=== PATIENT | female | born 1965 | race Two or more races ===

== ENCOUNTER 2020-03-18 08:32 | Outpatient (REF) | payer OTHER, SELFPAY ==
[2020-03-18 09:26] LABS: MANUAL DIFF FLAG NO
[2020-03-18 09:33] LABS: Basophils Percent Auto 0.4 % (0-2); Eosinophils Absolute Auto 0.1 X10*3/uL (0.0-0.4); Eosinophils Percent Auto 1.4 % (0-4); Hematocrit 41.4 % (37-47); Hemoglobin 13.5 g/dl (12.0-16.0); Imm Gran Abs Auto 0.01 X10*3/uL (0.00-0.03); Imm Gran Pct Auto 0.2 % (0.0-0.4); Lymphocytes Absolute Auto 2.7 X10*3/uL (1.2-4.9); Lymphocytes Percent Auto 47.9 % (20-40); Mean Corpuscular HGB Conc 32.6 g/dl (31.0-35.0); Mean Platelet Volume 9.5 fL (9.4-12.3); Monocytes Absolute Auto 0.3 X10*3/uL (0.1-1.2); Monocytes Percent Auto 5.8 % (2-11); Neutrophils Absolute Auto 2.5 X10*3/uL (2.0-8.3); Neutrophils Percent Auto 44.3 % (45-73); Platelet Count 255 X10*3/uL (160-400); Red Blood Count 4.65 X10*6/uL (4.20-5.50); Red Cell Distribution Width 12.3 % (11.0-16.0); White Blood Count 5.7 X10*3/uL (4.8-10.8)
[2020-03-18 10:02] LABS: Alanine Aminotransferase 91 U/L (0-31); Albumin Level 4.5 g/dL (3.5-5.0); Alkaline Phosphatase 115 U/L (39-117); Anion Gap 15 (12-20); Aspartate Amino Transferase 52 U/L (5-31); Bilirubin Total 0.6 mg/dL (0.0-1.0); Blood Urea Nitrogen 16 mg/dL (9-16); Calcium 9.9 mg/dL (8.4-10.2); Carbon Dioxide 25 mmol/L (22-29); Chloride 106 mmol/L (96-108); Cholesterol 280 mg/dL; Estimated Glomerular Filt Rate > 60; Glucose Fasting 96 mg/dL (60-99); HDL Cholesterol 44 mg/dL; LDL Cholesterol Calculated 197 mg/dl; Potassium 4.9 mmol/l (3.3-5.1); Sodium 141 mmol/L (135-145); Total Protein 7.4 g/dL (6.5-8.0); Triglycerides 195 mg/dL
[2020-03-18 10:22] LABS: TSH reflex Free T4 0.66 mIU/mL (0.32-4.0)
== END 2020-03-18 08:33 | disposition home or self-care (01) ==
LOC: HO.LAB 08:32
PROVIDERS: PCP Internal Medicine; Visit Provider Internal Medicine
DX: E78.00 Pure hypercholesterolemia, unspecified (principal); E66.3 Overweight
CPT/HCPCS: 36415; 80053; 80061; 84443; 85025

== ENCOUNTER → 2020-05-08 09:00 | Outpatient (BNVA) | payer OTHER, SELFPAY | PROVIDERS: PCP Internal Medicine; Visit Provider Physician Assistant ==

== ENCOUNTER 2020-05-30 08:25 | Outpatient (REF) | payer OTHER, SELFPAY ==
--- NOTE | ~2020-05-30 | US_ITS ---
EXAMINATION: US COMPLETE ABDOMEN WITH LIVER ELASTOGRAPHY CLINICAL INFORMATION: Elevated transaminase COMPARISON: None. TECHNIQUE: Real-time imaging of the abdominal viscera. Noninvasive ultrasound liver fibrosis assessment is performed using Cruz ElastPQ point quantification shear wave elastography (pSWE) with a C5-2 MHz transducer. Multiple elastography samples are obtained. FINDINGS: PANCREAS: Normal. The visualized pancreatic head and body are normal in appearance. The remainder of the pancreas is obscured from visualization by the overlying bowel gas. ABDOMINAL AORTA: The proximal aorta is obscured by overlying bowel gas. The middle and distal segments appear unremarkable. INFERIOR VENA CAVA: Obscured by overlying bowel gas. LIVER: There is diffusely increased echogenicity consistent with fatty infiltration. No focal mass or intrapelvic bile duct dilatation is appreciated. The right lobe measures 19.7 cm in length. The left lobe measures 14.3 cm in length. Portal flow is hepatopedal Shear wave liver elastography median stiffness is 1.47 m/s (reference: normal median stiffness is 1.3 m/s or less). IQR/median stiffness to assess sampling precision is 0.12 (reference: good quality data set is IQR/median stiffness of 0.15 or less). GALLBLADDER: Normal. The gallbladder is physiologically distended without evidence of stones, sludge, polyps, wall thickening or pericholecystic fluid. COMMON BILE DUCT: Normal in caliber measuring 0.7 cm in diameter. RIGHT KIDNEY: Normal. No hydronephrosis. No renal calculi or focal parenchymal lesions. The kidney measures 12.2 cm in maximum dimension. LEFT KIDNEY: Normal. No hydronephrosis. No renal calculi or focal parenchymal lesions. The kidney measures 11.8 cm in maximum dimension. SPLEEN: Enlarged. The spleen measures 13.9 cm in maximum dimension. FREE FLUID: None. US/US abdomen comp w elastography IMPRESSION: 1. Increased echogenicity of the liver consistent with fatty infiltration. 2. Liver elastography: In the absence of other known clinical signs, measurements rule out compensated advanced chronic liver disease. If there are known clinical signs, further testing may be needed for confirmation. REFERENCE: Society of Radiologists in Ultrasound Liver Stiffness Thresholds (2020): LIVER STIFFNESS THRESHOLDS: *Liver Stiffness equal or less than 1.3 m/s: High probability of being normal. *Liver Stiffness less than 1.7 m/s: In the absence of other known clinical signs, rules out compensated advanced chronic liver disease. *Liver Stiffness 1.7-2.1 m/s: Suggestive of compensated advanced chronic liver disease but need further test for confirmation. *Liver Stiffness over 2.1 m/s: Rules in compensated advanced chronic liver disease. *Liver Stiffness over 2.4 m/s: Suggestive of clinically significant portal hypertension. QUALITY OF DATA SET: *IQR/Median value equal or less than 0.15 implies a quality data set. *IQR/Median value over 0.15 implies a poor quality data set. SIGNIFICANT CHANGE FROM PRIOR EXAM: Significant change if liver stiffness measurement is 10% or greater from prior exam. OTHER CONSIDERATIONS: The stage of liver fibrosis may be overestimated in the setting of acute hepatitis, liver inflammation, elevated liver function tests, hepatic vascular congestion, obstructive cholestasis, non-fasting state, and infiltrative diseases such as amyloidosis and lymphoma. In some patients with NAFLD, the liver stiffness thresholds for compensated advanced chronic liver disease may be lower. In causes other than viral hepatitis and NAFLD, liver stiffness thresholds are not well established.
== END 2020-05-30 08:26 | disposition home or self-care (01) ==
LOC: HO.US 08:25
PROVIDERS: PCP Internal Medicine; Visit Provider Physician Assistant
DX: R74.01 Elevation of levels of liver transaminase levels (principal)
CPT/HCPCS: 76705; 76981

== ENCOUNTER 2020-05-30 09:16 | Outpatient (REF) | payer OTHER, SELFPAY ==
[2020-05-30 10:27] LABS: Alanine Aminotransferase 81 U/L (0-31); Albumin Level 4.5 g/dL (3.5-5.0); Alkaline Phosphatase 147 U/L (39-117); Anion Gap 14 (12-20); Aspartate Amino Transferase 43 U/L (5-31); Bilirubin Total 0.9 mg/dL (0.0-1.0); Blood Urea Nitrogen 16 mg/dL (9-16); Calcium 9.8 mg/dL (8.4-10.2); Carbon Dioxide 27 mmol/L (22-29); Chloride 105 mmol/L (96-108); Cholesterol 284 mg/dL; Estimated Glomerular Filt Rate > 60; Glucose Random 97 mg/dL (60-115); HDL Cholesterol 44 mg/dL; LDL Cholesterol Calculated 189 mg/dl; Potassium 4.5 mmol/L (3.3-5.1); Sodium 141 mmol/L (135-145); Total Protein 7.3 g/dL (6.5-8.0); Triglycerides 256 mg/dL
[2020-05-31 08:40] LABS: HBc Num1 0.06 S/CO (0.00-0.79); Hepatitis B Core Antibody Nonreactive (Nonreactive); ~HepC Num1 0.06 S/CO (0.00-0.79); ~Hepatitis A Antibody IgM Nonreactive (Nonreactive); ~Hepatitis B Surface Antibody NONREACTIVE (Nonreactive); ~Hepatitis C Antibody Nonreactive (Nonreactive)
[2020-05-31 09:50] LABS: HBsAGNum1 0.17 S/CO (0.00-0.99); Hepatitis B Surface Antigen Negative (Negative)
[2020-05-31 12:46] LABS: Mitochondrial Antibodies NEGATIVE (NEGATIVE)
[2020-05-31 13:11] LABS: Anti Nuclear Antibody Screen NEGATIVE (NEGATIVE)
[2020-06-02 10:12] LABS: Smooth Muscle Antibody <20 U (<20)
== END 2020-05-30 09:17 | disposition home or self-care (01) ==
LOC: HO.LAB 09:16
PROVIDERS: Absent Provider Nurse Practitioner Family; PCP Internal Medicine; Visit Provider Physician Assistant
DX: R74.01 Elevation of levels of liver transaminase levels (principal); R10.11 Right upper quadrant pain; R79.89 Other specified abnormal findings of blood chemistry; K76.0 Fatty (change of) liver, not elsewhere classified; R74.8 Abnormal levels of other serum enzymes
CPT/HCPCS: 36415; 80053; 80061; 86038; 86039; 86255; 86256; 86704; 86706; 86709; 86803; 87340

== ENCOUNTER 2020-08-01 08:03 | Outpatient (REF) | payer OTHER, SELFPAY ==
--- NOTE | ~2020-08-01 | MM_ITS ---
EXAMINATION: MM SCREENING DIGITAL BREAST TOMOSYNTHESIS, BILATERAL CLINICAL INFORMATION: Screening. Asymptomatic. The lifetime risk of breast cancer based on the Tyrer-Cuzick Model is 9%. COMPARISON: Mammography: 06/05/2018, 11/14/2016, 05/27/2016; ultrasound left breast 06/05/2018. TECHNIQUE: Digital breast tomosynthesis is performed in both the craniocaudal and mediolateral oblique views along with computer-aided detection (CAD). Synthesized 2D images are generated from the tomosynthesis. FINDINGS: There are scattered areas of fibroglandular density (ACR BI-RADS breast composition Category b). There are no significant masses, abnormal calcifications, or other abnormalities. Parenchymal pattern is similar to prior exams. There is a circumscribed cyst posterior 3:00 left breast better appreciated on MLO view, similar to prior exams. Skin contours are smooth. There are no significant changes. MM/MM tomosynthesis screening BI IMPRESSION: No significant changes from prior exams. ASSESSMENT: BI-RADS 2: Benign RECOMMENDATION: Routine annual mammography screening. This patient's information was entered into a reminder system with a target due date for their next mammogram.
== END 2020-08-01 08:04 | disposition home or self-care (01) ==
LOC: HO.MAMMO 08:03
PROVIDERS: PCP Internal Medicine; Visit Provider Internal Medicine
DX: Z12.31 Encounter for screening mammogram for malignant neoplasm of breast (principal)
CPT/HCPCS: 77063; 77067

== ENCOUNTER → 2020-08-07 09:55 | Outpatient (BNVA) | payer OTHER, SELFPAY | PROVIDERS: Visit Provider Physician Assistant ==

== ENCOUNTER 2021-03-21 09:37 | Outpatient (REF) | payer OTHER, SELFPAY ==
--- NOTE | ~2021-03-21 | XR_ITS ---
EXAMINATION: CHEST AND LEFT RIB X-RAYS CLINICAL INFORMATION: Chest pain COMPARISON: None TECHNIQUE: 2 views of the chest. 3 views of the left ribs. FINDINGS: Chest: The cardiac and mediastinal contours are normal. The lungs are clear. There is no pleural effusion or pneumothorax. There is mild curvature of the thoracic spine to the right and degenerative changes. Left RIBS: No fracture or bone lesion is seen. XR/XR ribs LT 2V IMPRESSION: No evidence for acute disease in the chest. Normal left ribs. Mild degenerative changes and curvature of the thoracic spine.
--- NOTE | ~2021-03-21 | XR_ITS ---
EXAMINATION: CHEST AND LEFT RIB X-RAYS CLINICAL INFORMATION: Chest pain COMPARISON: None TECHNIQUE: 2 views of the chest. 3 views of the left ribs. FINDINGS: Chest: The cardiac and mediastinal contours are normal. The lungs are clear. There is no pleural effusion or pneumothorax. There is mild curvature of the thoracic spine to the right and degenerative changes. Left RIBS: No fracture or bone lesion is seen. XR/XR chest 2V IMPRESSION: No evidence for acute disease in the chest. Normal left ribs. Mild degenerative changes and curvature of the thoracic spine.
== END 2021-03-21 09:38 | disposition home or self-care (01) ==
LOC: HO.XRAY 09:37
PROVIDERS: PCP Internal Medicine; Visit Provider Internal Medicine
DX: R07.89 Other chest pain (principal)
CPT/HCPCS: 71046; 71100

== ENCOUNTER 2021-05-08 09:55 | Outpatient (REF) | payer OTHER, SELFPAY ==
--- NOTE | ~2021-05-08 | US_ITS ---
EXAMINATION: US ABDOMEN COMPLETE CLINICAL INFORMATION: Microscopic hematuria. COMPARISON: Ultrasound abdomen 05/30/2020. TECHNIQUE: Real-time imaging of the abdominal viscera. FINDINGS: PANCREAS: The pancreas is obscured by overlying gas. ABDOMINAL AORTA: The proximal, mid, and distal segments are normal in caliber. INFERIOR VENA CAVA: Visualized portions are normal. LIVER: The liver is diffusely echogenic and enlarged. The liver contour is normal. No focal hepatic lesion. There is no intrahepatic biliary duct dilatation seen. The right hepatic lobe measures 17.2 cm in length and the left hepatic lobe measures 13.0 cm in length. GALLBLADDER: The gallbladder wall thickness is 0.2 cm. The gallbladder is physiologically distended without evidence of stones, sludge, polyps, wall thickening or pericholecystic fluid. COMMON BILE DUCT: Normal in caliber measuring 0.4 cm in diameter. RIGHT KIDNEY: Normal. No hydronephrosis. No renal calculi or focal parenchymal lesions. The kidney measures 12.2 cm in maximum dimension. LEFT KIDNEY: Normal. No hydronephrosis. No renal calculi or focal parenchymal lesions. The kidney measures 11.8 cm in maximum dimension. SPLEEN: The spleen is enlarged. The spleen measures 13.4 cm in maximum dimension. FREE FLUID: None. US/US abdomen complete IMPRESSION: Hepatomegaly with hepatic steatosis. No focal lesion seen. Mild splenomegaly. No major change from previous exam 05/30/2020. The rest of the abdominal ultrasound is unremarkable.
== END 2021-05-08 09:56 | disposition home or self-care (01) ==
LOC: HO.US 09:55
PROVIDERS: PCP Internal Medicine; Visit Provider Internal Medicine
DX: R79.89 Other specified abnormal findings of blood chemistry (principal)
CPT/HCPCS: 76700

== ENCOUNTER 2021-05-23 13:35 | Outpatient (REF) | payer OTHER, SELFPAY ==
[2021-05-23 14:29] LABS: Prothrombin Time 11.2 SEC (9.9-13.0)
[2021-05-23 15:12] LABS: Alanine Aminotransferase 61 U/L (0-31); Albumin Level 4.6 g/dL (3.5-5.0); Alkaline Phosphatase 172 U/L (39-117); Aspartate Amino Transferase 36 U/L (5-31); Bilirubin Direct 0.2 mg/dL (0.0-0.5); Bilirubin Total 0.6 mg/dL (0.0-1.0); Iron 87 mcg/dL (30-160); Percent Iron Saturation 18 % (15-50); Total Iron Binding Capacity 475 mcg/dL (228-428); Total Protein 7.7 g/dL (6.5-8.0); Unsaturated Iron Binding 388 ug/dL
[2021-05-23 17:06] LABS: Ferritin 71 ng/mL (10-250)
[2021-05-25 18:56] LABS: Alpha 1 Anti-trypsin 154 mg/dL (83-199)
== END 2021-05-23 13:36 | disposition home or self-care (01) ==
LOC: HO.LAB 13:35
PROVIDERS: PCP Internal Medicine; Visit Provider Internal Medicine
DX: K76.0 Fatty (change of) liver, not elsewhere classified (principal); R79.89 Other specified abnormal findings of blood chemistry
CPT/HCPCS: 36415; 80076; 82103; 82728; 83540; 85610

== ENCOUNTER 2022-10-03 15:18 | Outpatient (REF) | payer OTHER, SELFPAY ==
--- NOTE | ~2022-10-03 | XR_ITS ---
EXAMINATION: XR FOOT, LEFT CLINICAL INFORMATION: Pain in back of foot for about one year COMPARISON: None available. TECHNIQUE: AP, lateral, and oblique views of the left foot. FINDINGS: Mild degenerative changes with hypertrophic change first metatarsophalangeal joint. Mild hypertrophic change along the plantar region of the calcaneus. No displaced fracture. XR/XR foot LT min 3V IMPRESSION: 1. Mild hypertrophic change along the plantar region of the calcaneus. 2. Mild degenerative changes first metatarsophalangeal joint. 3. No displaced fracture. Recommend follow-up imaging in 10-14 days if fracture is suspected.
== END 2022-10-03 15:19 | disposition home or self-care (01) ==
LOC: HO.HHCX 15:18
PROVIDERS: Visit Provider Internal Medicine
DX: M79.672 Pain in left foot (principal)
CPT/HCPCS: 73630

== ENCOUNTER 2022-11-01 08:43 | Outpatient (REF) | payer OTHER, SELFPAY ==
[2022-11-01 12:05] LABS: Appearance Urine Turbid; Color Urine Yellow; Glucose Urine UA Negative (Negative); Leukocyte Esterase Urine Negative (Negative); Nitrite Urine Negative (Negative); Specific Gravity - Urine 1.025 (1.005-1.025); UMIC TRIGGER UA YES; Urine Blood Moderate (2+) (Negative); Urine Ketones Negative (Negative); Urine Protein Negative (Neg-Trace)
[2022-11-01 13:55] LABS: MANUAL DIFF FLAG NO
[2022-11-01 14:08] LABS: Basophils Percent Auto 0.3 % (0-2); Eosinophils Absolute Auto 0.1 X10*3/uL (0.0-0.4); Hematocrit 41.6 % (37.0-47.0); Hemoglobin 13.1 g/dl (12.0-16.0); Imm Gran Abs Auto 0.02 X10*3/uL (0.00-0.03); Imm Gran Pct Auto 0.3 % (0.0-0.4); Lymphocytes Absolute Auto 2.8 X10*3/uL (1.2-4.9); Lymphocytes Percent Auto 47.6 % (20-40); Mean Corpuscular HGB Conc 31.5 g/dl (31.0-35.0); Mean Corpuscular Hemoglobin 27.5 pg (27.0-33.0); Mean Corpuscular Volume 87.2 fL (80.0-98.0); Mean Platelet Volume 9.5 fL (9.4-12.3); Monocytes Absolute Auto 0.4 X10*3/uL (0.1-1.2); Neutrophils Absolute Auto 2.6 x10*3/uL (2.0-8.3); Neutrophils Percent Auto 44.8 % (45-73); Platelet Count 294 X10*3/uL (160-400); Red Blood Count 4.77 X10*6/uL (4.20-5.50); Red Cell Distribution Width 14.7 % (11.0-16.0); White Blood Count 5.9 X10*3/uL (4.8-10.8)
[2022-11-01 14:10] LABS: Bacteria Urine None Seen (None Seen); Hyaline Casts Urine 0-2 /LPF (0-2); Squamous Epithelial Cell Urine 0-2 /HPF (0-2); WBC Urine 0-5 /HPF (0-5)
[2022-11-01 14:18] LABS: Alanine Aminotransferase 16 U/L (0-31); Albumin Level 4.4 g/dL (3.5-5.0); Alkaline Phosphatase 141 U/L (39-117); Anion Gap 12 (12-20); Aspartate Amino Transferase 18 U/L (5-31); Bilirubin Direct 0.3 mg/dL (0.0-0.5); Bilirubin Total 0.9 mg/dL (0.0-1.0); Blood Urea Nitrogen 19 mg/dL (9-16); Carbon Dioxide 26 mmol/L (22-29); Chloride 106 mmol/L (96-108); Estimated Glomerular Filt Rate > 60; Glucose Random 80 mg/dL (60-115); Potassium 4.2 mmol/L (3.3-5.1); Sodium 140 mmol/L (135-145); Total Protein 7.4 g/dL (6.5-8.0)
[2022-11-01 14:30] LABS: Cholesterol 214 mg/dL; HDL Cholesterol 51 mg/dL; LDL Cholesterol Calculated 138 mg/dl; Triglycerides 125 mg/dL
[2022-11-01 15:10] LABS: Reflex LDLD? No
== END 2022-11-01 08:44 | disposition home or self-care (01) ==
LOC: HO.HHCL 08:43
PROVIDERS: Visit Provider Internal Medicine
DX: I10 Essential (primary) hypertension (principal); E78.2 Mixed hyperlipidemia
CPT/HCPCS: 36415; 80048; 80061; 80076; 81001; 85025

== ENCOUNTER 2022-12-03 12:02 | Outpatient (REF) | payer OTHER, SELFPAY ==
--- NOTE | ~2022-12-03 | XR_ITS ---
EXAMINATION: XR FOOT, LEFT CLINICAL INFORMATION: Pain for 3 years posteriorly inside the inner heel COMPARISON: 10/03/2022 TECHNIQUE: AP, lateral, and oblique views of the left foot. FINDINGS: Mild degenerative changes with hypertrophic change in the first metatarsophalangeal joint. Mild hypertrophic change along the plantar region of the calcaneus. No displaced fracture. XR/XR foot LT min 3V IMPRESSION: 1. Mild hypertrophic change along the plantar region of the calcaneus. 2. Mild degenerative changes first metatarsophalangeal joint. 3. No displaced fracture. Additional imaging with CT scan or MRI should be considered for better visualization as these modalities are much more sensitive for detection of fracture or other underlying pathology.
== END 2022-12-03 12:03 | disposition home or self-care (01) ==
LOC: HO.HHCX 12:02
PROVIDERS: Visit Provider Internal Medicine
DX: M79.672 Pain in left foot (principal)
CPT/HCPCS: 73630

== ENCOUNTER 2022-12-12 09:54 | Outpatient (REF) | payer OTHER, SELFPAY | END 2022-12-12 09:55 | disposition home or self-care (01) | LOC: HO.MAMMO 09:54 | PROVIDERS: PCP Internal Medicine; Visit Provider Internal Medicine | DX: Z12.31 Encounter for screening mammogram for malignant neoplasm of breast (principal) | CPT/HCPCS: 77063; 77067 ==

== ENCOUNTER → 2022-12-12 10:00 | Outpatient (BNV) | payer OTHER, SELFPAY | PROVIDERS: PCP Internal Medicine; Visit Provider Radiology Diagnostic Radiology | DX: Z12.31 Encounter for screening mammogram for malignant neoplasm of breast (principal) | CPT/HCPCS: 77063; 77067 ==

== ENCOUNTER 2022-12-24 09:56 | Outpatient (REF) | payer OTHER, SELFPAY ==
[2022-12-24 16:28] LABS: Urine Cytology See Pathology rpt
== END 2022-12-24 09:57 | disposition home or self-care (01) ==
LOC: HO.LNP 09:56
PROVIDERS: PCP Internal Medicine; Visit Provider Nurse Practitioner Family
DX: N39.3 Stress incontinence (female) (male) (principal); R31.29 Other microscopic hematuria; R39.15 Urgency of urination
CPT/HCPCS: 81003; 87086; 87147; 88112

== ENCOUNTER → 2022-12-24 09:56 | Outpatient (AMB) | payer OTHER, SELFPAY ==
--- NOTE | 2022-12-24 10:02 | MHC.OFFVIS ---
Intake Intake Visit Reasons: Micro hematuria Intake Note: New Patient presents for initial visit Micro Hematuria Urology Medications: none Blood Thinner: Aspirin Smoker- Never Bank Accountant Required: Yes Bank Accountant Name: Raimundo Accompanied by: Self / Same As Patient Allergies No Known Allergies [No Known Allergies*] Allergy (Verified 12/24/22 23:25) Medication List - Last Reconciled 12/24/22 by AMANDA Melgar-JOE aspirin (Adult Aspirin Regimen) 81 mg PO DAILY lisinopril-hydrochlorothiazide 10-12.5 mg 1 tab PO DAILY 90 days pravastatin 10 mg PO BEDTIME 90 days rosuvastatin 5 mg PO DAILY 90 days HPI HPI Comments History of Present Illness Details Mary is a very pleasant 57-year-old Bermudian-speaking female patient of Dr. Rock. She has a past medical history of hypertension, nonalcoholic fatty liver disease, hypercholesteremia, hypertension, and transaminitis. She presents to the office today as a new patient for microscopic hematuria. In discussion with the patient today she reports to be doing and feeling well. She reports having a longstanding history of microscopic hematuria and having a microscopic hematuria workup with in office cystoscopy over 6 years ago at a previous urology office. In office urinalysis results reviewed with the patient today. Again microscopic hematuria noted. Discussed at length potential causes for microscopic hematuria. Discussed further microscopic hematuria workup with imaging, cytology, and in office cystoscopy for further assessment evaluation. When asked patient does report noting new onset urinary stress incontinence over the last 3-6 months. She reports having had two previous vaginal deliveries. She reports babies to be average size and labors to have been somewhat fast. When asked she denies any previous smoking history or any known chemical exposure. She reports noting urinary urgency with small amounts of voids. She otherwise denies nocturia, hematuria, dysuria, foul smelling urine, changes to urinary stream, flank pain, fever, and or chills. 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 Review of Systems Const Reports as per HPI Eyes Reports no additional complaints ENT Reports no additional complaints Card Reports as per HPI Resp Reports no additional complaints GI Reports as per HPI Reports as per HPI Musc Reports no additional complaints Neuro Reports no additional complaints Psych Reports no additional complaints Endo Reports no additional complaints Physical Exam Const General: cooperative, healthy appearing, comfortable, no acute distress, well developed, alert and awake Orientation/consciousness: patient oriented x3 Limitations: no limitations HEENT Head: Yes normal to inspection, Yes normocephalic and Yes atraumatic Ears: hearing grossly normal bilaterally Eyes General: appearance normal, both eyes and all related structures Neck Neck: Yes normal visual inspection and Yes trachea midline Chest Chest palpation & inspection: normal inspection of the chest Resp Effort & Inspection: normal respiratory effort and able to speak in complete sentences Cardio Rate: regular rate GI Inspection: Yes normal to inspection General: Yes no CVA tenderness Back/Spine/Pelvis Back: no CVA tenderness Skin General skin exam: no rashes or lesions noted Neuro General: patient oriented x3 Extrem General: Yes normal to inspection Psych Appearance: grossly normal and well kempt Mental Status: mental status grossly normal Speech and movement: Normal speech and movement present and Clear speech present Affect: normal affect Attitude: cooperative Thought process: Normal thought process present Thought content: Normal thought content present Insight: Good insight present (Psych) Judgement: Good judgement present (Psych) Results AMB Urinalysis, Automated UA Leukoctes 70 Akil/uL Last Edit by Lisa Ladd on 12/24/22 10:24 UA Nitrite Last Edit by Lisa Ladd on 12/24/22 10:24 UA Urobilinogen 0.2 mg/dL Last Edit by Lisa Ladd on 12/24/22 10:24 UA Protein 0 mg/dL Last Edit by Lisa Ladd on 12/24/22 10:24 UA pH 6.0 Last Edit by Lisa Ladd on 12/24/22 10:24 UA Blood 80 Juan A/uL Last Edit by Lisa Ladd on 12/24/22 10:24 UA Specific [place] 1.020 Last Edit by Lisa Ladd on 12/24/22 10:24 UA Ketone Negative Last Edit by Lisa Ladd on 12/24/22 10:24 UA Bilirubin 0 mg/dL Last Edit by Lisa Ladd on 12/24/22 10:24 UA Glucose 0 mg/dL Last Edit by Lisa Niñohyun on 12/24/22 10:24 Results Reviewed Results Reviewed: Laboratory Last Values Urine pH (Auto) 6.0 12/24/22 10:07 Specific [place] (Auto) 1.020 12/24/22 10:07 Urine Protein (Auto) 0 mg/dL 12/24/22 10:07 Glucose (UA)(Auto) 0 mg/dL 12/24/22 10:07 Urine Ketones (Auto) Negative 12/24/22 10:07 Urine Blood (Auto) 80 Juan A/uL 12/24/22 10:07 Urine Bilirubin (Auto) 0 mg/dL 12/24/22 10:07 Urine Urobilinogen (Auto) 0.2 mg/dL 12/24/22 10:07 Leukocyte Esterase (Auto) 70 Akil/uL 12/24/22 10:07 Assessment & Plan Assessment & Plan (1) Stress incontinence: Code(s): N39.3 - Stress incontinence (female) (male) (2) Microscopic hematuria: Code(s): R31.29 - Other microscopic hematuria (3) Urinary urgency: Code(s): R39.15 - Urgency of urination Plan In office urinalysis results reviewed with the patient today; will send for urine cytology and urine culture. Patient with previous microscopic hematuria workup over 6-7 years ago and reports no abnormalities noted. Discussed at length potential causes for microscopic hematuria. Discussed further microscopic hematuria workup versus continuation of surveillance monitoring. Discussed risks and benefits of surveillance monitoring verses further microscopic hematuria workup. Will obtain retroperitoneal ultrasound for further assessment evaluation. Discussed bladder triggers/irritants. Pelvic floor therapy information provided; patient will attempt to perform pelvic floor exercises at home with information provided. Discussed treatment options for urinary incontinence Discussed near future in office cystoscopy if symptoms persist and/or worsen. Discussed, educated, encouraged on the importance of drinking plenty of water daily. Follow-up in 3 months with imaging to be completed prior; or sooner with any issues, concerns, and or questions. Orders: Orders US retroperitoneal comp 12/24/22 N39.3 - Stress incontinence (female) (male), R31.29 - Other microscopic hematuria AMB Urinalysis Automated 12/24/22 Z13.9 - Encounter for screening, unspecified Urine Cytology 12/24/22 Z13.9 - Encounter for screening, unspecified Urine Culture 12/24/22 R31.29 - Other microscopic hematuria Patient Instructions: The patient had an opportunity to ask questions regarding the treatment plan. All questions were answered. Physical exam, labs, and imaging were discussed and reviewed in detail. As well as risks, benefits, and discussion of treatment choices. No major barriers to understanding were identified. The patient expressed understanding and agreement with the above treatment plan. The patient was made aware they should contact our office by phone for worsening of their current condition, the appearance of new symptoms, or with any questions or concerns. Compliance is encouraged with any medications and follow up testing that is ordered. It is a privilege to be allowed the opportunity to participate in? your urological care.? Again, if you have any questions or concerns If you have any questions or concerns please do not hesitate to contact me. The office is [phone]. This note is constructed using voice recognition software. While every effort has been made to ensure accuracy temporary administrative assistant errors may have been included. Yours sincerely, SHASHANK Melgar Coding Level of Care Code New Pt Level 3 (20073) Diagnoses Stress incontinence N39.3 Microscopic hematuria R31.29 Urinary urgency R39.15
== END ==
PROVIDERS: PCP Internal Medicine; Visit Provider Nurse Practitioner Family
DX: N39.3 Stress incontinence (female) (male) (principal); R31.29 Other microscopic hematuria; R39.15 Urgency of urination
CPT/HCPCS: 99203

== ENCOUNTER 2023-01-30 07:54 | Outpatient (AMB) | payer OTHER, SELFPAY ==
--- NOTE | 2023-01-30 07:58 | MHC.OFFVIS ---
Intake Vital Signs 01/30/23 08:02 Height 5 ft 4 in Weight 163 lb BMI 28.0 BP 122/82 Intake Visit Reasons: Colpo Consult/PCP Ref Casting Associate Required: Yes Casting Associate Language: Education Officer Name: Jordyn FLORIAN Information Interpreted: non-clinical & clinical Senior Advisor: Senior Advisor Present (Jordyn FLORIAN) Accompanied by: Self / Same As Patient Allergies No Known Allergies [No Known Allergies*] Allergy (Verified 01/30/23 08:03) Post menopausal: Yes HPI HPI Comments History of Present Illness Details Presenting referred from [facility] regarding a Pap smear was negative with HPV E6/E7 positive with negative HPV 16 and negative HPV 18 and 45. History of ascus/HPV negative in 2014 followed by negative co testing in 2019. The patient gives a history of left vulvar lesion that has been growing in size causing irritation to the patient [facility] Medical History (Updated 01/30/23 @ 08:27 by Michael Wilkins MD) ASCUS of cervix with negative high risk HPV NAFLD (nonalcoholic fatty liver disease) Screening for breast cancer Abnormal mammogram COVID-19 Pure hypercholesterolemia Transaminitis Hypertension Surgical History History of carpal tunnel release History of tubal ligation Family History Father History of open heart surgery Hypertension CVD (cardiovascular disease) Mother Lung cancer Hypertension Maternal Grandmother Stomach cancer Sister Diabetes Social History Household Members: Spouse and Children Housing: House Alcohol intake: never Patient Tobacco Use Status: Never used Tobacco Current occupational status: employed 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 Sexual orientation: Straight/Heterosexual Gender identity: Female Review of Systems Const All systems reviewed & are unremarkable except as noted in HPI and below Physical Exam Vital Signs: Last Vital Signs BP 122/82 01/30/23 08:02 BMI result Body Mass Index 28.0 General: Yes no CVA tenderness External Female Exam: normal external appearance, normal appearance of the urethra and other (Left pedunculated 2 cm labia majora lesion growing) Speculum Exam - Vagina: normal appearance of the vagina, normal palpation, no lesions and no masses Speculum Exam - Cervix: normal appearance of the cervix, normal palpation, no lesions, no masses and nontender Bimanual exam- vagina & uterus: normal bimanual exam, normal palpation, uterine size normal, normal palpation, uterine shape normal, No Cervical tenderness present and non-tender Bimanual Exam- Adnexa, other: normal adnexae Back/Spine/Pelvis Back: no CVA tenderness Office Procedures Colposcopy Before the procedure was started discussed with the patient the procedure, alternatives & all the risks associated with the procedure (bleeding, infection, injury to vagina, bladder, vessels, possible need for transfusion with all its risks) then patient signed the consent UPT done in the office & negative Pap smear = negative/HPV E6/E7 positive, HPV 16/18/45 negative Speculum inserted, acetic acid used Colposcopy done Transformation zone seen, acetowhite lesions identified at 5+6+7+9+11+12+1+3 o?clock, cervical biopsies taken from 5+6+7+9+11+12+1+3 o?clock, ECC done afterwards. Vaginoscopy of the upper vagina showed no evidence of any aceto-white lesions Monsel solution used for hemostasis. The patient tolerated well . At the end the patient was instructed to call if temp>100.4, abdominal pain, n/v, bleeding; The patient was given the following instructions: nothing per vagina, no intercourse or bath tub use. All questions answered the patient verbalized understanding. Instructed the patient to make an appointment in 2 weeks for follow-up This note was generated with a voice recognition program. Some errors may have been overlooked during the review of this note. Sometimes these errors may affect the content or meaning of a given sentence. 18559-Emdcoocut of cervix including upper vagina with biopsy and ECC Procedure code (CPT) selection complete Assessment & Plan Assessment & Plan (1) HPV (human papilloma virus) infection: Comment: HPV E6/E7 positive, HPV 16 neg, HPV 18/45 neg Code(s): B97.7 - Papillomavirus as the cause of diseases classified elsewhere Plan: Discussed with the patient the results of her Pap smear negative with HPV E6/E7 positive, HPV 16 neg, HPV 18/45 neg, history of ascus/HPV negative in 2013 and negative co testing 2018 discussed with the patient options of management including repeat co testing an ear versus colposcopy biopsy given her history of ascus/HPV negative in 2013. All pros and cons, risks and benefits of each approach were discussed with the patient, the patient decided to proceed with colposcopy. Colposcopy/biopsy/ECC done, see procedure note. (2) Vulvar lesion: Comment: Growing in size Code(s): N90.89 - Other specified noninflammatory disorders of vulva and perineum Plan: Discussed with the patient the finding on pelvic exam showing a left labia majora pedunculated a lesion. The patient gives history of recent growth inside and irritation, recommended excision. Instructions given to patient to schedule a an appointment for left vulvar lesion excision. All questions answered, the patient verbalized understand Orders: Orders AMB Colposcopy Today B97.7 - Papillomavirus as the cause of diseases classified elsewhere Coding Level of Care Code New Pt Level 3 (96165) Procedure Only Diagnoses HPV (human papilloma virus) infection B97.7 Vulvar lesion N90.89 CPT Codes Colposcopy - CPT: 94923-Mgtvxvlus of cervix including upper vagina with biopsy and ECC ([id number])
[2023-01-30 08:02] VITALS: BP 122/82; BMI 28.0
== END 2023-01-30 09:17 | disposition home or self-care (01) ==
PROVIDERS: PCP Internal Medicine; Visit Provider Obstetrics & Gynecology
DX: N90.89 Other specified noninflammatory disorders of vulva and perineum (principal); R87.810 Cervical high risk human papillomavirus (HPV) DNA test positive
CPT/HCPCS: 57454; 99203

== ENCOUNTER 2023-01-30 07:54 | Outpatient (REF) | payer OTHER, SELFPAY | END 2023-01-30 07:55 | disposition home or self-care (01) | LOC: HO.LNP 07:54 | PROVIDERS: PCP Internal Medicine; Visit Provider Obstetrics & Gynecology | DX: N90.89 Other specified noninflammatory disorders of vulva and perineum (principal); B97.7 Papillomavirus as the cause of diseases classified elsewhere | CPT/HCPCS: 57454; 88305; 88342; 88360 ==

== ENCOUNTER 2023-03-17 10:01 | Outpatient (REF) | payer OTHER, SELFPAY ==
--- NOTE | ~2023-03-17 | US_ITS ---
EXAMINATION: US RETROPERITONEAL COMPLETE (RENAL) CLINICAL INFORMATION: Other microscopic hematuria. COMPARISON: Ultrasound abdomen complete 05/08/2021. Ultrasound abdomen complete with liver elastography 05/30/2020. TECHNIQUE: Real-time imaging of the kidneys and bladder. FINDINGS: RIGHT KIDNEY: 11.4 x 4.0 x 4.9 cm (SAG x AP x TRV). The kidney is normal in size, contour, and echogenicity. Renal cortical thickness is normal. No renal calculi or hydronephrosis. At the lower pole laterally, a 5 mm benign, simple cyst is seen, which requires no imaging follow-up. LEFT KIDNEY: 11.5 x 5.2 x 4.4 cm (SAG x AP x TRV). The kidney is normal in size, contour, and echogenicity. Renal cortical thickness is normal. No calculi or focal parenchymal lesions. No hydronephrosis. BLADDER: Well distended and normal. Bilateral ureteral jets are demonstrated. Prevoid bladder volume is 159 mL. There is no postvoid residual. US/US retroperitoneal comp IMPRESSION: Unremarkable examination.
== END 2023-03-17 10:02 | disposition home or self-care (01) ==
LOC: HO.US 10:01
PROVIDERS: PCP Internal Medicine; Visit Provider Nurse Practitioner Family
DX: R31.29 Other microscopic hematuria (principal); N39.3 Stress incontinence (female) (male)
CPT/HCPCS: 76770

== ENCOUNTER 2023-03-19 10:20 | Outpatient (AMB) | payer OTHER, SELFPAY ==
--- NOTE | 2023-03-19 10:23 | A.OFFVIS_ITS ---
Intake Vital Signs 03/19/23 10:31 Height 5 ft 4 in Weight 160 lb 14.999 oz BMI 27.6 BP 120/70 Intake Visit Reasons: colpo results and vulva BX Primary Mill Roller Required: Yes Primary Mill Roller Language: Green Chain Marker Name: Jordyn FLORIAN Information Interpreted: non-clinical & clinical Supplier Quality Specialist: Supplier Quality Specialist Present (Jordyn FLORIAN) Accompanied by: Self / Same As Patient Allergies No Known Allergies [No Known Allergies*] Allergy (Verified 03/19/23 10:32) Post menopausal: Yes HPI HPI Comments History of Present Illness Details Presenting post colpo for follow-up and for excision of vulvar lesion. The patient is doing well with no complaints. The pathology showed the following: A. Endocervix, curettage: Mucoinflammatory material only; no viable epithelium identified. B. Cervix, 1 o'clock, biopsy: Low-grade squamous intraepithelial lesion (JOSSE 1); background squamous atrophy; no endocervical epithelium identified. C. Cervix, 3 o'clock, biopsy: Rare small strip of endocervical epithelium within normal limits; mucoid material; no squamous epithelium identified. D. Cervix, 5 o'clock, biopsy: Low-grade squamous intraepithelial lesion (JOSSE 1); no endocervical epithelium identified. E. Cervix, 6 o'clock, biopsy: Low-grade squamous intraepithelial lesion (JOSSE 1); background squamous atrophy; no endocervical epithelium identified. F. Cervix, 7 o'clock, biopsy: Low-grade squamous intraepithelial lesion (JOSSE 1); background squamous atrophy; no endocervical epithelium identified. G. Cervix, 9 o'clock, biopsy: Low-grade squamous intraepithelial lesion (JOSSE 1); background squamous atrophy; no endocervical epithelium identified. H. Cervix, 11 o'clock, biopsy: Low-grade squamous intraepithelial lesion (JOSSE 1); no endocervical epithelium identified. I. Cervix, 12 o'clock, biopsy: Low-grade squamous intraepithelial lesion (JOSSE 1); background squamous atrophy; no endocervical epithelium identified [facility] Medical History (Updated 03/19/23 @ 10:30 by Michael Wilkins MD) ASCUS of cervix with negative high risk HPV NAFLD (nonalcoholic fatty liver disease) Screening for breast cancer Abnormal mammogram COVID-19 Pure hypercholesterolemia Transaminitis Hypertension Surgical History History of carpal tunnel release History of tubal ligation Family History Father History of open heart surgery Hypertension CVD (cardiovascular disease) Mother Lung cancer Hypertension Maternal Grandmother Stomach cancer Sister Diabetes Social History Household Members: Spouse and Children Housing: House Alcohol intake: never Patient Tobacco Use Status: Never used Tobacco Current occupational status: employed Current occupation: [employer] Sexual orientation: Straight/Heterosexual Gender identity: Female Review of Systems Const All systems reviewed & are unremarkable except as noted in HPI and below Reports as per HPI and Reports no additional complaints GI Reports no additional complaints Reports no additional complaints Office Procedures MARKETING OPERATIONS MANAGER Biopsy Before the procedure was started d/w patient the procedure, alternatives ( do nothing, medical rx), & all the risks associated with the procedure ( bleeding , infection, vulvar scarring, painful intercourse, injury to vessels, possible need for transfusion with all its risks) then patient signed the consent. Preop dx: Left vulvar lesion Op: Left vulvar lesion excision Post op: Same Anesthesia: Lidocaine 1% 3cc used Procedure: Using betadine the area was scrubbed and draped in the usual manner. 3 cc of lidocaine was used for anesthesia at the left vulvar lesion area ; using scissors and pickup the left vulvar lesion was excised, 4.0 Vicryl was used to approximate the edges. Pressure was used for hemostasis. The patient tolerated the procedure well. Discharge Instructions: The patient was instructed to schedule an appointment in 2 weeks for follow-up and to call if temp>100.4, area of the biopsy redness or pain, nausea/vomiting. This note was generated with a voice recognition program. Some errors may have been overlooked during the review of this note. Sometimes these errors may affect the content or meaning of a given sentence. 98814-Ooevxc of Vulva/Perineum Procedure code (CPT) selection complete Assessment & Plan Assessment & Plan (1) Vulvar lesion: Comment: Growing in size Code(s): N90.89 - Other specified noninflammatory disorders of vulva and perineum Plan: Vulvar excision done, see procedure note (2) Dysplasia of cervix, low grade (JOSSE 1): Code(s): N87.0 - Mild cervical dysplasia Plan: Discussed with the patient the pathology results of the colposcopy biopsies & endocervical curettage ( mild dysplasia-JOSSE 1). Discussed with the patient the sensitivity specificity, positive and negative predictive value in detecting cervical cancer in addition discussed the regression, persistence and progression rates. Recommended co-testing in 12 months, if cytology and or HPV are abnormal will proceed was colposcopy biopsy and endocervical curettage. Instructions given to the patient to schedule a co test appointment in 1 year. All questions answered the patient verbalized understanding. Orders: Orders AMB MARKETING OPERATIONS MANAGER Biopsy Today N90.89 - Other specified noninflammatory disorders of vulva and perineum Coding Level of Care Code Procedure Only Diagnoses Vulvar lesion N90.89 Dysplasia of cervix, low grade (JOSSE 1) N87.0 CPT Codes MARKETING OPERATIONS MANAGER Biopsy - CPT: 08219-Lqjutm of Vulva/Perineum ([id number])
[2023-03-19 10:31] VITALS: BP 120/70; BMI 27.6
== END 2023-03-19 11:11 | disposition home or self-care (01) ==
LOC: HO.HWS 10:20
PROVIDERS: PCP Internal Medicine; Visit Provider Obstetrics & Gynecology
DX: N90.89 Other specified noninflammatory disorders of vulva and perineum (principal); N87.0 Mild cervical dysplasia
CPT/HCPCS: 56605

== ENCOUNTER 2023-03-19 10:20 | Outpatient (REF) | payer OTHER, SELFPAY | END 2023-03-19 10:21 | disposition home or self-care (01) | LOC: HO.LNP 10:20 | PROVIDERS: PCP Internal Medicine; Visit Provider Obstetrics & Gynecology | DX: N87.0 Mild cervical dysplasia (principal); N90.89 Other specified noninflammatory disorders of vulva and perineum | CPT/HCPCS: 56605; 88305; 88312 ==

== ENCOUNTER 2023-03-25 09:47 | Outpatient (REF) | payer OTHER, SELFPAY ==
[2023-03-25 17:07] LABS: Urine Cytology See Pathology rpt
== END 2023-03-25 09:48 | disposition home or self-care (01) ==
LOC: HO.LNP 09:47
PROVIDERS: PCP Internal Medicine; Visit Provider Nurse Practitioner Family
DX: R31.29 Other microscopic hematuria (principal); N39.3 Stress incontinence (female) (male); R39.15 Urgency of urination
CPT/HCPCS: 51798; 81003; 88112

== ENCOUNTER 2023-03-25 09:47 | Outpatient (AMB) | payer OTHER, SELFPAY ==
--- NOTE | 2023-03-25 09:57 | A.OFFVIS_ITS ---
Intake Intake Visit Reasons: 3m/US(set) Intake Note: Patient presents for follow up visit Micro Hematuria/stress incontinence Urology Medications: none Blood Thinner: Aspirin Smoker: Never PVR: 89ml's Heel Slugger Required: Yes Heel Slugger Name: AYAH GHOTRAWiliMINNIE Accompanied by: Self / Same As Patient Allergies No Known Allergies [No Known Allergies*] Allergy (Verified 03/25/23 10:19) Medication List - Last Reconciled 03/25/23 by AMANDA Melgar- aspirin (Adult Aspirin Regimen) 81 mg PO DAILY atorvastatin 20 mg PO DAILY calcium carbonate-vitamin D3 500 mg-10 mcg (400 unit) (Calcium 500 With D) 1 tab PO QAM lisinopril-hydrochlorothiazide 10-12.5 mg 1 tab PO DAILY 90 days meloxicam 15 mg PO QAM HPI HPI Comments History of Present Illness Details Mary is a very pleasant 57-year-old Ukrainian-speaking female patient of Dr. Rock. She has a past medical history of hypertension, nonalcoholic fatty liver disease, hypercholesteremia, hypertension, and transaminitis. She presents to the office today as a new patient for microscopic hematuria. In discussion with the patient today she reports to be doing and feeling well. She reports having a longstanding history of microscopic hematuria and having had multiple microscopic hematuria workups with in office cystoscopy over 6 years ago at a previous urology office and being told everything was normal. Recent retroperitoneal ultrasound results reviewed with the patient today. Right kidney with no calculi or hydronephrosis. At the lower pole laterally a 5 mm benign simple cyst is seen which requires no imaging follow-up per radiology report. Left kidney with no calculi, lesions, and or hy dronephrosis. The bladder is well distended and normal. Bilateral ureteral jets are demonstrated. Pre void bladder volume is approximately 160 mL. Postvoid bladder volume is 0. Cytology results reviewed with the patient today. 01/04--Negative for high-grade urothelial carcinoma. She denies smoking history and or any known chemical exposures. When asked she does report stress incontinence. She reports urinary leakage with coughing, sneezing, and or exercising. Discussed at length pelvic floor therapy. Discussed further treatment options however patient does not find this bothersome for her at this time. She otherwise denies nocturia, dysuria, foul smelling urine, changes to urinary stream, flank pain, fever, and or chills. In office urinalysis results reviewed with the patient today 3+ microscopic hematuria 2+ leukocytes. Patient denies any UTI like symptoms. Discussed at length potential causes of microscopic hematuria. She otherwise offers no other issues or concerns at this time. PVR 89ml's. [facility] Medical History ASCUS of cervix with negative high risk HPV NAFLD (nonalcoholic fatty liver disease) Screening for breast cancer Abnormal mammogram COVID-19 Pure hypercholesterolemia Transaminitis Hypertension Surgical History History of carpal tunnel release History of tubal ligation Family History Father History of open heart surgery Hypertension CVD (cardiovascular disease) Mother Lung cancer Hypertension Maternal Grandmother Stomach cancer Sister Diabetes Social History Household Members: Spouse and Children Housing: House Alcohol intake: never Patient Tobacco Use Status: Never used Tobacco Current occupational status: employed 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 Sexual orientation: Straight/Heterosexual Gender identity: Female Review of Systems Const Reports as per HPI Eyes Reports no additional complaints ENT Reports no additional complaints Card Reports as per HPI Resp Reports no additional complaints GI Reports as per HPI Reports as per HPI Musc Reports no additional complaints Neuro Reports no additional complaints Psych Reports no additional complaints Endo Reports no additional complaints Physical Exam Const General: cooperative, healthy appearing, comfortable, no acute distress, well developed, alert and awake Orientation/consciousness: patient oriented x3 Limitations: no limitations HEENT Head: Yes normal to inspection, Yes normocephalic and Yes atraumatic Ears: hearing grossly normal bilaterally Eyes General: appearance normal, both eyes and all related structures Neck Neck: Yes normal visual inspection and Yes trachea midline Chest Chest palpation & inspection: normal inspection of the chest Resp Effort & Inspection: normal respiratory effort and able to speak in complete sentences Cardio Rate: regular rate GI Inspection: Yes normal to inspection General: Yes no CVA tenderness Back/Spine/Pelvis Back: no CVA tenderness Skin General skin exam: no rashes or lesions noted Neuro General: patient oriented x3 Extrem General: Yes normal to inspection Psych Appearance: grossly normal and well kempt Mental Status: mental status grossly normal Speech and movement: Normal speech and movement present and Clear speech present Affect: normal affect Attitude: cooperative Thought process: Normal thought process present Thought content: Normal thought content present Insight: Good insight present (Psych) Judgement: Good judgement present (Psych) Office Procedures Post Void Residual Post Residual Void Post Void Residual (PVR): 89 [id number] Void Residual by ultrasound Results AMB Urinalysis, Automated 2 UA Leukoctes 125 Akil/uL Last Edit by [employer] on 03/25/23 10:06 UA Nitrite Negative Last Edit by [employer] on 03/25/23 10:06 UA Urobilinogen 0.2 mg/dL Last Edit by [employer] on 03/25/23 10:06 UA Protein 15 mg/dL Last Edit by [employer] on 03/25/23 10:06 UA pH 6.5 Last Edit by [employer] on 03/25/23 10:06 UA Blood 200 Juan A/uL Last Edit by [employer] on 03/25/23 10:06 UA Specific [place] 1.015 Last Edit by [employer] on 03/25/23 10:06 UA Ketone Negative Last Edit by [employer] on 03/25/23 10:06 UA Bilirubin 0 mg/dL Last Edit by [employer] on 03/25/23 10:06 UA Glucose 0 mg/dL Last Edit by [employer] on 03/25/23 10:06 Results Reviewed Results Reviewed: Laboratory Last Values Urine pH (Auto) 6.5 03/25/23 09:59 Specific [place] (Auto) 1.015 03/25/23 09:59 Urine Protein (Auto) 15 mg/dL 03/25/23 09:59 Glucose (UA)(Auto) 0 mg/dL 03/25/23 09:59 Urine Ketones (Auto) Negative 03/25/23 09:59 Urine Blood (Auto) 200 Juan A/uL 03/25/23 09:59 Urine Nitrite (Auto) Negative 03/25/23 09:59 Urine Bilirubin (Auto) 0 mg/dL 03/25/23 09:59 Urine Urobilinogen (Auto) 0.2 mg/dL 03/25/23 09:59 Leukocyte Esterase (Auto) 125 Akil/uL 03/25/23 09:59 Date of Service: 03/17/23 EXAMINATION: US RETROPERITONEAL COMPLETE (RENAL) FINDINGS: RIGHT KIDNEY: 11.4 x 4.0 x 4.9 cm (SAG x AP x TRV). The kidney is normal in size, contour, and echogenicity. Renal cortical thickness is normal. No renal calculi or hydronephrosis. At the lower pole laterally, a 5 mm benign, simple cyst is seen, which requires no imaging follow-up. LEFT KIDNEY: 11.5 x 5.2 x 4.4 cm (SAG x AP x TRV). The kidney is normal in size, contour, and echogenicity. Renal cortical thickness is normal. No calculi or focal parenchymal lesions. No hydronephrosis. BLADDER: Well distended and normal. Bilateral ureteral jets are demonstrated. Prevoid bladder volume is 159 mL. There is no postvoid residual. IMPRESSION: Unremarkable examination. Assessment & Plan Assessment & Plan (1) Microscopic hematuria: Code(s): R31.29 - Other microscopic hematuria (2) Stress incontinence: Code(s): N39.3 - Stress incontinence (female) (male) (3) Urinary urgency: Code(s): R39.15 - Urgency of urination Plan In office urinalysis results reviewed with the patient today; as noted above; will send for urine cytology. Patient with longstanding history of microscopic hematuria for over 30+ years has had previous microscopic hematuria workup in the past which was negative does not wish to continue undergoing further workup at this time. Discussed pelvic floor therapy for stress incontinence; this was discussed at length Patient otherwise denies any bothersome urinary issues or concerns at this time. Discussed at length potential causes of microscopic hematuria Will continue with surveillance monitoring Discussed, educated, encouraged on the importance of drinking plenty of water daily. Retroperitoneal ultrasound in 1 year Follow-up in 1 year with imaging to be completed prior; or sooner with any issues, concerns, and or questions. Orders: Orders US retroperitoneal comp 364 Days N39.3 - Stress incontinence (female) (male), R31.29 - Other microscopic hematuria, R39.15 - Urgency of urination Urine Cytology Today R31.29 - Other microscopic hematuria AMB Urinalysis Automated Today Z13.9 - Encounter for screening, unspecified AMB Post Void Residual by ultrasound Today N39.3 - Stress incontinence (female) (male) Patient Instructions: The patient had an opportunity to ask questions regarding the treatment plan. All questions were answered. Physical exam, labs, and imaging were discussed and reviewed in detail. As well as risks, benefits, and discussion of treatment choices. No major barriers to understanding were identified. The patient expressed understanding and agreement with the above treatment plan. The patient was made aware they should contact our office by phone for worsening of their current condition, the appearance of new symptoms, or with any questions or concerns. Compliance is encouraged with any medications and follow up testing that is ordered. It is a privilege to be allowed the opportunity to participate in? your urological care.? Again, if you have any questions or concerns If you have any questions or concerns please do not hesitate to contact me. The office is [phone]. This note is constructed using voice recognition software. While every effort has been made to ensure accuracy rigger chief errors may have been included. Yours sincerely, SHASHANK Melgar Coding Level of Care Code Est Pt Level 3 (83041) Diagnoses Microscopic hematuria R31.29 Stress incontinence N39.3 Urinary urgency R39.15 CPT Codes Post Residual Void - PVR CPT Code: 34875-Vqud Void Residual by ultrasound ([id number])
== END 2023-03-25 10:18 | disposition home or self-care (01) ==
PROVIDERS: PCP Internal Medicine; Visit Provider Nurse Practitioner Family
DX: R31.29 Other microscopic hematuria (principal); N39.3 Stress incontinence (female) (male); R39.15 Urgency of urination; Z13.9 Encounter for screening, unspecified
CPT/HCPCS: 99213

== ENCOUNTER 2023-05-05 14:13 | Outpatient (AMB) | payer BC, SELFPAY ==
--- NOTE | 2023-05-05 14:32 | A.OFFVIS_ITS ---
Intake Vital Signs 05/05/23 14:34 Height 5 ft 4 in Weight 160 lb 14.999 oz BMI 27.6 BP 110/70 Intake Visit Reasons: EMB Results Quality Control Tech Required: Yes Quality Control Tech Language: [employer]ment [employer] Officer Name: Jordyn FLORIAN Information Interpreted: non-clinical & clinical Accompanied by: Self / Same As Patient Allergies No Known Allergies [No Known Allergies*] Allergy (Verified 05/05/23 14:35) Post menopausal: Yes HPI HPI Comments History of Present Illness Details Presenting for follow-up post left vulvar lesion excision. Doing well with no complaints. The pathology showed the following: Vulva, left lesion, excision: Fibroepithelial polyp; no atypia or fungi salbador ntified [facility] Medical History ASCUS of cervix with negative high risk HPV NAFLD (nonalcoholic fatty liver disease) Screening for breast cancer Abnormal mammogram COVID-19 Pure hypercholesterolemia Transaminitis Hypertension Surgical History History of carpal tunnel release History of tubal ligation Family History Father History of open heart surgery Hypertension CVD (cardiovascular disease) Mother Lung cancer Hypertension Maternal Grandmother Stomach cancer Sister Diabetes Social History Household Members: Spouse and Children Housing: House Alcohol intake: never Patient Tobacco Use Status: Never used Tobacco Current occupational status: employed 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 Sexual orientation: Straight/Heterosexual Gender identity: Female Review of Systems Const All systems reviewed & are unremarkable except as noted in HPI and below Reports as per HPI and Reports no additional complaints GI Reports no additional complaints Reports no additional complaints Physical Exam Vital Signs: Last Vital Signs BP 110/70 05/05/23 14:34 BMI result Body Mass Index 27.6 Assessment & Plan Assessment & Plan (1) Vulvar lesion: Code(s): N90.89 - Other specified noninflammatory disorders of vulva and perineum Plan: Discussed with the patient the results the pathology, the patient was reassured. All questions answered, the patient verbalized understanding. Coding Level of Care Code Est Pt Level 3 (97261) Diagnoses Vulvar lesion N90.89
[2023-05-05 14:34] VITALS: BP 110/70; BMI 27.6
== END 2023-05-05 14:53 | disposition home or self-care (01) ==
LOC: HO.HWS 14:13
PROVIDERS: PCP Internal Medicine; Visit Provider Obstetrics & Gynecology
DX: N90.89 Other specified noninflammatory disorders of vulva and perineum (principal)
CPT/HCPCS: 99213

== ENCOUNTER → 2023-05-05 14:13 | Outpatient (BNVA) | payer BC, SELFPAY | PROVIDERS: PCP Internal Medicine; Visit Provider Obstetrics & Gynecology ==

== ENCOUNTER 2023-08-08 10:24 | Outpatient (REF) | payer BC, SELFPAY ==
[2023-08-08 12:11] LABS: Alanine Aminotransferase 29 U/L (0-31); Albumin Level 4.4 g/dL (3.5-5.0); Alkaline Phosphatase 132 U/L (39-117); Anion Gap 13 (12-20); Aspartate Amino Transferase 22 U/L (5-31); Bilirubin Total 0.9 mg/dL (0.0-1.0); Blood Urea Nitrogen 16 mg/dL (9-16); Calcium 9.6 mg/dL (8.4-10.2); Carbon Dioxide 27 mmol/L (22-29); Chloride 108 mmol/L (96-108); Cholesterol 177 mg/dL (<200); Estimated Glomerular Filt Rate > 60; Glucose Random 86 mg/dL (60-115); HDL Cholesterol 43 mg/dL (>40); LDL Cholesterol Calculated 110 mg/dL (<100); Sodium 144 mmol/L (135-145); Total Protein 7.4 g/dL (6.5-8.0); Triglycerides 120 mg/dL (<150)
== END 2023-08-08 10:25 | disposition home or self-care (01) ==
LOC: HO.HHCL 10:24
PROVIDERS: Visit Provider Internal Medicine
DX: E78.2 Mixed hyperlipidemia (principal)
CPT/HCPCS: 36415; 80053; 80061

== ENCOUNTER 2023-11-03 11:55 | Emergency (ER) | payer BC, SELFPAY ==
--- NOTE | ~2023-11-03 | US_ITS ---
EXAMINATION: US PELVIS CLINICAL INFORMATION: Abnormal uterine bleeding COMPARISON: None available. TECHNIQUE: Ultrasound of the pelvis is performed using both transabdominal and transvaginal transducers along with Doppler. Transvaginal imaging is performed due to inadequate visualization transabdominally. FINDINGS: Uterus: The uterus is anteverted is enlarged and measures 11.6 x 5.6 x 6.8 CM for a volume of 219 mL. At least 3 uterine fibroids are seen near the fundus measuring 1.9 x 2.1 x 1.9 cm, 3.1 x 3.7 x 3.5 cm and 1.4 x 1.4 x 1.9 cm. The double wall endometrial thickness is 19 mm. Complex fluid is seen in the endometrium consistent with blood products. The endometrium is heterogeneous with cystic areas and vascular components.. Adnexa: Both ovaries are visualized. There is normal color flow to the adnexa. There is no ovarian torsion. There is no pelvic ascites or fluid collection. Right ovary measures 2.0 x 2.3 x 1.9 cm. Left ovary measures 2.5 x 1.8 x 2.4 cm. US/US pelvic and transvaginal IMPRESSION: 1. Enlarged fibroid uterus. 2. Thickened heterogeneous endometrium with cystic areas and vascular components. Further evaluation with endometrial biopsy should be considered.
[2023-11-03 12:17] VITALS: BP 136/75; PULSE 68; RESP 18; TEMP 36.4; O2SAT 95; BMI 30.3
--- NOTE | 2023-11-03 12:24 | ED_ITS ---
HPI - General Adult General Chief complaint: Urogenital-Female Stated complaint: menopause Time Seen by Provider: 11/03/23 14:19 Source: patient Mode of arrival: ambulatory Limitations: no limitations History of Present Illness ED Provider: Dr. Sarah Busby HPI narrative: Patient comes to the emergency room complaining of heavy vaginal bleeding for 2 days. Patient states that she had her last menstrual period 7 months ago. Today, patient came in because of the large amount of vaginal bleeding. Patient denies any abdominal pain or cramping. Denies dizziness or shortness of breath. Patient states that the only thing that is new, 2 weeks ago she started taking supplements of black cohosh and magnesium. Patient states that she is bleeding heavily, now wearing depends to prevent blood leakage is. Patient states that prior to using depends, she was soaking a pad of blood per hour. Related Data Home Medications ?Medication ?Instructions ?Recorded ?Confirmed aspirin 81 mg tablet,delayed 81 mg PO DAILY 08/07/20 08/09/20 release (Adult Aspirin Regimen) calcium carbonate 500 mg-vitamin 1 tab PO QAM 01/30/23 D3 10 mcg (400 unit) tablet (Calcium 500 With D) meloxicam 15 mg tablet 15 mg PO QAM 01/30/23 atorvastatin 20 mg tablet 20 mg PO DAILY 03/25/23 Previous Rx's ?Medication ?Instructions ?Recorded lisinopril 10 1 tab PO DAILY 90 days #90 tabs 05/12/21 mg-hydrochlorothiazide 12.5 mg tablet Allergies Allergy/AdvReac Type Severity Reaction Status Date / Time No Known Allergies Allergy Verified 11/03/23 12:28 [No Known Allergies*] Review of Systems 2 Review of Systems: Constitutional : No Weight loss, No Fever, No Chills, No Night Sweats, No Fatigue, No Malaise ENT/Mouth : No Hearing loss, No Ear Pain, No Nasal Congestion, No Sinus Pain, No Hoarseness, No sore throat, No Rhinorrhea, No Swallowing Difficulty Eyes: No Eye Pain, No Swelling, No Redness, No Foreign Body, No Discharge, No Vision Changes Cardiovascular : No Chest Pain, No SOB, No Dyspnea on Exertion, No Orthopnea, No Edema, No Palpitations Respiratory : No Cough, No Sputum, No Wheezing, No Smoke Exposure, No Dyspnea Gastrointestinal : No Nausea, No Vomiting, No Diarrhea, No Constipation, No abdominal Pain, No Hematochezia, No Melena Genitourinary : Complaining of heavy irregular bleeding, No Dysuria, No Urinary Frequency, No Hematuria, No Urinary Incontinence, No Urgency, No Flank Pain, No Urinary Flow Changes, No Hesitancy Musculoskeletal : No joint pain, No Myalgias, No Joint Swelling Skin : No Skin Lesions, No rash Neuro : No Weakness, No Numbness, No Paresthesias, No Loss of Consciousness, No Dizziness, No Headache Psych : No Anxiety/Panic, No Depression, No SI/HI/AH/VH, No Social Issues, Heme/Lymph: No Bruising, No Bleeding,No Lymphadenopathy Endocrine : No Polyuria, No Polydipsia, No Temperature Intolerance [facility] Past Medical History Medical History ASCUS of cervix with negative high risk HPV NAFLD (nonalcoholic fatty liver disease) Screening for breast cancer Abnormal mammogram COVID-19 Pure hypercholesterolemia Transaminitis Hypertension Surgical History History of carpal tunnel release History of tubal ligation Family History Family History Father History of open heart surgery Hypertension CVD (cardiovascular disease) Mother Lung cancer Hypertension Maternal Grandmother Stomach cancer Sister Diabetes Social History Social History Household Members: Spouse and Children Housing: House Alcohol intake: never Patient Tobacco Use Status: Never used Tobacco Advance Directives: No Advance Directives Information Provided: Yes Do you have a plan to hurt others: No Plan Current occupational status: employed 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 Oriented X3. No acute distress. Eyes: Pupils equal, round and reactive to light. ENT: Pharynx normal. Neck: Normal inspection. Neck supple. No lymph nodes noted. No crepitus CVS: Normal heart rate and rhythm. Pulses normal. Normal S1 and S2 Respiratory: No respiratory distress. Breath sounds normal. No Wheezing. No rales Abdomen: Soft and nontender. No rigidity. No distention. : Mild to moderate vaginal bleeding, questionable lesion in the cervix, not bleeding Skin: Skin warm and dry. Normal skin color. Normal skin turgor. Extremities: No lower extremity edema. No Lacerations. No Rash Neuro: Oriented X 3. No motor deficit. No sensory deficit. Moving all extremities. No slurred speech. CN 2 through 12 grossly intact Psych: calm, cooperative, normal affect Course Course Course Narrative: This is an RME: Additional HPI, ROS, PE not included below will be deferred to primary provider. RME assessment and note performed by: Jennifer Sheridan PA-C This is a [id number]-female, with a hx of HTN, NAFLD, hypercholesteremia, HTN, mild dysplasia JOSSE 1 (vulvar excision performed by Dr. Wilkins) , who presents to the ER with complaints of vaginal bleeding x 2 days. Reporting that she has been changing pampers once an hour. Reporting 2 weeks ago she had nipple pain which lasted for 2 weeks. She states that she completed her menses in year 2017. Plan: Labs, EKG, ultrasound, UA Medical Decision Making Medical Decision Making MDM Narrative: -my interpretation of labs: Normal hematology, normal chemistry -vitals are stable -ultrasound shows 3 fibroids and 19 mm endometrial wall thickening -I discussed the patient with Dr. Wilkins, no need for acute treatment at this time, patient will need an endometrial biopsy as soon as possible. Discussed with the patient that if she develops again heavy vaginal bleeding, she is to return to the emergency room. Patient agrees with plan Differential Diagnosis Differential Diagnoses: The differential diagnosis associated with the presentation includes (Menorrhagia, endometrial wall thickening, fibroids) Consult Healthcare Provider Management of the patient was discussed with: Client Service Executive Lab Data [facility] Lab Attestation statement: I reviewed the patient's lab results. 11/03/23 14:14 11/03/23 14:14 Labs: Lab Results 11/03/23 Range/Units 14:14 WBC 8.3 (4.8-10.8) X10*3/uL RBC 4.65 (4.20-5.50) X10*6/uL Hgb 13.6 (12.0-16.0) g/dl Hct 41.4 (37.0-47.0) % MCV 89.0 (80.0-98.0) fL MCH 29.2 (27.0-33.0) pg MCHC 32.9 (31.0-35.0) g/dl RDW 14.1 (11.0-16.0) % Plt Count 284 (160-400) X10*3/uL MPV 9.0 L (9.4-12.3) fL Immature Gran % (Auto) 0.4 (0.0-0.4) % Neut % (Auto) 50.4 (45-73) % Lymph % (Auto) 39.8 (20-40) % [place] % (Auto) 7.4 (2-11) % Eos % (Auto) 1.5 (0-4) % Baso % (Auto) 0.5 (0-2) % Lymph # (Auto) 3.3 (1.2-4.9) X10*3/uL [place] # (Auto) 0.6 (0.1-1.2) X10*3/uL Eos # (Auto) 0.1 (0.0-0.4) X10*3/uL Baso # (Auto) 0.0 (0.0-0.2) X10*3/uL Abs Immat Gran (auto) 0.03 (0.00-0.03) X10*3/uL Absolute Neuts (auto) 4.2 (2.0-8.3) x10*3/uL Absolute Nucleated RBC 0.000 (0.0-0.012) X10*3/uL Nucleated RBC % (auto) 0.0 (0.0-0.2) /100WBC PT 10.4 L (11.1-13.3) SEC INR 0.9 (0.9-1.1) APTT 32.2 (26.0-36.8) SEC Sodium 141 (135-145) mmol/L Potassium 3.7 (3.3-5.1) mmol/L Chloride 106 (96-108) mmol/L Carbon Dioxide 27 (22-29) mmol/L Anion Gap 12 (12-20) BUN 16 (9-16) mg/dL Creatinine 0.62 (0.5-1.4) mg/dL Estim Creat Clear Calc 101.3 Estimated GFR > 60 Random Glucose 85 (60-115) mg/dL Calcium 10.0 (8.4-10.2) mg/dL Total Bilirubin 0.8 (0.0-1.0) mg/dL Direct Bilirubin 0.2 (0.0-0.5) mg/dL AST 27 (5-31) U/L ALT 35 H (0-31) U/L Alkaline Phosphatase 137 H (39-117) U/L Troponin I High Sens < 2.7 (<3.5-17.0) ng/L Total Protein 7.3 (6.5-8.0) g/dL Albumin 4.5 (3.5-5.0) g/dL Beta HCG, Quant < 2 mIU/mL Independent Interpretation I performed an independent interpretation of an: CT Scan Radiology Impression Discussion of test interpretation with radiology: I have reviewed the radiologist's reading. Radiologist Impression: FINDINGS: Uterus: The uterus is anteverted is enlarged and measures 11.6 x 5.6 x 6.8 CM for a volume of 219 mL. At least 3 uterine fibroids are seen near the fundus measuring 1.9 x 2.1 x 1.9 cm, 3.1 x 3.7 x 3.5 cm and 1.4 x 1.4 x 1.9 cm. The double wall endometrial thickness is 19 mm. Complex fluid is seen in the endometrium consistent with blood products. The endometrium is heterogeneous with cystic areas and vascular components.. Adnexa: Both ovaries are visualized. There is normal color flow to the adnexa. There is no ovarian torsion. There is no pelvic ascites or fluid collection. Right ovary measures 2.0 x 2.3 x 1.9 cm. Left ovary measures 2.5 x 1.8 x 2.4 cm. US/US pelvic and transvaginal IMPRESSION: 1. Enlarged fibroid uterus. 2. Thickened heterogeneous endometrium with cystic areas and vascular components. Further evaluation with endometrial biopsy should be considered. Discharge Plan Discharge Clinical Impression: Menorrhagia Patient Disposition: Home, Self-Care Instructions: Menorrhagia (ED) Additional Instructions: Please follow-up with your primary care physician tomorrow. If you have any worsening or new symptoms, please return to the emergency room or call 911 Prescriptions: No Action lisinopril-hydrochlorothiazide 10-12.5 mg tablet 1 tab PO DAILY 90 Days Qty: 90 3RF aspirin [Adult Aspirin Regimen] 81 mg tablet,delayed release (DR/EC) 81 mg PO DAILY calcium carbonate-vitamin D3 [Calcium 500 With D] 500 mg-10 mcg (400 unit) tablet 1 tab PO QAM meloxicam 15 mg tablet 15 mg PO QAM atorvastatin 20 mg tablet 20 mg PO DAILY Referrals: Michael Wilkins MD [Physician] - 11/04/23 Print Language: French
[2023-11-03 14:33] LABS: MANUAL DIFF FLAG NO
[2023-11-03 14:36] LABS: Basophils Percent Auto 0.5 % (0-2); Eosinophils Absolute Auto 0.1 X10*3/uL (0.0-0.4); Eosinophils Percent Auto 1.5 % (0-4); Hematocrit 41.4 % (37.0-47.0); Hemoglobin 13.6 g/dl (12.0-16.0); Imm Gran Abs Auto 0.03 X10*3/uL (0.00-0.03); Imm Gran Pct Auto 0.4 % (0.0-0.4); Lymphocytes Absolute Auto 3.3 X10*3/uL (1.2-4.9); Lymphocytes Percent Auto 39.8 % (20-40); Mean Corpuscular HGB Conc 32.9 g/dl (31.0-35.0); Mean Corpuscular Hemoglobin 29.2 pg (27.0-33.0); Monocytes Absolute Auto 0.6 X10*3/uL (0.1-1.2); Monocytes Percent Auto 7.4 % (2-11); Neutrophils Absolute Auto 4.2 x10*3/uL (2.0-8.3); Neutrophils Percent Auto 50.4 % (45-73); Platelet Count 284 X10*3/uL (160-400); Red Blood Count 4.65 X10*6/uL (4.20-5.50); Red Cell Distribution Width 14.1 % (11.0-16.0); White Blood Count 8.3 X10*3/uL (4.8-10.8)
[2023-11-03 14:46] LABS: INTERNATIONAL NORM RATIO 0.9 (0.9-1.1); Prothrombin Time 10.4 SEC (11.1-13.3)
[2023-11-03 14:48] LABS: Partial Thromboplastin Time 32.2 SEC (26.0-36.8)
[2023-11-03 14:56] LABS: Alanine Aminotransferase 35 U/L (0-31); Albumin Level 4.5 g/dL (3.5-5.0); Alkaline Phosphatase 137 U/L (39-117); Anion Gap 12 (12-20); Aspartate Amino Transferase 27 U/L (5-31); Bilirubin Direct 0.2 mg/dL (0.0-0.5); Bilirubin Total 0.8 mg/dL (0.0-1.0); Blood Urea Nitrogen 16 mg/dL (9-16); Carbon Dioxide 27 mmol/L (22-29); Chloride 106 mmol/L (96-108); Creatinine Clr Calc Pharmacy 101.3; Estimated Glomerular Filt Rate > 60; Glucose Random 85 mg/dL (60-115); Potassium 3.7 mmol/L (3.3-5.1); Sodium 141 mmol/L (135-145); Total Protein 7.3 g/dL (6.5-8.0)
[2023-11-03 14:57] LABS: HCG Quantitative < 2 mIU/mL; Troponin-I High Sensitivity < 2.7 ng/L (<3.5-17.0)
--- NOTE | 2023-11-03 16:41 | P.CONOB_ITS ---
[employer] - CN: HPI Data of Consult Consult date: 11/03/23 Primary Care Provider: Duane Rock MD Consult Narrative Narrative: I was consulted on Mary Mijares who is a 58 year old female Patient presented to the emergency room complaining of heavy vaginal bleeding for 2 days. The patient has been menopause since 2017. Had an episode of vaginal bleeding 7 months ago. No associated abdominal pain or cramping, no dizziness or shortness of breath. Patient states that the only thing that is new, 2 weeks ago she started taking supplements of black cohosh and magnesium. 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 cc:: CC: OB PMF Past Medical History Medical History ASCUS of cervix with negative high risk HPV NAFLD (nonalcoholic fatty liver disease) Screening for breast cancer Abnormal mammogram COVID-19 Pure hypercholesterolemia Transaminitis Hypertension Family History Family History Father History of open heart surgery Hypertension CVD (cardiovascular disease) Mother Lung cancer Hypertension Maternal Grandmother Stomach cancer Sister Diabetes Surgical History Surgical History History of carpal tunnel release History of tubal ligation Social History Social History Household Members: Spouse and Children Housing: House Alcohol intake: never Patient Tobacco Use Status: Never used Tobacco Advance Directives: No Advance Directives Information Provided: Yes Do you have a plan to hurt others: No Plan Current occupational status: employed 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 Sexual orientation: Straight/Heterosexual Gender identity: Female Meds Allergies Allergy/AdvReac Type Severity Reaction Status Date / Time No Known Allergies Allergy Verified 11/03/23 12:28 [No Known Allergies*] Home Medications ?Medication ?Instructions ?Recorded ?Confirmed ?Last Taken ?Type aspirin 81 mg tablet,delayed 81 mg PO DAILY 08/07/20 08/09/20 Unknown History release (Adult Aspirin Regimen) calcium carbonate 500 mg-vitamin 1 tab PO QAM 01/30/23 Unknown History D3 10 mcg (400 unit) tablet (Calcium 500 With D) meloxicam 15 mg tablet 15 mg PO QAM 01/30/23 Unknown History atorvastatin 20 mg tablet 20 mg PO DAILY 03/25/23 Unknown History [employer] Physical Exam Vitals Vital signs: Temp Pulse Resp BP Pulse Ox O2 Del Method 97.6 F 68 18 136/75 95 Room Air 11/03/23 12:17 11/03/23 12:17 11/03/23 12:17 11/03/23 12:17 11/03/23 12:17 11/03/23 12:17 BMI result Body Mass Index 30.3 Additional Comments: Exam reported by Dr. Busby as the following: Small amount of blood in the vagina, no evidence of active bleeding [employer] - Results Labs 11/03/23 14:14 11/03/23 14:14 Labs: Short CBC 11/03/23 Range/Units 14:14 WBC 8.3 (4.8-10.8) X10*3/uL Hgb 13.6 (12.0-16.0) g/dl Hct 41.4 (37.0-47.0) % Plt Count 284 (160-400) X10*3/uL BMP 11/03/23 14:14 Sodium 141 Potassium 3.7 Chloride 106 Carbon Dioxide 27 BUN 16 Creatinine 0.62 Calcium 10.0 Liver Function 11/03/23 Range/Units 14:14 Total Bilirubin 0.8 (0.0-1.0) mg/dL Direct Bilirubin 0.2 (0.0-0.5) mg/dL AST 27 (5-31) U/L ALT 35 H (0-31) U/L Alkaline Phosphatase 137 H (39-117) U/L Albumin 4.5 (3.5-5.0) g/dL Imaging US - abdomen: Radiologist's impression: ITS Impressions Pelvic/Transvag US 11/03/23 13:49 IMPRESSION: 1. Enlarged fibroid uterus. 2. Thickened heterogeneous endometrium with cystic areas and vascular components. Further evaluation with endometrial biopsy should be considered. Assessment and Plan (1) Postmenopausal bleeding: Status: Acute Recommended the following to Dr. Busby: -With history of JOSSE 1 , the patient needs co testing, -3 uterine myomas: Needs outpatient follow-up and counseling regarding options of treatment -Postmenopausal bleeding with abnormal endometrium by ultrasound, endometrial sampling is recommended to rule out endometrial pathology including malignancy and/or hyperplasia or polyp Recommend Close follow-up in the office for an evaluation, instructions to be given to the patient to come back to emergency room in case of persistent or heavy vaginal bleeding. I spent a total of 20 minutes reviewing the chart, discussing the case with the ER provider and documenting in the medical record
[2023-11-03 16:47] VITALS: BP 136/75; PULSE 68; RESP 18; TEMP 36.4; O2SAT 95
== END 2023-11-03 16:48 | disposition home or self-care (01) ==
PROVIDERS: Physician Assistant Medical; Emergency Provider Emergency Medicine; PCP Internal Medicine
DX: N92.0 Excessive and frequent menstruation with regular cycle (principal); N95.1 Menopausal and female climacteric states; R10.2 Pelvic and perineal pain; Z79.899 Other long term (current) drug therapy
CPT/HCPCS: 36415; 76830; 76856; 80048; 80076; 84484; 84702; 85025; 85610; 85730; 99282; 99284

== ENCOUNTER → 2023-11-03 14:11 | Outpatient (BNV) | payer BC, SELFPAY | PROVIDERS: Emergency Provider Emergency Medicine; PCP Internal Medicine; Visit Provider Obstetrics & Gynecology | DX: N95.0 Postmenopausal bleeding (principal) | CPT/HCPCS: 99283 ==

== ENCOUNTER 2023-11-05 08:21 | Outpatient (REF) | payer BC, SELFPAY ==
[2023-11-11 06:58] LABS: HPV 16 RNA NOT DETECTED (NOT DETECTED); HPV mRNA E6/E7 Detected (Not Detected)
== END 2023-11-05 08:22 | disposition home or self-care (01) ==
LOC: HO.LNP 08:21
PROVIDERS: PCP Internal Medicine; Visit Provider Obstetrics & Gynecology
DX: Z12.4 Encounter for screening for malignant neoplasm of cervix (principal); Z11.51 Encounter for screening for human papillomavirus (HPV); N95.0 Postmenopausal bleeding; N87.0 Mild cervical dysplasia
CPT/HCPCS: 87624; 87625; 88175

== ENCOUNTER 2023-11-05 08:21 | Outpatient (AMB) | payer BC, SELFPAY ==
[2023-11-05 08:35] VITALS: BP 120/72; BMI 30.3
--- NOTE | 2023-11-05 08:35 | MHC.OFFVIS ---
Vital Signs 11/05/23 08:35 Height 5 ft 4 in Weight 176 lb 5.917 oz BMI 30.3 BP 120/72 Intake Visit Reasons: EMB/ER follow up Paster Supervisor Required: Yes Paster Supervisor Language: Weatherization Administrator Services: Paster Supervisor Present (in person) Paster Supervisor Name: Jordyn FLORIAN Information Interpreted: non-clinical & clinical Cda Teacher: Cda Teacher Present Accompanied by: Self / Same As Patient Allergies No Known Allergies [No Known Allergies*] Allergy (Verified 11/05/23 08:40) Is last menstrual period known: Yes Last menstrual period: 02/10/20 Post menopausal: Yes Patient : No Do you need a note to return to daycare/school/sports/work: Yes (for surgery on friday) HPI Comments Details: Presenting for follow-up after emergency room visit few days ago for heavy vaginal bleeding associated with passage of blood clots. The patient has started taking black cohosh 2 weeks ago for hot flashes. Menopause since 2016, had an episode of vaginal bleeding few months ago for 1 day. Last co testing was in 08/04, this was followed by colpo/biopsy/ECC which showed JOSSE 1. Last mammogram was in 12/04 was BI-RADS 1. Pelvic ultrasound done emergency room showed the following: Uterus: The uterus is anteverted is enlarged and measures 11.6 x 5.6 x 6.8 CM for a volume of 219 mL. At least 3 uterine fibroids are seen near the fundus measuring 1.9 x 2.1 x 1.9 cm, 3.1 x 3.7 x 3.5 cm and 1.4 x 1.4 x 1.9 cm. The double wall endometrial thickness is 19 mm. Complex fluid is seen in the endometrium consistent with blood products. The endometrium is heterogeneous with cystic areas and vascular components.. Adnexa: Both ovaries are visualized. There is normal color flow to the adnexa. There is no ovarian torsion. There is no pelvic ascites or fluid collection. Right ovary measures 2.0 x 2.3 x 1.9 cm. Left ovary measures 2.5 x 1.8 x 2.4 cm. [facility] Medical History ASCUS of cervix with negative high risk HPV NAFLD (nonalcoholic fatty liver disease) Screening for breast cancer Abnormal mammogram COVID-19 Pure hypercholesterolemia Transaminitis Hypertension Surgical History History of carpal tunnel release History of tubal ligation Family History Father History of open heart surgery Hypertension CVD (cardiovascular disease) Mother Lung cancer Hypertension Maternal Grandmother Stomach cancer Sister Diabetes Social History Household Members: Spouse and Children Housing: House Alcohol intake: never Patient Tobacco Use Status: Never used Tobacco Current occupational status: employed Current occupation: [employer] Sexual orientation: Straight/Heterosexual Gender identity: Female Female Reproductive History Menstrual Date of last menstrual period: 02/10/20 Total pregnancies: 2 Full term: 2 Review of Systems Const All systems reviewed & are unremarkable except as noted in HPI and below Card Reports as per HPI and Reports no additional complaints Resp Reports as per HPI and Reports no additional complaints GI Reports as per HPI and Reports no additional complaints Reports as per HPI Physical Exam Vital Signs: Last Vital Signs BP 120/72 11/05/23 08:35 BMI result Body Mass Index 30.3 Const General: cooperative, healthy appearing and comfortable Resp Effort & Inspection: normal respiratory effort Auscultation: clear to auscultation bilaterally Percussion: percussion normal Cardio Palpation: normal PMI Rate: regular rate Rhythm: regular rhythm Heart sounds: no murmurs and no rubs Peripheral pulses: Peripheral pulses 2+ throughout GI Inspection: Yes normal to inspection Palpation (GI): Soft to palpation, nontender, no guarding, not rigid and No hepatosplenomegaly present Percussion: Yes normal to percussion Auscultation: normal bowel sounds Rectal Exam - Female: deferred General: Yes no CVA tenderness External Female Exam: normal external appearance and normal appearance of the urethra Speculum Exam - Vagina: normal appearance of the vagina, normal palpation, no lesions and no masses Speculum Exam - Cervix: normal appearance of the cervix, normal palpation, no lesions, no masses and nontender Bimanual exam- vagina & uterus: normal bimanual exam, normal palpation, uterine size normal, normal palpation, uterine shape normal, No Cervical tenderness present and non-tender Bimanual Exam- Adnexa, other: normal adnexae Back/Spine/Pelvis Back: no CVA tenderness Assessment & Plan Assessment & Plan (1) Postmenopausal bleeding: Comment: Abnormal endometrium by ultrasound Code(s): N95.0 - Postmenopausal bleeding Category: Medical Plan: Discussed with the patient the pelvic ultrasound findings, the endometrial stripe thickenss measured by ultrasound was more than 4mm and abnormal cystic stat heterogenous looking . The negative predictive value, positive predictive value, Sensitivity, specificity of using ultrasound measurement of endometrial stripe to detecting endometrial pathology including hyperplasia , polyp or cancer were discussed with the patient. Recommended to the patient that the next step is an endometrial sampling via hysteroscopy D&C possible polypectomy versus endometrial biopsy to r/o endometrial pathology including hyperplasia or cancer. All the pros and cons risks and benefits of each approach were discussed with the patient, endometrial biopsy being less invasive, office procedure with less sensitivity and inability diagnose a polyp and removal versus hysteroscopy done under anesthesia more invasive more sensitive to endometrial cancer and possibility of diagnosing and endometrial polyp with the possibility of polypectomy. All questions were answered pt verbalized understanding and decided to proceed with hysteroscopy D&C possible polypectomy/myomectomy. Discussed with the patient the procedure , all benefits and risks including but not limited to inability to complete the procedure , insufficient endometrial tissue for a complete evaluation of the endometrial cavity , bleeding, infection, possible need for blood transfusion with all its risk ( HIV,syphilis, Hepatitis, anaphylaxis shock, others..), injury to bladder, rectum, possible need for laparoscopy/laparotomy or hysterectomy. The patient verbalized understanding and signed the consent. Instructions given the patient to stay NPO after midnight the day prior to the procedure and to take only the specific medication (s) discussed the morning of the surgical procedure and to schedule a 2 week postoperative appointment (2) Uterine myoma: Code(s): D25.9 - Leiomyoma of uterus, unspecified Category: Medical Plan: Discussed with the patient the results of the ultrasound and the size of the myomas. Discussed with the patient risk of myosarcoma and symptoms that are caused by myomas including but not limited to pelvic pain, pressure symptoms, abnormal uterine bleeding. In addition discussed with the patient options of treatment for myomas including: Serial ultrasounds periodically to follow-up on the size of the myoma versus surgical treatment including hysterectomy. All pros and cons, risks and benefits of all options were discussed with the patient. The patient understands that delay in surgical treatment in case of myosarcoma can affect her prognosis, after further discussion, the patient decided to think about it and get back to us next visit (3) Dysplasia of cervix, low grade (JOSSE 1): Code(s): N87.0 - Mild cervical dysplasia Category: Medical Plan: Co testing done. Coding Level of Care Code Est Pt Level 3 (16535) Diagnoses Postmenopausal bleeding N95.0 Uterine myoma D25.9 Dysplasia of cervix, low grade (JOSSE 1) N87.0
== END 2023-11-05 09:31 | disposition home or self-care (01) ==
PROVIDERS: PCP Internal Medicine; Visit Provider Obstetrics & Gynecology
DX: N95.0 Postmenopausal bleeding (principal); D25.9 Leiomyoma of uterus, unspecified; N87.0 Mild cervical dysplasia
CPT/HCPCS: 99213

== ENCOUNTER 2023-11-12 14:43 | Outpatient (AMB) | payer BC, SELFPAY ==
[2023-11-12 15:14] VITALS: BMI 30.3
--- NOTE | 2023-11-12 15:14 | A.OFFVIS_ITS ---
Vital Signs 11/12/23 15:14 Height 5 ft 4 in Weight 176 lb 5.917 oz BMI 30.3 Intake Visit Reasons: Colposcopy Wad Impregnator Required: Yes Wad Impregnator Language: Leisure Travel Agent Services: Wad Impregnator Present (in person) Wad Impregnator Name: Jordyn FLORIAN Information Interpreted: non-clinical & clinical Weatherseal Technician: Weatherseal Technician Present (Jordyn FLORIAN) Accompanied by: Self / Same As Patient Allergies No Known Allergies [No Known Allergies*] Allergy (Verified 11/12/23 15:15) Post menopausal: Yes HPI Comments Details: Presenting for colposcopy for negative Pap HPV E6/E7 positive, HPV 16/18/45 negative PFSH Medical History ASCUS of cervix with negative high risk HPV NAFLD (nonalcoholic fatty liver disease) Screening for breast cancer Abnormal mammogram COVID-19 Pure hypercholesterolemia Transaminitis Hypertension Surgical History History of carpal tunnel release History of tubal ligation Family History Father History of open heart surgery Hypertension CVD (cardiovascular disease) Mother Lung cancer Hypertension Maternal Grandmother Stomach cancer Sister Diabetes Social History Household Members: Spouse and Children Housing: House Alcohol intake: never Patient Tobacco Use Status: Never used Tobacco Current occupational status: employed 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 We thoroughly discussed the procedure itself, including its details, al ternatives, and all associated risks. This included but not limited to the following complications such as bleeding, infection, and injury to the vagina, bladder, and vessels, as well as the potential need for transfusion with all its associated risks. Subsequently, the patient sign the consent. Pap smear result: Negative Pap/HPV E6/E7 positive, HPV 16/18/45 negative Procedure: During the procedure, the following steps were performed: A speculum was inserted, and acetic acid was applied. Colposcopy was conducted, allowing visualization of the transformation zone. Acetowhite lesions were identified at the 6+7+12 o'clock position. Cervical biopsies were obtained from the 6+7 +12 o'clock position, followed by an endocervical curettage (ECC). Vaginoscopy of the upper vagina revealed no evidence of aceto-white lesions. Hemostasis was achieved using Monsel solution, and the patient tolerated the procedure well. Post-Procedure Instructions: The patient was advised to promptly contact the office or the after hours answering service or go to the emergency room if experiencing a temperature exceeding 100.4?F, abdominal pain, nausea/vomiting, or bleeding. Additionally, the patient was instructed to abstain from vaginal intercourse and bathtub use. The patient confirmed understanding of these instructions. Discharge Instructions: The patient was instructed to schedule a follow-up appointment in 2 weeks for further evaluation and management. Please note that this note was generated using a voice recognition program, and errors may have occurred during finishing powder press operator. [id number] of cervix including upper vagina with biopsy and ECC Procedure code (CPT) selection complete Assessment & Plan Assessment & Plan (1) HPV (human papilloma virus) infection: Comment: HPV E6/E7 positive, HPV 16 neg, HPV 18/45 neg Code(s): B97.7 - Papillomavirus as the cause of diseases classified elsewhere Category: Medical Plan: Colposcopy done, see procedure Orders: Orders AMB Colposcopy Today B97.7 - Papillomavirus as the cause of diseases classified elsewhere Coding Level of Care Code Procedure Only Diagnoses HPV (human papilloma virus) infection B97.7 CPT Codes Colposcopy - CPT: 78721-[id number] of cervix including upper vagina with biopsy and ECC ([id number])
== END 2023-11-12 15:47 | disposition home or self-care (01) ==
LOC: HO.HWS 14:43
PROVIDERS: PCP Internal Medicine; Visit Provider Obstetrics & Gynecology
DX: R87.810 Cervical high risk human papillomavirus (HPV) DNA test positive (principal)
CPT/HCPCS: 57454

== ENCOUNTER 2023-11-12 14:43 | Outpatient (REF) | payer BC, SELFPAY | END 2023-11-12 14:44 | disposition home or self-care (01) | LOC: HO.LNP 14:43 | PROVIDERS: PCP Internal Medicine; Visit Provider Obstetrics & Gynecology | DX: N87.0 Mild cervical dysplasia (principal); B37.7 Candidal sepsis | CPT/HCPCS: 57454; 88305 ==

== ENCOUNTER 2023-11-20 09:52 | Outpatient (AMB) | payer BC, SELFPAY ==
--- NOTE | 2023-11-20 10:05 | MHC.OFFVIS ---
Vital Signs 11/20/23 10:12 Height 5 ft 4 in Weight 176 lb 5.917 oz BMI 30.3 Intake Visit Reasons: colpo results Allergies No Known Allergies [No Known Allergies*] Allergy (Verified 11/12/23 15:15) HPI Comments Details: Presenting post colpo for follow-up. The patient is doing well with no complaints. After think about options of treatment regarding uterine myoma, the patient decided to proceed with expectant management The pathology showed the following: A. Endocervix, curettage: Cervical transformation zone mucosa with reactive changes; detached endocervical epithelium within normal limits. B. Cervix, 6 o'clock, biopsy: - Low-grade squamous intraepithelial lesion (JOSSE 1). - Scant strips of endocervical epithelium within normal limits. C. Cervix, 7 o'clock, biopsy: Inflamed cervical transformation zone mucosa with reactive changes. D. Cervix, 12 o'clock, biopsy: - Low-grade squamous intraepithelial lesion (JOSSE 1). - Background inflamed cervical transformation zone mucosa [facility] Medical History (Updated 11/20/23 @ 10:16 by Michael Wilkins MD) ASCUS of cervix with negative high risk HPV NAFLD (nonalcoholic fatty liver disease) Screening for breast cancer Abnormal mammogram COVID-19 Pure hypercholesterolemia Transaminitis Hypertension Surgical History History of carpal tunnel release History of tubal ligation Family History Father History of open heart surgery Hypertension CVD (cardiovascular disease) Mother Lung cancer Hypertension Maternal Grandmother Stomach cancer Sister Diabetes Social History Household Members: Spouse and Children Housing: House Alcohol intake: never Patient Tobacco Use Status: Never used Tobacco Current occupational status: employed 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 Discussed with the patient the sensitivity specificity, positive and negative predictive value in detecting cervical cancer in addition discussed the regression, persistence and progression rates. Recommended co-testing in 12 months, if cytology and or HPV are abnormal will proceed was colposcopy biopsy and endocervical curettage, if lesions gets worse or stays persistent for 2 years will proceed with loop electric excision procedure. Instructions given to the patient to schedule a co test appointment in 1 year. All questions answered the patient verbalized understanding. (2) Uterine myoma: Code(s): D25.9 - Leiomyoma of uterus, unspecified Category: Medical Plan: Discussed with the patient the findings on pelvic ultrasound & the risk of myosarcoma; discussed with the patient the options of treatment including expectant management versus hysterectomy; the pros and cons, risks benefits of each approach were discussed with the patient including the fact that in cases of myosarcoma, surgical treatment can lead to early diagnosis and positively affects the prognosis; after further discussion, the patient decided to proceed with expectant management. Will repeat pelvic ultrasound periodically. Instructions given to patient to call in case any of the following occurs: pressure symptoms, abnormal uterine bleeding, pelvic pain; and to schedule a six-months pelvic ultrasound and a follow-up appointment . All questions answered, the patient verbalized understanding and agreed with the plan . Orders: Orders US pelvic and transvaginal 6 Months D25.9 - Leiomyoma of uterus, unspecified Coding Level of Care Code Est Pt Level 3 (48357) Diagnoses Dysplasia of cervix, low grade (JOSSE 1) N87.0 Uterine myoma D25.9
[2023-11-20 10:12] VITALS: BMI 30.3
== END 2023-11-20 10:29 | disposition home or self-care (01) ==
PROVIDERS: PCP Internal Medicine; Visit Provider Obstetrics & Gynecology
DX: N87.0 Mild cervical dysplasia (principal); D25.9 Leiomyoma of uterus, unspecified
CPT/HCPCS: 99213

== ENCOUNTER → 2023-11-20 09:52 | Outpatient (BNVA) | payer BC, SELFPAY | PROVIDERS: PCP Internal Medicine; Visit Provider Obstetrics & Gynecology ==

== ENCOUNTER 2023-11-25 12:14 | Day surgery (SDC) | payer BC, SELFPAY ==
--- NOTE | 2023-11-10 14:18 | P.CONAN_ITS ---
Documented by User: Antonia Sanchez NP 11/10/23 14:18 HPI - Anesthesia Eval Consult details Narrative: 58yo F for D&C Hysteroscopy,possible myomectomy,possible polypectomy PMFSH Active Problems Active Problems: All Active Problems Uterine myoma (Acute) Postmenopausal bleeding (Acute) Dysplasia of cervix, low grade (JOSSE 1) (Acute) Vulvar lesion (Acute) HPV (human papilloma virus) infection (Acute) Urinary urgency (Acute) Stress incontinence (Acute) Microscopic hematuria (Acute) NAFLD (nonalcoholic fatty liver disease) (Acute) Screening for breast cancer (Acute) Abnormal mammogram (Acute) COVID-19 (Acute) Pure hypercholesterolemia (Acute) Transaminitis (Acute) Hypertension (Acute) Past Medical History Medical History ASCUS of cervix with negative high risk HPV NAFLD (nonalcoholic fatty liver disease) Screening for breast cancer Abnormal mammogram COVID-19 Pure hypercholesterolemia Transaminitis Hypertension Family History Family History Father History of open heart surgery Hypertension CVD (cardiovascular disease) Mother Lung cancer Hypertension Maternal Grandmother Stomach cancer Sister Diabetes Surgical History Surgical History Hx of vaginal surgery H/O colonoscopy History of carpal tunnel release History of tubal ligation Social History Social History Household Members: Spouse and Children Housing: House Alcohol intake: never Patient Tobacco Use Status: Never used Tobacco Are you DNR?: No Advance Directives: No Advance Directives Information Provided: Yes Nutrition Risks: No Nutritional Risk Current occupational status: employed 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 Sexual orientation: Straight/Heterosexual Gender identity: Female Meds Allergies Allergy/AdvReac Type Severity Reaction Status Date / Time No Known Allergies Allergy Verified 11/25/23 12:57 [No Known Allergies*] Home Medications ?Medication ?Instructions ?Recorded ?Confirmed ?Last Taken ?Type aspirin 81 mg tablet,delayed 81 mg PO DAILY 08/07/20 11/25/23 11/24/23 History release (Adult Aspirin Regimen) calcium carbonate 500 mg-vitamin 1 tab PO QAM 01/30/23 11/20/23 Unknown History D3 10 mcg (400 unit) tablet (Calcium 500 With D) meloxicam 15 mg tablet 15 mg PO QAM 01/30/23 11/20/23 Unknown History atorvastatin 20 mg tablet 20 mg PO DAILY 03/25/23 11/20/23 Unknown History Exam Pertinent Lab Results Pertinent Lab Results: Laboratory Tests 11/03/23 14:14 WBC 8.3 Hgb 13.6 Hct 41.4 Plt Count 284 Sodium 141 Potassium 3.7 Chloride 106 Carbon Dioxide 27 BUN 16 Creatinine 0.62 Assessment and Plan Assessment Anesthesia Assessment: Chart Reviewed Documented by User: Marixa Seth MD 11/25/23 13:33 PMFSH Past Medical History Medical History ASCUS of cervix with negative high risk HPV NAFLD (nonalcoholic fatty liver disease) Screening for breast cancer Abnormal mammogram COVID-19 Pure hypercholesterolemia Transaminitis Hypertension Family History Family History Father History of open heart surgery Hypertension CVD (cardiovascular disease) Mother Lung cancer Hypertension Maternal Grandmother Stomach cancer Sister Diabetes Family history of problems with anesthesia: No Surgical History Surgical History Hx of vaginal surgery H/O colonoscopy History of carpal tunnel release History of tubal ligation History of Problems with Anesthesia: No Social History Social History Household Members: Spouse and Children Housing: House Alcohol intake: never Patient Tobacco Use Status: Never used Tobacco Are you DNR?: No Advance Directives: No Advance Directives Information Provided: Yes Nutrition Risks: No Nutritional Risk Current occupational status: employed 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 Sexual orientation: Straight/Heterosexual Gender identity: Female Meds Allergies Allergy/AdvReac Type Severity Reaction Status Date / Time No Known Allergies Allergy Verified 11/25/23 12:57 [No Known Allergies*] Home Medications ?Medication ?Instructions ?Recorded ?Confirmed ?Last Taken ?Type aspirin 81 mg tablet,delayed 81 mg PO DAILY 08/07/20 11/25/23 11/24/23 History release (Adult Aspirin Regimen) calcium carbonate 500 mg-vitamin 1 tab PO QAM 01/30/23 11/20/23 Unknown History D3 10 mcg (400 unit) tablet (Calcium 500 With D) meloxicam 15 mg tablet 15 mg PO QAM 01/30/23 11/20/23 Unknown History atorvastatin 20 mg tablet 20 mg PO DAILY 03/25/23 11/20/23 Unknown History Exam Airway Mallampati Class: II TM Dist: >3cm Neck ROM: Full Heart: rrrcta Assessment and Plan Assessment Anesthesia Assessment: Anesthesia Plan Discussed Final Anesthetic Review Family History of Problems with Anesthesia: No History of Problems with Anesthesia: No NPO: Yes ASA Class: II Final Preanesthetic Review: No Changes in Pt Med Stat, Meds/Allgs Chart Reviewed, Consent Obtained/Reviewed and Anes Risks/Benef Reviewed Patient Risk: Intermediate Procedure Risk: Low Anesthetic Plan Anesthetic Plan: GA Disposition: Standard PACU
[2023-11-20 14:51] VITALS: BMI 30.2
[2023-11-25] VITALS (7 sets, daily range): BP systolic 106–134; BP diastolic 53–69; PULSE 57–73; RESP 12–18; TEMP 36.1–36.8; O2SAT 94–97; BMI 29.5
--- OUTSIDE RECORDS SUMMARY | 2023-11-25 12:16 | XMS_ITS | Patient Health Record ---
Author Organization [facility] Address [address] [place] [address] Care Team Providers Care Custom Bow Maker Name Role Phone Stu Estrella MD, [place] Primary Care Provide r Unavailable Aurelio Marie Unavailable [phone] ALLERGIES No Known Allergies REASON FOR REFERRAL No Information MEDICATIONS Medication SIG (Take, Route, Frequency, Duration) Notes Start Date End Date Status Pravastatin Sodium 10 MG TAKE 1 TABLET B Y MOUTH EVERYDAY AT BEDTIME Oral for 90 Active Lisinopril-hydroCHLOROthiaz salbador 10-12.5 MG TAKE 1 TABLET BY MOUTH DAILY Oral for 90 Active IMMUNIZATIONS Vaccine Route Administration Date Status Comme nts Influenza Unknown 05/23/2021 Refused SOCIAL HISTORY Tobacco Use: Social History Observation Description Date Details (start date - stop date) Never Smoker NA - NA Sex Assigned At : Social History Observation Description Sex Assigned At Unknown Tobacco Use/Smoking Question Answer Notes Patient is a nonsmoker Alcohol Screen Question Answer Notes Did you have a drink containing alcohol in the p ast year? No Points 0 Interpretation Negative PROBLEMS Problem Type ICD Code Onset Dates Problem Status W/U Status Risk SNOMED Code Notes Problem Iron deficiency anemia due to chronic blood loss (D50.0) Active confirmed 42841400 Problem Encounter for screening for malignant neoplasm of colon (Z12.11) Active confirmed 433768698 Problem Fatty liver (K76.0) Active confirmed 704180491 Problem Elevated liver function tests (R79.89) Active confirmed [id number] PLAN OF TREATMENT Pending Test Test Name Order Date LIVER PROFILE 05/23/2021 IRON + IBC (FE) 05/23/2021 FERRITIN 05/23/2021 PROTHROMBIN TIME (PT, INR) 05/23/2021 [id number] (A1A) 05/23/2021 Liver Panel 05/23/2021 Future Test Test Name Order Date COLONOSCOPY 08/15/2016 Insurance Providers Payer Name Payer Address Payer Phone Subscriber Number Group Number Insured Name Patient Relationship to Insured Coverage Start Date Coverage End Date [facility] [address] [facility] [phone] [id number] [place] Self - patient is the insured MEDICAL (GENERAL) HISTORY Medical History History ICD Code Denies MS,DM,CVA,Lung disease,renal dise ase Iron deficiency anemia that has been attributed to her menses-neg. celiac labs Colonoscopy in 11/2016 was negative Fatty liver with elevated LF T's-negative w/u with viral serologies and autoimmune labs HTN Surgical History Surgery Date(Month/Year) Bilateral carpal tunnel release
[2023-11-25] MEDS: Lactated Ringers 1,000 ML 100 ML IVCONT (12:53)
--- NOTE | 2023-11-25 13:26 | MHC.SHP ---
Pre-Procedural Eval Section A - 24 Hr Update-Section A only Date of Service: 11/25/23 The patient is an INPATIENT: No Changes since office visit: No Cold of Flu in the past 2 weeks, No New Medical Problems, No Changes in Medication and No Patient answered all questions The patient has been examined within 24 hours of the surgical procedure. The History & Physical has been completed within 30 days and I have reviewed it.: Yes Section B - Complete if H&P > 30 days Chief Complaint: Mild cervical dysplasia Allergies: Allergies Allergy/AdvReac Type Severity Reaction Status Date / Time No Known Allergies Allergy Verified 11/25/23 12:57 [No Known Allergies*] Plan Diagnosis/Plan: Unchanged I have reviewed the history and physical and performed a pertinent physical examination on my patient. No changes have occurred unless specified. Time Spent With Patient Time: Total time managing care of this patient today ____ minutes.
--- NOTE | 2023-11-25 14:13 | P.BOP_ITS ---
Brief Operative Note Date of Service: 11/25/23 Pre-op diagnosis: Postmenopausal bleeding with abnormal endometrium by ultrasound Post-op diagnosis: same (Endometrial polyp) Procedure: Hysteroscopy D&C, Polypectomy Surgeon: Michael Wilkins MD Anesthesia: GLMA Was an Transportation Job Titles used for this Procedure?: No Estimated blood loss (mL): 0 Pathology: other (Endometrial Scrapping. Polyp) Condition: stable Disposition: PACU
--- NOTE | 2023-11-25 14:13 | W.PM.OPN ---
Operative Note Operative Note Date of Service: 11/25/23 Narrative: Preop Diagnosis: Postmenopausal bleeding with abnormal endometrium by US Operation: Diagnostic Hysteroscopy, Dilataion & Curettage and polypectomy Post Op Diagnosis: Endometrial Polyp filling up the whole endometrial cavity QBL: Minimal Anesthesia: GLMA Surgeon: Michael Wilkins MD Pedigree Researcher: None Complication: None Pathology: Endometrial Scrapings, Endometrial polyp Procedure: The patient was put in the dorsal lithotomy position, scrubbed, and draped in the usual manner. A sterile speculum was inserted in the patient's vagina. The anterior lip of the cervix was grasped with a single tooth tenaculum. The cervix was dilated up to 5 mm, then the scope was inserted in the patient's uterus. Inspection revealed endometrial polyp filling up the whole endometrial cavity. The Myosure Reach device was used; it was introduced through the operative channel and polypectomy done with no complications. The scope was then taken out from the uterine cavity, sharp curettings was carried on with minimal to moderate amount of tissues retrieved. At the end of the procedure, all instruments were taken out of the patient uterine and vaginal cavity. The single tooth tenaculum was removed and homeostasis was assured using pressure,. The patient tolerated the procedure well and was transferred to the PACU in a stable condition.
== END 2023-11-25 15:27 | disposition home or self-care (01) ==
PROVIDERS: PCP Internal Medicine; Visit Provider Obstetrics & Gynecology
PROC: 0UDB8ZZ Extraction of Endometrium, Via Natural or Artificial Opening Endoscopic (ICD-10-PCS; CPT 58558; principal; 2023-11-25 14:00)
DX: N95.0 Postmenopausal bleeding (principal); N84.0 Polyp of corpus uteri; N87.0 Mild cervical dysplasia; D25.9 Leiomyoma of uterus, unspecified; I10 Essential (primary) hypertension; E78.00 Pure hypercholesterolemia, unspecified; K76.0 Fatty (change of) liver, not elsewhere classified; R74.01 Elevation of levels of liver transaminase levels; Z98.51 Tubal ligation status
CPT/HCPCS: 58558; 88305; J1100; J1885; J2250; J2405; J2704; J3010

== ENCOUNTER → 2023-11-25 12:14 | Outpatient (BNV) | payer BC, SELFPAY | PROVIDERS: PCP Internal Medicine; Visit Provider Obstetrics & Gynecology | DX: N95.0 Postmenopausal bleeding (principal); N84.0 Polyp of corpus uteri | CPT/HCPCS: 58558 ==

== ENCOUNTER 2023-12-16 11:46 | Outpatient (AMB) | payer BC, SELFPAY ==
--- OUTSIDE RECORDS SUMMARY | 2023-12-16 11:48 | XMS_ITS | Patient Health Record ---
Author Organization [facility] Address [address] [place] [address] Care Team Providers Care Vp Platforms Name Role Phone Stu Estrella MD, Duane Primary Care Provide r Unavailable Aurelio Marie Unavailable [phone] ALLERGIES No Known Allergies REASON FOR REFERRAL [...] to chronic blood loss (D50.0) Active confirmed 15426147 Problem Encounter for screening for malignant neoplasm of colon (Z12.11) Active confirmed 579348545 Problem Fatty liver (K76.0) Active confirmed 118394150 Problem Elevated liver function tests (R79.89) Active confirmed [id number] PLAN OF TREATMENT Pending Test Test Name Order Date LIVER PROFILE 05/23/2021 IRON + IBC (FE) 05/23/2021 FERRITIN 05/23/2021 PROTHROMBIN TIME (PT, INR) 05/23/2021 [id number] (A1A) 05/23/2021 Liver Panel 05/23/2021 Future Test Test Name Order Date COLONOSCOPY 08/15/2016 Insurance Providers Payer Name Payer Address Payer Phone Subscriber Number Group Number Insured Name Patient Relationship to Insured Coverage Start Date Coverage End Date [facility] [address] [facility] [place] [id number] [id number] COLON[place]ALIE Self - patient is the insured MEDICAL (GENERAL) HISTORY Medical History History ICD Code Denies [place],DM,CVA,Lung disease,renal dise ase Iron deficiency anemia that has been attributed to her menses-neg. celiac labs Colonoscopy in 11/2016 was negative Fatty liver with elevated LF T's-negative w/u with viral serologies and autoimmune labs HTN Surgical History Surgery Date(Month/Year) Bilateral carpal tunnel release
--- NOTE | 2023-12-16 12:24 | A.OFFVIS_ITS ---
Vital Signs 12/16/23 12:25 Height 5 ft 4 in Weight 176 lb BMI 30.2 Intake Visit Reasons: post op Mold Presser Required: Yes Mold Presser Language: Payroll And Benefits Assistant Services: Mold Presser Present (in person) Mold Presser Name: Jordyn FLORIAN Information Interpreted: non-clinical & clinical Accompanied by: Self / Same As Patient Allergies No Known Allergies [No Known Allergies*] Allergy (Verified 11/25/23 12:57) HPI Comments Details: The patient is presenting post hysteroscopy D&C no complaints minimal vaginal bleeding no feverishness chills or abdominal pain. The pathology showed the fo llowing: A. Endometrial polyp, resection: Fragments of benign endometrial and mixed endometrial/endocervical polyps, and fragments of benign inactive endometrium; no atypia or carcinoma. B. Endometrium, curettage: Benign inactive endometrium with stromal collapse; no atypia or carcinoma Follow-up appointment for pelvic Ultrasound for myomas is scheduled in 06/08 Co testing is scheduled in 06/08 [facility] Medical History ASCUS of cervix with negative high risk HPV NAFLD (nonalcoholic fatty liver disease) Screening for breast cancer Abnormal mammogram COVID-19 Pure hypercholesterolemia Transaminitis Hypertension Surgical History Hx of vaginal surgery H/O colonoscopy History of carpal tunnel release History of tubal ligation Family History Father History of open heart surgery Hypertension CVD (cardiovascular disease) Mother Lung cancer Hypertension Maternal Grandmother Stomach cancer Sister Diabetes Social History Household Members: Spouse and Children Housing: House Alcohol intake: never Patient Tobacco Use Status: Never used Tobacco Current occupational status: employed 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 Sexual orientation: Straight/Heterosexual Gender identity: Female Review of Systems Const All systems reviewed & are unremarkable except as noted in HPI and below Reports as per HPI and Reports no additional complaints GI Reports no additional complaints Reports no additional complaints Physical Exam Vital Signs: BMI result Body Mass Index 30.2 Assessment & Plan Assessment & Plan (1) Postmenopausal bleeding: Code(s): N95.0 - Postmenopausal bleeding Category: Medical Plan: Discussed with the patient the intraoperative findings showing endometrial polyp and the results of the D&C/polypectomy pathology showing inactive endometrium with benign polyp. Discussed with the patient the sensitivity, specificity, positive and negative predictive value, of endometrial biopsy in detecting endometrial pathology including but not limited to endometrial hyperplasia, cancer and other pathology; instructed the patient to call in case vaginal bleeding bleeding recurs, the next step will be to proceed with further endometrial sampling evaluation to rule out endometrial pathology. All questions answered and the patient verbalized understanding and agreed with the plan. (2) Uterine myoma: Code(s): D25.9 - Leiomyoma of uterus, unspecified Category: Medical Plan: The patient is aware of her ultrasound follow-up appointment in 06/08, instructions given the patient to call in case of pelvic pressure or pain or vaginal bleeding prior to next schedule appointment (3) Dysplasia of cervix, low grade (JOSSE 1): Comment: Since 2022 Code(s): N87.0 - Mild cervical dysplasia Category: Medical Plan: The patient is aware of her co testing appointment in 06/08. Coding Level of Care Code Est Pt Level 3 (09712) Diagnoses Postmenopausal bleeding N95.0 Uterine myoma D25.9 Dysplasia of cervix, low grade (JOSSE 1) N87.0
[2023-12-16 12:25] VITALS: BMI 30.2
== END 2023-12-16 13:31 | disposition home or self-care (01) ==
LOC: HO.HWS 11:46
PROVIDERS: PCP Internal Medicine; Visit Provider Obstetrics & Gynecology
DX: N95.0 Postmenopausal bleeding (principal); D25.9 Leiomyoma of uterus, unspecified; N87.0 Mild cervical dysplasia
CPT/HCPCS: 99213

== ENCOUNTER → 2023-12-16 11:46 | Outpatient (BNVA) | payer BC, SELFPAY | PROVIDERS: PCP Internal Medicine; Visit Provider Obstetrics & Gynecology ==

== ENCOUNTER 2023-12-18 09:51 | Outpatient (REF) | payer BC, SELFPAY ==
--- NOTE | ~2023-12-18 | MM_ITS ---
EXAMINATION: MM SCREENING DIGITAL BREAST TOMOSYNTHESIS, BILATERAL CLINICAL INFORMATION: Screening. Asymptomatic. COMPARISON: Mammography: Comparison is made with available priors TECHNIQUE: Digital breast mammography with tomosynthesis is performed in both the craniocaudal and mediolateral oblique views along with computer-aided detection (CAD). FINDINGS: There are scattered areas of fibroglandular density (ACR BI-RADS breast composition Category b). There are no significant masses, abnormal calcifications, or other abnormalities. MM/MM tomosynthesis screening BI IMPRESSION: No mammographic evidence of malignancy. ASSESSMENT: BI-RADS BI-RADS 1 - Negative RECOMMENDATION: Routine annual mammography screening. 1 year F/U This examination should not preclude the clinical evaluation of a suspicious palpable abnormality. This patient's information was entered into a reminder system with a target due date for their next mammogram. Electronically signed by: Yulissa Thornton DO 01/04/2024 02:16 PM EDT
== END 2023-12-18 09:52 | disposition home or self-care (01) ==
LOC: HO.MAMMO 09:51
PROVIDERS: PCP Internal Medicine; Visit Provider Internal Medicine
DX: Z12.31 Encounter for screening mammogram for malignant neoplasm of breast (principal)
CPT/HCPCS: 77063; 77067

== ENCOUNTER → 2023-12-18 10:15 | Outpatient (BNV) | payer BC, SELFPAY | PROVIDERS: PCP Internal Medicine; Visit Provider Internal Medicine | DX: Z12.31 Encounter for screening mammogram for malignant neoplasm of breast (principal) | CPT/HCPCS: 77063; 77067 ==

== ENCOUNTER 2024-03-25 13:49 | Outpatient (AMB) | payer BC, SELFPAY ==
--- OUTSIDE RECORDS SUMMARY | 2024-03-25 13:51 | XMS_ITS | Patient Health Record ---
Author Organization [facility] Address [address] [place] [address] Care Team Providers Care Stock Puller Name Role Phone Stu Estrella MD, Duane Primary Care Provide r Unavailable Aurelio Marie Unavailable [phone] ALLERGIES No Known Allergies REASON FOR REFERRAL [...] to chronic blood loss (D50.0) Active confirmed 48311238 Problem Encounter for screening for malignant neoplasm of colon (Z12.11) Active confirmed 527276744 Problem Fatty liver (K76.0) Active confirmed 358902802 Problem Elevated liver function tests (R79.89) Active confirmed 115830707 PLAN OF TREATMENT Pending Test Test Name Order Date LIVER PROFILE 05/23/2021 IRON + IBC (FE) 05/23/2021 FERRITIN 05/23/2021 PROTHROMBIN TIME (PT, INR) 05/23/2021 [id number] (A1A) 05/23/2021 Liver Panel 05/23/2021 Future Test Test Name Order Date COLONOSCOPY 08/15/2016 Insurance Providers Payer Name Payer Address Payer Phone Subscriber Number Group Number Insured Name Patient Relationship to Insured Coverage Start Date Coverage End Date [facility] [address] [facility] [phone] [id number] COLONNATALIE Self - patient is the insured MEDICAL (GENERAL) HISTORY Medical History History ICD Code Denies [place],DM,CVA,Lung disease,renal dise ase Iron deficiency anemia that has been attributed to her menses-neg. celiac labs Colonoscopy in 11/2016 was negative Fatty liver with elevated LF T's-negative w/u with viral serologies and autoimmune labs HTN Surgical History Surgery Date(Month/Year) Bilateral carpal tunnel release
--- NOTE | 2024-03-25 14:02 | MHC.OFFVIS ---
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 Last co testing was negative HPV positive in 11/04, colpo biopsy ECC was JOSSE 1 Last mammogram was in 01/05 BI-RADS 1 Last colonoscopy was in 11/28, the recommendation was to repeat in 10 years Last pelvic ultrasound in 11/04 showed 3 myomas PFSH Medical History ASCUS of cervix with negative high risk HPV NAFLD (nonalcoholic fatty liver disease) Screening for breast cancer Abnormal mammogram COVID-19 Pure hypercholesterolemia Transaminitis Hypertension Surgical History Hx of vaginal surgery H/O colonoscopy History of carpal tunnel release History of tubal ligation Family History Father History of open heart surgery Hypertension CVD (cardiovascular disease) Mother Lung cancer Hypertension Maternal Grandmother Stomach cancer Sister Diabetes Social History Household Members: Spouse and Children Housing: House Alcohol intake: never Patient Tobacco Use Status: Never used Tobacco Current occupational status: employed 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 Sexual orientation: Straight/Heterosexual Gender identity: Female Female Reproductive History Menstrual control method: permanent sterilization Menopause type: natural Date of Mammogram: 12/18/23 Review of Systems Const All systems reviewed & are unremarkable except as noted in HPI and below Card Reports as per HPI Resp Reports as per HPI GI Reports as per HPI and Reports no additional complaints Reports as per HPI Physical Exam Vital Signs: Last Vital Signs BP 114/68 03/25/24 14:03 BMI result Body Mass Index 28.8 Const General: cooperative, healthy appearing and comfortable Chest Chest palpation & inspection: normal inspection of the chest and normal palpation of entire chest wall Breast/axilla inspection: normal inspection of the breasts and normal inspection of the axillae Breast/axilla palpation: normal palpation of the breasts, normal palpation of the axillae and no axillary lymphadenopathy Resp Effort & Inspection: normal respiratory effort Auscultation: clear to auscultation bilaterally Percussion: percussion normal Cardio Palpation: normal PMI Rate: regular rate Rhythm: regular rhythm Heart sounds: no murmurs and no rubs Peripheral pulses: Peripheral pulses 2+ throughout GI Inspection: Yes normal to inspection Palpation (GI): Soft to palpation, nontender, no guarding, not rigid and No hepatosplenomegaly present Percussion: Yes normal to percussion Auscultation: normal bowel sounds Rectal Exam - Female: deferred General: Yes bladder normal to palpation External Female Exam: No lesion Speculum Exam - Vagina: normal appearance of the vagina, normal palpation, normal vaginal discharge and not erythematous Speculum Exam - Cervix: normal appearance of the cervix and normal palpation Bimanual exam- vagina & uterus: normal bimanual exam, normal palpation, uterine size normal, bladder normal to palpation, consistency normal and normal palpation Bimanual Exam- Adnexa, other: normal adnexae, no masses and no tenderness Assessment & Plan Assessment & Plan (1) Well woman exam: Code(s): Z01.419 - Encounter for gynecological examination (general) (routine) without abnormal findings Category: Medical Plan: Co testing not indicated today. Counseled the patient about the recommended dietary allowance of 1200 mg of Calcium & 600 IU of vitamin D. Instructions given the patient to schedule next screening Mammogram in 01/06. The patient was instructed to perform monthly self-breast exams and schedule annual exam in a year. All questions answered and the patient verbalized understanding. (2) Uterine myoma: Code(s): D25.9 - Leiomyoma of uterus, unspecified Category: Medical Plan: Will order pelvic ultrasound, instructions given to patient to schedule pelvic ultrasound and follow-up in 2 weeks. All questions answered, the patient verbalized understanding Orders: Orders US pelvic and transvaginal Today D25.9 - Leiomyoma of uterus, unspecified Coding Level of Care Code Est Pt Prev Care 40-64y(23282) Diagnoses Well woman exam Z01.419 Uterine myoma D25.9
[2024-03-25 14:03] VITALS: BP 114/68; BMI 28.8
== END 2024-03-25 14:32 | disposition home or self-care (01) ==
PROVIDERS: PCP Internal Medicine; Visit Provider Obstetrics & Gynecology
DX: Z01.419 Encounter for gynecological examination (general) (routine) without abnormal findings (principal); D25.9 Leiomyoma of uterus, unspecified
CPT/HCPCS: 99396

== ENCOUNTER → 2024-03-25 13:49 | Outpatient (BNVA) | payer BC, SELFPAY | PROVIDERS: PCP Internal Medicine; Visit Provider Obstetrics & Gynecology ==

== ENCOUNTER 2024-10-26 13:58 | Outpatient (REF) | payer OTHER, SELFPAY ==
--- NOTE | ~2024-10-26 | US_ITS ---
EXAMINATION: US PELVIS CLINICAL INFORMATION: Uterine fibroids. COMPARISON: November 03, 2023. TECHNIQUE: Ultrasound of the pelvis is performed using both transabdominal and transvaginal transducers along with Doppler. Transvaginal imaging is performed due to inadequate visualization transabdominally. FINDINGS: Uterus: The uterus is anteverted and measures 8 x 6 x 7 cm. Volume: 172 cc. The double wall endometrial thickness is 7 mm. This is limited due to the presence of multiple intramural fibroid. Heterogeneous nodular morphology pattern. Heterogeneous intramural nodular lesions with the probable focal calcifications. There is a 3.5 cm partially calcified intramural uterine fibroid on the right upper body region. There is a 2.0 cm intramural heterogeneous uterine fibroid in the posterior upper body. There is a 1.4 cm intramural fibroid in the right mid body.. Adnexa: The ovaries are not fully depicted in the examination.. No gross ascites. No gross fluid collections in the cul-de-sac. US/US pelvic and transvaginal IMPRESSION: Leiomyomata uteri, largest measures 3.5 cm. Poor evaluation of the endometrial stripe with the questionable centimeters thickness which is abnormal for postmenopausal woman. The ovaries are not identified. Electronically signed by: Jaime Blair MD 10/26/2024 03:18 PM EDT
--- OUTSIDE RECORDS SUMMARY | 2024-10-26 10:30 | XMS_ITS | Encounter Summary ---
Author Organization [employer] Address [address] [facility] [address] [place] [address] Care Team Providers Care Consulting Sales Executive Name Role Phone Duane Power MD Primary Care Provide r Reason for Referral * Consultation (Routine) - Pending Review Specialty Diagnoses / Procedures Referred By Azucena reddy Referred To Contact Neurology Diagnoses TIA (transient ischemic attack) Duane Power MD [address] [place] [address] Phone: tel: fax: Referral ID Status Reason Start Date Expiration Date Visits Requested Visits Authorized [id number] Pending Review Specialty Services Required 10/26/2024 10/26/2025 1 1 * Imaging (Routine) - Authorized Specialty Diagnoses / Procedures Referred By Azucena reddy Referred To Contact Cardiology Diagnoses TIA (transient ischemic attack) Procedures Transthoracic Echo (TTE) Complete Duane Power MD [address] [place] [address] Phone: tel: fax: [facility] [address] [place] [address] Phone: tel: fax: Referral ID Status Reason Start Date Expiration Date Visits Requested Visits Authorized [id number] Authorized Perform Procedure 10/26/2024 10/26/2025 1 1 * Imaging (Routine) - Pending Review Specialty Diagnoses / Procedures Referred By Contac t Referred To Contact Radiology Diagnoses TIA (transient ischemic attack) Procedures MR Brain w/o Contrast Duane Power MD [address] [place] [address] Phone: tel: fax: Referral ID Status Reason Start Date Expiration Date V isits Requested Visits Authorized [id number] Pending Review 10/26/2024 10/26/2025 1 1 * Imaging (Routine) - Authorized Specialty Diagnoses / Procedures Referred By Contac t Referred To Contact Cardiology Diagnoses TIA (transient ischemic attack) Procedures Vascular US carotid artery duplex bilateral Duane Power MD [address] [place] [address] Phone: tel: fax: [address] Phone: tel: fax: Referral ID Status Reason Start Date Expiration Date Visits Requested Visits Authorized [id number] Authorized Perform Procedure 10/26/2024 10/26/2025 1 1 Reason for Visit * Reason Comments Annual Exam Encounter Details Date Type Department Care Team (Late st Contact Info) Description 10/26/2024 10:30 AM EDT Office Visit [facility] [address] [place] [id number] Duane Power MD [address] [place] [address] Essential hypertension (Primary Dx); Postmenopausal bleeding; Left foot pain; Mixed hyperlipidemia; TIA (transient ischemic attack); Preventative health care; Class 1 obesity due to excess calories with serious comorbidity and body mass index (BMI) of 31.0 to 31.9 in adult; Dietary counseling; Exercise counseling Social History Tobacco Use Types Packs/Day Years Used Date Smoking Tobacco: Never Passive Smoke Exposure: Never Smokeless Tobacco: Never Alcohol Use Standard Drinks/Week Comments Never 0 (1 standard drink = 0.6 oz pur e alcohol) Depression Answer Date Recorded Patient Health Questionnaire-9 Score 0 11/18/2023 Patient Health Questionnaire-9 Score 0 11/18/2023 Last PHQ-9: Questionnaire Data Not on file 0 11/18/2023 Housing Stability Answer Date Recorded What is your housing situation today? I have tip ruiz 11/18/[address] you li ve. Do you have problems with any of the following? None of the above 11/18/2023 Food Insecurity Answer Date Recorded Within the past 12 months, y ou worried that your food would run out before you got money to buy more: Never True 11/18/2023 Within the past 12 months,th e food you bought just didn't last and you didn't have enough money to get more: Never True 09/2023 Transportation Answer Date Recorded In the past 12 months, has l ack of transportation kept you from medical appts, meetings, work or from getting things needed for daily living? No 11/18/2023 Utilities Answer Date Recorded In the past 12 months, has t he electric, gas, oil or water company threatened to shut off services in your home? No 11/18/2023 Depression Answer Date Recorded Patient Health Questionnaire-2 Score 0 11/18/2023 Internet Access Answer Date Recorded Internet Access Q1 Yes 12/15/2023 Internet Access Q2 Not on file 12/15/2023 Comments Unknown Sex and Gender Information Value Date Recorded Sex Assigned at Female 02/11/2022 10:37 AM EDT Legal Sex Female 10:37 AM EDT Gender Identity Female 02/11/2022 10:37 AM EDT Sexual Orientation Straight 02/11/2022 10 :37 AM EDT documented as of this encounter Last Filed Vital Signs Vital Sign Reading Time Taken Comments Blood Pressure 124/80 10/26/2024 10:27 AM EDT Pulse 69 10/26/2024 10:27 AM EDT Temperature 36.2 C (97.2 F) 10/26/2024 10:27 AM EDT Respiratory Rate 14 10/26/2024 10:27 AM EDT Oxygen Saturation 99% 10/26/2024 10:27 AM EDT Inhaled Oxygen Concentration - - Weight 82.4 kg (181 lb 9.6 oz) 10/26/2024 10:27 AM EDT Height - - Body Mass Index 31.17 11/18/2023 10:04 AM EDT documented in this encounter Progress Notes * Duane Estrella MD - 10/26/2024 10:30 AM EDT LORAINE Mijares is a 59 y.o. female who presents for Annual Exam. Patient here for a routine physical exam Review of Systems Constitutional: Negative for appetite change, fatigue and fever. HENT: Negative for ear pain, hearing loss and sore throat. Eyes: Negative for pain and visual disturbance. Respiratory: Negative for cough and shortness of breath. Cardiovascular: Negative for chest pain and palpitations. Gastrointestinal: Negative for abdominal pain, nausea and vomiting. Genitourinary: Negative for dysuria. Skin: Negative for rash. Neurological: Negative for dizziness and headaches. Psychiatric/Behavioral: Negative for sleep disturbance. Allergies[1] OBJECTIVE Vitals: 10/26/24 1027 BP: 124/80 BP Location: Left arm Patient Position: Sitting BP Cuff Size: Adult Pulse: 69 Resp: 14 Temp: 97.2 ??F (36.2 ??C) TempSrc: Oral SpO2: 99% Weight: 181 lb 9.6 oz (82.4 kg) Physical Exam Vitals reviewed. Constitutional: General: She is awake. Appearance: Normal appearance. She is well-developed. HENT: Head: Normocephalic and atraumatic. Right Ear: Tympanic membrane, ear canal and external ear normal. Left Ear: Tympanic membrane, ear canal and external ear normal. Nose: Nose normal. Mouth/Throat: Mouth: Mucous membranes are moist. Pharynx: Oropharynx is clear. Eyes: Extraocular Movements: Extraocular movements intact. Conjunctiva/sclera: Conjunctivae normal. Pupils: Pupils are equal, round, and reactive to light. Cardiovascular: Rate and Rhythm: Normal rate and regular rhythm. Pulses: Normal pulses. Heart sounds: Normal heart sounds. Pulmonary: Effort: Pulmonary effort is normal. Breath sounds: Normal breath sounds. Chest: Breasts: Right: Normal. No swelling, bleeding, inverted nipple, mass or nipple discharge. Left: Normal. No swelling, bleeding, inverted nipple, mass or nipple discharge. Abdominal: General: Bowel sounds are normal. Palpations: Abdomen is soft. Musculoskeletal: General: Normal range of motion. Cervical back: Normal range of motion and neck supple. Lymphadenopathy: Upper Body: Right upper body: No supraclavicular or axillary adenopathy. Left upper body: No supraclavicular or axillary adenopathy. Skin: General: Skin is warm. Capillary Refill: Capillary refill takes less than 2 seconds. Neurological: General: No focal deficit present. Mental Status: She is alert and oriented to person, place, and time. Cranial Nerves: Cranial nerves 2-12 are intact. Sensory: Sensation is intact. Motor: Motor function is intact. Coordination: Coordination is intact. Gait: Gait is intact. Deep Tendon Reflexes: Reflexes are normal and symmetric. Psychiatric: Mood and Affect: Mood normal. Assessment/Plan Problem List Items Addressed This Visit Essential hypertension - Primary Patient here for a f/u BP controlled on a regimen of: Lisinopril/Hctz 01/23.5 1 tab po daily Most recent BMP 11/03/2023 wnl Lab Results Component Value Date NA 141 11/03/2023 NA 144 08/08/2023 K 3.7 11/03/2023 K 4.0 08/08/2023 CL 106 11/03/2023 CL 108 08/08/2023 BUN 16 11/03/2023 BUN 16 08/08/2023 CREATININE 0.62 11/03/2023 CREATININE 0.68 08/08/2023 Plan: Continue with current regimen, Repeat BMP patient advised to adhere to a low sodium diet, encouraged about medication compliance, counseled about weight loss. PREVIOUSLY ADDRESSED : THE INFORMATION BELOW HAS BEEN COPIED, PASTED AND UPDATED FROM PREVIOUS NOTES. Left-sided chest wall pain (R07.89). Pt reports chronic left sided chest discomfort described as intensity 2/10 associated with movement and when she sleeps on her left side, no associated symptoms, and reproducible to touch, back in 2014 had a Stress test ( under medical correspondence Dr Avery ) that was read as normal EKG previous visit normal, Pt tender to palpation over her left anterior rib cage, left breast no palpable mass, no redness, no swelling Mammogram 07/2020 Normal Plain films of her rib cage negative bone scan order , yet to be done Relevant Orders Comprehensive Metabolic Panel Postmenopausal bleeding Under the care of Dr. Wilkins last seen 03/25/2024. Reccommended to have a pelvis US S/p Diagnostic Hysteroscopy, Dilataion Curettage and polypectomy Post Op Diagnosis: Endometrial Polyp filling up the whole endometrial cavity Pathology: showed the following: A. Endometrial polyp, resection: Fragments of benign endometrial and mixed endometrial/endocervical polyps, and fragments of benign inactive endometrium; no atypia or carcinoma. B. Endometrium, curettage: Benign inactive endometrium with stromal collapse; no atypia or carcinoma Left foot pain Pt with previous c/o acute on chronic left foot pain Exam suggestive of plantar fasciitis Plain films left foot showed: 1. Mild hypertrophic change along the plantar region of the calcaneus. 2. Mild degenerative changes first metatarsophalangeal joint. 3. No displaced fracture. Recommend follow-up imaging in 10-14 days if fracture is suspected. Has been using meloxicam Pt was seen by Pod[facility] in the past. Pt reports mild improvement with Meloxicam CT lft ankle showed: chronic sprain Seen by Ortho referral for a second opinion as requested by patient, recommended conservative treatment, last seen 02/2023 received a steroid injection Relevant Medications aspirin 81 MG EC tablet Mixed hyperlipidemia Patient here for a f/u She has elevated iipids Most recent fasting Lipid profile showed: Lab Results Component Value Date TRIG 120 08/08/2023 TRIG 125 11/01/2022 CHOL 177 08/08/2023 CHOL 214 11/01/2022 LDLCHOLCAL 110 (H) 08/08/2023 LDLCHOLCAL 138 11/01/2022 HDL 43 08/08/2023 HDL 51 11/01/2022 Currently on a regimen of: atorvastatin 20 mg po qhs, She actually underwent a gastric ballon procedure in her [place] advised to try to adhere to a low cholesterol diet, counseled and educated about diet and exercise,Patient encouraged to come up with a personal goal for weight loss. Plan: Continue Atorvastatin f/u 3 months, repeat Lipid profile Relevant Medications aspirin 81 MG EC tablet Other Relevant Orders Lipid Panel, Standard TIA (transient ischemic attack) Patient reports a couple of episodes back in August where she became confused, unable to enter information on her Ipad which she usually does without a problem, a second episode she reports difficulty finding words and slow speaking She states she was seen at [facility] and work up was unrevealing. Requested records from [facility] 10/07/2024 but the reports only paz phillips that pt was seen for concerns of bleeding from her ear they mention her work up included EKG and chest x-ray that were normal Neuro exam today Normal Etiology ? TIA VS panic attack Plan: carotid US/ ECHO, MRI Brain, Neuro consult for EEG, TSH, CMP, B12, Folate and RPR Start Aspirin 81 mg po daily while work up completed F/u after work up completed Relevant Medications aspirin 81 MG EC tablet Other Relevant Orders Vitamin B12/Folate, Serum Panel RPR (Monitor) with Reflex to Titer Vascular US carotid artery duplex bilateral CBC auto differential MR Brain w/o Contrast Transthoracic Echo (TTE) Complete Referral to Neurology TSH with Reflex to Free T4 Preventative health care Patient here for a routine physical exam Mammogram: 12/18/2023 Normal. Pap Smear: previously brought the report of a pap smear she had in [facility] in 07/26/2022. The report showed LGSIL, there is NO HPV testing Last Pap by Dr Wilkins 11/05/2023 Under the care of RN OT[facility] for evaluation, last seen by Dr Wilkins 03/2024 Colonoscopy: Dr Marie 2017 internal hemmorrhoids and small polyp requested pathology report Vaccines: records requested Dexa scan:. Not age appropriate yet Class 1 obesity due to excess calories with body mass index (BMI) of 31.0 to 31.9 in adult Patient has been counseled and educated about diet and exercise. Personal goal of weight loss discussedPatient has comorbidity of: HTN Dietary Recommendations: Fruits, vegetables, whole grains, protein foods, and fat-free or low-fat dairy products are healthychoices. Eat different types of protein foods in your diet. This can include seafood, lean meats, poultry, beans, peas, lentils, nuts, seeds, soy products, and eggs. Limit foods and beverages higher in added sugars, saturated fat, and sodium. Exercise Recommendations: At least 150 minutes of moderate-intensity physical activity per week, or an equivalent combinationof moderate- and vigorous-intensity activity Other Visit Diagnoses Dietary counseling Exercise counseling No future appointments. [1] No Known Allergies documented in this encounter Miscellaneous Notes * Assessment & Plan Note - Duane Estrella MD - 10/26/2024 11:00 AM EDT Associated Problem(s): TIA (transient ischemic attack) Patient reports a couple of episodes back in August where she became confused, unable to enter information on her Ipad which she usually does without a problem, a second episode she reports difficulty finding words and slow speaking She states she was seen at [facility] and work up was unrevealing. Requested records from [facility] 10/07/2024 but the reports only jacki phillipslita that pt was seen for concerns of bleeding from her ear they mention her work up included EKG and chest x-ray that were normal Neuro exam today Normal Etiology ? TIA VS panic attack Plan: carotid US/ ECHO, MRI Brain, Neuro consult for EEG, TSH, CMP, B12, Folate and RPR Start Aspirin 81 mg po daily while work up completed F/u after work up completed * Assessment & Plan Note - Duane Estrella MD - 10/26/2024 10:36 AM EDT Associated Problem(s): Class 1 obesity due to excess calories with body mass index (BMI) of 31.0 to31.9 in adult Patient has been counseled and educated about diet and exercise. Personal goal of weight loss discussedPatient has comorbidity of: HTN Dietary Recommendations: Fruits, vegetables, whole grains, protein foods, and fat-free or low-fat dairy products are healthychoices. Eat different types of protein foods in your diet. This can include seafood, lean meats, poultry, beans, peas, lentils, nuts, seeds, soy products, and eggs. Limit foods and beverages higher in added sugars, saturated fat, and sodium. Exercise Recommendations: At least 150 minutes of moderate-intensity physical activity per week, or an equivalent combinationof moderate- and vigorous-intensity activity * Assessment & Plan Note - uDane Estrella MD - 10/26/2024 10:34 AM EDT Associated Problem(s): Preventative health care Patient here for a routine physical exam Mammogram: 12/18/2023 Normal. Pap Smear: previously brought the report of a pap smear she had in [facility] in 07/26/2022. The report showed LGSIL, there is NO HPV testing Last Pap by Dr Wilkins 11/05/2023 Under the care of RN OTOL[facility]NGOLOG[facility] for evaluation, last seen by Dr Wilkins 03/2024 Colonoscopy: Dr Marie 2017 internal hemmorrhoids and small polyp requested pathology report Vaccines: records requested Dexa scan:. Not age appropriate yet * Assessment & Plan Note - Duane Estrella MD - 10/26/2024 10:32 AM EDT Associated Problem(s): Mixed hyperlipidemia Patient here for a f/u She has elevated iipids Most recent fasting Lipid profile showed: Lab Results Component Value Date TRIG 120 08/08/2023 TRIG 125 11/01/2022 CHOL 177 08/08/2023 CHOL 214 11/01/2022 LDLCHOLCAL 110 (H) 08/08/2023 LDLCHOLCAL 138 11/01/2022 HDL 43 08/08/2023 HDL 51 11/01/2022 Currently on a regimen of: atorvastatin 20 mg po qhs, She actually underwent a gastric ballon procedure in her [place] advised to try to adhere to a low cholesterol diet, counseled and educated about diet and exercise,Patient encouraged to come up with a personal goal for weight loss. Plan: Continue Atorvastatin f/u 3 months, repeat Lipid profile * Assessment & Plan Note - Duane Estrella MD - 10/26/2024 10:31 AM EDT Associated Problem(s): Essential hypertension Patient here for a f/u BP controlled on a regimen of: Lisinopril/Hctz 01/23.5 1 tab po daily Most recent BMP 11/03/2023 wnl Lab Results Component Value Date NA 141 11/03/2023 NA 144 08/08/2023 K 3.7 11/03/2023 K 4.0 08/08/2023 CL 106 11/03/2023 CL 108 08/08/2023 BUN 16 11/03/2023 BUN 16 08/08/2023 CREATININE 0.62 11/03/2023 CREATININE 0.68 08/08/2023 Plan: Continue with current regimen, Repeat BMP patient advised to adhere to a low sodium diet, encouraged about medication compliance, counseled about weight loss. PREVIOUSLY ADDRESSED : THE INFORMATION BELOW HAS BEEN COPIED, PASTED AND UPDATED FROM PREVIOUS NOTES. Left-sided chest wall pain (R07.89). Pt reports chronic left sided chest discomfort described as intensity 2/10 associated with movement and when she sleeps on her left side, no associated symptoms, and reproducible to touch, back in 2014 had a Stress test ( under medical correspondence Dr Avery ) that was read as normal EKG previous visit normal, Pt tender to palpation over her left anterior rib cage, left breast no palpable mass, no redness, no swelling Mammogram 07/2020 Normal Plain films of her rib cage negative bone scan order , yet to be done * Assessment & Plan Note - Duane Estrella MD - 10/26/2024 10:29 AM EDT Associated Problem(s): Left foot pain Pt with previous c/o acute on chronic left foot pain Exam suggestive of plantar fasciitis Plain films left foot showed: 1. Mild hypertrophic change along the plantar region of the calcaneus. 2. Mild degenerative changes first metatarsophalangeal joint. 3. No displaced fracture. Recommend follow-up imaging in 10-14 days if fracture is suspected. Has been using meloxicam Pt was seen by Pod[facility] in the past. Pt reports mild improvement with Meloxicam CT lft ankle showed: chronic sprain Seen by Ortho referral for a second opinion as requested by patient, recommended conservative treatment, last seen 02/2023 received a steroid injection * Assessment & Plan Note - Duane Estrella MD - 10/26/2024 10:27 AM EDT Associated Problem(s): Postmenopausal bleeding Under the care of Dr. Wilkins last seen 03/25/2024. Reccommended to have a pelvis US S/p Diagnostic Hysteroscopy, Dilataion Curettage and polypectomy Post Op Diagnosis: Endometrial Polyp filling up the whole endometrial cavity Pathology: showed the following: A. Endometrial polyp, resection: Fragments of benign endometrial and mixed endometrial/endocervical polyps, and fragments of benign inactive endometrium; no atypia or carcinoma. B. Endometrium, curettage: Benign inactive endometrium with stromal collapse; no atypia or carcinoma documented in this encounter Plan of Treatment Scheduled Orders Name Type Priority Associated Diagnoses Orde r Schedule Comprehensive Metabolic Panel Lab Routine Essential hypertension Ordered: 10/26/2024 Lipid Panel, Standard Lab Routine Mixed hyperlipidemia Ordered: 10/26/2024 Vitamin B12/Folate, Serum Panel Lab Routine TIA (transient ischemic attack) Expected: 10/26/2024, Expires: 10/26/2025 RPR (Monitor) with Reflex to Titer Lab Routine TIA (transient ischemic attack) Expected: 10/26/2024, Expires: 10/26/2025 CBC auto differential Lab Routine TIA (transient ischemic attack) Expected: 10/26/2024 (Approximate), Expires: 10/26/2025 MR Brain w/o Contrast Imaging Routine TIA (transient ischemic attack) Expected: 10/26/2024, Expires: 10/26/2025 Transthoracic Echo (TTE) Complete Echocardiography Routine TIA (transient ischemic attack) Ordered: 10/26/2024 TSH with Reflex to Free T4 Lab Routine TIA (transient ischemic attack) Ordered: 10/26/2024 Scheduled Referrals Name Type Priority Associated Diagnoses Orde r Schedule Referral to Neurology Outpatient Referral Routine TIA (transient ischemic attack) Expected: 10/26/2024 (Approximate), Expires: 10/26/2025 documented as of this encounter Visit Diagnoses Diagnosis Essential hypertension- Primary Unspecified essential hypertension Postmenopausal bleeding Left foot pain Pain in soft tissues of limb Mixed hyperlipidemia TIA (transient ischemic attack) Unspecified transient cerebral ischemia Preventative health care Routine general medical examination at a [facility] care facility Class 1 obesity due to excess calories with serious comorbidity and body mass index (BMI) of 31.0 to 31.9 in adult Dietary counseling Dietary surveillance and counseling Exercise counseling documented in this encounter Additional Health Concerns Assessment Noted Time PHQ-9 Depression Total Score: 0 11/18/19 24 10:05 AM EDT documented as of this encounter Care Teams Consulting Sales Executive Relationship Specialty Start Date End Date Duane Power MD [address] [place] [id number] PCP - General Internal Medicine 12/22/20 documented as of this encounter
--- OUTSIDE RECORDS SUMMARY | 2024-10-26 15:16 | XMS_ITS | Patient Health Record ---
Author Organization [facility] Address [address] [place] [address] Care Team Providers Care Site Administrator Name Role Phone Stu Estrella MD, Duane Primary Care Provide r Unavailable Aurelio Marie Unavailable [phone] Allergies No Known Allergies Reason For Referral No Information Medications Medication SIG (Take, Route, Frequency, Duration) Notes Start Date End Date Status Pravastatin Sodium 10 MG TAKE 1 TABLET B Y MOUTH EVERYDAY AT BEDTIME Oral for 90 Active Lisinopril-hydroCHLOROthiaz salbador 10-12.5 MG TAKE 1 TABLET BY MOUTH DAILY Oral for 90 Active Immunizations Vaccine Route Administration Date Status Comme nts Influenza Unknown 05/23/2021 Refused Social History Tobacco Use: Social History Observation Description Date Details (start date - stop date) Never Smoker NA - NA Tobacco Use/Smoking Question Answer Notes Patient is a nonsmoker Alcohol Screen Question Answer Notes Did you have a drink containing alcohol in the p ast year? No Points 0 Interpretation Negative Section Notes: Nonsmoker; no alcohol Nonsmoker; no alcohol Problems Problem Type SNOMED Code ICD Code Onset Dates Problem Status W/U Status Risk Notes Problem [id number] Encounter for screening for malignant neoplasm of colon (Z12.11) Active confirmed Problem 949644334 Elevated liver function tests (R79.89) Active confirmed Problem 093464109 Fatty liver (K76.0) Active confirmed Problem 69741976 Iron deficiency anemia due to chronic blood loss (D50.0) Active confirmed Plan Of Treatment Pending Test Test Name Order Date LIVER PROFILE 05/23/2021 IRON + IBC (FE) 05/23/2021 FERRITIN 05/23/2021 PROTHROMBIN TIME (PT, INR) 05/23/2021 [id number] (A1A) 05/23/2021 Liver Panel 05/23/2021 Future Test Test Name Order Date COLONOSCOPY 08/15/2016 Insurance Providers Payer Name Payer Address Payer Phone Subscriber Number Group Number Insured Name Patient Relationship to Insured Coverage Start Date Coverage End Date [facility] [address] [facility] [place] [phone] [id number] NATALIE LYLE Self - patient is the insured Medical (General) History Medical History History ICD Code Denies LA,DM,CVA,Lung disease,renal dise ase Iron deficiency anemia that has been attributed to her menses-neg. celiac labs Colonoscopy in 11/2016 was negative Fatty liver with elevated LF T's-negative w/u with viral serologies and autoimmune labs HTN Surgical History Surgery Date(Month/Year) Bilateral carpal tunnel release
== END 2024-10-26 13:59 | disposition home or self-care (01) ==
LOC: HO.US 13:58
PROVIDERS: PCP Internal Medicine; Visit Provider Obstetrics & Gynecology
DX: D25.9 Leiomyoma of uterus, unspecified (principal)
CPT/HCPCS: 76830; 76856

== ENCOUNTER → 2024-10-26 14:00 | Outpatient (BNV) | payer OTHER, SELFPAY | PROVIDERS: PCP Internal Medicine; Visit Provider Radiology Diagnostic Radiology | DX: D25.9 Leiomyoma of uterus, unspecified (principal) | CPT/HCPCS: 76830; 76856 ==

== ENCOUNTER 2024-11-09 18:26 | Outpatient (REF) | payer OTHER, SELFPAY ==
--- NOTE | ~2024-11-09 | MR_ITS ---
EXAMINATION: MR BRAIN WITHOUT CONTRAST CLINICAL INFORMATION: TIA. COMPARISON: None available. TECHNIQUE: MRI of the brain was obtained using routine sequences without contrast. FINDINGS: No restricted diffusion. No acute intracranial hemorrhage, mass effect, midline shift, hydrocephalus or herniation. Slight disproportionate prominent lateral ventricles with respect to the extra-axial CSF spaces and cerebral sulci prominence. Posterior cranial fossa contents demonstrated no signal abnormality or mass effect. Flow-void signal within the main cerebral vessels is normal. Sellar/suprasellar region demonstrated no signal abnormality or masses. Craniocervical junction demonstrates normal position of the cerebellar tonsils. MR/MR head/brain wo con IMPRESSION: No acute stroke/ischemia. No acute intracranial hemorrhage. Slightly disproportionate with lateral ventricles. Normal pressure hydrocephalus cannot be entirely excluded. Electronically signed by: Jaime Blair MD 11/10/2024 07:48 AM EDT
--- OUTSIDE RECORDS SUMMARY | 2024-11-09 18:36 | XMS_ITS | Encounter Summary ---
Author Organization [facility] Address [address] [place] [address] Phone Care Team Providers Care Wwe Wrestler Name Role Phone Pcp, Unknown Primary Care Provider Unavailabl e Encounter Details Date Type Department Care Team (Late st Contact Info) Description 05/29/2020 Ancillary Orders [facility],Outside Imaging [address], [place] [id number] System, Provider Not In, [facility] [address] [address] Social History Tobacco Use Types Packs/Day Years Used Date Smoking Tobacco: Never Assessed Comments Unknown Sex and Gender Information Value Date Recorded Sex Assigned at Not on file Legal Sex Female 10:35 AM EST Gender Identity Not on file Sexual Orientation Not on file documented as of this encounter Plan of Treatment Not on file documented as of this encounter Results * Mammogram Outside (No Interpretation) (04/19/2015 12:00 AM EST) Narrative SYSTEMGENERATED, DOCUMENTATION - 05/29/2020 10:21 AM EST This study is for PACS storage only and not for interpretation. us Provider Not In System [facility] OUTSIDE IMAGING W /OUT INTERPRETATION Final Result documented in this encounter Visit Diagnoses Not on filedocumented in this encounter Care Teams Wwe Wrestler Relationship Specialty Start Date End Date Pcp, Unknown PCP - General 05/26/20 documented as of this encounter Additional Source Comments The information contained in this document represents components of the legal health record. It is not the complete legal health record.[facility]
--- OUTSIDE RECORDS SUMMARY | 2024-11-09 18:36 | XMS_ITS | Encounter Summary ---
Author Organization [employer] Address [address] [facility] 7[address] [place] [address] Care Team Providers Care Voice Instructor Name Role Phone Duane Power MD Primary Care Provide r Encounter Details Date Type Department Care Team (Late st Contact Info) Description 10/21/2022 Orders Only [facility] PEDS [address] [place] [address] Malou Santos LPN Social History Tobacco Use Types Packs/Day Years Used Date Smoking Tobacco: Never Passive Smoke Exposure: Never Smokeless Tobacco: Never Depression Answer Date Recorded Patient Health Questionnaire-9 Score 0 10/03/2022 Depression Answer Date Recorded Patient Health Questionnaire-2 Score 0 10/03/2022 Comments Unknown Sex and Gender Information Value Date Recorded Sex Assigned at Female 02/11/2022 10:37 AM EDT Legal Sex Female 10:37 AM EDT Gender Identity Female 02/11/2022 10:37 AM EDT Sexual Orientation Straight 02/11/2022 10 :37 AM EDT COVID-19 Exposure Response Date Recorded In the last 10 days, have yo u been in contact with someone who was confirmed or suspected to have Coronavirus/COVID-19? No / Unsure 10/03/2022 2:29 PM EDT documented as of this encounter Plan of Treatment Not on file documented as of this encounter Visit Diagnoses Not on filedocumented in this encounter Additional Health Concerns Assessment Noted Time PHQ-9 Depression Total Score: 0 10/04/19 2:42 PM EDT documented as of this encounter Care Teams Voice Instructor Relationship Specialty Start Date End Date Duane Power MD [address] [place] [address] PCP - General Internal Medicine 12/22/20 documented as of this encounter
--- OUTSIDE RECORDS SUMMARY | 2024-11-09 18:36 | XMS_ITS | Patient Health Record ---
Author Organization [facility] Address [address] [place] [address] Care Team Providers Care Correspondence Transcriber Name Role Phone Stu Estrella MD, Duane Primary Care Provide r Unavailable Aurelio Marie Unavailable [phone] Allergies No Known Allergies Reason For Referral [...] Problem Status W/U Status Risk Notes Problem [id number] Encounter for screening for malignant neoplasm of colon (Z12.11) Active confirmed Problem 577809694 Elevated liver function tests (R79.89) Active confirmed Problem 210778091 Fatty liver (K76.0) Active confirmed Problem 94900785 Iron deficiency anemia due to chronic blood loss (D50.0) Active confirmed Plan Of Treatment Pending Test Test Name Order Date LIVER PROFILE 05/23/2021 IRON + IBC (FE) 05/23/2021 FERRITIN 05/23/2021 PROTHROMBIN TIME (PT, INR) 05/23/2021 [id number] (A1A) 05/23/2021 Liver Panel 05/23/2021 Future Test Test Name Order Date COLONOSCOPY 08/15/2016 Insurance Providers Payer Name Payer Address Payer Phone Subscriber Number Group Number Insured Name Patient Relationship to Insured Coverage Start Date Coverage End Date [facility] [address] [facility] [place] [phone] [id number] NATALIE LYLE Self - patient is the insured Medical (General) History Medical History History ICD Code Denies DE,DM,CVA,Lung disease,renal dise ase Iron deficiency anemia that has been attributed to her menses-neg. celiac labs Colonoscopy in 11/2016 was negative Fatty liver with elevated LF T's-negative w/u with viral serologies and autoimmune labs HTN Surgical History Surgery Date(Month/Year) Bilateral carpal tunnel release
== END 2024-11-09 18:27 | disposition home or self-care (01) ==
LOC: HO.MRI 18:26
PROVIDERS: PCP Internal Medicine; Visit Provider Internal Medicine
DX: G45.9 Transient cerebral ischemic attack, unspecified (principal)
CPT/HCPCS: 70551

== ENCOUNTER → 2024-11-09 18:27 | Outpatient (BNV) | payer OTHER, SELFPAY | PROVIDERS: PCP Internal Medicine; Visit Provider Radiology Diagnostic Radiology | DX: G45.9 Transient cerebral ischemic attack, unspecified (principal) | CPT/HCPCS: 70551 ==

== ENCOUNTER 2024-11-16 15:12 | Outpatient (AMB) | payer OTHER, SELFPAY ==
--- NOTE | 2024-11-16 15:13 | A.OFFVIS_ITS ---
Intake Visit Reasons: TV Ultrasound results Parking Supervisor Required: Yes Parking Supervisor Language: E M Assembler Services: Parking Supervisor Present (in person) Parking Supervisor Name: Jordyn FLORIAN Information Interpreted: non-clinical & clinical Accompanied by: Self / Same As Patient Allergies No Known Allergies (No Known Allergies*) Allergy (Verified 11/16/24 15:14) HPI Comments Details: The patient is schedule telehealth visit for ultrasound follow-up. Doing well with no complaints no vaginal bleeding or pelvic pressure or any other concerns. Pelvic ultrasound showed the following: Uterus: The uterus is anteverted and measures 8 x 6 x 7 cm. Volume: 172 cc. The double wall endometrial thickness is 7 mm. This is limited due to the presence of multiple intramural fibroid. Heterogeneous nodular morphology pattern. Heterogeneous intramural nodular lesions with the probable focal calcifications. There is a 3.5 cm partially calcified intramural uterine fibroid on the right upper body region. There is a 2.0 cm intramural heterogeneous uterine fibroid in the posterior upper body. There is a 1.4 cm intramural fibroid in the right mid body. PFSH Medical History ASCUS of cervix with negative high risk HPV NAFLD (nonalcoholic fatty liver disease) Screening for breast cancer Abnormal mammogram COVID-19 Pure hypercholesterolemia Transaminitis Hypertension Surgical History Hx of vaginal surgery H/O colonoscopy History of carpal tunnel release History of tubal ligation Family History Father History of open heart surgery Hypertension CVD (cardiovascular disease) Mother Lung cancer Hypertension Maternal Grandmother Stomach cancer Sister Diabetes Social History Household Members: Spouse and Children Housing: House Alcohol intake: never Patient Tobacco Use Status: Never used Tobacco Current occupational status: employed 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 Sexual orientation: Straight/Heterosexual Gender identity: Female Review of Systems Const All systems reviewed & are unremarkable except as noted in HPI and below Reports as per HPI and Reports no additional complaints GI Reports no additional complaints Reports no additional complaints Telehealth Telehealth Telehealth Platform: Telephone Location of provider rendering services: practice address Location of patient: address on file Patient Identification confirmed using: Name, : Yes Telehealth method: video Patient verbally consented to treatment: Yes Patient verbally consented to billing insurance company: Yes Patient informed of any privacy concerns related to visit: Yes Minutes spent on Phone/Video with Pt.: 6 Assessment & Plan Assessment & Plan (1) Uterine myoma: Code(s): D25.9 - Leiomyoma of uterus, unspecified Category: Medical Plan: Discussed with the patient the findings on pelvic ultrasound & the risk of myosarcoma; in addition reviewed with the patient that malignancy and pre malignancy cannot be ruled out without hysterectomy for pathological evaluation ; furthermore, explained to the patient the limitation of pelvic ultrasound and endometrial biopsy in the setting. Discussed with the patient the options of treatment including expectant management versus hysterectomy; the pros and cons, risks benefits of each approach were discussed with the patient including the fact that in cases of myosarcoma, surgical treatment can lead to early diagnosis and positively affects the prognosis; after further discussion, the patient decided to proceed with expectant management. Will repeat pelvic ultrasound periodically. Instructions given to patient to call in case any of the following occurs: pressure symptoms, abnormal uterine bleeding, pelvic pain; and to schedule a 12 months pelvic ultrasound (order placed) and a follow-up appointment . All questions answered, the patient verbalized understanding and agreed with the plan . (2) Thickened endometrium: Code(s): R93.89 - Abnormal findings on diagnostic imaging of other specified body structures Category: Medical Plan: Discussed with the patient endometrial thickness above 4 mm in menopause , the differential diagnosis of a thickened endometrium includes but not limited to endometrial polyp, hyperplasia or carcinoma. Explained to the patient that endometrial each thickness is less predictive of endometrial neoplasia in asymptomatic patients, i.e. those without postmenopausal uterine bleeding. The sensitivity and specificity for detecting endometrial carcinoma at an endometrial thickness of >= 5mm was 83 and 72 percent, respectively; this is lower than in patients with bleeding. Studies have shown that postmenopausal patients without uterine bleeding who had an endometrial thickness >11 mm had an endometrial carcinoma risk of 6.7 percent; this risk is similar to postmenopausal patients with bleeding and an endometrial thickness >5 mm. Recommended endometrial sampling to rule endometrial pathology via either office endometrial biopsy or diagnostic hysteroscopy/D&C with possible polypectomy/myomectomy. All pros and cons, risks and benefits of each approach were discussed with the patient, the patient decided to proceed with endometrial biopsy. Instructions given the patient to schedule an EMB appointment within 2 weeks. All questions answered, the patient verbalized I spent a total of 20 minutes reviewing the chart, talking to the patient via video and documenting in the medical record. Orders: Orders US pelvic and transvaginal 12 Months D25.9 - Leiomyoma of uterus, unspecified Coding Level of Care Code Tele Est Pt Level 3 (35350) Diagnoses Uterine myoma D25.9 Thickened endometrium R93.89
--- OUTSIDE RECORDS SUMMARY | 2024-11-16 15:43 | XMS_ITS | Encounter Summary ---
Author Organization [facility] Address [address] [place] [address] Phone Care Team Providers Care Materials Engineering Technician Name Role Phone Pcp, Unknown Primary Care Provider Unavailabl e Encounter Details Date Type Department Care Team (Late st Contact Info) Description 05/29/2020 Ancillary Orders [facility],Outside Imaging [address] [place], [place] [id number] System, Provider Not In, [facility] [address] [address] Social History Tobacco Use Types Packs/Day Years [...] on filedocumented in this encounter Care Teams Materials Engineering Technician Relationship Specialty Start Date End Date Pcp, Unknown PCP - General 05/26/20 documented as of this encounter Additional Source Comments The information contained in this document represents components of the legal health record. It is not the complete legal health record.[facility]
--- OUTSIDE RECORDS SUMMARY | 2024-11-16 15:43 | XMS_ITS | Encounter Summary ---
Author Organization [employer] Address [address] [facility] 7t [place] [address] Care Team Providers Care Rotating Field Assembler Name Role Phone Duane Power MD Primary Care Provide r Encounter Details Date Type Department Care Team (Late st Contact Info) Description 10/21/2022 Orders Only [facility] MED & PEDS [address] [place] [address] Malou Santos LPN Social History Tobacco Use [...] documented as of this encounter Care Teams Rotating Field Assembler Relationship Specialty Start Date End Date Duane Power MD [address] [place] [id number] PCP - General Internal Medicine 12/22/20 documented as of this encounter
--- OUTSIDE RECORDS SUMMARY | 2024-11-16 15:43 | XMS_ITS | Patient Health Record ---
Author Organization [facility] Address [address] [place] [address] Care Team Providers Care Dealer Sales Rep Name Role Phone Stu Estrella MD, Duane Primary Care Provide r Unavailable Aurelio Marie Unavailable [phone] Allergies No Known Allergies Reason For Referral [...] Problem Status W/U Status Risk Notes Problem 412291297 Encounter for screening for malignant neoplasm of colon (Z12.11) Active confirmed Problem 664198537 Elevated liver function tests (R79.89) Active confirmed Problem 858505696 Fatty liver (K76.0) Active confirmed Problem 72068899 Iron deficiency anemia due to chronic blood loss (D50.0) Active confirmed Plan Of Treatment Pending Test Test Name Order Date LIVER PROFILE 05/23/2021 IRON + IBC (FE) 05/23/2021 FERRITIN 05/23/2021 PROTHROMBIN TIME (PT, INR) 05/23/2021 [id number] (A1A) 05/23/2021 Liver Panel 05/23/2021 Future Test Test Name Order Date COLONOSCOPY 08/15/2016 Insurance Providers Payer Name Payer Address Payer Phone Subscriber Number Group Number Insured Name Patient Relationship to Insured Coverage Start Date Coverage End Date [facility] [address] [facility] [place] [phone] [id number] NATALIE LYLE Self - patient is the insured Medical (General) History Medical History History ICD Code Denies HI,DM,CVA,Lung disease,renal dise ase Iron deficiency anemia that has been attributed to her menses-neg. celiac labs Colonoscopy in 11/2016 was negative Fatty liver with elevated LF T's-negative w/u with viral serologies and autoimmune labs HTN Surgical History Surgery Date(Month/Year) Bilateral carpal tunnel release
== END 2024-11-16 15:16 | disposition home or self-care (01) ==
LOC: HO.HWS 15:12
PROVIDERS: PCP Internal Medicine; Visit Provider Obstetrics & Gynecology
DX: D25.9 Leiomyoma of uterus, unspecified (principal); R93.89 Abnormal findings on diagnostic imaging of other specified body structures
CPT/HCPCS: 98005

== ENCOUNTER 2024-11-20 07:08 | Outpatient (REF) | payer OTHER, SELFPAY ==
--- OUTSIDE RECORDS SUMMARY | 2024-11-20 07:10 | XMS_ITS | Patient Health Record ---
Author Organization [facility] Address [address] [place] [address] Care Team Providers Care Newspaper Editor Managing Name Role Phone Stu Estrella MD, Duane Primary Care Provide r Unavailable Aurelio Marie Unavailable [phone] Allergies No Known Allergies Reason For Referral [...] Problem Status W/U Status Risk Notes Problem 715058539 Encounter for screening for malignant neoplasm of colon (Z12.11) Active confirmed Problem 853933873 Elevated liver function tests (R79.89) Active confirmed Problem 789969967 Fatty liver (K76.0) Active confirmed Problem 02203477 Iron deficiency anemia due to chronic blood loss (D50.0) Active confirmed Plan Of Treatment Pending Test Test Name Order Date LIVER PROFILE 05/23/2021 IRON + IBC (FE) 05/23/2021 FERRITIN 05/23/2021 PROTHROMBIN TIME (PT, INR) 05/23/2021 [id number] (A1A) 05/23/2021 Liver Panel 05/23/2021 Future Test Test Name Order Date COLONOSCOPY 08/15/2016 Insurance Providers Payer Name Payer Address Payer Phone Subscriber Number Group Number Insured Name Patient Relationship to Insured Coverage Start Date Coverage End Date [facility] [address] [facility] [place] [phone] [id number] NATALIE LYLE Self - patient is the insured Medical (General) History Medical History History ICD Code Denies DC,DM,CVA,Lung disease,renal dise ase Iron deficiency anemia that has been attributed to her menses-neg. celiac labs Colonoscopy in 11/2016 was negative Fatty liver with elevated LF T's-negative w/u with viral serologies and autoimmune labs HTN Surgical History Surgery Date(Month/Year) Bilateral carpal tunnel release
--- OUTSIDE RECORDS SUMMARY | 2024-11-20 07:10 | XMS_ITS | Encounter Summary ---
Author Organization [facility] Address [address] [place] [address] Phone Care Team Providers Care Joiners Supervisor Name Role Phone Pcp, Unknown Primary Care Provider Unavailabl e Encounter Details Date Type Department Care Team (Late st Contact Info) Description 05/29/2020 Ancillary Orders [facility],Outside Imaging [address] [place], [place] [phone] System, Provider Not In, [facility] [address] [address] Social History Tobacco Use Types Packs/Day Years [...] on filedocumented in this encounter Care Teams Joiners Supervisor Relationship Specialty Start Date End Date Pcp, Unknown PCP - General 05/26/20 documented as of this encounter Additional Source Comments The information contained in this document represents components of the legal health record. It is not the complete legal health record.[facility]
[2024-11-20 07:28] LABS: MANUAL DIFF FLAG NO
[2024-11-20 07:43] LABS: Hematocrit 41.5 % (37.0-47.0); Hemoglobin 13.7 g/dl (12.0-16.0); Imm Gran Abs Auto 0.01 X10*3/uL (0.00-0.03); Imm Gran Pct Auto 0.2 % (0.0-0.4); Lymphocytes Absolute Auto 3.2 X10*3/uL (1.2-4.9); Mean Corpuscular HGB Conc 33.0 g/dl (31.0-35.0); Mean Corpuscular Hemoglobin 29.0 pg (27.0-33.0); Mean Corpuscular Volume 87.7 fL (80.0-98.0); NRBC Abs Auto 0.000 X10*3/uL (0.0-0.012); NRBC Pct Auto 0.0 /100WBC (0.0-0.2); Platelet Count 252 X10*3/uL (160-400); Red Blood Count 4.73 X10*6/uL (4.20-5.50); White Blood Count 6.6 X10*3/uL (4.8-10.8)
[2024-11-20 08:31] LABS: Alanine Aminotransferase 46 U/L (0-31); Albumin Level 4.6 g/dL (3.5-5.0); Alkaline Phosphatase 152 U/L (39-117); Anion Gap 12 (12-20); Aspartate Amino Transferase 35 U/L (5-31); Blood Urea Nitrogen 17 mg/dL (9-16); Calcium 9.5 mg/dL (8.4-10.2); Carbon Dioxide 27 mmol/L (22-29); Chloride 107 mmol/L (96-108); Cholesterol 181 mg/dL (<200); Estimated Glomerular Filt Rate > 60; HDL Cholesterol 41 mg/dL (>40); Potassium 4.4 mmol/L (3.3-5.1); Sodium 142 mmol/L (135-145); Total Protein 7.1 g/dL (6.5-8.0); Triglycerides 144 mg/dL (<150)
[2024-11-20 08:51] LABS: Folate 10.0 ng/mL (> or = 4.0); Vitamin B12 399 pg/mL (200-900)
== END 2024-11-20 07:09 | disposition home or self-care (01) ==
LOC: HO.LAB 07:08
PROVIDERS: PCP Internal Medicine; Visit Provider Internal Medicine
DX: I10 Essential (primary) hypertension (principal); E78.2 Mixed hyperlipidemia; G45.9 Transient cerebral ischemic attack, unspecified
CPT/HCPCS: 36415; 80053; 80061; 82607; 82746; 84443; 85025; 86592

== ENCOUNTER 2024-12-22 07:13 | Outpatient (REF) | payer OTHER, SELFPAY | END 2024-12-22 07:14 | disposition home or self-care (01) | LOC: HO.LNP 07:13 | PROVIDERS: PCP Internal Medicine; Visit Provider Obstetrics & Gynecology | DX: R31.29 Other microscopic hematuria (principal); R93.89 Abnormal findings on diagnostic imaging of other specified body structures; N95.0 Postmenopausal bleeding | CPT/HCPCS: 58100; 81002; 87086; 88305; 99212 ==

== ENCOUNTER 2024-12-22 07:13 | Outpatient (AMB) | payer OTHER, SELFPAY ==
--- OUTSIDE RECORDS SUMMARY | 2009-08-10 | XMS_ITS | Encounter Summary ---
Author Organization [facility] Address [address] [place] [address] Phone Care Team Providers Care Rubber Washer Name Role Phone Unavailable Primary Care Provider Unavailabl e Encounter Details Date Type Department Care Team (Late st Contact Info) Description 08/10/2009 Hospital Encounter [facility],Outside Imaging [address] [place] [address] System, Provider Not In, PhD [address] [address] Social History Tobacco Use Types Packs/Day Years [...] It is not the complete legal health record.[facility]
--- OUTSIDE RECORDS SUMMARY | 2009-08-21 | XMS_ITS | Encounter Summary ---
Author Organization [facility] Address [address] [place] [address] Phone Care Team Providers Care Sign Maker Name Role Phone Unavailable Primary Care Provider Unavailabl e Encounter Details Date Type Department Care Team (Late st Contact Info) Description 08/21/2009 Hospital Encounter [facility],Outside Imaging 30 [place] [address] System, Provider Not In, PhD [address] [address] Social History Tobacco Use Types Packs/Day Years [...] is not the complete legal health record.[facility]
--- OUTSIDE RECORDS SUMMARY | 2009-08-21 00:05 | XMS_ITS | Encounter Summary ---
Author Organization [facility] Address [address] [address] Phone Care Team Providers Care Machine Shop Helper Name Role Phone Unavailable Primary Care Provider Unavailabl e Encounter Details Date Type Department Care Team (Late st Contact Info) Description 08/21/2009 12:05 AM EDT Hospital Encounter [facility],Outside Imaging 30 [place] [address] System, Provider Not In, PhD Partners [address] [address] Social History Tobacco Use Types Packs/Day Years [...] It is not the complete legal health record.[facility]
--- OUTSIDE RECORDS SUMMARY | 2010-02-27 01:00 | XMS_ITS | Encounter Summary ---
Author Organization [facility] Address [address] [place] [address] Phone Care Team Providers Care Asphalt Plant Laborer Name Role Phone Unavailable Primary Care Provider Unavailabl e Encounter Details Date Type Department Care Team (Late st Contact Info) Description 02/27/2010 Hospital Encounter [facility],Outside Imaging 30 [place] [address] System, Provider Not In, PhD [address] [address] Social History Tobacco Use Types Packs/Day Years [...] It is not the complete legal health record.[facility]
--- OUTSIDE RECORDS SUMMARY | 2010-09-26 | XMS_ITS | Encounter Summary ---
Author Organization [facility] Address [address] [place] [address] Phone Care Team Providers Care Senior Speech Pathologist Name Role Phone Unavailable Primary Care Provider Unavailabl e Encounter Details Date Type Department Care Team (Late st Contact Info) Description 09/26/2010 Hospital Encounter [facility],Outside Imaging 30 [place] [address] System, Provider Not In, PhD [address] [address] Social History Tobacco Use Types Packs/Day Years [...] It is not the complete legal health record.[facility]
--- OUTSIDE RECORDS SUMMARY | 2011-09-27 | XMS_ITS | Encounter Summary ---
Author Organization [facility] Address [address] [place] [address] Phone Care Team Providers Care Clinical Nurse Reviewer Name Role Phone Unavailable Primary Care Provider Unavailabl e Encounter Details Date Type Department Care Team (Late st Contact Info) Description 09/27/2011 Hospital Encounter [facility],Outside Imaging 30 [place] [address] System, Provider Not In, PhD [address] [address] Social History Tobacco Use Types Packs/Day Years [...]
--- OUTSIDE RECORDS SUMMARY | 2012-09-28 | XMS_ITS | Encounter Summary ---
Author Organization [facility] Address [address] [place] [address] Phone Care Team Providers Care Encyclopedia Research Worker Name Role Phone Unavailable Primary Care Provider Unavailabl e Encounter Details Date Type Department Care Team (Late st Contact Info) Description 09/28/2012 Hospital Encounter [facility],Outside Imaging [address] [place] [address] System, Provider Not In, PhD [address] [address] Social History Tobacco Use Types Packs/Day Years [...] It is not the complete legal health record.[facility]
--- OUTSIDE RECORDS SUMMARY | 2012-10-02 | XMS_ITS | Encounter Summary ---
Author Organization [facility] Address [address] [place] [address] Phone Care Team Providers Care Split Leather Mosser Name Role Phone Unavailable Primary Care Provider Unavailabl e Encounter Details Date Type Department Care Team (Late st Contact Info) Description 10/02/2012 Hospital Encounter [facility],Outside Imaging [address] [place] [address] System, Provider Not In, PhD [address] [address] Social History Tobacco Use Types Packs/Day Years [...] It is not the complete legal health record.[facility]
--- OUTSIDE RECORDS SUMMARY | 2012-10-02 00:05 | XMS_ITS | Encounter Summary ---
Author Organization [facility] Address [address] [address] Phone Care Team Providers Care Cook Helper Meat Name Role Phone Unavailable Primary Care Provider Unavailabl e Encounter Details Date Type Department Care Team (Late st Contact Info) Description 10/02/2012 12:05 AM EDT Hospital Encounter [facility],Outside Imaging [address] [place] [address] System, Provider Not In, PhD Partners [address] [address] Social History Tobacco Use Types Packs/Day Years [...] It is not the complete legal health record.[facility]
--- OUTSIDE RECORDS SUMMARY | 2024-12-22 07:16 | XMS_ITS | Encounter Summary ---
Author Organization [facility] Address [address] [place] [address] Phone Care Team Providers Care Lens Grinder Apprentice Name Role Phone Pcp, Unknown Primary Care Provider Unavailabl e Encounter Details Date Type Department Care Team (Late st Contact Info) Description 05/23/2020 Ancillary Orders [facility],Outside Imaging [address] [place], [place] [id number] System, Provider Not In, PhD [address] [address] Social History Tobacco Use Types Packs/Day Years [...] encounter Results * Mammogram Outside (No Interpretation) (10/06/2013 12:00 AM EDT) Narrative SYSTEMGENERATED, DOCUMENTATION - 05/23/2020 10:45 AM EST This study is for PACS storage only and not for interpretation. us Provider Not In System PhD IMG OUTSIDE IMAGING W /OUT INTERPRETATION Final Result * US Breast Outside (No Interpretation) (10/02/2012 12:05 AM EDT) Narrative SYSTEMGENERATED, DOCUMENTATION - 05/23/2020 10:46 AM EST This study is for PACS storage only and not for interpretation. us Provider Not In System PhD IMG OUTSIDE IMAGING W /OUT INTERPRETATION Final Result * Mammogram Outside (No Interpretation) (10/02/2012 12:00 AM EDT) Narrative SYSTEMGENERATED, DOCUMENTATION - 05/23/2020 10:45 AM EST This study is for PACS storage only and not for interpretation. us Provider Not In System PhD IMG OUTSIDE IMAGING W /OUT INTERPRETATION Final Result * Mammogram Outside (No Interpretation) (09/28/2012 12:00 AM EDT) Narrative SYSTEMGENERATED, DOCUMENTATION - 05/23/2020 10:47 AM EST This study is for PACS storage only and not for interpretation. us Provider Not In System PhD IMG OUTSIDE IMAGING W /OUT INTERPRETATION Final Result * Mammogram Outside (No Interpretation) (09/27/2011 12:00 AM EDT) Narrative SYSTEMGENERATED, DOCUMENTATION - 05/23/2020 10:50 AM EST This study is for PACS storage only and not for interpretation. us Provider Not In System PhD IMG OUTSIDE IMAGING W /OUT INTERPRETATION Final Result * Mammogram Outside (No Interpretation) (09/26/2010 12:00 AM EDT) Narrative SYSTEMGENERATED, DOCUMENTATION - 05/23/2020 10:51 AM EST This study is for PACS storage only and not for interpretation. us Provider Not In System PhD IMG OUTSIDE IMAGING W /OUT INTERPRETATION Final Result * Mammogram Outside (No Interpretation) (02/27/2010 12:00 AM EST) Narrative SYSTEMGENERATED, DOCUMENTATION - 05/23/2020 10:52 AM EST This study is for PACS storage only and not for interpretation. us Provider Not In System PhD IMG OUTSIDE IMAGING W /OUT INTERPRETATION Final Result * US Breast Outside (No Interpretation) (08/21/2009 12:05 AM EDT) Narrative SYSTEMGENERATED, DOCUMENTATION - 05/23/2020 10:56 AM EST This study is for PACS storage only and not for interpretation. us Provider Not In System PhD IMG OUTSIDE IMAGING W /OUT INTERPRETATION Final Result * Mammogram Outside (No Interpretation) (08/21/2009 12:00 AM EDT) Narrative SYSTEMGENERATED, DOCUMENTATION - 05/23/2020 10:53 AM EST This study is for PACS storage only and not for interpretation. us Provider Not In System PhD IMG OUTSIDE IMAGING W /OUT INTERPRETATION Final Result * Mammogram Outside (No Interpretation) (08/10/2009 12:00 AM EDT) Narrative SYSTEMGENERATED, DOCUMENTATION - 05/23/2020 10:59 AM EST This study is for PACS storage only and not for interpretation. us Provider Not In System PhD IMG OUTSIDE IMAGING W /OUT INTERPRETATION Final Result documented in this encounter Visit Diagnoses Not on filedocumented in this encounter Care Teams Lens Grinder Apprentice Relationship Specialty Start Date End Date Pcp, Unknown PCP - General 05/26/20 documented as of this encounter Additional Source Comments The information contained in this document represents components of the legal health record. It is not the complete legal health record.[facility]
--- OUTSIDE RECORDS SUMMARY | 2024-12-22 07:16 | XMS_ITS | Patient Health Record ---
Author Organization [facility] Address [address] [place] [address] Care Team Providers Care Film Maker Name Role Phone Stu Estrella MD, Duane Primary Care Provide r Unavailable Aurelio Marie Unavailable [phone] Allergies No Known Allergies Reason For Referral [...] Problem Status W/U Status Risk Notes Problem 704066088 Encounter for screening for malignant neoplasm of colon (Z12.11) Active confirmed Problem 354741222 Elevated liver function tests (R79.89) Active confirmed Problem 694374591 Fatty liver (K76.0) Active confirmed Problem 44723345 Iron deficiency anemia due to chronic blood loss (D50.0) Active confirmed Plan Of Treatment Pending Test Test Name Order Date LIVER PROFILE 05/23/2021 IRON + IBC (FE) 05/23/2021 FERRITIN 05/23/2021 PROTHROMBIN TIME (PT, INR) 05/23/2021 [id number] (A1A) 05/23/2021 Liver Panel 05/23/2021 Future Test Test Name Order Date COLONOSCOPY 08/15/2016 Insurance Providers Payer Name Payer Address Payer Phone Subscriber Number Group Number Insured Name Patient Relationship to Insured Coverage Start Date Coverage End Date [facility] [address] [facility] [place] [phone] [id number] NATALIE LYLE Self - patient is the insured Medical (General) History Medical History History ICD Code Denies [place],DM,CVA,Lung disease,renal dise ase Iron deficiency anemia that has been attributed to her menses-neg. celiac labs Colonoscopy in 11/2016 was negative Fatty liver with elevated LF T's-negative w/u with viral serologies and autoimmune labs HTN Surgical History Surgery Date(Month/Year) Bilateral carpal tunnel release
--- OUTSIDE RECORDS SUMMARY | 2024-12-22 07:16 | XMS_ITS | Encounter Summary ---
Author Organization [facility] Address [address] [place] [phone] Phone Care Team Providers Care Plate Maker Name Role Phone Pcp, Unknown Primary Care Provider Unavailabl e Encounter Details Date Type Department Care Team (Late st Contact Info) Description 05/29/2020 Ancillary Orders [facility],Outside Imaging [address] [place], [place] [phone] System, Provider Not In, PhD Partners [address] [address] Social History Tobacco Use Types Packs/Day Years [...] on filedocumented in this encounter Care Teams Plate Maker Relationship Specialty Start Date End Date Pcp, Unknown PCP - General 05/26/20 documented as of this encounter Additional Source Comments The information contained in this document represents components of the legal health record. It is not the complete legal health record.[facility]
--- OUTSIDE RECORDS SUMMARY | 2024-12-22 07:16 | XMS_ITS | Clinical Summary ---
Author Organization [facility] Address [address] [place] [address] Phone Care Team Providers Care Classifying Machine Operator Name Role Phone Pcp, Unknown Primary Care Provider Unavailabl e Social History Tobacco Use Types Packs/Day Years [...] on file Sexual Orientation Not on file Plan of Treatment Not on file Medical Devices Not on file Insurance [facility] HMO O O O HMO O HMO O HMO Member Subscriber Plan / Payer (Ef fective 2020-Present) Name:Mary Mijares Relation to Subscriber:Spouse Name:LOVELY MIJARES Date of :1900 (Home) Address: [address] [place] [address] Payer ID:Not on file Type:O Address: [place] [id number] Care Teams Classifying Machine Operator Relationship Specialty Start Date End Date Pcp, Unknown PCP - General 05/26/20 Additional Source Comments The information contained in this document represents components of the legal health record. It is not the complete legal health record.[facility]
--- OUTSIDE RECORDS SUMMARY | 2024-12-22 07:16 | XMS_ITS | Encounter Summary ---
Author Organization [employer] Address [address] [place] [address] Care Team Providers Care Health Physicist Name Role Phone Duane Power MD Primary Care Provide r Encounter Details Date Type Department Care Team (Late st Contact Info) Description 08/16/2022 Abstract [facility] MEDICINE [address] [place] [address] Duane Power MD [address] [place], [place] [phone] Social History Tobacco Use Types Packs/Day Years Used Date Smoking Tobacco: Never Assessed Comments Unknown Sex and Gender Information Value Date Recorded Sex Assigned at Female 02/11/2022 10:37 AM EDT Legal Sex Female 10:37 AM EDT Gender Identity Female 02/11/2022 10:37 AM EDT Sexual Orientation Straight 02/11/2022 10 :37 AM EDT documented as of this encounter Plan of Treatment Not on file documented as of this encounter Procedures Procedure Name Priority Date/Time Associated Diagnosis Comments COLONOSCOPY Routine 11/12/2016 documented in this encounter Results * Colonoscopy (11/12/2016) Colonoscopy Normal Normal 11/12/2016 Narrative Madiha Jennings - 11/12/2016 12:28 PM EDT Recommended 10 year follow up us Historical Provider HEALTH MAINTENANCE Edited Result - Final documented in this encounter Visit Diagnoses Not on filedocumented in this encounter Care Teams Health Physicist Relationship Specialty Start Date End Date Duane Power MD [address] [place] [address] PCP - General Internal Medicine 12/22/20 documented as of this encounter
--- OUTSIDE RECORDS SUMMARY | 2024-12-22 07:16 | XMS_ITS | Encounter Summary ---
Author Organization [employer] Address [address] [facility] [address] [place] [address] Care Team Providers Care Trains Dispatcher Supervisor Name Role Phone Duane Power MD Primary Care Provide r Encounter Details Date Type Department Care Team (Late st Contact Info) Description 10/21/2022 Orders Only [facility] [address] [place] [address] Malou Santos LPN Social History Tobacco Use [...] documented as of this encounter Care Teams Trains Dispatcher Supervisor Relationship Specialty Start Date End Date Duane Power MD [address] [place] [phone] PCP - General Internal Medicine 12/22/20 documented as of this encounter
--- OUTSIDE RECORDS SUMMARY | 2024-12-22 07:16 | XMS_ITS | Encounter Summary ---
Author Organization [facility] Address [address] [place] [address] Phone Care Team Providers Care Hot Saw Operator Name Role Phone Pcp, Unknown Primary Care Provider Unavailabl e Encounter Details Date Type Department Care Team (Late st Contact Info) Description 05/29/2020 Ancillary Orders [facility],Outside Imaging [address] [place], [place] [phone] System, Provider Not In, PhD Partners [address] [address] Social History Tobacco Use Types Packs/Day Years Used Date Smoking Tobacco: Never Assessed Comments Unknown Sex and Gender Information Value Date Recorded Sex Assigned at Not on file Legal Sex Female 10:35 AM EST Gender Identity Not on file Sexual Orientation Not on file documented as of this encounter Plan of Treatment Not on file documented as of this encounter Results * US Breast Outside (No Interpretation) (06/05/2018 12:00 AM EST) Narrative SYSTEMGENERATED, DOCUMENTATION - 05/29/2020 10:14 AM EST This study is for PACS storage only and not for interpretation. us Provider Not In System PhD IMG OUTSIDE IMAGING W /OUT INTERPRETATION Final Result documented in this encounter Visit Diagnoses Not on filedocumented in this encounter Care Teams Hot Saw Operator Relationship Specialty Start Date End Date Pcp, Unknown PCP - General 05/26/20 documented as of this encounter Additional Source Comments The information contained in this document represents components of the legal health record. It is not the complete legal health record.[facility]
--- OUTSIDE RECORDS SUMMARY | 2024-12-22 07:16 | XMS_ITS | Encounter Summary ---
Author Organization [facility] Address [address] [place] [address] Phone Care Team Providers Care Crossing Gateman Name Role Phone Pcp, Unknown Primary Care Provider Unavailabl e Encounter Details Date Type Department Care Team (Late st Contact Info) Description 05/23/2020 Ancillary Orders ,Outside Imaging [address] [place], [place] [phone] System, Provider [place] In, [place] [address] Social History Tobacco Use Types Packs/Day Years [...] on filedocumented in this encounter Care Teams Crossing Gateman Relationship Specialty Start Date End Date Pcp, Unknown PCP - General 05/26/20 documented as of this encounter Additional Source Comments The information contained in this document represents components of the legal health record. It is not the complete legal health record.[facility]
--- OUTSIDE RECORDS SUMMARY | 2024-12-22 07:16 | XMS_ITS | Encounter Summary ---
Author Organization [facility] Address [address] [place] [address] Phone Care Team Providers Care Assistant Professor Of Marine Biology Name Role Phone Pcp, Unknown Primary Care Provider Unavailabl e Encounter Details Date Type Department Care Team (Late st Contact Info) Description 05/29/2020 Ancillary Orders [facility],Outside Imaging [address] [place], [place] [phone] System, Provider Not In, PhD [facility] [address] [address] Social History Tobacco Use Types Packs/Day Years [...] Results * US Breast Outside (No Interpretation) (11/14/2016 12:00 AM EDT) Narrative SYSTEMGENERATED, DOCUMENTATION - 05/29/2020 10:17 AM EST This study is for PACS storage only and not for interpretation. us Provider Not In System PhD IMG OUTSIDE IMAGING W /OUT INTERPRETATION Final Result documented in this encounter Visit Diagnoses Not on filedocumented in this encounter Care Teams Assistant Professor Of Marine Biology Relationship Specialty Start Date End Date Pcp, Unknown PCP - General 05/26/20 documented as of this encounter Additional Source Comments The information contained in this document represents components of the legal health record. It is not the complete legal health record.[facility]
--- OUTSIDE RECORDS SUMMARY | 2024-12-22 07:16 | XMS_ITS | Clinical Summary ---
Author Organization [employer] Address [address] [facility] [address] [address] [place] [address] Care Team Providers Care Management Aide Name Role Phone Duane Power MD Primary Care Provide r Allergies No known active allergies Medications * This document contains information received from the source organization and may not represent a complete record from that organization. meloxicam (Mobic) 15 MG tabletIndication s:Left foot pain Take 1 tablet (15 mg) by mouth Once per day. 30 tablet 3 4 Active fluticasone (Flonase Allergy Relief) 50 MCG/ACT nasal spray Administer 1 spray into each nostril 2 times daily. Shake gently. Before first use, prime pump. After use, clean tip and replace cap. 16 g 12 4 Active Additional Information Patient not taking.Reported on 11/18/2023 LORazepam (Ativan) 0.5 MG tabletIndication s:Fear of flying Take 1 tablet 30 minutes prior to boarding the [place], may repeat x 1 if still anxious while on the plane 6 tablet 4 Active Calcium Carb-Cholecalcif amalia (Oyster Shell Calcium w/D) 500-5 MG-MCG tabletIndication s:Osteopenia of lumbar spine TAKE 1 TABLET BY MOUTH EVERY DAY 30 tablet 6 4 Active atorvastatin (Lipitor) 20 MG tabletIndication s:Essential hypertension TAKE 1 TABLET BY MOUTH EVERY DAY 90 tablet 1 5 Active lisinopril-hydro CHLOROthiazide 10-12.5 MG tabletIndication s:Essential hypertension TAKE 1 TABLET BY MOUTH EVERY DAY 90 tablet 1 5 Active aspirin 81 MG EC tabletIndication s:TIA (transient ischemic attack) Take 1 tablet (81 mg) by mouth Once per day. 30 tablet 11 5 10/27/19 26 Active Active Problems Problem Noted Date Diagnosed Date Class 1 obesity due to exces s calories with body mass index (BMI) of 31.0 to 31.9 in adult 10/26/2024 Assessment & Plan (10/26/2024 10:36 AM EDT): Patient has been counseled and educated about diet and exercise. Personal goal of weight loss discussedPatient has comorbidity of: HTN Dietary Recommendations: Fruits, vegetables, whole grains, protein foods, and fat-free or low-fat dairy products are healthy choices. Eat different types of protein foods in your diet. This can include seafood, lean meats, poultry, beans, peas, lentils, nuts, seeds, soy products, and eggs. Limit foods and beverages higher in added sugars, saturated fat, and sodium. Exercise Recommendations: At least 150 minutes of moderate-intensity physical activity per week, or an equivalent combination of moderate- and vigorous-intensity activity TIA (transient ischemic attack) 10/26/2024 Assessment & Plan (10/26/2024 11:01 AM EDT): Patient reports a couple of episodes back in August where she became confused, unable to enter information on her Ipad which she usually does without a problem, a second episode she reports difficulty finding words and slow speaking She states she was seen at [facility] and work up was unrevealing. Requested records from [facility] 10/07/2024 but the reports only paz phillips [...] up completed F/u after work up completed Postmenopausal bleeding 11/18/2023 Assessment & Plan (10/26/2024 10:28 AM EDT): Under the care of Dr. Wilkins last [...] with stromal collapse; no atypia or carcinoma Assessment & Plan (11/18/2023 10:19 AM EDT): Under the care of Dr. Wilkins last seen 11/12/2023. He reviewed with her the finding of fibroids, patient is having a surgical procedure 11/25/2023 Obesity (BMI 30-39.9) 08/14/2023 Assessment & Plan (08/14/2023 10:15 AM EDT): Patient has been counseled and educated about diet and exercise. Personal goal of weight loss discussedPatient has comorbidity of: HTN Panic attack 08/13/2023 Assessment & Plan (08/19/2023 10:34 AM EDT): During IBH Consult Mary presenting with excessive worry/anxiety, difficulty controlling worry, restless/keyed up/On edge, easily fatigued, and difficulty concentrating/Mind going blank and palpitations, sweating, sensation of shortness of breath/smothering, feeling of choking, Chest pain/discomfort, nausea/abdominal distress, dizzy/unsteady/light-headed/faint, numbness/tingling; for a period of 18+ mo, for all symptoms in the context of legal issues. Mary reported improvement of sxs and being able to manage utilizing coping mechanisms discussed. Not currently on meds due to side effects (see PCP note). PLAN: (check all that apply) Continue with current services (defined as services in the past 12 months) . Skin lesion of face 06/19/2023 Assessment & Plan (06/19/2023 11:37 AM EST): Pt with small hyperpigmented lesion left anterior face Pt would like to see a mounter saxophones Will be referred to [facility] Anxiety 06/19/2023 Overview (06/19/2023): Pt with c/o feeling anxious at times, intermittent episodes of anxiety suggestive of panic attacks Assessment & Plan (08/19/2023 10:34 AM EDT): During IBH Consult Mary presenting with excessive worry/anxiety, difficulty controlling worry, restless/keyed up/On edge, easily fatigued, and difficulty concentrating/Mind going blank and palpitations, sweating, sensation of shortness of breath/smothering, feeling of choking, Chest pain/discomfort, nausea/abdominal distress, dizzy/unsteady/light-headed/faint, numbness/tingling; for a period of 18+ mo, for all symptoms in the context of legal issues. Mary reported improvement of sxs and being able to manage utilizing coping mechanisms discussed. Not currently on meds due to side effects (see PCP note). PLAN: (check all that apply) Continue with current services (defined as services in the past 12 months) . Assessment & Plan (08/14/2023 10:30 AM EDT): Previous visit started on Paroxetine 10 mg po daily, pt no longer taking it she feels good, no longer anxious Assessment & Plan (07/22/2023 9:23 AM EDT): During IBH Consult Mary presenting with excessive worry/anxiety, difficulty controlling worry, easily fatigued, difficulty concentrating/Mind going blank , irritability, and sleep disturbance difficulty falling asleep; for a period of 18+ mo, for all symptoms in the context of family issues. Mary showed improvement since last appointment. Able to manage symptoms and incorporate coping mechanisms in daily routine. Legal issues with tenant are resolved which leads to decrease of anxiety sxs. PLAN: (check all that apply) Continue with current services (defined as services in the past 12 months). Currently on wait list for OP services. clinician will continue to assist with short- term services. Next follow-up appt on 08/14/23. Assessment & Plan (06/23/2023 4:22 PM EDT): During IBH Consult Mary presenting with excessive worry/anxiety, difficulty controlling worry, easily fatigued, difficulty concentrating/Mind going blank , and irritability and palpitations, trembling/shaking, sensation of shortness of breath/smothering, feeling of choking, Chest pain/discomfort, fear of losing control, Persistent concern/worry of panic attacks or their consequences; for a period of 18+ mo, for all symptoms in the context of family issues and legal issues with tenant. Mary endorsed anxiety symptoms and reported fear of flying and doing long car rides. She's currently going through some life stressors/legal issues w tenant. Her sense of spirituality and worship is identified as main strength. PLAN: (check all that apply) New/Additional Services needed On-site non-integrated services Off-site services for Behavioral Health Integration Plan Internal Follow up with [facility] External OP therapy referral Patient Self Plan Patient to utilize skills provided in intervention , Patient to reach out to [facility] team as needed, Comply with medication , Patient to engage in OP therapy , and Patient to reach out to [facility] as needed. Referral will be placed for OP individual therapy. clinician will see patient during next medical appointment. Urge incontinence of urine 12/03/2022 Assessment & Plan (12/03/2022 12:51 PM EDT): Urge Will refer to Urology JOSSE I (cervical intraepithelial neoplasia I) Assessment & Plan (11/18/2023 10:09 AM EDT): Patient previously brought the report of a pap smear she had in [facility] in 07/26/2022. The report showed LGSIL, there is NO HPV testing Report states pt needs a Colposcopy and Biopsy. Underwent testing that showed JOSSE I Now Under the care of COMMUNICATIONS PROGRAMMER for evaluation, last seen by Dr Wilkins 11/12/2023 Underwent Colposcopy Assessment & Plan (06/19/2023 10:30 AM EST): Patient previously brought the report of a pap smear she had in [facility] in 07/26/2022. The report showed LGSIL, there is NO HPV testing Report states pt needs a Colposcopy and Biopsy. Underwent testing that showed JOSSE I Now Under the care of COMMUNICATIONS PROGRAMMER for evaluation, last seen by Dr Wilkins 03/2023 1 year follow up with co testing recommended Assessment & Plan (12/03/2022 12:53 PM EDT): Patient finally brought the report of a pap smear she had in [facility] in 07/26/2022. 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 Plan: referral to COMMUNICATIONS PROGRAMMER for evaluation. Osteopenia of lumbar spine 12/03/2022 Assessment & Plan (12/03/2022 12:56 PM EDT): Seen on Bone densitometry in [facility] in July Calcium plus vitamin D prescribed Mixed hyperlipidemia 10/03/2022 Assessment & Plan (10/26/2024 10:32 AM EDT): Patient here for a f/u She has [...] underwent a gastric ballon procedure in her [place] advised to try to adhere to a low cholesterol diet, counseled and educated about diet and exercise, Patient encouraged to come up with a personal goal for weight loss. Plan: Continue Atorvastatin f/u 3 months, repeat Lipid profile Assessment & Plan (11/18/2023 10:21 AM EDT): Patient here for a f/u She has [...] underwent a gastric ballon procedure in her [place] Pt with c/o bilateral shoulder pain She is currently on Atorvastatin 20 mg po qhs LFTS normal advised to try to adhere to a low cholesterol diet, counseled and educated about diet and exercise, Patient encouraged to come up with a personal goal for weight loss. Plan: Continue Atorvastatin f/u \3 month Assessment & Plan (08/14/2023 10:35 AM EDT): Patient here for a f/u She has elevated iipids Most recent fasting Lipid profile showed: Currently on a regimen of: atorvastatin 20 mg po qhs, She actually underwent a gastric ballon procedure in her [facility] Pt with c/o bilateral shoulder pain She is currently on Atorvastatin 20 mg po qhs LFTS normal advised to try to adhere to a low cholesterol diet, counseled and educated about diet and exercise, Patient encouraged to come up with a personal goal for weight loss. Plan: Hold Atorvastatin x 1 month, if pain goes away will switch to Crestor. f/u \3 months Lab Results Component Value Date TRIG 120 08/08/2023 TRIG 125 11/01/2022 CHOL 177 08/08/2023 CHOL 214 11/01/2022 LDLCHOLCAL 110 (H) 08/08/2023 LDLCHOLCAL 138 11/01/2022 HDL 43 08/08/2023 HDL 51 11/01/2022 Assessment & Plan (12/03/2022 11:12 AM EDT): Patient here for a f/u She has elevated iipids Most recent fasting Lipid profile 11/01/2022 showed: TC 214 trigs: 125 HDL: 51 LDL 138 Currently on a regimen of: atorvastatin 20 mg po qhs, Pt wanted to loose weight first. she actually underwent a gastric ballon procedure in her [place] Plan: continue Atorvastatin 20 mg po qhs LFTS normal advised to try to adhere to a low cholesterol diet, counseled and educated about diet and exercise, Patient encouraged to come up with a personal goal for weight loss. f/u 4 months Assessment & Plan (10/03/2022 2:47 PM EDT): Patient here for a f/u She has elevated iipids Most recent fasting Lipid profile 01/25/2022 showed: TC 268 trigs: 192 HDL: 55 LDL 178 Currently on a regimen of: Pravastatin 20 mg po qhs, Pt never took the Atorvastatin, she wanted to loose weight first. she actually underwent a gastric ballon procedure in her [place] and has lost > 15 lbs since Plan: DC Pravastatin, Start Atorvastatin 20 mg po qhs and Repeat Lipid profile in 4 months advised to try to adhere to a low cholesterol diet, counseled and educated about diet and exercise, Patient encouraged to come up with a personal goal for weight loss. f/u 4 months Fatty liver 10/03/2022 Assessment & Plan (10/03/2022 2:52 PM EDT): Pt with elevated LFTs, looking at her previous medical records this is not a new finding Likely YANG. Pt with elevated Cholesterol Hep C negative See by Dr. Marie Stucco Worker 05/2021 he recommended to continue Statin and weight loss and 1 year f/u with him Left foot pain 10/03/2022 Assessment & Plan (10/26/2024 10:29 AM EDT): Pt with previous c/o acute on chronic [...] last seen 02/2023 received a steroid injection Assessment & Plan (11/18/2023 10:25 AM EDT): Pt with previous c/o acute on chronic [...] past. Pt reports mild improvement with Meloxicam I had ordered CT to rule out occult fracture but this was not done, today I have ordered again. Seen by Ortho referral for a second opinion as requested by patient, recommended conservative treatment, last seen 02/2023 received a steroid injection Assessment & Plan (06/19/2023 10:24 AM EST): Pt with previous c/o acute on chronic [...] past. Pt reports mild improvement with Meloxicam I had ordered CT to rule out occult fracture but this was not done Seen by Ortho referral for a second opinion as requested by patient, recommended conservative treatment, last seen 02/2023 received a steroid injection Assessment & Plan (12/03/2022 12:51 PM EDT): Pt with previous c/o acute on chronic [...] past. Pt reports mild improvement with Meloxicam Plan: CT to rule out occult fracture Ortho referral for a second opinion Assessment & Plan (10/03/2022 3:03 PM EDT): Pt here with c/o acute on chronic left foot pain Exam suggestive of plantar fasciitis Plan: Plain films left foot meloxicam Pt was seen by Podiary in the past. Pt reports improvement with Meloxicam Fear of flying 10/03/2022 Assessment & Plan (06/23/2023 4:22 PM EDT): During IBH Consult Mary presenting with excessive worry/anxiety, difficulty controlling worry, easily fatigued, difficulty concentrating/Mind going blank , and irritability and palpitations, trembling/shaking, sensation of shortness of breath/smothering, feeling of choking, Chest pain/discomfort, fear of losing control, Persistent concern/worry of panic attacks or their consequences; for a period of 18+ mo, for all symptoms in the context of family issues and legal issues with tenant. Mary endorsed anxiety symptoms and reported fear of flying and doing long car rides. She's currently going through some life stressors/legal issues w tenant. Her sense of spirituality and worship is identified as main strength. PLAN: (check all that apply) New/Additional Services needed On-site non-integrated services Off-site services for Behavioral Health Integration Plan Internal Follow up with [facility] External OP therapy referral Patient Self Plan Patient to utilize skills provided in intervention , Patient to reach out to [facility] team as needed, Comply with medication , Patient to engage in OP therapy , and Patient to reach out to [facility] as needed. Referral will be placed for OP individual therapy. clinician will see patient during next medical appointment. Assessment & Plan (06/19/2023 11:39 AM EST): Uses Lorazepam PRN Hematuria, microscopic 10/03/2022 Assessment & Plan (06/19/2023 10:27 AM EST): Previous U/A showed microscopic hematuria Previous visit I recommended a urine cytology and Abdominal U/S 05/08/2021 Abd US showed: RIGHT KIDNEY: Normal. No hydronephrosis. No renal calculi or focal parenchymal lesions. The kidney measures 12.2 cm in maximum dimension. LEFT KIDNEY: Normal. No hydronephrosis. No renal calculi or focal parenchymal lesions. The kidney measures 11.8 cm in maximum dimension. Pt told me she was seen by a Urologist at [facility], no records were received Repeat UA shows persistent Hematuria. She now explains that she was seen by a Urologist many years ago and she thinks she had a cystoscopy but she is unable to tell me how long ago or who did it. Given the persistence of her microscopic hematuria I referred her back to Urology for a cystoscopy to complete her work up. She also c/o Urinary She was last seen 03/2023 had unremarkable work up and Urology recommended 1 year follow up Assessment & Plan (12/03/2022 12:50 PM EDT): Previous U/A showed microscopic hematuria Previous visit I recommended a urine cytology and Abdominal U/S 05/08/2021 Abd US showed: RIGHT KIDNEY: Normal. No hydronephrosis. No renal calculi or focal parenchymal lesions. The kidney measures 12.2 cm in maximum dimension. LEFT KIDNEY: Normal. No hydronephrosis. No renal calculi or focal parenchymal lesions. The kidney measures 11.8 cm in maximum dimension. Pt told me she was seen by a Urologist at [facility], no records were received Repeat UA shows persistent Hematuria. She now explains that she was seen by a Urologist many years ago and she thinks she had a cystoscopy but she is unable to tell me how long ago or who did it. Given the persistence of her microscopic hematuria I have referred her back to Urology for a cystoscopy to complete her work up. She also c/o Urinary incontinence Plan: Urology referral Assessment & Plan (10/03/2022 3:21 PM EDT): Previous U/A showed microscopic hematuria Previous visit I recommended a urine cytology and Abdominal U/S 05/08/2021 Abd US showed: RIGHT KIDNEY: Normal. No hydronephrosis. No renal calculi or focal parenchymal lesions. The kidney measures 12.2 cm in maximum dimension. LEFT KIDNEY: Normal. No hydronephrosis. No renal calculi or focal parenchymal lesions. The kidney measures 11.8 cm in maximum dimension. Pt told me she was seen by a Urologist at [facility], no records were received Will repeat UA [facility] health care 10/03/2022 Assessment & Plan (10/26/2024 11:02 AM EDT): Patient here for a routine physical exam Mammogram: 12/18/2023 Normal. Pap Smear: previously brought the report of a pap smear she had in [facility] in 07/26/2022. The report showed LGSIL, there is NO HPV testing Last Pap by Dr Wilkins 11/05/2023 Under the care of COMMUNICATIONS PROGRAMMER for evaluation, last seen by Dr Wilkins 03/2024 Colonoscopy: Dr Cynthia Hilario internal hemmorrhoids and small polyp requested pathology report Vaccines: records requested Dexa scan:. Not age appropriate yet Assessment & Plan (11/18/2023 10:12 AM EDT): Mammogram: 11/2022 Normal. Pap Smear: previously brought the report of a pap smear she had in [facility] in 07/26/2022. The report showed LGSIL, there is NO HPV testing Report states pt needs a Colposcopy and Biopsy. Underwent testing that showed JOSSE I Now Under the care of COMMUNICATIONS PROGRAMMER for evaluation, last seen by Dr Wilkins 11/12/2023 Colonoscopy: Dr Cynthia Hilario internal hemmorrhoids and small polyp requested pathology report Vaccines: records requested Dexa scan:. Not age appropriate yet Assessment & Plan (06/19/2023 10:32 AM EST): Mammogram: 11/2022 Normal. Pap Smear: previously brought the report of a pap smear she had in [facility] in 07/26/2022. The report showed LGSIL, there is NO HPV testing Report states pt needs a Colposcopy and Biopsy. Underwent testing that showed JOSSE I Now Under the care of COMMUNICATIONS PROGRAMMER for evaluation, last seen by Dr Wilkins 03/2023 1 year follow up with co testing recommended Colonoscopy: Dr Cynthia Hilario internal hemmorrhoids and small polyp requested pathology report Vaccines: records requested Dexa scan:. Not age appropriate yet Assessment & Plan (10/03/2022 3:24 PM EDT): Mammogram: 08/01/2020 Normal. Today she tells me she had a repeat Mammogram in [facility] this year and was told it was normal. I asked that she bring me a copy Pap Smear: Records requested to [facility], never received, she tells me that she had a repeat in [facility] as well this year and was told it was normal. I asked her for a copy of the results Colonoscopy: Dr Cynthia Hilario internal hemmorrhoids and small polyp requested pathology report Vaccines: records requested Dexa scan:. Not age appropriate yet Carpal tunnel syndrome 09/19/2022 Assessment & Plan (10/03/2022 2:50 PM EDT): Pt with Hx of bilateral CTS, diagnosed 10 years ago, s/p CT release one in [place] and another one in [place]. Records requested Essential hypertension 09/19/2022 Assessment & Plan (10/26/2024 10:31 AM EDT): Patient here for a f/u BP controlled [...] scan order , yet to be done Assessment & Plan (11/18/2023 10:09 AM EDT): Patient here for a f/u BP controlled on a regimen of: Lisinopril/Hctz 01/23.5 1 tab po daily Most recent BMP 11/03/2023 wnl Lab Results Component Value Date NA 141 11/03/2023 NA 144 08/08/2023 K 3.7 11/03/2023 K 4.0 08/08/2023 CL 106 11/03/2023 CL 108 08/08/2023 BUN 16 11/03/2023 BUN 16 08/08/2023 CREATININE 0.62 11/03/2023 CREATININE 0.68 08/08/2023 Plan: Continue with current regimen, patient advised to adhere to a low sodium diet, encouraged about medication compliance, counseled about weight loss. PREVIOUSLY ADDRESSED : THE INFORMATION BELOW HAS BEEN COPIED, PASTED AND UPDATED FROM PREVIOUS NOTES. Transverse melanonychia (L60.8). Referred to Dermatology appointment scheduled for 06/2021 Left-sided chest wall pain (R07.89). Pt reports [...] scan order , yet to be done Pain in right ankle and joints of right foot (M25.571). Pt with bilateral heel and ankle pain exam suggestive of plantar fasciitis pt already using heel pads extretching exercises discussed Podiatry eval Meloxicam po daily Assessment & Plan (08/14/2023 9:36 AM EDT): Patient here for a f/u BP controlled on a regimen of: Lisinopril/Hctz 01/23.5 1 tab po daily Most recent BMP 08/08/2023 wnl Lab Results Component Value Date NA 144 08/08/2023 NA 140 11/01/2022 K 4.0 08/08/2023 K 4.2 11/01/2022 CL 108 08/08/2023 CL 106 11/01/2022 BUN 16 08/08/2023 BUN 19 (H) 11/01/2022 CREATININE 0.68 08/08/2023 CREATININE 0.67 11/01/2022 Plan: Continue with current regimen, patient advised to adhere to a low sodium diet, encouraged about medication compliance, counseled about weight loss. PREVIOUSLY ADDRESSED : THE INFORMATION BELOW HAS BEEN COPIED, PASTED AND UPDATED FROM PREVIOUS NOTES. Transverse melanonychia (L60.8). Referred to Dermatology appointment scheduled for 06/2021 Left-sided chest wall pain (R07.89). Pt reports [...] scan order , yet to be done Pain in right ankle and joints of right foot (M25.571). Pt with bilateral heel and ankle pain exam suggestive of plantar fasciitis pt already using heel pads extretching exercises discussed Podiatry eval Meloxicam po daily Assessment & Plan (06/19/2023 10:30 AM EST): Patient here for a f/u BP controlled on a regimen of: Lisinopril/Hctz 01/23.5 1 tab po daily Most recent BMP 11/01/2022 wnl Plan: Continue with current regimen, patient advised to adhere to a low sodium diet, encouraged about medication compliance, counseled about weight loss. PREVIOUSLY ADDRESSED : THE INFORMATION BELOW HAS BEEN COPIED, PASTED AND UPDATED FROM PREVIOUS NOTES. Transverse melanonychia (L60.8). Referred to Dermatology appointment scheduled for 06/2021 Left-sided chest wall pain (R07.89). Pt reports [...] scan order , yet to be done Pain in right ankle and joints of right foot (M25.571). Pt with bilateral heel and ankle pain exam suggestive of plantar fasciitis pt already using heel pads extretching exercises discussed Podiatry eval Meloxicam po daily Assessment & Plan (10/03/2022 3:22 PM EDT): Patient here for a f/u BP controlled on a regimen of: Lisinopril/Hctz 01/23.5 1 tab po daily Most recent BMP 01/12/2021 was normal Will repeat BMP Plan: Continue with current regimen, patient advised to adhere to a low sodium diet, encouraged about medication compliance, counseled about weight loss. PREVIOUSLY ADDRESSED : THE INFORMATION BELOW HAS BEEN COPIED, PASTED AND UPDATED FROM PREVIOUS NOTES. Transverse melanonychia (L60.8). Referred to Dermatology appointment scheduled for 06/2021 Left-sided chest wall pain (R07.89). Pt reports [...] scan order , yet to be done Pain in right ankle and joints of right foot (M25.571). Pt with bilateral heel and ankle pain exam suggestive of plantar fasciitis pt already using heel pads extretching exercises discussed Podiatry eval Meloxicam po daily Encounters Date Type Department Care Team Description 12/14/2024 Telephone [facility] [place] [address] Duane Power MD Referral 12/10/2024 Telephone [facility] [address] [facility] [place] [address] Duane Power MD January Recall 11/11/2024 Results Follow-Up [facility] [place] [address] Duane Power MD MR Brain w/o Contrast 10/26/2024 10:30 AM EDT Office Visit [facility] [place] [address] Duane Power MD Essential hypertension (Primary Dx); Postmenopausal bleeding; Left foot pain; Mixed hyperlipidemia; TIA (transient ischemic attack); Preventative health care; Class 1 obesity due to excess calories with serious comorbidity and body mass index (BMI) of 31.0 to 31.9 in adult; Dietary counseling; Exercise counseling 10/26/2024 Orders Only [facility] External Provider, [facility] 10/26/2024 Travel 10/25/2024 Telephone [facility] [address] [place] [address] Duane Power MD chart prep 10/19/2024 Patient Outreach [facility] [address] [place] [address] Duane Power MD Pre-visit Planning (SDOH negative. Tobacco screening negative) from Last 3 Months Immunizations Immunization Administration Dates Next Due Tdap 12/06/2021 Social History Tobacco Use Types Packs/Day Years Used Date Smoking Tobacco: Never Passive Smoke Exposure: Never Smokeless Tobacco: Never Tobacco Cessation:Counseling Given: Not Answered Alcohol Use Standard Drinks/Week Comments Never 0 [...] Orientation Straight 02/11/2022 10 :37 AM EDT Last Filed Vital Signs Vital Sign Reading Time Taken Comments Blood Pressure 124/80 10/26/2024 10:27 AM EDT Pulse 69 10/26/2024 10:27 AM EDT Temperature 36.2 C (97.2 F) 10/26/2024 10:27 AM EDT Respiratory Rate 14 10/26/2024 10:27 AM EDT Oxygen Saturation 99% 10/26/2024 10:27 AM EDT Inhaled Oxygen Concentration - - Weight 82.4 kg (181 lb 9.6 oz) 10/26/2024 10:27 AM EDT Height 162.6 cm (5' 4 ) 11/18/2023 10:04 AM EDT Body Mass Index 31.17 11/18/2023 10:04 AM EDT Plan of Treatment Health Maintenance Due Date Last Done Comments CT Colonography 1965 FIT DNA/Cologuard 1965 FIT 1965 FOBT 1965 Sigmoidoscopy 1965 Disability Screening 1965 Alcohol/Substance Use Screening 1977 Hepatitis A Vaccines (1 of 2 - Risk 2-dose series) 1984 Hepatitis B Vaccines (1 of 3 - 19+ 3-dose series) 1984 Pneumococcal Vaccine: 50+ Years (1 of 1 - PCV) 2015 Zoster Vaccines (1 of 2) 2015 Depression Screening 11/17/2024 11/18/2023, 11/18/19 24 COVID-19 Vaccine ( season) 2024 06/11/2021, 07/31/2020, 07/10/2020 Influenza Vaccine (#1) 2024 Mammogram 12/17/2024 12/18/2023, 12/12/2022 SDOH Screening 10/19/2025 10/19/2024 Tobacco Screening 10/19/2025 10/19/2024 Pap Smear 11/04/2026 11/05/2023, 06/11/2021 Colonoscopy 11/12/2026 11/12/2016 Colorectal Cancer Screening 11/12/2026 Cervical Cancer Screening 11/04/2028 HPV/Cotest 11/04/2028 11/05/2023, 05/16, 06/11/2021 Lipid Panel 11/20/2029 11/20/2024, 07/14, 11/01/2022, Additional history exists DTaP/Tdap/Td Vaccines (2 - Td or Tdap) 12/07/2031 12/06/2021 RSV Patients and Patients Aged 60 years or older (1 - 1-dose 75+ series) 2040 HIV Screening Completed 01/12/2021 Hepatitis C Screening Completed 01/12/2021 HIB Vaccines Aged Out No longer eligi ble based on patient's age to complete this topic HPV Vaccines Aged Out No longer eligi ble based on patient's age to complete this topic IPV Vaccines Aged Out No longer eligi ble based on patient's age to complete this topic Meningococcal B Vaccine Aged Out No l onger eligible based on patient's age to complete this topic Meningococcal Vaccine Aged Out No suzanne maximo eligible based on patient's age to complete this topic RSV under 20 months Aged Out No longe r eligible based on patient's age to complete this topic Rotavirus Vaccines Aged Out No longer eligible based on patient's age to complete this topic Procedures Procedure Name Priority Date/Time Associated Diagnosis Comments CBC WITH AUTO DIFFERENTIAL Routine 11/20/2024 7:27 AM EDT TIA (transient ischemic attack) RPR (MONITOR) W/REFL TITER Routine 11/20/2024 7:27 AM EDT TIA (transient ischemic attack) VITAMIN B12/FOLATE, SERUM PANEL Routine 11/20/2024 7:27 AM EDT TIA (transient ischemic attack) TSH W/REFLEX TO FT4 Routine 11/20/2024 7 :27 AM EDT TIA (transient ischemic attack) LIPID PANEL, STANDARD Routine 11/20/2024 7:27 AM EDT Mixed hyperlipidemia COMPREHENSIVE METABOLIC PANEL Routine 11/20/2024 7:27 AM EDT Essential hypertension MR BRAIN WO CONTRAST Routine 11/09/2024 6:37 PM EDT TIA (transient ischemic attack) US PELVIS TRANSVAGINAL Routine 10/26/2024 2:25 PM EDT BI MAMMOGRAM SCREENING TOMOSYNTHESIS BILATERAL Routine 12/18/2023 10:15 AM EDT Breast cancer screening by mammogram THINPREP IMAGING PAP AND HPV MRNA E6/E7 WITH REFLEX TO HPV 16,18/45 Routine 11/05/2023 8:21 AM EDT ZZZ HISTORICAL HEPATITIS C AB W/REFL TO HCV RNA, QN, PCR Routine 01/12/2021 9:32 AM EDT HIV 1/2 ANTIGEN/ANTIBODY, FOURTH GENERATION W/RFL Routine 01/12/2021 9:32 AM EDT HM COLONOSCOPY Routine 11/12/2016 from Last 3 Months or Most Recently Relevant to Health Maintenance Results * Vitamin B12/Folate, Serum Panel (11/20/2024 7:27 AM EDT) Vitamin B12 399 200 - 900 pg/mL [facility] Comment:NORMAL 200-900 PG/ML INDETERMINATE 160-199 PG/ML DEFICIENT < 160 PG/ML Folate 10.0 > or = 4.0 ng/mL [facility] Comment:Reference Values:> o r = 4.0 ng/mL< 4.0 ng/mL suggests folate deficiency Methotrexate, aminopterin and folinic acid(leucovorin) are chemotherapeutic agents whose molecularstructures are similar to folate; therefore, the Architectfolate assay cannot be used for patients using these drugs. Blood Venous blood specimen / Unknown 11/20/2024 7:27 AM EDT 11/20/2024 7:27 AM EDT us Duane Estrella MD LAB BLOOD ORDERABLES Final Result Performing Organization Address [facility]/ZIP Co de Phone Number [facility] [address] [place] [phone] * TSH with Reflex to Free T4 (11/20/2024 7:27 AM EDT) Pathologist [facility] TSH reflex Free T4 1.40 0.32 - 4.0 uIU/mL [facility] Blood Venous blood specimen / Unknown 11/20/2024 7:27 AM EDT 11/20/2024 7:27 AM EDT Duane Estrella MD LAB BLOOD ORDERABLES Final Result Performing Organization Address [facility] Co de Phone Number [facility] [address] [place] [phone] * (ABNORMAL) CBC auto differential (11/20/2024 7:27 AM EDT) Pathologist [facility] White Blood Count 6.6 4.8 - 10.8 X10*3/uL [facility] Red Blood Count 4.73 4.20 - 5.50 X10*6/uL [facility] Hemoglobin 13.7 12.0 - 16.0 g/dl [facility] Hematocrit 41.5 37.0 - 47.0 % [facility] Mean Corpuscular Volume 87.7 80.0 - 98.0 fL [facility] Mean Corpuscular Hemoglobin 29.0 27.0 - 33.0 pg [facility] Mean Corpuscular HGB Conc 33.0 31.0 - 35.0 g/dl [facility] Red Cell Distribution Width 12.9 11.0 - 16.0 % [facility] Platelet Count 252 160 - 400 X10*3/uL [facility] Mean Platelet Volume 9.0(L) 9.4 - 12.3 fL [facility] Neutrophils Percent Auto 44.7(L) 45 - 73 % [facility] Imm Gran Pct Auto 0.2 0.0 - 0.4 % [facility] Lymphocytes Percent Auto 47.7(H) 20 - 40 % [facility] Monocytes Percent Auto 5.7 2 - 11 % [facility] Eosinophils Percent Auto 1.1 0 - 4 % [facility] Basophils Percent Auto 0.6 0 - 2 % [facility] NRBC Pct Auto 0.0 0.0 - 0.2 /100WBC [facility] Neutrophils Absolute Auto 3.0 2.0 - 8.3 x10*3/uL [facility] Imm Gran Abs Auto 0.01 0.00 - 0.03 X10*3/uL [facility] Lymphocytes Absolute Auto 3.2 1.2 - 4.9 X10*3/uL [facility] Monocytes Absolute Auto 0.4 0.1 - 1.2 X10*3/uL [facility] Eosinophils Absolute Auto 0.1 0.0 - 0.4 X10*3/uL [facility] Basophils Absolute Auto 0.0 0.0 - 0.2 X10*3/uL [facility] NRBC Abs Auto 0.000 0.0 - 0.012 X10*3/uL [facility] Blood Venous blood specimen / Unknown 11/20/2024 7:27 AM EDT 11/20/2024 7:27 AM EDT us Duane Estrella MD LAB BLOOD ORDERABLES Final Result [facility] [address] [place] [phone] * RPR (Monitor) with Reflex to??Titer (11/20/2024 7:27 AM EDT) RPR (Monitor) w/Refl Titer NON-REACTI VE NON-REACT BLOSSOM [facility] Comment:THIS TEST WAS PERFOR MED AT:[facility] [place] [phone] CASTILLO MD Rapid Plasma Reagin Ab Titer TNP [facility] Blood Venous blood specimen / Unknown 11/20/2024 7:27 AM EDT 11/20/2024 7:27 AM EDT Duane Estrella MD LAB BLOOD ORDERABLES Final Result [facility] [address] [place] [phone] * (ABNORMAL) Lipid Panel, Standard (11/20/2024 7:27 AM EDT) Triglycerides 144 <150 mg/dL [facility] Comment:Desirable Triglyceri de: less than 150 mg/dLBorderline High Triglyceride 150-199 mg/dLHigh Triglyceride: 200-499 mg/dLVery High Triglyceride: greater than or equal to 5OO mg/dL Cholesterol 181 <200 mg/dL [facility] Comment:Desirable Cholestero l: less than 200 mg/dLBorderline High Cholesterol: 200-239 mg/dLHigh Cholesterol: greater than 239 mg/dL LDL Cholesterol Calculated 112(H) <100 mg/dL [facility] Comment:Desirable LDL: less than 100 mg/dLNear Optimal/Above Optimal LDL: 110- 129 mg/dLBorderline High LDL: 130-159 mg/dLHigh LDL: 160-189 mg/dLVery High LDL: greater than or equal to 190 mg/dL HDL Cholesterol 41 >40 mg/dL [facility] Comment:Desirable HDL: great er than 40 mg/dL Note: This HDL assay may give artificially low results in patients with liver disease. Blood Venous blood specimen / Unknown 11/20/2024 7:27 AM EDT 11/20/2024 7:27 AM EDT Duane Estrella MD LAB BLOOD ORDERABLES Final Result [facility] [address] [place] [phone] * (ABNORMAL) Comprehensive Metabolic Panel (11/20/2024 7:27 AM EDT) Sodium 142 135 - 145 mmol/L [facility] Potassium 4.4 3.3 - 5.1 mmol/L [facility] Chloride 107 96 - 108 mmol/L [facility] Carbon Dioxide 27 22 - 29 mmol/L [facility] Anion Gap 12 12 - 20 [facility] Urea Nitrogen (BUN) 17(H) 9 - 16 mg/dL [facility] Creatinine, Serum 0.64 0.5 - 1.4 mg/dL [facility] Estimated Glomerular Filt Rate >60 [facility] Comment:Chronic Kidney Disea se: Estimated GFR < 60 mL/min/1.67x7Eexqkm Kidney Disease: Estimated GFR < 15 mL/min/1.73m2 Glucose 110 60 - 115 mg/dL [facility] Calcium 9.5 8.4 - 10.2 mg/dL [facility] Bilirubin, Total 0.5 0.0 - 1.0 mg/dL [facility] Aspartate Amino Transferase 35(H) 5 - 31 U/L [facility] Alanine Aminotransferase 46(H) 0 - 31 U/L [facility] Total Protein 7.1 6.5 - 8.0 g/dL [facility] Albumin Level 4.6 3.5 - 5.0 g/dL [facility] Alkaline Phosphatase 152(H) 39 - 117 U/L [facility] Blood Venous blood specimen / Unknown 11/20/2024 7:27 AM EDT 11/20/2024 7:27 AM EDT us Duane Estrella MD LAB BLOOD ORDERABLES Final Result Performing Organization Address City/[facility]/ZIP Co de Phone Number [facility] [address] [place] [phone] * MR Brain w/o Contrast (11/09/2024 6:37 PM EDT) Anatomical Region Laterality Modality Brain Magnetic Resonan ce 11/09/2024 6:37 PM EDT Narrative 11/10/2024 7:51 AM EDT [address] [address] Magnetic Resonance Report Signed Patient: Mary Mijares MR#: [id number] 8 : 1965 Acct:[id number] Age/Sex: 59 / F ADM Date: 11/09/24 Loc: HO.MRI Attending Dr: Duane Rock MD Ordering Physician: Duane Rock MD Date of Service: 11/09/24 Procedure(s): MR head/brain wo con Accession Number(s): [id number] cc: Duane Rock MD EXAMINATION: MR BRAIN WITHOUT CONTRAST CLINICAL INFORMATION: TIA. COMPARISON: None available. TECHNIQUE: MRI of the brain was obtained using routine sequences without contrast. FINDINGS: No restricted diffusion. No acute intracranial hemorrhage, mass effect, midline shift, hydrocephalus or herniation. Slight disproportionate prominent lateral ventricles with respect to the extra-axial CSF spaces and cerebral sulci prominence. Posterior cranial fossa contents demonstrated no signal abnormality or mass effect. Flow-void signal within the main cerebral vessels is normal. Sellar/suprasellar region demonstrated no signal abnormality or masses. Craniocervical junction demonstrates normal position of the cerebellar tonsils. MR/MR head/brain wo con IMPRESSION: No acute stroke/ischemia. No acute intracranial hemorrhage. Slightly disproportionate with lateral ventricles. Normal pressure hydrocephalus cannot be entirely excluded. Electronically signed by: Jaime Blair MD 11/10/2024 07:48 AM EDT Dictated By: Jaime Brown MD Signed By: <Electronically signed by Jaime ePrea MD in OV> 11/10/24 0748 DD/ 1837 TD/TT: 11/09/24 1855 Loss Prevention Auditor: Procedure Note Donotuseinterpreter, Image - 11/10/[address] [address] Magnetic Resonance Report Signed Patient: Shelia Mijares#: [id number] 8 : 1965Acct:[id number] Age/Sex: 59 / FADM Date: 11/09/24 Loc: HO.MRI Attending Dr: Duane Rock MD Ordering Physician: Duane Rock MD Date of Service: 11/09/24 Procedure(s): MR head/brain wo con Accession Number(s): [id number] cc: Duane Rock MD EXAMINATION: MR BRAIN WITHOUT CONTRAST CLINICAL INFORMATION: TIA. COMPARISON: None available. TECHNIQUE: MRI of the brain was obtained using routine sequences without contrast. FINDINGS: No restricted diffusion. No acute intracranial hemorrhage, mass effect, midline shift, hydrocephalus or herniation. Slight disproportionate prominent lateral ventricles with respect to the extra-axial CSF spaces and cerebral sulci prominence. Posterior cranial fossa contents demonstrated no signal abnormality or mass effect. Flow-void signal within the main cerebral vessels is normal. Sellar/suprasellar region demonstrated no signal abnormality or masses. Craniocervical junction demonstrates normal position of the cerebellar tonsils. MR/MR head/brain wo con IMPRESSION: No acute stroke/ischemia. No acute intracranial hemorrhage. Slightly disproportionate with lateral ventricles. Normal pressure hydrocephalus cannot be entirely excluded. Electronically signed by: Jaime Blair MD 11/10/2024 07:48 AM EDT Dictated By: Jaime Brown MD Signed By: <Electronically signed by Jaime Perea MDin OV> 11/10/24 0748 DD/ 1837 TD/TT: 11/09/24 1855 Loss Prevention Auditor: us Duane Estrella MD IMG MRI PROCEDURES Fi nal Result * US Pelvis Transvaginal (10/26/2024 2:25 PM EDT) Anatomical Region Laterality Modality Pelvis Ultrasound 10/26/2024 2:25 PM EDT Narrative 10/26/2024 3:21 PM EDT [place] [address] Ultrasound Report Signed Patient: Mary Mijares MR#: [id number] 8 : 1965 Acct:[id number] Age/Sex: 59 / F ADM Date: 10/26/24 Loc: HO.US Attending Dr: Michael Wilkins MD Ordering Physician: Michael Wilkins MD Date of Service: 10/26/24 Procedure(s): US pelvic and transvaginal Accession Number(s): [id number] cc: Duane Rock MD; Michael Wilkins MD EXAMINATION: US PELVIS CLINICAL INFORMATION: Uterine fibroids. COMPARISON: November 03, 2023. TECHNIQUE: Ultrasound of the pelvis is performed using both transabdominal and transvaginal transducers along with Doppler. Transvaginal imaging is performed due to inadequate visualization transabdominally. FINDINGS: Uterus: The uterus is anteverted and measures 8 x 6 x 7 cm. Volume: 172 cc. The double wall endometrial thickness is 7 mm. This is limited due to the presence of multiple intramural fibroid. Heterogeneous nodular morphology pattern. Heterogeneous intramural nodular lesions with the probable focal calcifications. There is a 3.5 cm partially calcified intramural uterine fibroid on the right upper body region. There is a 2.0 cm intramural heterogeneous uterine fibroid in the posterior upper body. There is a 1.4 cm intramural fibroid in the right mid body.. Adnexa: The ovaries are not fully depicted in the examination.. No gross ascites. No gross fluid collections in the cul-de-sac. US/US pelvic and transvaginal IMPRESSION: Leiomyomata uteri, largest measures 3.5 cm. Poor evaluation of the endometrial stripe with the questionable centimeters thickness which is abnormal for postmenopausal woman. The ovaries are not identified. Electronically signed by: Jaime Blair MD 10/26/2024 03:18 PM EDT Dictated By: Jaime Brown MD Signed By: <Electronically signed by Jaime Perea MD in OV> 10/26/24 1518 DD/ 1425 TD/TT: 10/26/24 1449 Loss Prevention Auditor: Procedure Note Donotuseinterpreter, Image - 10/26/[address] [address] Ultrasound Report Signed Patient: Shelia Mijares#: [id number] 8 : 1965Acct:[id number] Age/Sex: 59 / FADM Date: 10/26/24 Loc: HO.US Attending Dr: Michael Wilkins MD Ordering Physician: Michael Wilkins MD Date of Service: 10/26/24 Procedure(s): US pelvic and transvaginal Accession Number(s): [id number] cc: Duane Rock MD; Michael Wilkins MD EXAMINATION: US PELVIS CLINICAL INFORMATION: Uterine fibroids. COMPARISON: November 03, 2023. TECHNIQUE: Ultrasound of the pelvis is performed using both transabdominal and transvaginal transducers along with Doppler. Transvaginal imaging is performed due to inadequate visualization transabdominally. FINDINGS: Uterus: The uterus is anteverted and measures 8 x 6 x 7 cm. Volume: 172 cc. The double wall endometrial thickness is 7 mm. This is limited due to the presence of multiple intramural fibroid. Heterogeneous nodular morphology pattern. Heterogeneous intramural nodular lesions with the probable focal calcifications. There is a 3.5 cm partially calcified intramural uterine fibroid on the right upper body region. There is a 2.0 cm intramural heterogeneous uterine fibroid in the posterior upper body. There is a 1.4 cm intramural fibroid in the right mid body.. Adnexa: The ovaries are not fully depicted in the examination.. No gross ascites. No gross fluid collections in the cul-de-sac. US/US pelvic and transvaginal IMPRESSION: Leiomyomata uteri, largest measures 3.5 cm. Poor evaluation of the endometrial stripe with the questionable centimeters thickness which is abnormal for postmenopausal woman. The ovaries are not identified. Electronically signed by: Jaime Blair MD 10/26/2024 03:18 PM EDT Dictated By: Jaime Brown MD Signed By: <Electronically signed by Jaime Perea MDin OV> 10/26/24 1518 DD/ 1425 TD/TT: 10/26/24 1449 Loss Prevention Auditor: us [facility] External Provider IMG US PROCEDURES Final Result * BI Mammogram Screening Tomosynthesis Bilateral (12/18/2023 10:15 AM EDT) Anatomical Region Laterality Modality Breast Bilateral Mammography 12/18/2023 10:1 5 AM EDT Narrative 01/04/2024 2:20 PM EDT [address] [place] [address] Mammography Report Signed Patient: Mary Mijares MR#: [id number] 8 : 1965 Acct:[id number] Age/Sex: 58 / F ADM Date: 12/18/23 Loc: RODOLFO Attending Dr: Duane Rock MD Ordering Physician: Duane Rock MD Resu lts: 1Negative Date of Service: 12/18/23 Follow Up: 1 Year From Orig ina Mammogram Procedure(s): MM tomosynthesis screening BI Accession Number(s): [id number] cc: Duane Rock MD EXAMINATION: MM SCREENING DIGITAL BREAST TOMOSYNTHESIS, BILATERAL CLINICAL INFORMATION: Screening. Asymptomatic. COMPARISON: Mammography: Comparison is made with available priors TECHNIQUE: Digital breast mammography with tomosynthesis is performed in both the craniocaudal and mediolateral oblique views along with computer-aided detection (CAD). FINDINGS: There are scattered areas of fibroglandular density (ACR BI-RADS breast composition Category b). There are no significant masses, abnormal calcifications, or other abnormalities. MM/MM tomosynthesis screening BI IMPRESSION: No mammographic evidence of malignancy. ASSESSMENT: BI-RADS BI-RADS 1 - Negative RECOMMENDATION: Routine annual mammography screening. 1 year F/U This examination should not preclude the clinical evaluation of a suspicious palpable abnormality. This patient's information was entered into a reminder system with a target due date for their next mammogram. Electronically signed by: Yulissa Thornton DO 01/04/2024 02:16 PM EDT Dictated By: Yulissa Thornton DO Signed By: <Electronically signed by Yulissa Thornton DO in OV> 01/04/24 1416 DD/ 1015 TD/TT: 12/18/23 1029 Loss Prevention Auditor: Procedure Note Donotuseinterpreter, Image - 01/04/2024 [facility] [address] [place] [address] Mammography Report Signed Patient: Mary MijaresMR#: [id number] 8 : 1965Acct:[id number] Age/Sex: 58 / FADM Date: 12/18/23 Loc: GONSALOO Attending Dr: Duane Rock MD Ordering Physician: Duane Rock MDResu lts: 1Negative Date of Service: 12/18/23Follow Up: 1 Year From Orig inal Mammogram Procedure(s): MM tomosynthesis screening BI Accession Number(s): [id number] cc: Duane Rock MD EXAMINATION: MM SCREENING DIGITAL BREAST TOMOSYNTHESIS, BILATERAL CLINICAL INFORMATION: Screening. Asymptomatic. COMPARISON: Mammography: Comparison is made with available priors TECHNIQUE: Digital breast mammography with tomosynthesis is performed in both the craniocaudal and mediolateral oblique views along with computer-aided detection (CAD). FINDINGS: There are scattered areas of fibroglandular density (ACR BI-RADS breast composition Category b). There are no significant masses, abnormal calcifications, or other abnormalities. MM/MM tomosynthesis screening BI IMPRESSION: No mammographic evidence of malignancy. ASSESSMENT: BI-RADS BI-RADS 1 - Negative RECOMMENDATION: Routine annual mammography screening. 1 year F/U This examination should not preclude the clinical evaluation of a suspicious palpable abnormality. This patient's information was entered into a reminder system with a target due date for their next mammogram. Electronically signed by: Yulissa Thornton DO 01/04/2024 02:16 PM EDT Dictated By: Yulissa Thornton DO Signed By: <Electronically signed by Yulissa Thornton DO in OV> 01/04/24 1416 DD/ 1015 TD/TT: 12/18/23 1029 Loss Prevention Auditor: us Duane Estrella MD IMG BI PROCEDURES Fin al Result * (ABNORMAL) ThinPrep Imaging Pap and HPV mRNA E6/E7 with Reflex to HPV 16,18/45 (11/05/2023 8:21 AM EDT) HPV 16 RNA NOT DETECTED NOT DETECTED [facility] HPV 18/45 RNA NOT DETECTED NOT DETECTED [facility] Comment:Methodology: Transcr iption Mediated AmplificationCervical sources are required for HPV testing.If a vaginal source from a patient who has had atotal hysterectomy with removal of cervix wassubmitted, please contact the testing laboratoryfor alternative testing options.THIS TEST WAS PERFORMED AT:[facility] [place] [phone] CASTILLO MD HPV nRNA E6/E7 Detected(A ) Not Detected [facility] Comment:Methodology: Transcr iption-Mediated AmplificationThis assay detects E6/E7 viral messenger RNA (mRNA) from 14high-risk HPV types (16,18,31,33,35,39,45,51,52,56,58,59,66,68).Cervical sources are required for HPV testing.If a vaginal source from a patient who has had atotal hysterectomy with removal of cervix wassubmitted, please contact the testing laboratoryfor alternative testing options.For additional information, please refer tohttp://education.Redapt/faq/GSO821l2(This link if provided for information/educational purposes only.) SOURCE: SEE NOTE [facility] Comment:None given Report Status: TNP [facility] Clinical Information: SEE NOTE [facility] Comment:None given LMP: SEE NOTE [facility] Comment:NONE GIVEN Prev. PAP: SEE NOTE [facility] Comment:NONE GIVEN Prev. BX: SEE NOTE [facility] Comment:NONE GIVEN Statement Of Adequacy: SEE NOTE [facility] Comment:Satisfactory for yudith luation.Endocervical/transformation zone componentpresent. General Categorization: [facility] Interpretation/Result: SEE NOTE [facility] Comment:Cytology Results: Ne gative for intraepitheliallesion or malignancy. Cytology Comment SEE NOTE [facility] Comment:This Pap test has be en evaluated with computerassisted technology. Tmd Teacher: SEE NOTE [facility] Comment:CMG, CT(ASCP)CT scre ening location: [address] [address] Review Tmd Teacher: SEE NOTE [facility] Comment:WAC, CT(ASCP)CT scre ening location: [place] [address] Pathologist [facility] PAP Infection [facility] See Note SEE NOTE [facility] Comment:EXPLANATORY NOTE:The Pap is a screening test for cervical cancer. It isnot a diagnostic test and is subject to false negativeand false positive results. It is most reliable when asatisfactory sample, regularly obtained, is submittedwith relevant clinical findings and history, and whenthe Pap result is evaluated along with historic andcurrent clinical information. 11/05/2023 8:21 AM EDT 11/05/2023 5:41 PM EDT Narrative [facility] - 11/11/2023 2:55 PM EDT SEE SCANNED RESULTS IN EMR us Generic External Data Provider LAB PATHOLOGY ORD ERABLES Final Result [facility] [address] [place] [address] [phone] * HEPATITIS C AB W/REFL TO HCV RNA, QN, PCR (01/12/2021 9:32 AM EDT) HEPATITIS C ANTIBODY NON-REACT BLOSSOM NON-REACT BLOSSOM [facility] INDEX 0.01 <1.00 [facility] Comment: HCV antibody was non-reactive. There is no laboratory evidence of HCV infection. In most cases, no further action is required. However, if recent HCV exposure is suspected, a test for HCV RNA (test code 92918) is suggested. For additional information please refer to http://SIMI.Redapt/faq/QOV65z6 (This link is being provided for informational/ educational purposes only.) 01/12/2021 9:32 AM EDT Duane Estrella MD HISTORICAL/NON ORDERA BLE LABS Final Result Performing Organization Address [facility] Phone Number [facility] [address] [place] [address], * HIV 1/2 ANTIGEN/ANTIBODY,FOURTH GENERATION W/RFL (01/12/2021 9:32 AM EDT) Pathologist [facility] HIV-1/2 ANTIGEN AND ANTIBODIES, 4TH GENERATION W/ REFLEX NON-REACT BLOSSOM NON-REACT BLOSSOM [facility] Comment: HIV-1 antigen and HIV-1/HIV-2 antibodies were not detected. There is no laboratory evidence of HIV infection. PLEASE NOTE: This information has been disclosed to you from records whose confidentiality may be protected by state law. If your state requires such protection, then the state law prohibits you from making any further disclosure of the information without the specific written consent of the person to whom it pertains, or as otherwise permitted by law. A general authorization for the release of medical or other information is NOT sufficient for this purpose. For additional information please refer to http://SIMI.Redapt/faq/ENV790 (This link is being provided for informational/ educational purposes only.) The performance of this assay has not been clinically validated in patients less than 2 years old. 01/12/2021 9:32 AM EDT us Duane Estrella MD LAB BLOOD ORDERABLES Final Result Performing Organization Address [facility] [place] Phone Number [facility] [address] [place] [address], [place] * Hm Colonoscopy (11/12/2016) Colonoscopy Normal Normal 11/12/2016 Madiha Dean - 11/12/2016 12:28 PM EDT Recommended 10 year follow up us Historical Provider HEALTH MAINTENANCE Edited Result - Final from Last 3 Months or Most Recently Relevant to Health Maintenance Insurance [facility] Care Teams Management Aide Relationship Specialty Start Date End Date Duane Power MD [address] [place] [id number] PCP - General Internal Medicine 12/22/20
--- OUTSIDE RECORDS SUMMARY | 2024-12-22 07:16 | XMS_ITS | Encounter Summary ---
Author Organization [facility] Address [address] [facility] [address] [place] [address] Phone Care Team Providers Care Air Grinder Name Role Phone Pcp, Unknown Primary Care Provider Unavailabl e Encounter Details Date Type Department Care Team (Late st Contact Info) Description 05/26/2020 Ancillary Orders Virtual Department [address] [place] [address] Jess Summers MD [address] [place] [phone] Social History Tobacco Use Types Packs/Day Years [...] on filedocumented in this encounter Care Teams Air Grinder Relationship Specialty Start Date End Date Pcp, Unknown PCP - General 05/26/20 documented as of this encounter Additional Source Comments The information contained in this document represents components of the legal health record. It is not the complete legal health record.[facility]
--- OUTSIDE RECORDS SUMMARY | 2024-12-22 07:16 | XMS_ITS | Encounter Summary ---
Author Organization [facility] Address [address] [place] [address] Phone Care Team Providers Care Operating Room Scheduler Name Role Phone Pcp, Unknown Primary Care Provider Unavailabl e Encounter Details Date Type Department Care Team (Late st Contact Info) Description 05/29/2020 Ancillary Orders [facility],Outside Imaging [address] [place], [place] [phone] System, Provider Not In, [facility] [address] [address] Social History Tobacco Use Types Packs/Day Years [...] encounter Results * Mammogram Outside (No Interpretation) (05/01/2015 12:00 AM EST) Narrative SYSTEMGENERATED, DOCUMENTATION - 05/29/2020 10:20 AM EST This study is for PACS storage only and not for interpretation. us Provider Not In System PhD IMG OUTSIDE IMAGING W /OUT INTERPRETATION Final Result documented in this encounter Visit Diagnoses Not on filedocumented in this encounter Care Teams Operating Room Scheduler Relationship Specialty Start Date End Date Pcp, Unknown PCP - General 05/26/20 documented as of this encounter Additional Source Comments The information contained in this document represents components of the legal health record. It is not the complete legal health record.[facility]
--- OUTSIDE RECORDS SUMMARY | 2024-12-22 07:16 | XMS_ITS | Encounter Summary ---
Author Organization [facility] Address [address] [facility] 7t [place] [address] Care Team Providers Care Analytical Lab Analyst Name Role Phone Duane Power MD Primary Care Provide r Reason for Visit * Reason Onset Date Comments Appointment Request 08/06/2024 Encounter Details Date Type Department Care Team ([facility] st Contact Info) Description 08/06/2024 Telephone [facility] MEDICINE [address] [place], [place] [phone] Duane Power MD [address] [place], [place] [phone] Appointment Request Social History Tobacco Use Types Packs/Day Years [...] AM EDT documented as of this encounter Miscellaneous Notes * Telephone Encounter - Omari Boston - 08/06/2024 1:50 PM EDT Tc from pt requesting a Physical Appt with PCP. Contact pt at [phone] documented in this encounter Plan of Treatment Not on file documented as of this encounter Visit Diagnoses Not on filedocumented in this encounter Additional Health Concerns Assessment Noted Time PHQ-9 Depression Total Score: 0 11/18/19 24 10:05 AM EDT documented as of this encounter Care Teams Analytical Lab Analyst Relationship Specialty Start Date End Date Duane Power MD [address] [place] [id number] PCP - General Internal Medicine 12/22/20 documented as of this encounter
--- OUTSIDE RECORDS SUMMARY | 2024-12-22 07:16 | XMS_ITS | Encounter Summary ---
Author Organization [facility] Address [address] [place] [address] Phone Care Team Providers Care Comsec Manager Name Role Phone Pcp, Unknown Primary Care Provider Unavailabl e Encounter Details Date Type Department Care Team (Late st Contact Info) Description 05/29/2020 Ancillary Orders [facility],Outside Imaging [address] [place], [place] [phone] System, Provider Not In, [facility] [address] [address] Social History Tobacco Use Types Packs/Day Years [...] encounter Results * Mammogram Outside (No Interpretation) (05/27/2016 12:00 AM EST) Narrative SYSTEMGENERATED, DOCUMENTATION - 05/29/2020 10:19 AM EST This study is for PACS storage only and not for interpretation. us Provider Not In System PhD IMG OUTSIDE IMAGING W /OUT INTERPRETATION Final Result documented in this encounter Visit Diagnoses Not on filedocumented in this encounter Care Teams Comsec Manager Relationship Specialty Start Date End Date Pcp, Unknown PCP - General 05/26/20 documented as of this encounter Additional Source Comments The information contained in this document represents components of the legal health record. It is not the complete legal health record.[facility]
--- OUTSIDE RECORDS SUMMARY | 2024-12-22 07:16 | XMS_ITS | Encounter Summary ---
Author Organization [facility] Address [address] [place] [address] Phone Care Team Providers Care County Director Name Role Phone Pcp, Unknown Primary Care Provider Unavailabl e Encounter Details Date Type Department Care Team (Late st Contact Info) Description 05/29/2020 Ancillary Orders [facility],Outside Imaging [address] [place] [address] System, Provider Not In, [facility] [address] [address] Social History Tobacco Use Types Packs/Day Years Used Date Smoking Tobacco: Never Assessed Comments Unknown Sex and Gender Information Value Date Recorded Sex Assigned at Not on file Legal Sex Female 10:35 AM EST Gender Identity Not on file Sexual Orientation Not on file documented as of this encounter Plan of Treatment Not on file documented as of this encounter Results * MRI Breast Outside (No Interpretation) (05/14/2017 12:00 AM EST) Narrative SYSTEMGENERATED, DOCUMENTATION - 05/29/2020 10:16 AM EST This study is for PACS storage only and not for interpretation. us Provider Not In System PhD IMG OUTSIDE IMAGING W /OUT INTERPRETATION Final Result documented in this encounter Visit Diagnoses Not on filedocumented in this encounter Care Teams County Director Relationship Specialty Start Date End Date Pcp, Unknown PCP - General 05/26/20 documented as of this encounter Additional Source Comments The information contained in this document represents components of the legal health record. It is not the complete legal health record.[facility]
--- OUTSIDE RECORDS SUMMARY | 2024-12-22 07:16 | XMS_ITS | Encounter Summary ---
Author Organization [employer] [facility] Address [address] [facility] 7t [place] [address] Care Team Providers Care Crane Mechanic Name Role Phone Duane Power MD Primary Care Provide r Encounter Details Date Type Department Care Team ([facility] st Contact Info) Description 03/20/2023 Orders Only [facility]S [address] [place] [address] Malou Santos LPN Social History Tobacco Use Types Packs/Day Years Used Date Smoking Tobacco: Never Passive Smoke Exposure: Never Smokeless Tobacco: Never Depression Answer Date Recorded Patient Health Questionnaire-9 Score 0 10/03/2022 Housing Stability Answer Date Recorded What is your housing situation today? I have tip sing 01/28/[address] you li ve. Do you have problems with any of the following? None of the above 01/28/2023 Food Insecurity Answer Date Recorded Within the past 12 months, y ou worried that your food would run out before you got money to buy more: Never True 01/28/2023 Within the past 12 months,th e food you bought just didn't last and you didn't have enough money to get more: Never True Transportation Answer Date Recorded In the past 12 months, has l ack of transportation kept you from medical appts, meetings, work or from getting things needed for daily living? No 01/28/2023 Utilities Answer Date Recorded In the past 12 months, has t he electric, gas, oil or water company threatened to shut off services in your home? No 01/28/2023 Depression Answer Date Recorded Patient Health Questionnaire-2 [...] Time PHQ-9 Depression Total Score: 0 10/04/19 23 2:42 PM EDT documented as of this encounter Care Teams Crane Mechanic Relationship Specialty Start Date End Date Duane Power MD [address] [place] [address] PCP - General Internal Medicine 12/22/20 documented as of this encounter
--- OUTSIDE RECORDS SUMMARY | 2024-12-22 07:16 | XMS_ITS | Encounter Summary ---
Author Organization [facility] Address [address] [place] [address] Phone Care Team Providers Care Senior Storage Administrator Name Role Phone Pcp, Unknown Primary Care Provider Unavailabl e Encounter Details Date Type Department Care Team (Late st Contact Info) Description 05/29/2020 Ancillary Orders [facility],Outside Imaging [address] [place], [place] [phone] System, Provider Not In, [facility] [address] [address] Social History Tobacco Use Types Packs/Day Years [...] Results * US Breast Outside (No Interpretation) (05/01/2015 12:05 AM EST) Narrative SYSTEMGENERATED, DOCUMENTATION - 05/29/2020 10:22 AM EST This study is for PACS storage only and not for interpretation. us Provider Not In System PhD IMG OUTSIDE IMAGING W /OUT INTERPRETATION Final Result documented in this encounter Visit Diagnoses Not on filedocumented in this encounter Care Teams Senior Storage Administrator Relationship Specialty Start Date End Date Pcp, Unknown PCP - General 05/26/20 documented as of this encounter Additional Source Comments The information contained in this document represents components of the legal health record. It is not the complete legal health record.[facility]
--- OUTSIDE RECORDS SUMMARY | 2024-12-22 07:16 | XMS_ITS | Encounter Summary ---
Author Organization [facility] Address [address] [place] [address] Phone Care Team Providers Care Occupancy Specialist Name Role Phone Pcp, Unknown Primary Care Provider Unavailabl e Encounter Details Date Type Department Care Team (Late st Contact Info) Description 05/29/2020 Ancillary Orders [facility],Outside Imaging [address] [place], [place] [phone] System, Provider Not In, [facility] [address] [address] Social History Tobacco Use Types Packs/Day Years [...] encounter Results * Mammogram Outside (No Interpretation) (11/14/2016 12:05 AM EDT) Narrative SYSTEMGENERATED, DOCUMENTATION - 05/29/2020 10:18 AM EST This study is for PACS storage only and not for interpretation. us Provider Not In System PhD IMG OUTSIDE IMAGING W /OUT INTERPRETATION Final Result documented in this encounter Visit Diagnoses Not on filedocumented in this encounter Care Teams Occupancy Specialist Relationship Specialty Start Date End Date Pcp, Unknown PCP - General 05/26/20 documented as of this encounter Additional Source Comments The information contained in this document represents components of the legal health record. It is not the complete legal health record.[facility]
--- OUTSIDE RECORDS SUMMARY | 2024-12-22 07:17 | XMS_ITS | Encounter Summary ---
Author Organization [facility] Address [address] [facility] [address] [place] [address] Phone Care Team Providers Care Professor Of Exercise Science Name Role Phone Pcp, Unknown Primary Care Provider Unavailabl e Encounter Details Date Type Department Care Team (Late st Contact Info) Description 05/29/2020 Ancillary Orders Virtual Department [address] [place] [address] Jess Summers MD [address] [place] [phone] Breast screening Social History Tobacco Use Types Packs/Day Years Used Date Smoking Tobacco: Never Assessed Comments Unknown Sex and Gender Information Value Date Recorded Sex Assigned at Not on file Legal Sex Female 10:35 AM EST Gender Identity Not on file Sexual Orientation Not on file documented as of this encounter Plan of Treatment Not on file documented as of this encounter Visit Diagnoses Diagnosis Breast screening Breast screening, unspecified documented in this encounter Care Teams Professor Of Exercise Science Relationship Specialty Start Date End Date Pcp, Unknown PCP - General 05/26/20 documented as of this encounter Additional Source Comments The information contained in this document represents components of the legal health record. It is not the complete legal health record.[facility]
--- OUTSIDE RECORDS SUMMARY | 2024-12-22 07:17 | XMS_ITS | Encounter Summary ---
Author Organization [facility] Address [address] [place] [address] Phone Care Team Providers Care Marketing And Outreach Coordinator Name Role Phone Pcp, Unknown Primary Care Provider Unavailabl e Encounter Details Date Type Department Care Team (Late st Contact Info) Description 05/29/2020 Ancillary Orders [facility],Outside Imaging [address] [place], [place] [phone] System, Provider Not In, [facility] [address] [address] Social History Tobacco Use Types Packs/Day Years [...] encounter Results * Mammogram Outside (No Interpretation) (06/05/2018 12:05 AM EST) Narrative SYSTEMGENERATED, DOCUMENTATION - 05/29/2020 10:15 AM EST This study is for PACS storage only and not for interpretation. us Provider Not In System PhD IMG OUTSIDE IMAGING W /OUT INTERPRETATION Final Result documented in this encounter Visit Diagnoses Not on filedocumented in this encounter Care Teams Marketing And Outreach Coordinator Relationship Specialty Start Date End Date Pcp, Unknown PCP - General 05/26/20 documented as of this encounter Additional Source Comments The information contained in this document represents components of the legal health record. It is not the complete legal health record.[facility]
[2024-12-22 07:18] VITALS: BP 122/70; BMI 30.9
--- NOTE | 2024-12-22 07:18 | MHC.OFFVIS ---
Vital Signs 12/22/24 07:18 Height 5 ft 4 in Weight 180 lb BMI 30.9 BP 122/70 Intake Visit Reasons: EMB Interchange Agent Required: Yes Interchange Agent Language: Dental Surgeon Services: Interchange Agent Present (in person) Interchange Agent Name: Jordyn FLORIAN Information Interpreted: non-clinical & clinical Campus Recruiting Intern: Campus Recruiting Intern Present (Jordyn FLORIAN) Allergies No Known Allergies (No Known Allergies*) Allergy (Verified 12/22/24 07:32) Post menopausal: Yes HPI Comments Details: Presenting for EMB complaining of pink urine PFSH Medical History ASCUS of cervix with negative high risk HPV NAFLD (nonalcoholic fatty liver disease) Screening for breast cancer Abnormal mammogram COVID-19 Pure hypercholesterolemia Transaminitis Hypertension Surgical History Hx of vaginal surgery H/O colonoscopy History of carpal tunnel release History of tubal ligation Family History Father History of open heart surgery Hypertension CVD (cardiovascular disease) Mother Lung cancer Hypertension Maternal Grandmother Stomach cancer Sister Diabetes Social History Household Members: Spouse and Children Housing: House Alcohol intake: never Patient Tobacco Use Status: Never used Tobacco Current occupational status: employed 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 hysteroscopy D&C) & the risks were discussed with the patient including but not limited: pain, uterine perforation, bleeding, infection, possible injury to bladder, bowel, ureter, possible need for blood transfusion with all its possible risks. The patient verbalized understanding all questions answered and signed consent. The patient was placed into the dorsal lithotomy position; a speculum was inserted in the vagina. Using aseptic technique for the procedure, the cervix was cleansed with Betadine. The anterior lip of the cervix was grasped with a single tooth tenaculum. The uterus was sounded to 7 cm with a 4 mm Pipelle was used. Tissues samples were obtained and placed in formalin, in a patient labeled container and sent to the pathology department. At the end of the procedure, there was minimal bleeding noted The patient tolerated the procedure well and was discharged in good condition with the following instructions: Nothing in the vagina until the bleeding stops. No sex until the bleeding stops, to call if any of the following occurs: fever (>100.4), flu-like symptoms, abdominal pain, heavy bleeding, four smelling vaginal discharge. The patient was instructed to schedule a Follow up appointment in 2 weeks to discuss pathology results of the biopsy and treatment options. This note was generated with a voice recognition program. Some errors may have been overlooked during the review of this note. Sometimes these errors may affect the content or meaning of a given sentence. [id number] Biopsy Assessment & Plan Assessment & Plan (1) Thickened endometrium: Code(s): R93.89 - Abnormal findings on diagnostic imaging of other specified body structures Category: Medical Plan: EMB done, see procedure note (2) Microscopic hematuria: Code(s): R31.29 - Other microscopic hematuria Category: Medical Plan: Urine dip showed microscopic hematuria, urine culture sent. Will repeat urine dip in 2 weeks. Discussed with the patient the possible causes of microscopic hematuria including but not limited to: interstitial cystitis, polyps, stones, masses, urethral inflammatory processes and others. If Urine Culture is negative and repeat urine dip in 2 weeks shows persistent microscopic hematuria, will proceed with CT abdomen/pelvis and urology referral. Instructions given the patient to schedule a 2 week urine dip follow-up appointment. All questions answered and the patient verbalized understanding. Orders: Orders AMB Endometrial Biopsy Today R93.89 - Abnormal findings on diagnostic imaging of other specified body structures Coding Level of Care Code Est Pt Level 3 (81481) Procedure Only Diagnoses Thickened endometrium R93.89 Microscopic hematuria R31.29 CPT Codes Endometrial Biopsy - CPT: 47193-[id number] Biopsy ([id number])
== END 2024-12-22 08:02 | disposition home or self-care (01) ==
LOC: HO.HWS 07:13
PROVIDERS: PCP Internal Medicine; Visit Provider Obstetrics & Gynecology
DX: R31.29 Other microscopic hematuria (principal); R93.89 Abnormal findings on diagnostic imaging of other specified body structures
CPT/HCPCS: 58100; 99213

== ENCOUNTER 2025-01-12 11:52 | Outpatient (REF) | payer OTHER, SELFPAY ==
[2025-01-12 13:31] LABS: Blood Urea Nitrogen 16 mg/dL (9-16); Estimated Glomerular Filt Rate > 60
== END 2025-01-12 11:53 | disposition home or self-care (01) ==
LOC: HO.LAB 11:52
PROVIDERS: PCP Internal Medicine; Visit Provider Obstetrics & Gynecology
DX: R93.89 Abnormal findings on diagnostic imaging of other specified body structures (principal); R31.29 Other microscopic hematuria
CPT/HCPCS: 36415; 82565; 84520; 99212

== ENCOUNTER 2025-01-12 11:52 | Outpatient (AMB) | payer OTHER, SELFPAY ==
--- OUTSIDE RECORDS SUMMARY | 2009-08-10 | XMS_ITS | Encounter Summary ---
Author Organization [facility] Address [address] [place] [address] Phone Care Team Providers Care Hr Administrator Name Role Phone Unavailable Primary Care Provider Unavailabl e Encounter Details Date Type Department Care Team (Late st Contact Info) Description 08/10/2009 Hospital Encounter [facility],Outside Imaging [address] [place] [address] System, Provider Not In, PhD [address] [address] Social History Tobacco Use Types Packs/Day Years [...] It is not the complete legal health record.[facility]
--- OUTSIDE RECORDS SUMMARY | 2009-08-21 | XMS_ITS | Encounter Summary ---
Author Organization [facility] Address [address] [place] [address] Phone Care Team Providers Care Bufferer Name Role Phone Unavailable Primary Care Provider Unavailabl e Encounter Details Date Type Department Care Team (Late st Contact Info) Description 08/21/2009 Hospital Encounter [facility],Outside Imaging 30 [place] [address] System, Provider Not In, PhD [address] [address] Social History Tobacco Use Types Packs/Day Years [...] is not the complete legal health record.[facility]
--- OUTSIDE RECORDS SUMMARY | 2009-08-21 00:05 | XMS_ITS | Encounter Summary ---
Author Organization [facility] Address [address] [address] Phone Care Team Providers Care Resistor Winder Name Role Phone Unavailable Primary Care Provider Unavailabl e Encounter Details Date Type Department Care Team (Late st Contact Info) Description 08/21/2009 12:05 AM EDT Hospital Encounter [facility],Outside Imaging 30 [place] [address] System, Provider Not In, PhD Partners [address] [address] Social History Tobacco Use Types Packs/Day Years [...] It is not the complete legal health record.[facility]
--- OUTSIDE RECORDS SUMMARY | 2010-02-27 01:00 | XMS_ITS | Encounter Summary ---
Author Organization [facility] Address [address] [place] [address] Phone Care Team Providers Care Medical Director Name Role Phone Unavailable Primary Care Provider Unavailabl e Encounter Details Date Type Department Care Team (Late st Contact Info) Description 02/27/2010 Hospital Encounter [facility],Outside Imaging 30 [place] [address] System, Provider Not In, PhD [address] [address] Social History Tobacco Use Types Packs/Day Years [...] It is not the complete legal health record.[facility]
--- OUTSIDE RECORDS SUMMARY | 2010-09-26 | XMS_ITS | Encounter Summary ---
Author Organization [facility] Address [address] [place] [address] Phone Care Team Providers Care Cardroom Drawing Runner Name Role Phone Unavailable Primary Care Provider Unavailabl e Encounter Details Date Type Department Care Team (Late st Contact Info) Description 09/26/2010 Hospital Encounter [facility],Outside Imaging 30 [place] [address] System, Provider Not In, PhD [address] [address] Social History Tobacco Use Types Packs/Day Years [...] It is not the complete legal health record.[facility]
--- OUTSIDE RECORDS SUMMARY | 2011-09-27 | XMS_ITS | Encounter Summary ---
Author Organization [facility] Address [address] [place] [address] Phone Care Team Providers Care Tafe Registrar Name Role Phone Unavailable Primary Care Provider Unavailabl e Encounter Details Date Type Department Care Team (Late st Contact Info) Description 09/27/[address] [facility],Outside Imaging [address] [place] [address] System, Provider Not In, PhD [address] [address] Social History Tobacco Use Types Packs/Day Years [...] It is not the complete legal health record.[facility]
--- OUTSIDE RECORDS SUMMARY | 2012-09-28 | XMS_ITS | Encounter Summary ---
Author Organization [facility] Address [address] [place] [address] Phone Care Team Providers Care Director Of Early Childhood Education Name Role Phone Unavailable Primary Care Provider Unavailabl e Encounter Details Date Type Department Care Team (Late st Contact Info) Description 09/28/2012 Hospital Encounter [facility],Outside Imaging 30 [place] [address] System, Provider Not In, PhD [address] [address] Social History Tobacco Use Types Packs/Day Years [...]
--- OUTSIDE RECORDS SUMMARY | 2012-10-02 | XMS_ITS | Encounter Summary ---
Author Organization [facility] Address [address] [place] [address] Phone Care Team Providers Care Clarifying Plant Operator Name Role Phone Unavailable Primary Care Provider Unavailabl e Encounter Details Date Type Department Care Team (Late st Contact Info) Description 10/02/2012 Hospital Encounter [facility],Outside Imaging [address] [place] [address] System, Provider Not In, PhD [address] [address] Social History Tobacco Use Types Packs/Day Years [...] is not the complete legal health record.[facility]
--- OUTSIDE RECORDS SUMMARY | 2012-10-02 00:05 | XMS_ITS | Encounter Summary ---
Author Organization [facility] Address [address] [address] Phone Care Team Providers Care Motor And Generator Assembler Name Role Phone Unavailable Primary Care Provider Unavailabl e Encounter Details Date Type Department Care Team (Late st Contact Info) Description 10/02/2012 12:05 AM EDT Hospital Encounter [facility],Outside Imaging [address] [place] [address] System, Provider Not In, PhD Partners [address] [address] Social History Tobacco Use Types Packs/Day Years [...] not the complete legal health record.[facility]
[2025-01-12 11:53] VITALS: BP 118/60; BMI 30.9
--- NOTE | 2025-01-12 11:53 | MHC.OFFVIS ---
Vital Signs 01/12/25 11:53 Height 5 ft 4 in Weight 180 lb BMI 30.9 BP 118/60 Blood Pressure Location Lt brachial Position Sitting Intake Visit Reasons: EMB results/ urine dip Marine Diesel Mechanic Required: Yes Marine Diesel Mechanic Language: Business Analysis Analyst Services: Marine Diesel Mechanic Present (in person) Marine Diesel Mechanic Name: Jordyn FLORIAN Information Interpreted: non-clinical & clinical Accompanied by: Self / Same As Patient Allergies No Known Allergies (No Known Allergies*) Allergy (Verified 01/12/25 11:57) HPI Comments Details: The patient is presenting after endometrial biopsy regarding thickened endometrium on pelvic ultrasound and for repeat urine dip, urine culture was negative. The patient has no complaints, no vaginal bleeding, no feverishness chills or abdominal pain. The endometrial biopsy pathology report showed the following: Superficial strips of benign endometrium and endocervical epithelium; mucoinflammatory material and blood; no atypia identified PFSH Medical History ASCUS of cervix with negative high risk HPV NAFLD (nonalcoholic fatty liver disease) Screening for breast cancer Abnormal mammogram COVID-19 Pure hypercholesterolemia Transaminitis Hypertension Surgical History Hx of vaginal surgery H/O colonoscopy History of carpal tunnel release History of tubal ligation Family History Father History of open heart surgery Hypertension CVD (cardiovascular disease) Mother Lung cancer Hypertension Maternal Grandmother Stomach cancer Sister Diabetes Social History Household Members: Spouse and Children Housing: House Alcohol intake: never Patient Tobacco Use Status: Never used Tobacco Current occupational status: employed 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 Sexual orientation: Straight/Heterosexual Gender identity: Female Female Reproductive History Menstrual Menopause type: natural Review of Systems Const All systems reviewed & are unremarkable except as noted in HPI and below Reports as per HPI and Reports no additional complaints GI Reports no additional complaints Reports no additional complaints Physical Exam Vital Signs: Last Vital Signs BP 118/60 01/12/25 11:53 BMI result Body Mass Index 30.9 Results AMB Urinalysis Dipstick UR Leukocytes Last Edit by Daria Campbell LPN on 01/12/25 12:08 UR Nitrite Last Edit by Daria Campbell LPN on 01/12/25 12:08 UR Urobilinogen 2 Last Edit by Daria Campbell LPN on 01/12/25 12:08 UR Protein Last Edit by Daria Campbell LPN on 01/12/25 12:08 UR Ph 6.0 Last Edit by Daria Campbell LPN on 01/12/25 12:08 UR Blood Moderate Last Edit by Daria Campbell LPN on 01/12/25 12:08 UR Specific [place] 1.015 Last Edit by Daria Campbell LPN on 01/12/25 12:08 UR Ketone Last Edit by Daria Campbell LPN on 01/12/25 12:08 UR Bilirubin Last Edit by Daria Campbell LPN on 01/12/25 12:08 UR Glucose Last Edit by Daria Campbell LPN on 01/12/25 12:08 Results Reviewed Results Reviewed: Laboratory Last Values Urine pH (Clinic) 6.0 01/12/25 12:07 Specific [place] (Clinic) 1.015 01/12/25 12:07 Urine Blood (Clinic) Moderate 01/12/25 12:07 Urobilinogen (Clinic) 2 01/12/25 12:07 Assessment & Plan Assessment & Plan (1) Thickened endometrium: Code(s): R93.89 - Abnormal findings on diagnostic imaging of other specified body structures Category: Medical Plan: Discussed with the patient the results of the endometrial biopsy. Discussed with the patient the sensitivity, specificity, positive and negative predictive value, of endometrial biopsy in detecting endometrial pathology including but not limited to endometrial hyperplasia, cancer and other pathology; instructed the patient to call in case vaginal bleeding recurs, the next step will be to proceed with a diagnostic hysteroscopy/D&C for further endometrial sampling evaluation to rule out endometrial pathology. All questions answered and the patient verbalized understanding and agreed with the plan. (2) Microscopic hematuria: Code(s): R31.29 - Other microscopic hematuria Category: Medical Plan: Urine dip showed microscopic hematuria. Discussed with the patient the possible causes of microscopic hematuria including but not limited to: interstitial cystitis, polyps, stones, masses, urethral inflammatory processes and others, will proceed with CT abdomen/pelvis and urology referral. All questions answered and the patient verbalized understanding. Orders: Orders CT abdomen pelvis wo/w IV con Today R31.29 - Other microscopic hematuria Blood Urea Nitrogen Today R31.29 - Other microscopic hematuria Creatinine Today R31.29 - Other microscopic hematuria Referrals Urology Referral R31.29 - Other microscopic hematuria Coding Level of Care Code Est Pt Level 3 (78196) Diagnoses Thickened endometrium R93.89 Microscopic hematuria R31.29
--- OUTSIDE RECORDS SUMMARY | 2025-01-12 13:27 | XMS_ITS | Encounter Summary ---
Author Organization [employer] Address [address] [facility] 7t [place] [address] Care Team Providers Care Category Analyst Name Role Phone Duane Power MD Primary Care Provide r Reason for Visit * Reason Onset Date Comments Appointment Request 08/06/2024 Encounter Details Date Type Department Care Team ([facility] st Contact Info) Description 08/06/2024 Telephone [facility] MEDICINE [address] [place], [place] [phone] Duane Power MD [address] [place], [place] [phone] Appointment Request Social History Tobacco Use Types [...] Physical Appt with PCP. Contact pt at [phone] documented in this encounter Plan of Treatment Not on file documented as of this encounter Visit Diagnoses Not on filedocumented in this encounter Additional Health Concerns Assessment Noted Time PHQ-9 Depression Total Score: 0 11/18/19 24 10:05 AM EDT documented as of this encounter Care Teams Category Analyst Relationship Specialty Start Date End Date Duane Power MD [address] [place] [address] PCP - General Internal Medicine 12/22/20 documented as of this encounter
--- OUTSIDE RECORDS SUMMARY | 2025-01-12 13:27 | XMS_ITS | Encounter Summary ---
Author Organization [facility] Address [address] [place] [address] Phone Care Team Providers Care Orthodontist Small Business Owner Name Role Phone Pcp, Unknown Primary Care Provider Unavailabl e Encounter Details Date Type Department Care Team (Late st Contact Info) Description 05/29/2020 Ancillary Orders [facility],Outside Imaging [address] [place] [address] System, Provider Not In, [facility] [address] [address] Social History Tobacco Use Types Packs/Day Years [...] on filedocumented in this encounter Care Teams Orthodontist Small Business Owner Relationship Specialty Start Date End Date Pcp, Unknown PCP - General 05/26/20 documented as of this encounter Additional Source Comments The information contained in this document represents components of the legal health record. It is not the complete legal health record.[facility]
--- OUTSIDE RECORDS SUMMARY | 2025-01-12 13:27 | XMS_ITS | Encounter Summary ---
Author Organization [facility] Address [address] [place] [address] Phone Care Team Providers Care Entry Specialist Name Role Phone Pcp, Unknown Primary Care Provider Unavailabl e Encounter Details Date Type Department Care Team (Late st Contact Info) Description 05/29/2020 Ancillary Orders [facility],Outside Imaging [address] [place], [place] [phone] System, Provider Not In, [facility] [address] [address] Social History Tobacco Use Types Packs/Day Years [...] on filedocumented in this encounter Care Teams Entry Specialist Relationship Specialty Start Date End Date Pcp, Unknown PCP - General 05/26/20 documented as of this encounter Additional Source Comments The information contained in this document represents components of the legal health record. It is not the complete legal health record.[facility]
--- OUTSIDE RECORDS SUMMARY | 2025-01-12 13:27 | XMS_ITS | Encounter Summary ---
Author Organization [facility] Address [address] [place] [address] Phone Care Team Providers Care Human Service Worker Name Role Phone Pcp, Unknown Primary Care Provider Unavailabl e Encounter Details Date Type Department Care Team (Late st Contact Info) Description 05/29/2020 Ancillary Orders [facility],Outside Imaging [address] [place], [place] [phone] System, Provider Not In, [facility] [address] [address] Social History Tobacco Use Types Packs/Day Years [...] on filedocumented in this encounter Care Teams Human Service Worker Relationship Specialty Start Date End Date Pcp, Unknown PCP - General 05/26/20 documented as of this encounter Additional Source Comments The information contained in this document represents components of the legal health record. It is not the complete legal health record.[facility]
--- OUTSIDE RECORDS SUMMARY | 2025-01-12 13:27 | XMS_ITS | Encounter Summary ---
Author Organization [facility] Address [address] [place] [address] Phone Care Team Providers Care Management Development Specialist Name Role Phone Pcp, Unknown Primary Care Provider Unavailabl e Encounter Details Date Type Department Care Team (Late st Contact Info) Description 05/29/2020 Ancillary Orders [facility],Outside Imaging [address] [place], [place] [phone] System, Provider Not In, [facility] [address] [address] Social History Tobacco Use Types Packs/Day Years [...] on filedocumented in this encounter Care Teams Management Development Specialist Relationship Specialty Start Date End Date Pcp, Unknown PCP - General 05/26/20 documented as of this encounter Additional Source Comments The information contained in this document represents components of the legal health record. It is not the complete legal health record.[facility]
--- OUTSIDE RECORDS SUMMARY | 2025-01-12 13:27 | XMS_ITS | Encounter Summary ---
Author Organization [employer] Address [address] [facility] 7t [place] [address] Care Team Providers Care Rug Drying Machine Operator Name Role Phone Duane Power MD Primary Care Provide r Encounter Details Date Type Department Care Team ([facility] st Contact Info) Description 03/20/2023 Orders Only [facility] MED & PEDS [address] [place] [address] Malou Santos LPN Social History Tobacco Use [...] documented as of this encounter Care Teams Rug Drying Machine Operator Relationship Specialty Start Date End Date Duane Power MD [address] [place] [address] PCP - General Internal Medicine 12/22/20 documented as of this encounter
--- OUTSIDE RECORDS SUMMARY | 2025-01-12 13:27 | XMS_ITS | Encounter Summary ---
Author Organization [facility] Address [address] [place] [address] Phone Care Team Providers Care Sql Server Dba Developer Name Role Phone Pcp, Unknown Primary Care Provider Unavailabl e Encounter Details Date Type Department Care Team (Late st Contact Info) Description 05/29/2020 Ancillary Orders [facility],Outside Imaging [address] [place], [place] [phone] System, Provider Not In, [facility] [address] [address] Social History Tobacco Use Types Packs/Day Years [...] on filedocumented in this encounter Care Teams Sql Server Dba Developer Relationship Specialty Start Date End Date Pcp, Unknown PCP - General 05/26/20 documented as of this encounter Additional Source Comments The information contained in this document represents components of the legal health record. It is not the complete legal health record.[facility]
--- OUTSIDE RECORDS SUMMARY | 2025-01-12 13:27 | XMS_ITS | Encounter Summary ---
Author Organization [facility] Address [address] [place] [address] Phone Care Team Providers Care Neon Glass Bender Name Role Phone Pcp, Unknown Primary Care Provider Unavailabl e Encounter Details Date Type Department Care Team (Late st Contact Info) Description 05/29/2020 Ancillary Orders [facility],Outside Imaging [address] [place], [place] [phone] System, Provider Not In, [facility] [address] [address] Social History Tobacco Use Types Packs/Day Years [...] on filedocumented in this encounter Care Teams Neon Glass Bender Relationship Specialty Start Date End Date Pcp, Unknown PCP - General 05/26/20 documented as of this encounter Additional Source Comments The information contained in this document represents components of the legal health record. It is not the complete legal health record.[facility]
--- OUTSIDE RECORDS SUMMARY | 2025-01-12 13:27 | XMS_ITS | Encounter Summary ---
Author Organization [facility] Address [address] [place] [address] Phone Care Team Providers Care Sheet Metal Operator Name Role Phone Pcp, Unknown Primary Care Provider Unavailabl e Encounter Details Date Type Department Care Team (Late st Contact Info) Description 05/29/2020 Ancillary Orders [facility],Outside Imaging [address] [place], [place] [phone] System, Provider Not In, [facility] [address] [address] Social History Tobacco Use Types Packs/Day Years [...] on filedocumented in this encounter Care Teams Sheet Metal Operator Relationship Specialty Start Date End Date Pcp, Unknown PCP - General 05/26/20 documented as of this encounter Additional Source Comments The information contained in this document represents components of the legal health record. It is not the complete legal health record.[facility]
--- OUTSIDE RECORDS SUMMARY | 2025-01-12 13:27 | XMS_ITS | Encounter Summary ---
Author Organization [employer] Address [address] [facility] 7t [place] [address] Care Team Providers Care Anesthesia Assistant Name Role Phone Duane Power MD Primary Care Provide r Encounter Details Date Type Department Care Team (Late st Contact Info) Description 10/21/2022 Orders Only [facility] CHC MED & PEDS [address] [place], [place] [phone] Malou Santos LPN Social History Tobacco Use [...] documented as of this encounter Care Teams Anesthesia Assistant Relationship Specialty Start Date End Date Duane Power MD [address] [place] [address] PCP - General Internal Medicine 12/22/20 documented as of this encounter
--- OUTSIDE RECORDS SUMMARY | 2025-01-12 13:27 | XMS_ITS | Clinical Summary ---
Author Organization [facility] Address [address] [place] [address] Phone Care Team Providers Care Lunch Counter Manager Name Role Phone Pcp, Unknown Primary [...] file Medical Devices Not on file Insurance [facility] HMO O O O HMO O HMO O HMO Member Subscriber Plan / Payer (Ef fective 2020-Present) Name:Mary Mijares Relation to Subscriber:Spouse Name:LOVELY MIJARES Date of :1900 (Home) Address: [address] [place] [address] Payer ID:Not on file Type:O Address: [place] [id number] Care Teams Lunch Counter Manager Relationship Specialty Start Date End Date Pcp, Unknown PCP - General 05/26/20 Additional Source Comments The information contained in this document represents components of the legal health record. It is not the complete legal health record.[facility]
--- OUTSIDE RECORDS SUMMARY | 2025-01-12 13:28 | XMS_ITS | Encounter Summary ---
Author Organization [facility] Address [address] [facility] [address] [place] [address] Phone Care Team Providers Care Education Nurse Name Role Phone Pcp, Unknown Primary Care Provider Unavailabl e Encounter Details Date Type Department Care Team (Late st Contact Info) Description 05/26/2020 Ancillary Orders Virtual Department [address] [place] [address] Jess Summers MD [address] [place] [address] Social History Tobacco Use Types Packs/Day Years [...] on filedocumented in this encounter Care Teams Education Nurse Relationship Specialty Start Date End Date Pcp, Unknown PCP - General 05/26/20 documented as of this encounter Additional Source Comments The information contained in this document represents components of the legal health record. It is not the complete legal health record.[facility]
--- OUTSIDE RECORDS SUMMARY | 2025-01-12 13:28 | XMS_ITS | Encounter Summary ---
Author Organization [facility] Address [address] [place] [address] Phone Care Team Providers Care Cupola Melter Helper Name Role Phone Pcp, Unknown Primary Care Provider Unavailabl e Encounter Details Date Type Department Care Team (Late st Contact Info) Description 05/23/2020 Ancillary Orders [facility],Outside Imaging [address] [place], [place] [phone] System, Provider Not In, PhD [address] [address] Social History Tobacco Use Types Packs/Day Years [...] on filedocumented in this encounter Care Teams Cupola Melter Helper Relationship Specialty Start Date End Date Pcp, Unknown PCP - General 05/26/20 documented as of this encounter Additional Source Comments The information contained in this document represents components of the legal health record. It is not the complete legal health record.[facility]
--- OUTSIDE RECORDS SUMMARY | 2025-01-12 13:28 | XMS_ITS | Encounter Summary ---
Author Organization [facility] Address [address] [facility] [address]t [place] [address] Care Team Providers Care Precision Optical Goods Worker Name Role Phone Duane Power MD Primary Care Provide r Encounter Details Date Type Department Care Team (Late st Contact Info) Description 08/16/[address] [facility] MEDICINE [address] [place] [address] Duane Power MD [address] [place], [place] [phone] Social History Tobacco Use Types Packs/Day Years [...] on filedocumented in this encounter Care Teams Prec[employer] Optical Good[employer] Worker Relationship Specialty Start Date End Date Duane Power MD [address] [place] [address] PCP - General Internal Medicine 12/22/20 documented as of this encounter
--- OUTSIDE RECORDS SUMMARY | 2025-01-12 13:28 | XMS_ITS | Clinical Summary ---
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 Requested records from [facility] 10/07/2024 but the reports only paz phillips [...] face Pt would like to see a potato chip sorter Will be referred to [facility] Anxiety 06/19/2023 Overview (06/19/2023): [...] w tenant. Her sense of spirituality and anglican is identified as main strength. PLAN: (check all that apply) New/Additional Services needed On-site non-integrated services Off-site services for Behavioral Health Integration Plan Internal Follow up with [facility] External OP therapy referral Patient Self Plan Patient to utilize skills provided in intervention , Patient to reach out to [facility] team as needed, Comply with medication , [...] of a pap smear she had in [facility] in 07/26/2022. The report showed LGSIL, there is NO HPV testing Report states pt needs a Colposcopy and Biopsy. Underwent testing that showed JOSSE I Now Under the care of MEAT APPRENTICE for evaluation, last seen by Dr Wilkins 11/12/2023 Underwent Colposcopy Assessment & Plan (06/19/2023 10:30 AM EST): Patient previously brought the report of a pap smear she had in [facility] in 07/26/2022. The report showed LGSIL, there is NO HPV testing Report states pt needs a Colposcopy and Biopsy. Underwent testing that showed JOSSE I Now Under the care of MEAT APPRENTICE for evaluation, last seen by Dr Wilkins 03/2023 1 year follow up with co testing recommended Assessment & Plan (12/03/2022 12:53 PM EDT): Patient finally brought the report of a pap smear she had in [facility] in 07/26/2022. 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 Plan: referral to MEAT APPRENTICE for evaluation. Osteopenia of lumbar spine 12/03/2022 Assessment & Plan (12/03/2022 12:56 PM EDT): Seen on Bone densitometry in [facility] in July Calcium plus vitamin D [...] [place] advised to try to adhere to [...] underwent a gastric ball[place] procedure [place] Pt with c/o bilateral shoulder pain [...] underwent a gastric ballon procedure [place] [facility] Pt with c/o bilateral shoulder pain [...] underwent a gastric ballon procedure [place] Plan: continue Atorvastatin 20 mg po [...] underwent a gastric ballon procedure [place] and has lost > 15 lbs [...] Hep C negative See by Dr. Marie Resource Efficiency Manager 05/2021 he recommended to continue Statin and [...] w tenant. Her sense of spirituality and anglican is identified as main strength. PLAN: (check all that apply) New/Additional Services needed On-site non-integrated services Off-site services for Behavioral Health Integration Plan Internal Follow up with [facility] External OP therapy referral Patient Self Plan Patient to utilize skills provided in intervention , Patient to reach out to [facility] team as needed, Comply with medication , Patient to engage in OP therapy , and Patient to reach out to [facility] as needed. Referral will be placed for [...] she was seen by a Urologist at [facility], no records were received Repeat UA shows [...] she was seen by a Urologist at [facility], no records were received Repeat UA shows [...] she was seen by a Urologist at [facility], no records were received Will repeat UA [facility] health care 10/03/2022 Assessment & Plan (10/26/2024 11:02 AM EDT): Patient here for a routine physical exam Mammogram: 12/18/2023 Normal. Pap Smear: previously brought the report of a pap smear she had in [facility] in 07/26/2022. The report showed LGSIL, there is NO HPV testing Last Pap by Dr Wilkins 11/05/2023 Under the care of MEAT APPRENTICE for evaluation, last seen by Dr Wilkins 03/2024 Colonoscopy: Dr Cynthia Hilario internal hemmorrhoids and small polyp requested pathology report Vaccines: records requested Dexa scan:. Not age appropriate yet Assessment & Plan (11/18/2023 10:12 AM EDT): Mammogram: 11/2022 Normal. Pap Smear: previously brought the report of a pap smear she had in [facility] in 07/26/2022. The report showed LGSIL, there is NO HPV testing Report states pt needs a Colposcopy and Biopsy. Underwent testing that showed JOSSE I Now Under the care of MEAT APPRENTICE for evaluation, last seen by Dr Wilkins 11/12/2023 Colonoscopy: Dr Cynthia Hilario internal hemmorrhoids and small polyp requested pathology report Vaccines: records requested Dexa scan:. Not age appropriate yet Assessment & Plan (06/19/2023 10:32 AM EST): Mammogram: 11/2022 Normal. Pap Smear: previously brought the report of a pap smear she had in [facility] in 07/26/2022. The report showed LGSIL, there is NO HPV testing Report states pt needs a Colposcopy and Biopsy. Underwent testing that showed JOSSE I Now Under the care of MEAT APPRENTICE for evaluation, last seen by Dr Wilkins 03/2023 1 year follow up with co testing recommended Colonoscopy: Dr Cynthia Hilario internal hemmorrhoids and small polyp requested pathology report Vaccines: records requested Dexa scan:. Not age appropriate yet Assessment & Plan (10/03/2022 3:24 PM EDT): Mammogram: 08/01/2020 Normal. Today she tells me she had a repeat Mammogram in [facility] this year and was told it was normal. I asked that she bring me a copy Pap Smear: Records requested to [facility], never received, she tells me that she had a repeat in [facility] as well this year and was [...] years ago, s/p CT release one in [place] and another one in [place]. Records requested Essential hypertension 09/19/2022 Assessment & [...] Encounters Date Type Department Care Team Description 12/24/2024 Orders Only [facility] [address] [place] [address] Provider, MD Leona 12/22/2024 Orders Only GENERIC EXTERNAL DATA DEPARTMENT Provider, Generic External Data 12/14/2024 Telephone [facility] [place] [address] Duane Power MD Referral 12/10/2024 Telephone [facility] [address] [facility] [facility] [place] [address] Duane Power MD October Recall 11/11/2024 Results Follow-Up [facility] [place] [address] Duane Power MD MR Brain w/o Contrast 10/26/2024 10:30 AM EDT Office Visit [facility] [address] [place] [address] Duane Power MD Essential hypertension (Primary Dx); Postmenopausal bleeding; Left foot pain; Mixed hyperlipidemia; TIA (transient ischemic attack); Preventative health care; Class 1 obesity due to excess calories with serious comorbidity and body mass index (BMI) of 31.0 to 31.9 in adult; Dietary counseling; Exercise counseling 10/26/2024 Orders Only [facility] External Provider, [facility] 10/26/2024 Travel 10/25/2024 Telephone [facility] [address] [place] [address] Duane Power MD chart prep 10/19/2024 Patient Outreach [facility] [address] [place] [address] Duane Power MD Pre-visit Planning (SDOH negative. [...] 2015 Zoster Vaccines (1 of 2) 2015 Colonoscopy 11/06/2023 11/12/2016 Colorectal Cancer Screening 11/06/2023 Cervical Cancer Screening 11/12/2024 HPV/Cotest 11/12/2024 11/05/2023, 05/16, 06/11/2021 Pap Smear 11/12/2024 11/05/2023, 06/11/2021 Depression Screening 11/17/2024 11/18/2023, 11/18/19 COVID-19 Vaccine ( season) 2024 06/11/2021, 07/31/2020, 07/10/2020 Influenza Vaccine (#1) 2024 Mammogram 12/17/2024 12/18/2023, 12/12/2022 SDOH Screening 10/19/2025 10/19/2024 Tobacco Screening 10/19/2025 10/19/2024 Lipid Panel 11/20/2029 11/20/2024, 07/14, 11/01/2022, Additional history exists DTaP/Tdap/Td Vaccines (2 - Td or Tdap) 12/07/2031 12/06/2021 RSV Patients and Patients Aged 60 years or older (1 - 1-dose 75+ series) 2040 HIV Screening Completed 01/12/2021 Hepatitis C Screening Completed 01/12/2021 Colposcopy Discontinued 11/13/2023 HIB Vaccines Aged Out No longer eligi [...] Procedure Name Priority Date/Time Associated Diagnosis Comments HEMATOXYLIN AND EOSIN STAIN Routine 12/22/2024 8:02 AM EDT CULTURE, URINE, ROUTINE Routine 12/22/2024 7:13 AM EDT CBC WITH AUTO DIFFERENTIAL Routine 11/20/2024 7:27 [...] AM EDT Breast cancer screening by mammogram COLPOSCOPY Routine 11/13/2023 3:28 PM EDT THINPREP IMAGING PAP AND HPV MRNA E6/E7 WITH REFLEX TO HPV 16,18/45 Routine 11/05/2023 8:21 AM EDT ZZZ HISTORICAL HEPATITIS C AB W/REFL TO HCV RNA, QN, PCR Routine 01/12/2021 9:32 AM EDT HIV 1/2 ANTIGEN/ANTIBODY, FOURTH GENERATION W/RFL Routine 01/12/2021 9:32 AM EDT HM COLONOSCOPY Routine 11/12/2016 from Last 3 Months or Most Recently Relevant to Health Maintenance Results * Hematoxylin and Eosin Stain (12/22/2024 8:02 AM EDT) 12/22/2024 8:02 AM EDT 12/23/2024 8:16 AM EDT [facility] - 12/24/2024 4:03 PM EDT ----- ------- Name: Mary Mijares Age/Sex: 59/F : 1965 Unit#: [id number] Attend Dr: Michael Wilkins MD Re12/22/24 Status: [facility] Location: [facility] Disch: ----- ------- SPEC : [id number] RECD: 12/23/24 STATUS: JESSICA HAILE NUM: [id number] CELESTINE: 12/22/[address] [facility] [address]: Michael Wilkins MD ENTERED: 12/23/24 SP TYPE: Surgical OTHR DR: Duane Rock MD ORDERED: HE Stain/2, Gross Micro L4 Diagnosis Endometrium, biopsy: Superficial strips of benign endometrium and endocervical epithelium; mucoinflammatory material and blood; no atypia identified. Clinical History PMB, microscopic hematuria Microscopic Description Microscopic sections reviewed. Material Received EMB Gross Description Received in formalin labeled EMB is a 1.0 x 1.0 x 0.4 cm aggregate of multiple irregular fragments of congested and hemorrhagic red-maroon tissue, scant mucus and blood, submitted in toto in a cassette labeled A. CEDS IHC S/NG Disclaimer NOTE: Unless otherwise stated, all tissue is formalin-fixed and paraffin-embedded. Some or all of the immunohistochemical tests reported herein may have been developed and their performance characteristics determined by [facility]. They have not been cleared or approved by the U.S. Food and Drug Administration (FDA). However, the FDA has determined that such clearance or approval is not necessary. This laboratory is certified under the Clinical Laboratory Improvement Amendments of 1988 (CLIA) as qualified to perform high complexity clinical laboratory testing. Copies To: Duane Rock MD [address] [address] CONTINUED ON NEXT PAGE ----- ------- Name: Mary Mijares Age/Sex: 59/F : 1965 Unit#: [id number] Attend Dr: Michael Wilkins MD Re12/22/24 Status: DEP REF Location: HO.LNP Disch: ----- ------- SPEC : [id number] RECD: 12/23/24 STATUS: JESSICA HAILE NUM: [id number] CELESTINE: 12/22/[address]: Michael Wilkins MD ENTERED: 12/23/24 SP TYPE: Surgical OTHR DR: Duane Rock MD ORDERED: HE Stain/2, Gross Micro L4 Copies To: (Continued) Michael Wilkins MD [facility] Services [address] [place] [address] ----- ------- Signed (signature on file) Momo Mcintsoh MD 12/24/24 1603 ----- ------- END OF REPORT Generic External Data Provider LAB BLOOD ORDERAB LES Final Result Performing Organization Address [facility]/ZIP Co de Phone Number [facility] [address] [place] [address] [phone] * Culture, Urine, Routine (12/22/2024 7:13 AM EDT) Urine Urine specimen obtained by clean catch procedure / Unknown 12/22/2024 7:13 AM EDT 12/22/2024 6:32 PM EDT Comment:[facility] Narrative [facility] - 12/24/2024 9:26 AM EDT Urine Culture No growth. Specimen Source: Urine clean catch Generic External Data Provider LAB MICROBIOLOGY - GENERAL ORDERABLES Final Result Performing Organization Address [facility]/ZIP Co de Phone Number [facility] [address] [place] [address] [phone] * Vitamin B12/Folate, Serum Panel (11/20/2024 7:27 AM EDT) Pathologist [facility] Vitamin B12 399 200 - 900 pg/mL [facility] Comment:NORMAL 200-900 PG/ML INDETERMINATE 160-199 PG/ML DEFICIENT < 160 PG/ML Folate 10.0 > or = 4.0 ng/mL [facility] Comment:Reference Values:> o r = 4.0 [...] BLOOD ORDERABLES Final Result Performing Organization Address [facility]/ZIP Co de Phone Number [facility] [address] [place] [phone] * TSH with Reflex to Free T4 (11/20/2024 7:27 AM EDT) [facility] TSH reflex Free T4 1.40 0.32 - 4.0 uIU/mL [facility] Blood Venous blood specimen / Unknown 11/20/2024 7:27 AM EDT 11/20/2024 7:27 AM EDT Duane Estrella MD LAB BLOOD ORDERABLES Final Result Performing Organization Address City/[facility]/ZIP Co de Phone Number [facility] [address] [place] [phone] * (ABNORMAL) CBC auto differential (11/20/2024 7:27 AM EDT) [facility] White Blood Count 6.6 4.8 - 10.8 X10*3/uL [facility] Red Blood Count 4.73 4.20 - 5.50 X10*6/uL [facility] Hemoglobin 13.7 12.0 - 16.0 g/dl [facility] Hematocrit 41.5 37.0 - 47.0 % [facility] Mean Corpuscular Volume 87.7 80.0 - 98.0 fL [facility] Mean Corpuscular Hemoglobin 29.0 27.0 - 33.0 pg [facility] Mean Corpuscular HGB Conc 33.0 31.0 - 35.0 g/dl [facility] Red Cell Distribution Width 12.9 11.0 - 16.0 % [facility] Platelet Count 252 160 - 400 X10*3/uL [facility] Mean Platelet Volume 9.0(L) 9.4 - 12.3 fL [facility] Neutrophils Percent Auto 44.7(L) 45 - 73 % [facility] Imm Gran Pct Auto 0.2 0.0 - 0.4 % [facility] Lymphocytes Percent Auto 47.7(H) 20 - 40 % [facility] Monocytes Percent Auto 5.7 2 - 11 % [facility] Eosinophils Percent Auto 1.1 0 - 4 % [facility] Basophils Percent Auto 0.6 0 - 2 % [facility] NRBC Pct Auto 0.0 0.0 - 0.2 /100WBC [facility] Neutrophils Absolute Auto 3.0 2.0 - 8.3 x10*3/uL [facility] Imm Gran Abs Auto 0.01 0.00 - 0.03 X10*3/uL [facility] Lymphocytes Absolute Auto 3.2 1.2 - 4.9 X10*3/uL [facility] Monocytes Absolute Auto 0.4 0.1 - 1.2 X10*3/uL [facility] Eosinophils Absolute Auto 0.1 0.0 - 0.4 X10*3/uL [facility] Basophils Absolute Auto 0.0 0.0 - 0.2 X10*3/uL [facility] NRBC Abs Auto 0.000 0.0 - 0.012 X10*3/uL [facility] Blood Venous blood specimen / Unknown 11/20/2024 7:27 AM EDT 11/20/2024 7:27 AM EDT Duane Estrella MD LAB BLOOD ORDERABLES Final Result Performing Organization Address [facility]/ZIP Co de Phone Number [facility] [address] [place] [address] [phone] * RPR (Monitor) with Reflex to??Titer (11/20/2024 7:27 AM EDT) RPR (Monitor) w/Refl Titer NON-REACTI VE NON-REACT BLOSSOM [facility] Comment:THIS TEST WAS PERFOR MED AT:[employer] [place] [phone] CASTILLO MD Rapid Plasma Reagin Ab Titer TNP [facility] Blood Venous blood specimen / Unknown 11/20/2024 7:27 AM EDT 11/20/2024 7:27 AM EDT Duane Estrella MD LAB BLOOD ORDERABLES Final Result Performing Organization Address City/[facility]/ZIP Co de Phone Number [facility] [address] [place] [phone] * (ABNORMAL) Lipid Panel, Standard (11/20/2024 7:27 AM EDT) Triglycerides 144 <150 mg/dL [facility] Comment:Desirable Triglyceri de: less than 150 mg/dLBorderline High Triglyceride 150-199 mg/dLHigh Triglyceride: 200-499 mg/dLVery High Triglyceride: greater than or equal to 5OO mg/dL Cholesterol 181 <200 mg/dL [facility] Comment:Desirable Cholestero l: less than 200 mg/dLBorderline High Cholesterol: 200-239 mg/dLHigh Cholesterol: greater than 239 mg/dL LDL Cholesterol Calculated 112(H) <100 mg/dL [facility] Comment:Desirable LDL: less than 100 mg/dLNear Optimal/Above Optimal LDL: 110- 129 mg/dLBorderline High LDL: 130-159 mg/dLHigh LDL: 160-189 mg/dLVery High LDL: greater than or equal to 190 mg/dL HDL Cholesterol 41 >40 mg/dL [facility] Comment:Desirable HDL: great er than 40 mg/dL Note: This HDL assay may give artificially low results in patients with liver disease. Blood Venous blood specimen / Unknown 11/20/2024 7:27 AM EDT 11/20/2024 7:27 AM EDT us Duane Estrella MD LAB BLOOD ORDERABLES Final Result [facility] [address] [place] [phone] * (ABNORMAL) Comprehensive Metabolic Panel (11/20/2024 7:27 AM EDT) Sodium 142 135 - 145 mmol/L [facility] Potassium 4.4 3.3 - 5.1 mmol/L [facility] Chloride 107 96 - 108 mmol/L [facility] Carbon Dioxide 27 22 - 29 mmol/L [facility] Anion Gap 12 12 - 20 [facility] Urea Nitrogen (BUN) 17(H) 9 - 16 mg/dL [facility] Creatinine, Serum 0.64 0.5 - 1.4 mg/dL [facility] Estimated Glomerular Filt Rate >60 [facility] Comment:Chronic Kidney Disea se: Estimated GFR < 60 mL/min/1.37u0Rzjzix Kidney Disease: Estimated GFR < 15 mL/min/1.73m2 Glucose 110 60 - 115 mg/dL [facility] Calcium 9.5 8.4 - 10.2 mg/dL [facility] Bilirubin, Total 0.5 0.0 - 1.0 mg/dL [facility] Aspartate Amino Transferase 35(H) 5 - 31 U/L [facility] Alanine Aminotransferase 46(H) 0 - 31 U/L [facility] Total Protein 7.1 6.5 - 8.0 g/dL [facility] Albumin Level 4.6 3.5 - 5.0 g/dL [facility] Alkaline Phosphatase 152(H) 39 - 117 U/L [facility] Blood Venous blood specimen / Unknown 11/20/2024 7:27 AM EDT 11/20/2024 7:27 AM EDT us Duane Estrella MD LAB BLOOD ORDERABLES Final Result Performing Organization Address City/State/[facility] [[email or web address]] Co de Phone Number [facility] [address] [place] [phone] * MR Brain w/o Contrast (11/09/2024 6:37 PM EDT) Anatomical Region Laterality Modality Brain Magnetic Resonan ce 11/09/2024 6:37 PM EDT Narrative 11/10/2024 7:51 AM EDT [address] [address] Magnetic Resonance Report Signed Patient: Mary Mijares MR#: [id number] 8 : 1965 Acct:[id number] Age/Sex: 59 / F ADM Date: 11/09/24 Loc: HO.MRI Attending Dr: Duane Rock MD Ordering Physician: Duane Rock MD Date of Service: 11/09/24 Procedure(s): MR head/brain wo con Accession Number(s): [id number] cc: Duane Rock MD EXAMINATION: MR BRAIN [...] Jaime Blair MD 11/10/2024 07:48 AM EDT RP Dictated By: Jaime Brown MD Signed By: <Electronically signed by Jaime Perea MD in OV> 11/10/24 0748 DD/ 36 TD/TT: 11/09/24 [address] [employer]: Procedure Note Donotuseinterpreter, Image - 11/10/2024 [place] [address] Magnetic Resonance Report Signed Patient: Mary MijaresMR#: [id number] 8 : 1965Acct:[id number] Age/Sex: 59 / FADM Date: 11/09/24 Loc: HO.MRI Attending Dr: Duane Rock MD Ordering Physician: Duane Rock MD Date of Service: 11/09/24 Procedure(s): MR head/brain wo con Accession Number(s): [id number] cc: Duane Rock MD EXAMINATION: MR BRAIN [...] Jaime Blair MD 11/10/2024 07:48 AM EDT RP Dictated By: Jaime Brown MD Signed By: <Electronically signed by Jaime Perea MDin OV> 11/10/24 0748 DD/ 36 TD/TT: 11/09/24 [employer]: us Duane Estrella MD IMG MRI PROCEDURES Fi nal Result * US Pelvis Transvaginal (10/26/2024 2:25 PM EDT) Anatomical Region Laterality Modality Pelvis Ultrasound 10/26/2024 2:25 PM EDT Narrative 10/26/2024 3:21 PM EDT [address] [address] Ultrasound Report Signed Patient: Mary Mijares MR#: [id number] 8 : 1965 Acct:[id number] Age/Sex: 59 / F ADM Date: 10/26/24 Loc: HO.US Attending Dr: Michael Wilkins MD Ordering Physician: Michael Wilkins MD Date of Service: 10/26/24 Procedure(s): US pelvic and transvaginal Accession Number(s): [id number] cc: Duane Rock MD; Michael Wilkins MD [...] Jaime Blair MD 10/26/2024 03:18 PM EDT RP Dictated By: Jaime Brown MD Signed By: <Electronically signed by Jaime Perea MD in OV> 10/26/24 1518 DD/ 1425 TD/TT: 10/26/24 14[address] [employer]: Procedure Note Donotuseinterpreter, Image - 10/26/2024 [place] [address] Ultrasound Report Signed Patient: Shelia Mijares#: [id number] 8 : 1965Acct:[id number] Age/Sex: 59 / FADM Date: 10/26/24 Loc: HO.US Attending Dr: Michael Wilkins MD Ordering Physician: Michael Wilkins MD Date of Service: 10/26/24 Procedure(s): US pelvic and transvaginal Accession Number(s): [id number] cc: Duane Rock MD; Michael Wilkins MD [...] 10/26/24 1518 DD/ 1425 TD/TT: 10/26/24 14[employer]: us [facility] External Provider IMG US PROCEDURES Final Result * BI Mammogram Screening Tomosynthesis Bilateral (12/18/2023 10:15 AM EDT) Anatomical Region Laterality Modality Breast Bilateral Mammography 12/18/2023 10:1 5 AM EDT Narrative 01/04/2024 2:20 PM EDT [address] [place] [address] Mammography Report Signed Patient: Mary Mijares MR#: [id number] 8 : 1965 Acct:[id number] Age/Sex: 58 / F ADM Date: 12/18/23 Loc: RODOLFO Attending Dr: Duane Rock MD Ordering Physician: Duane Rock MD Resu lts: 1Negative Date of Service: 12/18/23 Follow Up: 1 Year From [facility] ina Mammogram Procedure(s): MM tomosynthesis screening BI Accession Number(s): [id number] cc: Duane Rock MD EXAMINATION: MM SCREENING [...] Yulissa Thornton DO 01/04/2024 02:16 PM EDT RP Dictated By: Yulissa Thornton DO Signed By: <Electronically signed by Yulissa Thornton DO in OV> 01/04/24 1416 DD/ 1015 TD/TT: 12/18/23 [address] [employer]: Procedure Note Donotuseinterpreter, Image - [facility]/04/[facility] [address] [place] [address] Mammography Report Signed Patient: Mary MijaresMR#: [id number] 8 : 1965Acct:[id number] Age/Sex: 58 / FADM Date: 12/18/23 Loc: HO.MAMMO Attending Dr: Duane Rock MD Ordering Physician: Duane Rock MDResu lts: 1Negative Date of Service: 12/18/23Follow Up: 1 Year From Orig ina Mammogram Procedure(s): MM tomosynthesis screening BI Accession Number(s): [id number] cc: Duane Rock MD EXAMINATION: MM SCREENING [...] Yulissa Thornton DO 01/04/2024 02:16 PM EDT RP Dictated By: Yulissa Thornton DO Signed By: <Electronically signed by Yulissa Thornton DO in OV> 01/04/24 1416 DD/ 1015 TD/TT: 12/18/23 [address] [employer]: Duane Estrella MD IMG BI PROCEDURES Fin al Result * Colposcopy (11/13/2023 3:28 PM EDT) Historical Provider IN CLINIC/BEDSIDE ORDERAB LES Final Result * (ABNORMAL) ThinPrep Imaging Pap and HPV mRNA E6/E7 with Reflex to HPV 16,18/45 (11/05/2023 8:21 AM EDT) HPV 16 RNA NOT DETECTED NOT DETECTED [facility] HPV 18/45 RNA NOT DETECTED NOT DETECTED [facility] Comment:Methodology: Transcr iption Mediated AmplificationCervical sources are required for HPV testing.If a vaginal source from a patient who has had atotal hysterectomy with removal of cervix wassubmitted, please contact the testing laboratoryfor alternative testing options.THIS TEST WAS PERFORMED AT:[employer] [place] [phone] CASTILLO MD HPV nRNA E6/E7 Detected(A ) Not Detected [facility] Comment:Methodology: Transcr iption-Mediated AmplificationThis assay detects E6/E7 viral messenger RNA (mRNA) from 14high-risk HPV types (16,18,31,33,35,39,45,51,52,56,58,59,66,68).Cervical sources are required for HPV testing.If a vaginal source from a patient who has had atotal hysterectomy with removal of cervix wassubmitted, please contact the testing laboratoryfor alternative testing options.For additional information, please refer tohttp://education.[employer]/faq/VDR961u8(This link if provided for information/educational purposes only.) SOURCE: SEE NOTE [facility] Comment:None given Report Status: [facility] Clinical Information: SEE NOTE [facility] Comment:None given LMP: SEE NOTE [facility] Comment:NONE GIVEN Prev. PAP: SEE NOTE [facility] Comment:NONE GIVEN Prev. BX: SEE NOTE [facility] Comment:NONE GIVEN Statement Of Adequacy: SEE NOTE [facility] Comment:Satisfactory for yudith luation.Endocervical/transformation zone componentpresent. General Categorization: [facility] Interpretation/Result: SEE NOTE [facility] Comment:Cytology Results: Ne gative for intraepitheliallesion or malignancy. Cytology Comment SEE NOTE [facility] Comment:This Pap test has be en evaluated with computerassisted technology. Clinical Data Assistant: SEE NOTE [facility] Comment:CMG, CT(ASCP)CT scre ening location: [place] [address] Review Clinical Data Assistant: SEE NOTE [facility] Comment:WAC, CT(ASCP)CT scre ening location: [place] [address] Pathologist [facility] PAP Infection [facility] See Note SEE [facility] Comment:EXPLANATORY NOTE:The Pap is a screening test for cervical cancer. It isnot a diagnostic test and is subject to false negativeand false positive results. It is most reliable when asatisfactory sample, regularly obtained, is submittedwith relevant clinical findings and history, and whenthe Pap result is evaluated along with historic andcurrent clinical information. 11/05/2023 8:21 AM EDT 11/05/2023 5:41 PM EDT Narrative [facility] - 11/11/2023 2:55 PM EDT SEE SCANNED RESULTS IN EMR us Generic External Data Provider LAB PATHOLOGY ORD ERABLES Final Result Performing Organization Address City/[facility]/ZIP Co de Phone Number [facility] [address] [place] [address] [phone] * HEPATITIS C AB W/REFL TO HCV RNA, QN, PCR (01/12/2021 9:32 AM EDT) HEPATITIS C ANTIBODY NON-REACT BLOSSOM NON-REACT BLOSSOM [facility] INDEX 0.01 <1.00 [facility] Comment: HCV antibody was non-reactive. There is no laboratory evidence of HCV infection. In most cases, no further action is required. However, if recent HCV exposure is suspected, a test for HCV RNA (test code 76961) is suggested. For additional information please refer to http://education.[employer]/faq/QXN57b0 (This link is being provided for informational/ educational purposes only.) 01/12/2021 9:32 AM EDT us Duane Estrella MD HISTORICAL/NON ORDERA BLE LABS Final Result Performing Organization Address [facility] [[email or web address]] Co de Phone Number [facility] [address] * HIV 1/2 ANTIGEN/ANTIBODY,FOURTH GENERATION W/RFL (01/12/2021 9:32 AM EDT) HIV-1/2 ANTIGEN AND ANTIBODIES, 4TH GENERATION W/ REFLEX NON-REACT BLOSSOM NON-REACT BLOSSOM [facility] Comment: HIV-1 antigen and HIV-1/HIV-2 [...] purpose. For additional information please refer to http://education.[employer]/faq/EGS069 (This link is being provided for informational/ educational purposes only.) The performance of this assay has not been clinically validated in patients less than 2 years old. 01/12/2021 9:32 AM EDT Duane Estrella MD LAB BLOOD ORDERABLES Final Result [facility] [address] * Colonoscopy (11/12/2016) Colonoscopy Normal Normal 11/12/2016 Narrative Madiha Jennings - 11/12/2016 12:28 PM EDT Recommended 10 year follow up Historical Provider HEALTH MAINTENANCE Edited Result - Final from Last 3 Months or Most Recently Relevant to Health Maintenance Insurance [facility] Care Teams Auto Damage Trainee Relationship Specialty Start Date End Date Duane Power MD [address] [place] [phone] PCP - General Internal Medicine 12/22/20
--- OUTSIDE RECORDS SUMMARY | 2025-01-12 13:28 | XMS_ITS | Encounter Summary ---
Author Organization [facility] Address [address] [facility] [address] [place] [address] Phone Care Team Providers Care Perforator Typist Name Role Phone Pcp, Unknown Primary Care Provider Unavailabl e Encounter Details Date Type Department Care Team (Late st Contact Info) Description 05/29/2020 Ancillary Orders Virtual Department [address] [place] [address] Jess Summers MD [address] [place] [address] Breast screening Social History Tobacco Use Types [...] unspecified documented in this encounter Care Teams Perforator Typist Relationship Specialty Start Date End Date Pcp, Unknown PCP - General 05/26/20 documented as of this encounter Additional Source Comments The information contained in this document represents components of the legal health record. It is not the complete legal health record.[facility]
--- OUTSIDE RECORDS SUMMARY | 2025-01-12 13:28 | XMS_ITS | Encounter Summary ---
Author Organization [facility] Address [address] [place] [address] Phone Care Team Providers Care Purchasing Engineer Name Role Phone Pcp, Unknown Primary Care Provider Unavailabl e Encounter Details Date Type Department Care Team (Late st Contact Info) Description 05/29/2020 Ancillary Orders [facility],Outside Imaging [address] [place], [place] [phone] System, Provider Not In, [facility] [address] [address] Social History Tobacco Use Types Packs/Day Years [...] on filedocumented in this encounter Care Teams Purchasing Engineer Relationship Specialty Start Date End Date Pcp, Unknown PCP - General 05/26/20 documented as of this encounter Additional Source Comments The information contained in this document represents components of the legal health record. It is not the complete legal health record.[facility]
--- OUTSIDE RECORDS SUMMARY | 2025-01-12 13:28 | XMS_ITS | Encounter Summary ---
Author Organization [facility] Address [address] [facility] [address] [place] [address] Phone Care Team Providers Care Administrative Technician Name Role Phone Pcp, Unknown Primary Care Provider Unavailabl e Encounter Details Date Type Department Care Team (Late st Contact Info) Description 05/23/2020 Ancillary Orders [facility],Outside Imaging [address] [place], [place] [phone] System, Provider [place] In, [place] [address] Social History Tobacco Use Types Packs/Day Years [...] on filedocumented in this encounter Care Teams Administrative Technician Relationship Specialty Start Date End Date Pcp, Unknown PCP - General 05/26/20 documented as of this encounter Additional Source Comments The information contained in this document represents components of the legal health record. It is not the complete legal health record.[facility]
--- OUTSIDE RECORDS SUMMARY | 2025-01-12 13:28 | XMS_ITS | Encounter Summary ---
Author Organization [employer] Address [address] [facility] 7t [place] [address] Care Team Providers Care Automotive Electrician Name Role Phone Duane Power MD Primary Care Provide r Encounter Details Date Type Department Care Team (Late st Contact Info) Description 12/24/2024 Orders Only [facility] CHC MED & PEDS [address] [place] [address] ProviderLeona MD Social History Tobacco Use Types Packs/Day Years [...] Procedure Name Priority Date/Time Associated Diagnosis Comments COLPOSCOPY Routine 11/13/2023 3:28 PM EDT documented in this encounter Results * Colposcopy (11/13/2023 3:28 PM EDT) us Historical Provider MD IN CLINIC/BEDSIDE ORDERAB LES Final Result documented in this encounter Visit Diagnoses Not on filedocumented in this encounter Additional Health Concerns Assessment Noted Time PHQ-9 Depression Total Score: 0 11/18/19 24 10:05 AM EDT documented as of this encounter Care Teams Automotive Electrician Relationship Specialty Start Date End Date Duane Power MD [address] [place] [address] PCP - General Internal Medicine 12/22/20 documented as of this encounter
--- OUTSIDE RECORDS SUMMARY | 2025-01-12 13:28 | XMS_ITS | Encounter Summary ---
Author Organization [facility] Address [address] [place] [address] Phone Care Team Providers Care Machine Operator Cane Cutter Name Role Phone Pcp, Unknown Primary Care Provider Unavailabl e Encounter Details Date Type Department Care Team (Late st Contact Info) Description 05/29/2020 Ancillary Orders [facility],Outside Imaging [address] [place], [place] [phone] System, Provider Not In, [facility] [address] [address] Social History Tobacco Use Types Packs/Day Years [...] on filedocumented in this encounter Care Teams Machine Operator Cane Cutter Relationship Specialty Start Date End Date Pcp, Unknown PCP - General 05/26/20 documented as of this encounter Additional Source Comments The information contained in this document represents components of the legal health record. It is not the complete legal health record.[facility]
== END 2025-01-12 12:25 | disposition home or self-care (01) ==
LOC: HO.HWS 11:52
PROVIDERS: PCP Internal Medicine; Visit Provider Obstetrics & Gynecology
DX: R93.89 Abnormal findings on diagnostic imaging of other specified body structures (principal); R31.29 Other microscopic hematuria
CPT/HCPCS: 99213

== ENCOUNTER → 2025-02-01 13:51 | Outpatient (REF) | payer OTHER, SELFPAY ==
--- OUTSIDE RECORDS SUMMARY | 2009-08-10 | XMS_ITS | Encounter Summary ---
Author Organization [facility] Address [address] [place] [address] Phone Care Team Providers Care Offal Icer Poultry Name Role Phone Unavailable Primary Care Provider Unavailabl e Encounter Details Date Type Department Care Team (Late st Contact Info) Description 08/10/2009 Hospital Encounter [facility],Outside Imaging [address] [place] [address] System, Provider Not In, PhD [address] [address] Social History Tobacco Use Types Packs/Day Years [...] It is not the complete legal health record.[facility]
--- OUTSIDE RECORDS SUMMARY | 2009-08-21 | XMS_ITS | Encounter Summary ---
Author Organization [facility] Address [address] [place] [address] Phone Care Team Providers Care Chip Tester Name Role Phone Unavailable Primary Care Provider Unavailabl e Encounter Details Date Type Department Care Team (Late st Contact Info) Description 08/21/2009 Hospital Encounter [facility],Outside Imaging 30 [place] [address] System, Provider Not In, PhD [address] [address] Social History Tobacco Use Types Packs/Day Years [...] is not the complete legal health record.[facility]
--- OUTSIDE RECORDS SUMMARY | 2009-08-21 00:05 | XMS_ITS | Encounter Summary ---
Author Organization [facility] Address [address] [address] Phone Care Team Providers Care Transistor Tester Name Role Phone Unavailable Primary Care Provider Unavailabl e Encounter Details Date Type Department Care Team (Late st Contact Info) Description 08/21/2009 12:05 AM EDT Hospital Encounter ,Outside Imaging 30 [place] [address] System, Provider Not In, PhD Partners [address] [address] Social History Tobacco Use Types Packs/Day Years [...] It is not the complete legal health record.[facility]
--- OUTSIDE RECORDS SUMMARY | 2010-02-27 01:00 | XMS_ITS | Encounter Summary ---
Author Organization [facility] Address [address] [place] [address] Phone Care Team Providers Care Biomathematician Name Role Phone Unavailable Primary Care Provider Unavailabl e Encounter Details Date Type Department Care Team (Late st Contact Info) Description 02/27/2010 Hospital Encounter [facility],Outside Imaging 30 [place] [address] System, Provider Not In, PhD [address] [address] Social History Tobacco Use Types Packs/Day Years [...]
--- OUTSIDE RECORDS SUMMARY | 2010-09-26 | XMS_ITS | Encounter Summary ---
Author Organization [facility] Address [address] [place] [address] Phone Care Team Providers Care Time Signal Wirer Name Role Phone Unavailable Primary Care Provider Unavailabl e Encounter Details Date Type Department Care Team (Late st Contact Info) Description 09/26/2010 Hospital Encounter [facility],Outside Imaging 30 [place] [address] System, Provider Not In, PhD [address] [address] Social History Tobacco Use Types Packs/Day Years [...] It is not the complete legal health record.[facility]
--- OUTSIDE RECORDS SUMMARY | 2011-09-27 | XMS_ITS | Encounter Summary ---
Author Organization [facility] Address [address] [place] [address] Phone Care Team Providers Care Railroad Firer/Fireman Name Role Phone Unavailable Primary Care Provider Unavailabl e Encounter Details Date Type Department Care Team (Late st Contact Info) Description 09/27/2011 Hospital Encounter [facility],Outside Imaging 30 [place] [address] System, Provider Not In, PhD [address] [address] Social History Tobacco Use Types Packs/Day Years [...] It is not the complete legal health record.[facility]
--- OUTSIDE RECORDS SUMMARY | 2012-09-28 | XMS_ITS | Encounter Summary ---
Author Organization [facility] Address [address] [place] [address] Phone Care Team Providers Care Engine Buildup Mechanic Name Role Phone Unavailable Primary Care Provider Unavailabl e Encounter Details Date Type Department Care Team (Late st Contact Info) Description 09/28/2012 Hospital Encounter [facility],Outside Imaging [address] [place] [address] System, Provider Not In, PhD [address] [address] Social History Tobacco Use Types Packs/Day Years [...]
--- OUTSIDE RECORDS SUMMARY | 2012-10-02 | XMS_ITS | Encounter Summary ---
Author Organization [facility] Address [address] [place] [address] Phone Care Team Providers Care Aircraft Engine Assembler Name Role Phone Unavailable Primary Care Provider Unavailabl e Encounter Details Date Type Department Care Team (Late st Contact Info) Description 10/02/2012 Hospital Encounter [facility],Outside Imaging [address] [place] [address] System, Provider Not In, PhD [address] [address] Social History Tobacco Use Types Packs/Day Years [...] It is not the complete legal health record.[facility]
--- OUTSIDE RECORDS SUMMARY | 2012-10-02 00:05 | XMS_ITS | Encounter Summary ---
Author Organization [facility] Address [address] [address] Phone Care Team Providers Care Herbicide Service Sales Representative Name Role Phone Unavailable Primary Care Provider Unavailabl e Encounter Details Date Type Department Care Team (Late st Contact Info) Description 10/02/2012 12:05 AM EDT Hospital Encounter [facility],Outside Imaging [address] [place] [address] System, Provider Not In, PhD Partners [address] [address] Social History Tobacco Use Types Packs/Day Years [...]
--- NOTE | ~2025-02-01 | US_ITS ---
EXAMINATION: BILATERAL CAROTID ULTRASOUND WITH DOPPLER HISTORY: TIA COMPARISON: There are no prior studies available for comparison. TECHNIQUE: Real time and Color and Spectral doppler ultrasonography of the carotid and vertebral arteries was performed in multiple planes. FINDINGS: No significant plaque is seen. VERTEBRAL FLOW DIRECTION: Antegrade bilaterally. PEAK SYSTOLIC VELOCITIES (in cm/sec): RIGHT: CCA: Prox: 132 Dist: 73 ICA: Prox: 55 Mid: 117 Dist: 112 ICA/CCA Ratio: 0.89 ECA: 103 Peak ICA end diastolic velocity (EDV): 37 LEFT: CCA: Prox: 143 Dist: 82 ICA: Prox: 56 Mid: 101 Dist: 89 ICA/CCA Ratio: 0.71 ECA: 136 Peak ICA end diastolic velocity (EDV): 37 US/US carotid duplex BI IMPRESSION: Unremarkable carotid ultrasound. Electronically signed by: Aurelio Young MD 02/01/2025 03:45 PM EDT
--- NOTE | 2025-02-01 13:56 | CA_ITS ---
Transthoracic Echocardiogram Patient (Last, First, Middle): Mary Mijares, Gender: Female Date of : 1965 Age: 59 Procedure Date: 02/01/2025 Procedure Type: Transthoracic Echocardiogram Location: OP Height: 162.56 cm Weight: 81.65 kg BSA: 1.87 m2 Heart Rate: bpm BP: 118 / 60 mmHg Ship Wirer: BRIAN Referring MD: Duane Rock MD Pharmacy Laboratory Technician: Drake Allen MD Symptoms: TIA Study Quality: Adequate ECG Rhythm: Sinus Conclusions: - Essentially normal study Findings Left Ventricle Normal left ventricular size, thickness, and systolic function. The visually estimated ejection fraction is between 60-65%. Spectral Doppler is indicative of a normal filling pattern. Right Ventricle Normal right ventricular cavity size and systolic function. Atria Both atria are normal in size. There is no evidence of interatrial shunt by agitated saline. Aortic Valve Normal aortic valve structure and function. There is no aortic valve stenosis. There is no aortic valve regurgitation. Mitral Valve Normal mitral valve structure and function. There is trace mitral valve regurgitation. There is no mitral valve stenosis. Pulmonic Valve The pulmonic valve is likely normal. There is trace pulmonic valve regurgitation. Tricuspid Valve Normal tricuspid valve structure. There is trace tricuspid valve regurgitation. The right ventricular systolic pressure is normal. The right ventricular systolic pressure is 27 mmHg. Normal right atrial pressure. There is no evidence of pulmonary hypertension. Great Vessels All visible segments of the aorta are normal in size. The pulmonary artery was not well visualized. Venous The inferior vena cava is normal in size and collapses greater than 50% with inspiration. Pericardium/Pleural There is no evidence of pericardial effusion. Measurements 2D Linear Measurements IVSd: 1.09 0.6-0.9/0.6-1.0 cm LVIDd: 4.25 3.9-5.3/4.2-5.9 cm LVIDd Index: 2.27 2.4-3.2/2.2-3.1 cm/m2 LVIDs: 2.39 2.0-3.6 cm LVPWd: 0.70 0.7-1.1 cm LA Diam: 3.30 2.7-3.8/3.0-4.0 cm LAIDs Index: 1.76 1.5-2.3 cm/m2 LV Mass: 148.76 67-162/88-224 g LV Mass Index: 79.55 43-95/49-115 g/m2 LVOT Diam: 2.00 3.0+(-)1.3 cm 2D Systolic Function EF 4C: 62.30 >55% EF 2C: 60.80 >55% EF BiP: 62.10 >55% Mitral Valve MV Pk E: 0.71 MV PK A: 0.68 MV Decel Time: 275.00 E/A: 1.00 E'Lateral: 12.30 E'Medial: 7.62 E/E' Med: 9.30 E/E' Lat: 5.80 PHT: 80.00 MVA PHT: 2.75 Decel [place]: 2.59 Aortic Valve AoV Pk Teddy: 1.91 AoV Mn Teddy: 1.36 AoV VTI: 0.38 AoV Pk Grad: 15.00 Aov Mn Grad: 8.00 AMADA Cont.VTI: 2.16 LVOT LVOT Pk Teddy: 1.37 LVOT Mn Teddy: 0.89 LVOT VTI: 0.26 LVOT Pk Grad: 8.00 LVOT Mn Grad: 4.00 LVOT Diam: 2.00 LVOT Area: 3.14 Diastolic Function MV Pk E: 0.71 MV Pk A: 0.68 E/A: 1.00 E'Medial: 7.62 E/E' Med: 9.30 E' Laterial: 12.30 E/E' Lat: 5.80 Right Ventricle TAPSE (mm): 32.60 TVS' Teddy: 14.70 Tricuspid Valve TR Pk Teddy: 2.44 TR Pk Grad: 24.00 RA Press: 3.00 RVSP: 27.00 Great Vessels Aorta Sinus of Valsalva: 3.17 2.0-3.[address] Ridge: 2.61 1.7-3.4 cm Ao Asc: 2.70 2.1-3.4 cm Ao Arch: 2.50 Pulmonary Veins Pulm Vein S/D 1.10 Updated in Other Vendor System with Status of Final Drake Allen MD electronically signed on 02/01/2025 5:04:47 PM with status of Final
--- OUTSIDE RECORDS SUMMARY | 2025-02-01 18:30 | XMS_ITS | Encounter Summary ---
Author Organization [employer] Address [address] [facility] 7t [place] [address] Care Team Providers Care Plasma Processing Technician Name Role Phone Duane Power MD Primary Care Provide r Encounter Details Date Type Department Care Team ([facility] st Contact Info) Description 03/20/2023 Orders Only [facility] CHC MED & PEDS [address] [place] [address] Malou Santos LPN Social History Tobacco Use [...] documented as of this encounter Care Teams Plasma Processing Technician Relationship Specialty Start Date End Date Duane Power MD [address] [place] [address] PCP - General Internal Medicine 12/22/20 documented as of this encounter
--- OUTSIDE RECORDS SUMMARY | 2025-02-01 18:30 | XMS_ITS | Encounter Summary ---
Author Organization [employer] Address [address] [facility] 7t [place] [address] Care Team Providers Care Director Of Therapy Services Name Role Phone Duane Power MD Primary Care Provide r Encounter Details Date Type Department Care Team (Late st Contact Info) Description 10/21/2022 Orders Only [facility] CHC MED & PEDS [address] [place], [place] [phone] Maluo Santos LPN Social History Tobacco Use Types [...] documented as of this encounter Care Teams Director Of Therapy Services Relationship Specialty Start Date End Date Duane Power MD [address] [place] [address] PCP - General Internal Medicine 12/22/20 documented as of this encounter
--- OUTSIDE RECORDS SUMMARY | 2025-02-01 18:31 | XMS_ITS | Encounter Summary ---
Author Organization [facility] Address [address] [place] [address] Phone Care Team Providers Care Table Saw Operator Name Role Phone Pcp, Unknown Primary Care Provider Unavailabl e Encounter Details Date Type Department Care Team (Late st Contact Info) Description 05/29/2020 Ancillary Orders [facility],Outside Imaging [address] [place], [place] [phone] System, Provider Not In, [facility] [address] [address] Social History Tobacco Use Types Packs/Day Years [...] on filedocumented in this encounter Care Teams Table Saw Operator Relationship Specialty Start Date End Date Pcp, Unknown PCP - General 05/26/20 documented as of this encounter Additional Source Comments The information contained in this document represents components of the legal health record. It is not the complete legal health record.[facility]
--- OUTSIDE RECORDS SUMMARY | 2025-02-01 18:31 | XMS_ITS | Clinical Summary ---
Author Organization [facility] Address [address] [place] [address] Phone Care Team Providers Care Brim Pouncer Machine Operator Name Role Phone Pcp, Unknown [...] file Medical Devices Not on file Insurance [facility] HMO O O O HMO O HMO O HMO Member Subscriber Plan / Payer (Ef fective 2020-Present) Name:Mary Mijares Relation to Subscriber:Spouse Name:LOVELY MIJARES Date of :1900 (Home) Address: [address] [place] [address] Payer ID:Not on file Type:O Address: [place] [id number] Care Teams Brim Pouncer Machine Operator Relationship Specialty Start Date End Date Pcp, Unknown PCP - General 05/26/20 Additional Source Comments The information contained in this document represents components of the legal health record. It is not the complete legal health record.[facility]
--- OUTSIDE RECORDS SUMMARY | 2025-02-01 18:31 | XMS_ITS | Encounter Summary ---
Author Organization [facility] Address [address] [place] [address] Phone Care Team Providers Care Director Financial Analysis Name Role Phone Pcp, Unknown Primary Care Provider Unavailabl e Encounter Details Date Type Department Care Team (Late st Contact Info) Description 05/29/2020 Ancillary Orders [facility],Outside Imaging [address] [place] [address] System, Provider Not In, [facility] [address] [address] Social History Tobacco Use Types Packs/Day Years [...] on filedocumented in this encounter Care Teams Director Financial Analysis Relationship Specialty Start Date End Date Pcp, Unknown PCP - General 05/26/20 documented as of this encounter Additional Source Comments The information contained in this document represents components of the legal health record. It is not the complete legal health record.[facility]
--- OUTSIDE RECORDS SUMMARY | 2025-02-01 18:31 | XMS_ITS | Encounter Summary ---
Author Organization [facility] Address [address] [place] [address] Phone Care Team Providers Care Multimedia Technician Name Role Phone Pcp, Unknown Primary Care Provider Unavailabl e Encounter Details Date Type Department Care Team (Late st Contact Info) Description 05/29/2020 Ancillary Orders [facility],Outside Imaging [address] [place], [place] [phone] System, Provider Not In, [facility] [address] [address] Social History Tobacco Use Types Packs/Day Years [...] on filedocumented in this encounter Care Teams Multimedia Technician Relationship Specialty Start Date End Date Pcp, Unknown PCP - General 05/26/20 documented as of this encounter Additional Source Comments The information contained in this document represents components of the legal health record. It is not the complete legal health record.[facility]
--- OUTSIDE RECORDS SUMMARY | 2025-02-01 18:31 | XMS_ITS | Encounter Summary ---
Author Organization [facility] Address [address] [place] [address] Phone Care Team Providers Care Sales Teacher Name Role Phone Pcp, Unknown Primary Care Provider Unavailabl e Encounter Details Date Type Department Care Team (Late st Contact Info) Description 05/29/2020 Ancillary Orders [facility],Outside Imaging [address] [place], [place] [phone] System, Provider Not In, [facility] [address] [address] Social History Tobacco Use Types Packs/Day Years [...] on filedocumented in this encounter Care Teams Sales Teacher Relationship Specialty Start Date End Date Pcp, Unknown PCP - General 05/26/20 documented as of this encounter Additional Source Comments The information contained in this document represents components of the legal health record. It is not the complete legal health record.[facility]
--- OUTSIDE RECORDS SUMMARY | 2025-02-01 18:31 | XMS_ITS | Encounter Summary ---
Author Organization [facility] Address [address] [facility] [address] [place] [address] Phone Care Team Providers Care Watch Case Polisher Name Role Phone Pcp, Unknown Primary Care Provider Unavailabl e Encounter Details Date Type Department Care Team (Late st Contact Info) Description 05/29/2020 Ancillary Orders Virtual Department [address] [place] [address] Jess Summers MD [address] [place] [address] Breast screening Social History Tobacco Use Types [...] unspecified documented in this encounter Care Teams Watch Case Polisher Relationship Specialty Start Date End Date Pcp, Unknown PCP - General 05/26/20 documented as of this encounter Additional Source Comments The information contained in this document represents components of the legal health record. It is not the complete legal health record.[facility]
--- OUTSIDE RECORDS SUMMARY | 2025-02-01 18:31 | XMS_ITS | Encounter Summary ---
Author Organization [employer] Address [address] [facility] 7t [place] [address] Care Team Providers Care Parts Identification Technician Name Role Phone Duane Power MD Primary Care Provide r Reason for Visit * Reason Onset Date Comments Appointment Request 08/06/2024 Encounter Details Date Type Department Care Team ([facility] st Contact Info) Description 08/06/2024 Telephone [facility] MEDICINE [address] [place], [place] [phone] Duane Power MD [address] [place], [place] [phone] Appointment Request Social History Tobacco Use Types [...] Physical Appt with PCP. Contact pt at [phone] documented in this encounter Plan of Treatment Not on file documented as of this encounter Visit Diagnoses Not on filedocumented in this encounter Additional Health Concerns Assessment Noted Time PHQ-9 Depression Total Score: 0 11/18/19 24 10:05 AM EDT documented as of this encounter Care Teams Parts Identification Technician Relationship Specialty Start Date End Date Duane Power MD [address] [place] [address] PCP - General Internal Medicine 12/22/20 documented as of this encounter
--- OUTSIDE RECORDS SUMMARY | 2025-02-01 18:31 | XMS_ITS | Encounter Summary ---
Author Organization [facility] Address [address] [place] [address] Phone Care Team Providers Care Supervisor Tunnel Heading Name Role Phone Pcp, Unknown Primary Care Provider Unavailabl e Encounter Details Date Type Department Care Team (Late st Contact Info) Description 05/29/2020 Ancillary Orders [facility],Outside Imaging [address] [place], [place] [phone] System, Provider Not In, [facility] [address] [address] Social History Tobacco Use Types Packs/Day Years [...] on filedocumented in this encounter Care Teams Supervisor Tunnel Heading Relationship Specialty Start Date End Date Pcp, Unknown PCP - General 05/26/20 documented as of this encounter Additional Source Comments The information contained in this document represents components of the legal health record. It is not the complete legal health record.[facility]
--- OUTSIDE RECORDS SUMMARY | 2025-02-01 18:31 | XMS_ITS | Encounter Summary ---
Author Organization [facility] Address [address] [facility] [address] [place] [address] Phone Care Team Providers Care Press Bucker Name Role Phone Pcp, Unknown Primary Care Provider Unavailabl e Encounter Details Date Type Department Care Team (Late st Contact Info) Description 05/23/2020 Ancillary Orders [facility],Outside Imaging [address] [place], [place] [phone] System, Provider [place] In, [place] [address] Social History Tobacco Use Types Packs/Day Years [...] on filedocumented in this encounter Care Teams Press Bucker Relationship Specialty Start Date End Date Pcp, Unknown PCP - General 05/26/20 documented as of this encounter Additional Source Comments The information contained in this document represents components of the legal health record. It is not the complete legal health record.[facility]
--- OUTSIDE RECORDS SUMMARY | 2025-02-01 18:31 | XMS_ITS | Encounter Summary ---
Author Organization [facility] Address [address] [place] [phone] Phone Care Team Providers Care Tele Rn Name Role Phone Pcp, Unknown Primary Care Provider Unavailabl e Encounter Details Date Type Department Care Team (Late st Contact Info) Description 05/23/2020 Ancillary Orders [facility],Outside Imaging [address] [place], [place] [phone] System, Provider Not In, PhD [address] [address] Social History Tobacco Use Types Packs/Day Years [...] on filedocumented in this encounter Care Teams Tele Rn Relationship Specialty Start Date End Date Pcp, Unknown PCP - General 05/26/20 documented as of this encounter Additional Source Comments The information contained in this document represents components of the legal health record. It is not the complete legal health record.[facility]
--- OUTSIDE RECORDS SUMMARY | 2025-02-01 18:31 | XMS_ITS | Encounter Summary ---
Author Organization [facility] Address [address] [place] [address] Phone Care Team Providers Care Barber Shop Operator Name Role Phone Pcp, Unknown Primary Care Provider Unavailabl e Encounter Details Date Type Department Care Team (Late st Contact Info) Description 05/29/2020 Ancillary Orders [facility],Outside Imaging [address] [place], [place] [phone] System, Provider Not In, PhD [facility] [address] [address] Social History Tobacco Use Types Packs/Day Years [...] on filedocumented in this encounter Care Teams Barber Shop Operator Relationship Specialty Start Date End Date Pcp, Unknown PCP - General 05/26/20 documented as of this encounter Additional Source Comments The information contained in this document represents components of the legal health record. It is not the complete legal health record.[facility]
--- OUTSIDE RECORDS SUMMARY | 2025-02-01 18:31 | XMS_ITS | Encounter Summary ---
Author Organization [facility] Address [address] [place] [address] Phone Care Team Providers Care Traffic Counter Name Role Phone Pcp, Unknown Primary Care Provider Unavailabl e Encounter Details Date Type Department Care Team (Late st Contact Info) Description 05/26/2020 Ancillary Orders Virtual Department [address] [place] [address] Jess Summers MD [address] [place] [phone] Social History Tobacco Use Types Packs/Day Years [...] on filedocumented in this encounter Care Teams Traffic Counter Relationship Specialty Start Date End Date Pcp, Unknown PCP - General 05/26/20 documented as of this encounter Additional Source Comments The information contained in this document represents components of the legal health record. It is not the complete legal health record.[facility]
--- OUTSIDE RECORDS SUMMARY | 2025-02-01 18:31 | XMS_ITS | Encounter Summary ---
Author Organization [facility] Address [address] [place] [address] Phone Care Team Providers Care Garment Cutter Name Role Phone Pcp, Unknown Primary Care Provider Unavailabl e Encounter Details Date Type Department Care Team (Late st Contact Info) Description 05/29/2020 Ancillary Orders [facility],Outside Imaging [address] [place], [place] [phone] System, Provider Not In, PhD [facility] [address] [address] Social History Tobacco Use Types Packs/Day Years [...] on filedocumented in this encounter Care Teams Garment Cutter Relationship Specialty Start Date End Date Pcp, Unknown PCP - General 05/26/20 documented as of this encounter Additional Source Comments The information contained in this document represents components of the legal health record. It is not the complete legal health record.[facility]
--- OUTSIDE RECORDS SUMMARY | 2025-02-01 18:31 | XMS_ITS | Encounter Summary ---
Author Organization [facility] [employer] Address [address] [facility] [address] [place] [address] Care Team Providers Care Solar Energy Sales Specialist Name Role Phone Duane Power MD Primary Care Provide r Encounter Details Date Type Department Care Team (Late st Contact Info) Description 08/16/2022 Abstract [facility] MEDICINE [address] [place] [address] Duane Power MD [address] [place], [place] [phone] Social History Tobacco Use Types Packs/Day Years [...] on filedocumented in this encounter Care Teams Solar Energy Sales Specialist Relationship Specialty Start Date End Date Duane Power MD [address] [place] [address] PCP - General Internal Medicine 12/22/20 documented as of this encounter
--- OUTSIDE RECORDS SUMMARY | 2025-02-01 18:31 | XMS_ITS | Patient Health Record ---
Author Organization [facility] Address [address] [place] [address] Care Team Providers Care Hydro Pneumatic Tester Name Role Phone Stu Estrella MD, Duane Primary Care Provide r Unavailable Aurelio Marie Unavailable [phone] Allergies No Known Allergies Reason For Referral No Information Medications Medication SIG (Take, Route, Frequency, Duration) Notes Start Date End Date Status Pravastatin Sodium 10 MG TAKE 1 TABLET B Y MOUTH EVERYDAY AT BEDTIME Oral; Duration: 90 Active Lisinopril-hydroCHLOROthiaz salbador 10-12.5 MG TAKE 1 TABLET BY MOUTH DAILY Oral; Duration: 90 Active Immunizations Vaccine Route Administration Date [...] Problem Status W/U Status Risk Notes Problem Screening for malignant neoplasm of colon (096189476) Encounter for screening for malignant neoplasm of colon (Z12.11) Active confirmed Problem Elevated liver enzymes level (512249659) Elevated liver function tests (R79.89) Active confirmed Problem Fatty liver (059207701) Fatty liver (K76.0) Active confirmed Problem Iron deficiency anemia due to chronic blood loss (174482568) Iron deficiency anemia due to chronic blood loss (D50.0) Active confirmed Plan Of Treatment Pending Test Test Name Order Date LIVER PROFILE 05/23/2021 IRON + IBC (FE) 05/23/2021 FERRITIN 05/23/2021 PROTHROMBIN TIME (PT, INR) 05/23/2021 [id number] (A1A) 05/23/2021 Liver Panel 05/23/2021 Future Test Test Name Order Date COLONOSCOPY 08/15/2016 Insurance Providers Payer Name Payer Address Payer Phone Subscriber Number Group Number Insured Name Patient Relationship to Insured Coverage Start Date Coverage End Date [facility] [address] [facility] [place] [phone] [id number] COLON, NATALIE Self - patient is the insured Medical (General) History Medical History History ICD Code Denies [place],DM,CVA,Lung disease,renal dise ase Iron deficiency anemia that has been attributed to her menses-neg. celiac labs Colonoscopy in 11/2016 was negative Fatty liver with elevated LF T's-negative w/u with viral serologies and autoimmune labs HTN Surgical History Surgery Date(Month/Year) Bilateral carpal tunnel release
--- OUTSIDE RECORDS SUMMARY | 2025-02-01 18:31 | XMS_ITS | Encounter Summary ---
Author Organization [facility] Address [address] [place] [phone] Phone Care Team Providers Care Tool Crib Lead Name Role Phone Pcp, Unknown Primary Care Provider Unavailabl e Encounter Details Date Type Department Care Team (Late st Contact Info) Description 05/29/2020 Ancillary Orders [facility],Outside Imaging [address] [place], [place] [phone] System, Provider Not In, PhD [facility] [address] [address] Social History Tobacco Use Types Packs/Day Years [...] on filedocumented in this encounter Care Teams Tool Crib Lead Relationship Specialty Start Date End Date Pcp, Unknown PCP - General 05/26/20 documented as of this encounter Additional Source Comments The information contained in this document represents components of the legal health record. It is not the complete legal health record.[facility]
--- OUTSIDE RECORDS SUMMARY | 2025-02-01 18:31 | XMS_ITS | Clinical Summary ---
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 Requested records from [facility] 10/07/2024 but the reports only paz phillips [...] face Pt would like to see a director of acquisitions Will be referred to [facility] Derm Clinic Anxiety 06/19/2023 Overview (06/19/2023): Pt [...] w tenant. Her sense of spirituality and sabianism is identified as main strength. PLAN: (check all that apply) New/Additional Services needed On-site non-integrated services Off-site services for Behavioral Health Integration Plan Internal Follow up with [facility] External OP therapy referral Patient Self Plan Patient to utilize skills provided in intervention , Patient [facility] as needed, Comply with medication , [...] of a pap smear she had in [facility] in 07/26/2022. The report showed LGSIL, there is NO HPV testing Report states pt needs a Colposcopy and Biopsy. Underwent testing that showed JOSSE I Now Under the care of PARTS INTERPRETER for evaluation, last seen by Dr Wilkins 11/12/2023 Underwent Colposcopy Assessment & Plan (06/19/2023 10:30 AM EST): Patient previously brought the report of a pap smear she had in [facility] in 07/26/2022. The report showed LGSIL, there is NO HPV testing Report states pt needs a Colposcopy and Biopsy. Underwent testing that showed JOSSE I Now Under the care of PARTS INTERPRETER for evaluation, last seen by Dr Wilkins 03/2023 1 year follow up with co testing recommended Assessment & Plan (12/03/2022 12:53 PM EDT): Patient finally brought the report of a pap smear she had in [facility] in 07/26/2022. 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 Plan: referral to PARTS INTERPRETER for evaluation. Osteopenia of lumbar spine 12/03/2022 Assessment & Plan (12/03/2022 12:56 PM EDT): Seen on Bone densitometry in [facility] in July Calcium plus vitamin D [...] underwent a gastric ballon procedure [place] advised to try to adhere to [...] underwent a gastric ballon procedure in [place] Pt with c/o bilateral shoulder pain [...] underwent a gastric ballon procedure in [place] [facility] Pt with c/o bilateral shoulder pain [...] underwent a gastric ballon procedure in [place] Plan: continue Atorvastatin 20 mg po [...] underwent a gastric ballon procedure in her [place] and has lost > 15 lbs [...] Hep C negative See by Dr. Marie Consumer Relations Complaint Clerk 05/2021 he recommended to continue Statin and [...] w tenant. Her sense of spirituality and sabianism is identified as main strength. PLAN: (check all that apply) New/Additional Services needed On-site non-integrated services Off-site services for Behavioral Health Integration Plan Internal Follow up with [facility] External OP therapy referral Patient Self Plan Patient to utilize skills provided in intervention , Patient to reach out to [facility] team as needed, Comply with medication , Patient to engage in OP therapy , and Patient to reach out to [facility] as needed. Referral will be placed for [...] she was seen by a Urologist at [facility], no records were received Repeat UA shows [...] she was seen by a Urologist at [facility], no records were received Repeat UA shows [...] she was seen by a Urologist at [facility], no records were received Will repeat UA [facility] health care 10/03/2022 Assessment & Plan (10/26/2024 11:02 AM EDT): Patient here for a routine physical exam Mammogram: 12/18/2023 Normal. Pap Smear: previously brought the report of a pap smear she had in [facility] in 07/26/2022. The report showed LGSIL, there is NO HPV testing Last Pap by Dr Wilkins 11/05/2023 Under the care of PARTS INTERPRETER for evaluation, last seen by Dr Wilkins 03/2024 Colonoscopy: Dr Cynthia Hilario internal hemmorrhoids and small polyp requested pathology report Vaccines: records requested Dexa scan:. Not age appropriate yet Assessment & Plan (11/18/2023 10:12 AM EDT): Mammogram: 11/2022 Normal. Pap Smear: previously brought the report of a pap smear she had in [facility] in 07/26/2022. The report showed LGSIL, there is NO HPV testing Report states pt needs a Colposcopy and Biopsy. Underwent testing that showed JOSSE I Now Under the care of PARTS INTERPRETER for evaluation, last seen by Dr Wilkins 11/12/2023 Colonoscopy: Dr Cynthia Hilario internal hemmorrhoids and small polyp requested pathology report Vaccines: records requested Dexa scan:. Not age appropriate yet Assessment & Plan (06/19/2023 10:32 AM EST): Mammogram: 11/2022 Normal. Pap Smear: previously brought the report of a pap smear she had in [facility] in 07/26/2022. The report showed LGSIL, there is NO HPV testing Report states pt needs a Colposcopy and Biopsy. Underwent testing that showed JOSSE I Now Under the care of PARTS INTERPRETER for evaluation, last seen by Dr Wilkins 03/2023 1 year follow up with co testing recommended Colonoscopy: Dr Cynthia Hilario internal hemmorrhoids and small polyp requested pathology report Vaccines: records requested Dexa scan:. Not age appropriate yet Assessment & Plan (10/03/2022 3:24 PM EDT): Mammogram: 08/01/2020 Normal. Today she tells me she had a repeat Mammogram in [facility] this year and was told it was normal. I asked that she bring me a copy Pap Smear: Records requested to [facility] [place] [place], never received, she tells me that she had a repeat in [facility] as well this year and was [...] years ago, s/p CT release one in [place] and another one in [place]. Records requested Essential hypertension 09/19/2022 Assessment & [...] Stress test ( under medical correspondence Dr vAery ) that was read as normal EKG [...] Encounters Date Type Department Care Team Description 01/12/2025 Orders Only GENERIC EXTERNAL DATA DEPARTMENT Provider, Generic External Data 12/24/2024 Orders Only [facility] MED & PEDS [address] [place] [address] ProviderLeona MD 12/22/2024 Orders Only GENERIC EXTERNAL DATA DEPARTMENT Provider, Generic External Data 12/14/2024 Telephone [facility] MEDICINE [address] [place] [phone] Duane Power MD Referral 12/10/2024 Telephone [facility] [address] [place] [address] Duane Power MD January11/11/2024 Results Follow-Up [address] [address] Duane Power MD MR Brain w/o Contrast from Last 3 Months Immunizations Immunization Administration [...] 11/05/2023, 06/11/2021 Depression Screening 11/17/2024 11/18/2023, 11/18/19 24 COVID-19 [...] Procedure Name Priority Date/Time Associated Diagnosis [facility] CAROTID ARTERY DUPLEX BILATERAL Routine 02/01/2025 3:15 PM EDT TIA (transient ischemic attack) CREATININE, SERUM Routine 01/12/2025 12: 37 PM EDT UREA NITROGEN (BUN) Routine 01/12/2025 1 2:37 PM EDT HEMATOXYLIN AND EOSIN STAIN Routine 12/22/2024 8:02 [...] 6:37 PM EDT TIA (transient ischemic attack) BI MAMMOGRAM SCREENING TOMOSYNTHESIS BILATERAL Routine 12/18/2023 [...] Recently Relevant to Health Maintenance Results * Vascular US carotid artery duplex bilateral (02/01/2025 3:15 PM EDT) 02/01/2025 3:15 PM EDT Narrative [facility] - 02/01/2025 3:47 PM EDT [address] [address] Ultrasound Report Signed Patient: Mary Mijares MR#: [id number] 8 : 1965 Acct:[id number] Age/Sex: 59 / F ADM Date: 02/01/25 Loc: BELLA Attending Dr: Duane Rock MD Ordering Physician: Duane Rock MD Date of Service: 02/01/25 Procedure(s): US carotid duplex BI Accession Number(s): [id number] cc: Duane Rock MD Reason for Exam: TIA EXAMINATION: BILATERAL CAROTID ULTRASOUND WITH DOPPLER HISTORY: TIA COMPARISON: There are no prior studies available for comparison. TECHNIQUE: Real time and Color and Spectral doppler ultrasonography of the carotid and vertebral arteries was performed in multiple planes. FINDINGS: No significant plaque is seen. VERTEBRAL FLOW DIRECTION: Antegrade bilaterally. PEAK SYSTOLIC VELOCITIES (in cm/sec): RIGHT: CCA: Prox: 132 Dist: 73 ICA: Prox: 55 Mid: 117 Dist: 112 ICA/CCA Ratio: 0.89 ECA: 103 Peak ICA end diastolic velocity (EDV): 37 LEFT: CCA: Prox: 143 Dist: 82 ICA: Prox: 56 Mid: 101 Dist: 89 ICA/CCA Ratio: 0.71 ECA: 136 Peak ICA end diastolic velocity (EDV): 37 US/US carotid duplex BI IMPRESSION: Unremarkable carotid ultrasound. Electronically signed by: Aurelio Young MD 02/01/2025 03:45 PM EDT Dictated By: Aurelio Young MD Signed By: <Electronically signed by Aurelio Young MD in OV> 02/01/25 1545 DD/ 1515 TD/TT: 02/01/25 1525 Diversity Intern: Procedure Note Donotuseinterpreter, Image - 02/01/2025 [place] [address] Ultrasound Report Signed Patient: Shelia Mijares#: [id number] 8 : 1965Acct:[id number] Age/Sex: 59 / FADM Date: 02/01/25 Loc: HO.CARD Attending Dr: Duane Rock MD Ordering Physician: Duane Rock MD Date of Service: 02/01/25 Procedure(s): US carotid duplex BI Accession Number(s): [id number] cc: Duane Rock MD Reason for Exam: TIA EXAMINATION: BILATERAL CAROTID ULTRASOUND WITH DOPPLER HISTORY: TIA COMPARISON: There are no prior studies available for comparison. TECHNIQUE: Real time and Color and Spectral doppler ultrasonography of the carotid and vertebral arteries was performed in multiple planes. FINDINGS: No significant plaque is seen. VERTEBRAL FLOW DIRECTION: Antegrade bilaterally. PEAK SYSTOLIC VELOCITIES (in cm/sec): RIGHT: CCA: Prox: 132 Dist: 73 ICA: Prox: 55 Mid: 117 Dist: 112 ICA/CCA Ratio: 0.89 ECA: 103 Peak ICA end diastolic velocity (EDV): 37 LEFT: CCA: Prox: 143 Dist: 82 ICA: Prox: 56 Mid: 101 Dist: 89 ICA/CCA Ratio: 0.71 ECA: 136 Peak ICA end diastolic velocity (EDV): 37 US/US carotid duplex BI IMPRESSION: Unremarkable carotid ultrasound. Electronically signed by: Aurelio Young MD 02/01/2025 03:45 PM EDT RP Dictated By: Aurelio Young MD Signed By: <Electronically signed by Aurelio Young MD in OV> 02/01/25 1545 DD/ 1515 TD/TT: 02/01/25 1525 Diversity Intern: Duane Estrella MD CV VASCULAR PROCEDURE S Final Result [facility] [address] [place] [phone] * Creatinine, Serum (01/12/2025 12:37 PM EDT) Creatinine, Serum 0.57 0.5 - 1.4 mg/dL [facility] Estimated Glomerular Filt Rate >60 [facility] Comment:Chronic Kidney Disea se: Estimated GFR < 60 mL/min/1.69g5Ecvrjx Kidney Disease: Estimated GFR < 15 mL/min/1.73m2 01/12/2025 12:3 7 PM EDT 01/12/2025 12:41 PM EDT us Generic External Data Provider LAB BLOOD ORDERAB LES Final Result Performing Organization Address City/[facility]/ZIP Co de Phone Number [facility] [address] [place] [phone] * BUN (Blood Urea Nitrogen) (01/12/2025 12:37 PM EDT) Urea Nitrogen (BUN) 16 9 - 16 mg/dL [facility] 01/12/2025 12:3 7 PM EDT 01/12/2025 12:41 PM EDT Generic External Data Provider LAB BLOOD ORDERAB LES Final Result Performing Organization Address [facility] Co de Phone Number [facility] [address] [place] [phone] * Hematoxylin and Eosin Stain (12/22/2024 8:02 AM EDT) 12/22/2024 8:02 AM EDT 12/23/2024 8:16 AM EDT Syeda [facility] - 12/24/2024 4:03 PM EDT ----- ------- Name: Mary Mijares Age/Sex: 59/F : 1965 Unit#: [id number] Attend Dr: Michael Wilkins MD Re12/22/24 Status: DEP REF Location: [facility] Disch: ----- ------- SPEC : [id number] RECD: 12/23/24 STATUS: JESSICA HAILE NUM: [id number] CEELSTINE: 12/22/[address] [facility] [address]: Michael Wilkins MD ENTERED: 12/23/24 SP [...] developed and their performance characteristics determined by [facility]. They have not been cleared or approved by the U.S. Food and Drug Administration (FDA). However, the FDA has determined that such clearance or approval is not necessary. This laboratory is certified under the Clinical Laboratory Improvement Amendments of 1988 (CLIA) as qualified to perform high complexity clinical laboratory testing. Copies To: Duane Rock MD [address] [address] CONTINUED ON NEXT PAGE ----- ------- Name: Mary Mijares Age/Sex: 59/F : 1965 Unit#: [id number] Attend Dr: Michael Wlikins MD Re12/22/24 Status: DEP REF Location: HO.LNP Disch: ----- ------- SPEC : [id number] RECD: 12/23/24 STATUS: JESSICA HAILE NUM: [id number] CELESTINE: 12/22/[address] [facility] [address]: Michael Wilknis MD ENTERED: 12/23/24 SP TYPE: Surgical OTHR DR: Duane Rock MD ORDERED: JOHN Stain/2, Gross Micro L4 Copies To: (Continued) Michael Wilkins MD [facility] [place] [place] [facility] [address] [place] [address] [place] [phone] ----- ------- Signed (signature on file) Momo Mcintosh MD 12/24/24 1603 ----- ------- END OF REPORT Generic External Data Provider LAB BLOOD ORDERAB LES Final Result Performing Organization Address City/[facility]/ZIP Co de Phone Number [facility] [address] [place] [phone] * Culture, Urine, Routine (12/22/2024 7:13 AM EDT) Urine Urine specimen obtained by clean catch procedure / Unknown 12/22/2024 7:13 AM EDT 12/22/2024 6:32 PM EDT Comment:UACC Narrative [facility] - 12/24/2024 9:26 AM EDT Urine Culture No growth. Specimen Source: Urine clean catch Generic External Data Provider LAB MICROBIOLOGY - GENERAL ORDERABLES Final Result Performing Organization Address [facility] Co de Phone Number [facility] [address] [place] [phone] * Vitamin B12/Folate, Serum Panel (11/20/2024 7:27 AM EDT) Vitamin B12 399 200 - 900 pg/mL [facility] Comment:NORMAL 200-900 PG/ML INDETERMINATE 160-199 PG/ML DEFICIENT < 160 PG/ML Folate 10.0 > or = 4.0 ng/mL [facility] Comment:Reference Values:> o r = 4.0 [...] BLOOD ORDERABLES Final Result Performing Organization Address [facility]/ZIP Co de Phone Number [facility] [address] [place] [phone] * TSH with Reflex to Free T4 (11/20/2024 7:27 AM EDT) TSH reflex Free T4 1.40 0.32 - 4.0 uIU/mL [facility] Blood Venous blood specimen / Unknown 11/20/2024 7:27 AM EDT 11/20/2024 7:27 AM EDT us Duane Estrella MD LAB BLOOD ORDERABLES Final Result [facility] [address] [place] [phone] * (ABNORMAL) CBC auto differential (11/20/2024 7:27 AM EDT) Pathologist [facility] White Blood Count 6.6 4.8 - 10.8 X10*3/uL [facility] Red Blood Count 4.73 4.20 - 5.50 X10*6/uL [facility] Hemoglobin 13.7 12.0 - 16.0 g/dl [facility] Hematocrit 41.5 37.0 - 47.0 % [facility] Mean Corpuscular Volume 87.7 80.0 - 98.0 fL [facility] Mean Corpuscular Hemoglobin 29.0 27.0 - 33.0 pg [facility] Mean Corpuscular HGB Conc 33.0 31.0 - 35.0 g/dl [facility] Red Cell Distribution Width 12.9 11.0 - 16.0 % [facility] Platelet Count 252 160 - 400 X10*3/uL [facility] Mean Platelet Volume 9.0(L) 9.4 - 12.3 fL [facility] Neutrophils Percent Auto 44.7(L) 45 - 73 % [facility] Imm Gran Pct Auto 0.2 0.0 - 0.4 % [facility] Lymphocytes Percent Auto 47.7(H) 20 - 40 % [facility] Monocytes Percent Auto 5.7 2 - 11 % [facility] Eosinophils Percent Auto 1.1 0 - 4 % [facility] Basophils Percent Auto 0.6 0 - 2 % [facility] NRBC Pct Auto 0.0 0.0 - 0.2 /100WBC [facility] Neutrophils Absolute Auto 3.0 2.0 - 8.3 x10*3/uL [facility] Imm Gran Abs Auto 0.01 0.00 - 0.03 X10*3/uL [facility] Lymphocytes Absolute Auto 3.2 1.2 - 4.9 X10*3/uL [facility] Monocytes Absolute Auto 0.4 0.1 - 1.2 X10*3/uL [facility] Eosinophils Absolute Auto 0.1 0.0 - 0.4 X10*3/uL [facility] Basophils Absolute Auto 0.0 0.0 - 0.2 X10*3/uL [facility] NRBC Abs Auto 0.000 0.0 - 0.012 X10*3/uL [facility] Blood Venous blood specimen / Unknown 11/20/2024 7:27 AM EDT 11/20/2024 7:27 AM EDT us Duane Estrella MD LAB BLOOD ORDERABLES Final Result [facility] [address] [place], [place] [phone] * RPR (Monitor) with Reflex to??Titer (11/20/2024 7:27 AM EDT) RPR (Monitor) w/Refl Titer NON-REACTI VE NON-REACT BLOSSOM [facility] Comment:THIS TEST WAS PERFOR MED AT:[facility] [place] [phone] CASTILLO MD Rapid Plasma Reagin Ab Titer TNP [facility] Blood Venous blood specimen / Unknown 11/20/2024 7:27 AM EDT 11/20/2024 7:27 AM EDT Duane Estrella MD LAB BLOOD ORDERABLES Final Result Performing Organization Address City/[facility]/ZIP Co de Phone Number [facility] [address] [place] [phone] * (ABNORMAL) Lipid Panel, Standard (11/20/2024 7:27 AM EDT) Triglycerides 144 <150 mg/dL [facility] Comment:Desirable Triglyceri de: less than 150 mg/dLBorderline High Triglyceride 150-199 mg/dLHigh Triglyceride: 200-499 mg/dLVery High Triglyceride: greater than or equal to 5OO mg/dL Cholesterol 181 <200 mg/dL [facility] Comment:Desirable Cholestero l: less than 200 mg/dLBorderline High Cholesterol: 200-239 mg/dLHigh Cholesterol: greater than 239 mg/dL LDL Cholesterol Calculated 112(H) <100 mg/dL [facility] Comment:Desirable LDL: less than 100 mg/dLNear Optimal/Above Optimal LDL: 110- 129 mg/dLBorderline High LDL: 130-159 mg/dLHigh LDL: 160-189 mg/dLVery High LDL: greater than or equal to 190 mg/dL HDL Cholesterol 41 >40 mg/dL [facility] Comment:Desirable HDL: great er than 40 mg/dL Note: This HDL assay may give artificially low results in patients with liver disease. Blood Venous blood specimen / Unknown 11/20/2024 7:27 AM EDT 11/20/2024 7:27 AM EDT us Duane Estrella MD LAB BLOOD ORDERABLES Final Result Performing Organization Address City/[facility]/ZIP Co de Phone Number [facility] [address] [place] [phone] * (ABNORMAL) Comprehensive Metabolic Panel (11/20/2024 7:27 AM EDT) Sodium 142 135 - 145 mmol/L [facility] Potassium 4.4 3.3 - 5.1 mmol/L [facility] Chloride 107 96 - 108 mmol/L [facility] Carbon Dioxide 27 22 - 29 mmol/L [facility] Anion Gap 12 12 - 20 [facility] Urea Nitrogen (BUN) 17(H) 9 - 16 mg/dL [facility] Creatinine, Serum 0.64 0.5 - 1.4 mg/dL [facility] Estimated Glomerular Filt Rate >60 [facility] Comment:Chronic Kidney Disea se: Estimated GFR < 60 mL/min/1.63m6Wwjpby Kidney Disease: Estimated GFR < 15 mL/min/1.73m2 Glucose 110 60 - 115 mg/dL [facility] Calcium 9.5 8.4 - 10.2 mg/dL [facility] Bilirubin, Total 0.5 0.0 - 1.0 mg/dL [facility] Aspartate Amino Transferase 35(H) 5 - 31 U/L [facility] Alanine Aminotransferase 46(H) 0 - 31 U/L [facility] Total Protein 7.1 6.5 - 8.0 g/dL [facility] Albumin Level 4.6 3.5 - 5.0 g/dL [facility] Alkaline Phosphatase 152(H) 39 - 117 U/L [facility] Blood Venous blood specimen / Unknown 11/20/2024 7:27 AM EDT 11/20/2024 7:27 AM EDT us Duane Estrella MD LAB BLOOD ORDERABLES Final Result [facility] [address] [place] [phone] * MR Brain w/o Contrast (11/09/2024 6:37 PM EDT) Anatomical Region Laterality Modality Brain Magnetic Resonan ce 11/09/2024 6:37 PM EDT Narrative 11/10/2024 7:51 AM EDT [address] [address] Magnetic Resonance Report Signed Patient: Colon,Mary MR#: [id number] 8 : 1965 Acct:[id number] Age/Sex: 59 / F ADM Date: 11/09/24 Loc: HO.MRI Attending Dr: Duane Rock MD Ordering Physician: Duane Rock MD Date of Service: 11/09/24 Procedure(s): MR head/brain wo con Accession Number(s): [id number] cc: Duane Rock MD EXAMINATION: MR BRAIN [...] Perea MD in OV> 11/10/24 0748 DD/ 1837 TD/TT: 11/09/24 1855 Diversity Intern: Procedure Note Donotuseinterpreter, Image - 11/10/[address] [address] Magnetic Resonance Report Signed Patient: Mary MijaresMR#: [id number] 8 : 1965Acct:[id number] Age/Sex: 59 / FADM Date: 11/09/24 Loc: HO.MRI Attending Dr: Duane Rock MD Ordering Physician: Duane Rock MD Date of Service: 11/09/24 Procedure(s): MR head/brain wo con Accession Number(s): [id number] cc: Duane Rock MD EXAMINATION: MR BRAIN [...] 11/10/24 0748 DD/ 1837 TD/TT: 11/09/24 1855 Diversity Intern: us Duane Estrella MD IMG MRI PROCEDURES Fi nal Result * BI Mammogram Screening Tomosynthesis Bilateral (12/18/2023 10:15 AM EDT) Anatomical Region Laterality Modality Breast Bilateral Mammography 12/18/2023 10:1 5 AM EDT Narrative 01/04/2024 2:20 PM EDT [facility] [address] [place] [address] Mammography Report Signed Patient: Mary Mijares MR#: [id number] 8 : 1965 Acct:[id number] Age/Sex: 58 / F ADM Date: 12/18/23 Loc: HO.MAMMO Attending Dr: Duane Rock MD Ordering Physician: Duane Rock MD Resu lts: 1Negative Date of Service: 12/18/23 Follow Up: 1 Year From Orig inal Mammogram Procedure(s): MM tomosynthesis screening BI Accession Number(s): [id number] cc: Duane Rock MD EXAMINATION: MM SCREENING [...] 01/04/24 1416 DD/ 1015 TD/TT: 12/18/23 1029 Diversity Intern: Procedure Note Donotuseinterpreter, Image - 01/04/2024 [place] [facility] [address] [place], [place] [address] Mammography Report Signed Patient: Shelia Mijares#: [id number] 8 : 1965Acct:[id number] Age/Sex: 58 / FADM Date: 12/18/23 Loc: RODOLFO Attending Dr: Duane Rock MD Ordering Physician: Duane Rockesu lts: 1Negative Date of Service: 12/18/23Follow Up: 1 Year From Orig inal Mammogram Procedure(s): MM tomosynthesis screening BI Accession Number(s): [id number] cc: Duane Rock MD EXAMINATION: MM SCREENING [...] 01/04/24 1416 DD/ 1015 TD/TT: 12/18/23 1029 Diversity Intern: us Duane Estrella MD IMG BI PROCEDURES Fin al Result * Colposcopy (11/13/2023 3:28 PM EDT) us Historical Provider IN CLINIC/BEDSIDE ORDERAB LES Final Result * (ABNORMAL) ThinPrep Imaging Pap and HPV mRNA E6/E7 with Reflex to HPV 16,18/45 (11/05/2023 8:21 AM EDT) HPV 16 RNA NOT DETECTED NOT DETECTED [facility] HPV 18/45 RNA NOT DETECTED NOT DETECTED [facility] Comment:Methodology: Transcr iption Mediated AmplificationCervical sources are required for HPV testing.If a vaginal source from a patient who has had atotal hysterectomy with removal of cervix wassubmitted, please contact the testing laboratoryfor alternative testing options.THIS TEST WAS PERFORMED AT:[facility] [address] [id number] CASTILLO MD HPV nRNA E6/E7 Detected(A ) Not Detected [facility] Comment:Methodology: Transcr iption-Mediated AmplificationThis assay detects E6/E7 viral messenger RNA (mRNA) from 14high-risk HPV types (16,18,31,33,35,39,45,51,52,56,58,59,66,68).Cervical sources are required for HPV testing.If a vaginal source from a patient who has had atotal hysterectomy with removal of cervix wassubmitted, please contact the testing laboratoryfor alternative testing options.For additional information, please refer tohttp://education.Plynked/faq/XSW410y8(This link if provided for information/educational purposes only.) SOURCE: SEE NOTE [facility] Comment:None given Report Status: TNP [facility] Clinical Information: SEE NOTE [facility] Comment:None given LMP: SEE NOTE [facility] Comment:NONE GIVEN Prev. PAP: SEE NOTE [facility] Comment:NONE GIVEN Prev. BX: SEE NOTE [facility] Comment:NONE GIVEN Statement Of Adequacy: SEE NOTE [facility] Comment:Satisfactory for yudith luation.Endocervical/transformation zone componentpresent. General Categorization: TNP [facility] Interpretation/Result: SEE NOTE [facility] Comment:Cytology Results: Ne gative for intraepitheliallesion or malignancy. Cytology Comment SEE NOTE [facility] Comment:This Pap test has be en evaluated with computerassisted technology. Flask Carrier: SEE NOTE [facility] Comment:CMG, CT(ASCP)CT scre ening location: [address] [address] Review Flask Carrier: SEE NOTE [facility] Comment:WAC, CT(ASCP)CT scre ening location: [address] [address] Pathologist TNP [facility] PAP Infection TNP [facility] See Note SEE NOTE [facility] Comment:EXPLANATORY NOTE:The Pap is a screening test for cervical cancer. It isnot a diagnostic test and is subject to false negativeand false positive results. It is most reliable when asatisfactory sample, regularly obtained, is submittedwith relevant clinical findings and history, and whenthe Pap result is evaluated along with historic andcurrent clinical information. 11/05/2023 8:21 AM EDT 11/05/2023 5:41 PM EDT Narrative [facility] - 11/11/2023 2:55 PM EDT SEE SCANNED RESULTS IN EMR us Generic External Data Provider LAB PATHOLOGY ORD ERABLES Final Result Performing Organization Address [facility]/ZIP Co de Phone Number [facility] [address] [place] [address] [phone] * HEPATITIS C AB W/REFL TO [...] a test for HCV RNA (test code 46029) is suggested. For additional information please refer to http://education.Talent Flush.Straight Up English/faq/JHU50g4 (This link is being provided for informational/ educational purposes only.) 01/12/2021 9:32 AM EDT us Duane Estrella MD HISTORICAL/NON ORDERA BLE LABS Final Result Performing Organization Address City/[facility]/ZIP Co de Phone Number [facility] [address] [place], [place] [address] * HIV 1/2 ANTIGEN/ANTIBODY,FOURTH GENERATION W/RFL (01/12/2021 [...] purpose. For additional information please refer to http://education.Plynked/faq/YVK301 (This link is being provided for informational/ educational purposes only.) The performance of this assay has not been clinically validated in patients less than 2 years old. 01/12/2021 9:32 AM EDT Duane Estrella MD LAB BLOOD ORDERABLES Final Result [facility] [address] * Colonoscopy (11/12/2016) Pathologist [facility] Colonoscopy Normal Normal 11/12/2016 Madiha Dean - 11/12/2016 12:28 PM EDT Recommended 10 year follow up Historical Provider HEALTH MAINTENANCE Edited Result - Final from Last 3 Months or Most Recently Relevant to Health Maintenance Insurance [facility] Care Teams Motorsports Technician Relationship Specialty Start Date End Date Duane Power MD [address] [place] [phone] PCP - General Internal Medicine 12/22/20
--- OUTSIDE RECORDS SUMMARY | 2025-02-01 18:31 | XMS_ITS | Encounter Summary ---
Author Organization [facility] Address [address] [place] [address] Phone Care Team Providers Care Quartz Mounter Name Role Phone Pcp, Unknown Primary Care Provider Unavailabl e Encounter Details Date Type Department Care Team (Late st Contact Info) Description 05/29/2020 Ancillary Orders [facility],Outside Imaging [address] [place], [place] [phone] System, Provider Not In, [facility] [address] [address] Social History Tobacco Use Types Packs/Day Years [...] on filedocumented in this encounter Care Teams Quartz Mounter Relationship Specialty Start Date End Date Pcp, Unknown PCP - General 05/26/20 documented as of this encounter Additional Source Comments The information contained in this document represents components of the legal health record. It is not the complete legal health record.[facility]
--- OUTSIDE RECORDS SUMMARY | 2025-02-01 18:31 | XMS_ITS | Encounter Summary ---
Author Organization [facility] Address [address] [facility] [address] [place] [address] Care Team Providers Care Home Health Aid Name Role Phone Duane Power MD Primary Care Provide r Encounter Details Date Type Department Care Team (Late st Contact Info) Description 12/24/2024 Orders Only [facility] [address] [place] [address] ProviderLeona MD Social History Tobacco Use Types [...] documented as of this encounter Care Teams Home Health Aid Relationship Specialty Start Date End Date Duane Power MD [address] [place] [address] PCP - General Internal Medicine 12/22/20 documented as of this encounter
== END ==
LOC: HO.CARD 13:51
PROVIDERS: PCP Internal Medicine; Visit Provider Internal Medicine
DX: G45.9 Transient cerebral ischemic attack, unspecified (principal)
CPT/HCPCS: 93306; 93880

== ENCOUNTER → 2025-02-01 13:56 | Outpatient (BNV) | payer OTHER, SELFPAY | PROVIDERS: PCP Internal Medicine; Visit Provider Internal Medicine Cardiovascular Disease | DX: G45.9 Transient cerebral ischemic attack, unspecified (principal) | CPT/HCPCS: 93306 ==

== ENCOUNTER → 2025-02-01 15:03 | Outpatient (BNV) | payer OTHER, SELFPAY | PROVIDERS: PCP Internal Medicine; Visit Provider Radiology Diagnostic Radiology | DX: G45.9 Transient cerebral ischemic attack, unspecified (principal) | CPT/HCPCS: 93880 ==

== ENCOUNTER 2025-02-14 15:05 | Outpatient (AMB) | payer OTHER, SELFPAY ==
--- OUTSIDE RECORDS SUMMARY | 2009-08-09 23:00 | XMS_ITS | Encounter Summary ---
Author Organization [facility] Address [address] [place] [address] Phone Care Team Providers Care Brisket Puller Name Role Phone Unavailable Primary Care Provider Unavailabl e Encounter Details Date Type Department Care Team (Late st Contact Info) Description 08/10/2009 Hospital Encounter [facility] [place],Outside Imaging [address] [place] [address] System, Provider Not In, PhD [address] [address] Social History Tobacco Use Types Packs/Day Years Used Date Smoking Tobacco: Never Assessed Education Answer Date Recorded Are you interested in more education? Not on brandy e 08/09/2022 Are you concerned about learning? Not on file 08/09/2022 No 08/09/2022 No 08/09/2022 Digital Access Answer Date Recorded No 09/10/2022 No 09/10/2022 Reliable internet access at home? Not on file 09/10/2022 Device with a working camera? Not on file Comments Unknown Sex and Gender Information Value Date Recorded Sex Assigned at Not on file Legal Sex Female 10:35 AM EST Gender Identity Not on file Sexual Orientation Not on file documented as of this encounter Plan of Treatment Not on file documented as of this encounter Procedures Procedure Name Priority Date/Time Associated Diagnosis Comments BI MAMMOGRAM OUTSIDE (NO INTERPRETATION) Routine 08/10/2009 12:00 AM EDT documented in this encounter Results * Mammogram Outside (No Interpretation) (08/10/2009 12:00 AM EDT) Narrative SYSTEMGENERATED, DOCUMENTATION - 05/23/2020 10:59 AM EST This study is for PACS storage only and not for interpretation. us Provider Not In System PhD IMG OUTSIDE IMAGING W /OUT INTERPRETATION Final Result documented in this encounter Visit Diagnoses Not on filedocumented in this encounter Additional Source Comments The information contained in this document represents components of the legal health record. It is not the complete legal health record.[facility]
--- OUTSIDE RECORDS SUMMARY | 2009-08-20 23:00 | XMS_ITS | Encounter Summary ---
Author Organization [facility] Address [address] [place] [address] Phone Care Team Providers Care Apiculture Teacher Name Role Phone Unavailable Primary Care Provider Unavailabl e Encounter Details Date Type Department Care Team (Late st Contact Info) Description 08/21/2009 Hospital Encounter [facility],Outside Imaging [address] [place] [address] System, Provider Not In, PhD [address] [address] Social History Tobacco Use Types Packs/Day Years [...] Comments BI MAMMOGRAM OUTSIDE (NO INTERPRETATION) Routine 08/21/2009 12:00 AM EDT documented in this encounter Results * Mammogram Outside (No Interpretation) (08/21/2009 12:00 AM EDT) Narrative SYSTEMGENERATED, DOCUMENTATION - 05/23/2020 10:53 AM EST This study is for PACS storage only and not for interpretation. us Provider Not In System PhD IMG OUTSIDE IMAGING W /OUT INTERPRETATION Final Result documented in this encounter Visit Diagnoses Not on filedocumented in this encounter Additional Source Comments The information contained in this document represents components of the legal health record. It is not the complete legal health record.[facility]
--- OUTSIDE RECORDS SUMMARY | 2009-08-20 23:05 | XMS_ITS | Encounter Summary ---
Author Organization [facility] Address [address] [address] Phone Care Team Providers Care Race Car Mechanic Name Role Phone Unavailable Primary Care Provider Unavailabl e Encounter Details Date Type Department Care Team (Late st Contact Info) Description 08/21/2009 12:05 AM EDT Hospital Encounter [facility],Outside Imaging 30 [place] [address] System, Provider Not In, PhD Partners [address] [address] Social History Tobacco Use Types Packs/Day Years [...] Name Priority Date/Time Associated Diagnosis Comments BI US BREAST OUTSIDE (NO INTERPRETATION) Routine 08/21/2009 12:05 AM EDT documented in this encounter Results * US Breast Outside (No Interpretation) (08/21/2009 12:05 AM EDT) Narrative SYSTEMGENERATED, DOCUMENTATION - 05/23/2020 10:56 AM EST This study is for PACS storage only and not for interpretation. us Provider Not In System PhD IMG OUTSIDE IMAGING W /OUT INTERPRETATION Final Result documented in this encounter Visit Diagnoses Not on filedocumented in this encounter Additional Source Comments The information contained in this document represents components of the legal health record. It is not the complete legal health record.[facility]
--- OUTSIDE RECORDS SUMMARY | 2010-02-27 | XMS_ITS | Encounter Summary ---
Author Organization [facility] Address [address] [place] [address] Phone Care Team Providers Care Engineering Writer Name Role Phone Unavailable Primary Care Provider Unavailabl e Encounter Details Date Type Department Care Team (Late st Contact Info) Description 02/27/2010 Hospital Encounter [facility],Outside Imaging 30 [place] [address] System, Provider Not In, PhD [address] [address] Social History Tobacco Use Types Packs/Day Years [...] Comments BI MAMMOGRAM OUTSIDE (NO INTERPRETATION) Routine 02/27/2010 12:00 AM EST documented in this encounter Results * Mammogram Outside (No Interpretation) (02/27/2010 12:00 AM EST) Narrative SYSTEMGENERATED, DOCUMENTATION - 05/23/2020 10:52 AM EST This study is for PACS storage only and not for interpretation. us Provider Not In System PhD IMG OUTSIDE IMAGING W /OUT INTERPRETATION Final Result documented in this encounter Visit Diagnoses Not on filedocumented in this encounter Additional Source Comments The information contained in this document represents components of the legal health record. It is not the complete legal health record.[facility]
--- OUTSIDE RECORDS SUMMARY | 2010-09-25 23:00 | XMS_ITS | Encounter Summary ---
Author Organization [facility] Address [address] [place] [address] Phone Care Team Providers Care Corporate Specialist Name Role Phone Unavailable Primary Care Provider Unavailabl e Encounter Details Date Type Department Care Team (Late st Contact Info) Description 09/26/2010 Hospital Encounter [facility],Outside Imaging 30 [place] [address] System, Provider Not In, PhD [address] [address] Social History Tobacco Use Types Packs/Day Years [...] Comments BI MAMMOGRAM OUTSIDE (NO INTERPRETATION) Routine 09/26/2010 12:00 AM EDT documented in this encounter Results * Mammogram Outside (No Interpretation) (09/26/2010 12:00 AM EDT) Narrative SYSTEMGENERATED, DOCUMENTATION - 05/23/2020 10:51 AM EST This study is for PACS storage only and not for interpretation. us Provider Not In System PhD IMG OUTSIDE IMAGING W /OUT INTERPRETATION Final Result documented in this encounter Visit Diagnoses Not on filedocumented in this encounter Additional Source Comments The information contained in this document represents components of the legal health record. It is not the complete legal health record.[facility]
--- OUTSIDE RECORDS SUMMARY | 2011-09-26 23:00 | XMS_ITS | Encounter Summary ---
Author Organization [facility] Address [address] [place] [address] Phone Care Team Providers Care Warehouse Record Clerk Name Role Phone Unavailable Primary Care Provider Unavailabl e Encounter Details Date Type Department Care Team (Late st Contact Info) Description 09/27/2011 Hospital Encounter [facility],Outside Imaging 30 [place] [address] System, Provider Not In, PhD [address] [address] Social History Tobacco Use Types Packs/Day Years [...] Comments BI MAMMOGRAM OUTSIDE (NO INTERPRETATION) Routine 09/27/2011 12:00 AM EDT documented in this encounter Results * Mammogram Outside (No Interpretation) (09/27/2011 12:00 AM EDT) Narrative SYSTEMGENERATED, DOCUMENTATION - 05/23/2020 10:50 AM EST This study is for PACS storage only and not for interpretation. us Provider Not In System PhD IMG OUTSIDE IMAGING W /OUT INTERPRETATION Final Result documented in this encounter Visit Diagnoses Not on filedocumented in this encounter Additional Source Comments The information contained in this document represents components of the legal health record. It is not the complete legal health record.[facility]
--- OUTSIDE RECORDS SUMMARY | 2012-09-27 23:00 | XMS_ITS | Encounter Summary ---
Author Organization [facility] Address [address] [place] [address] Phone Care Team Providers Care Ship Ceiler Name Role Phone Unavailable Primary Care Provider Unavailabl e Encounter Details Date Type Department Care Team (Late st Contact Info) Description 09/28/2012 Hospital Encounter [facility],Outside Imaging 30 [place] [address] System, Provider Not In, PhD [address] [address] Social History Tobacco Use Types Packs/Day Years [...] Comments BI MAMMOGRAM OUTSIDE (NO INTERPRETATION) Routine 09/28/2012 12:00 AM EDT documented in this encounter Results * Mammogram Outside (No Interpretation) (09/28/2012 12:00 AM EDT) Narrative SYSTEMGENERATED, DOCUMENTATION - 05/23/2020 10:47 AM EST This study is for PACS storage only and not for interpretation. us Provider Not In System PhD IMG OUTSIDE IMAGING W /OUT INTERPRETATION Final Result documented in this encounter Visit Diagnoses Not on filedocumented in this encounter Additional Source Comments The information contained in this document represents components of the legal health record. It is not the complete legal health record.[facility]
--- OUTSIDE RECORDS SUMMARY | 2012-10-01 23:00 | XMS_ITS | Encounter Summary ---
Author Organization [facility] Address [address] [place] [address] Phone Care Team Providers Care Paradichlorobenzene Machine Operator Name Role Phone Unavailable Primary Care Provider Unavailabl e Encounter Details Date Type Department Care Team (Late st Contact Info) Description 10/02/2012 Hospital Encounter [facility],Outside Imaging 30 [place] [address] System, Provider Not In, PhD [address] [address] Social History Tobacco Use Types Packs/Day Years [...] Comments BI MAMMOGRAM OUTSIDE (NO INTERPRETATION) Routine 10/02/2012 12:00 AM EDT documented in this encounter Results * Mammogram Outside (No Interpretation) (10/02/2012 12:00 AM EDT) Narrative SYSTEMGENERATED, DOCUMENTATION - 05/23/2020 10:45 AM EST This study is for PACS [...]
--- OUTSIDE RECORDS SUMMARY | 2012-10-01 23:05 | XMS_ITS | Encounter Summary ---
Author Organization [facility] Address [address] [address] Phone Care Team Providers Care Cigarette Tipper Name Role Phone Unavailable Primary Care Provider Unavailabl e Encounter Details Date Type Department Care Team (Late st Contact Info) Description 10/02/2012 12:05 AM EDT Hospital Encounter [facility],Outside Imaging [address] [place] [address] System, Provider Not In, PhD Partners [address] [address] Social History Tobacco Use Types Packs/Day Years [...] BI US BREAST OUTSIDE (NO INTERPRETATION) Routine 10/02/2012 12:05 AM EDT documented in this encounter Results * US Breast Outside (No Interpretation) (10/02/2012 12:05 AM EDT) Narrative SYSTEMGENERATED, DOCUMENTATION - 05/23/2020 10:46 AM EST This study is for PACS storage only and not for interpretation. us Provider Not In System PhD IMG OUTSIDE IMAGING W /OUT INTERPRETATION Final Result documented in this encounter Visit Diagnoses Not on filedocumented in this encounter Additional Source Comments The information contained in this document represents components of the legal health record. It is not the complete legal health record.[facility]
--- NOTE | 2025-02-14 15:36 | MHC.OFFVIS ---
Intake Visit Reasons: S/P TIA Allergies No Known Allergies (No Known Allergies*) Allergy (Verified 01/12/25 11:57) HPI Comments Details: The patient is a 59-year-old female presenting with cognitive dysfunction, blurred vision, and urinary urgency/incontinence. 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 Despite efforts to recall specific information, these cognitive lapses persist. The blurred vision, which started about a decade prior, occurs without pain or headaches and can last up to an hour, predominantly affecting both eyes during periods of emotional distress. An evaluation by an shop welder found no underlying ocular pathology. The patient occasionally experiences confusion with these visual disturbances. For two years, she has encountered urinary urgency which occasionally results in incontinence. There was no prior history of urinary control issues three years ago when she reported having better bladder control. [facility] Medical History ASCUS of cervix with negative high risk HPV NAFLD (nonalcoholic fatty liver disease) Screening for breast cancer Abnormal mammogram COVID-19 Pure hypercholesterolemia Transaminitis Hypertension Surgical History Hx of vaginal surgery H/O colonoscopy History of carpal tunnel release History of tubal ligation Family History Father History of open heart surgery Hypertension CVD (cardiovascular disease) Mother Lung cancer Hypertension Maternal Grandmother Stomach cancer Sister Diabetes Social History Household Members: Spouse and Children Housing: House Alcohol intake: never Patient Tobacco Use Status: Never used Tobacco Current occupational status: employed 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 Has high blood pressure and blurred vision HEENT:? Has blurred vision Cardiovascular:? Complain of chest pain Respiratory:?No cough, shortness of breath, wheezing, or hemoptysis. Gastrointestinal:?No nausea, vomiting, abdominal pain, diarrhea, or constipation. Genitourinary:? Complain of urinary incontinence Musculoskeletal:?No joint pain, stiffness, weakness, or muscle aches. Neurological:? Complain of joint pain Psychiatric:?No anxiety, depression, mood swings, sleep disturbance, or hallucinations. Endocrine:?No heat/cold intolerance, polydipsia, polyuria, or hair/skin changes. Hematologic/Lymphatic:?No easy bruising, bleeding, or lymphadenopathy. Integumentary (Skin):?No rash, lesions, itching, or color changes. Allergic/Immunologic:?No seasonal allergies, hives, or recurrent infections. Physical Exam Neuro Other: Mental Status: Alert and oriented to person, place, and time. Normal attention. Normal spontaneous speech, fluency, and comprehension. Cranial Nerves: CN II: Visual pratt full to confrontation, visual acuity intact. CN III, IV, : Pupils equal, round, reactive to light and accommodation. Extraocular movements are normal. CN V: Facial sensation is normal. CN VII: Facial movements symmetrical. CN VIII: Hearing intact to bedside conversation is normal. CN IX, X: Palate elevates symmetrically. CN XI: Shoulder shrug and head turn symmetrical. CN XII: Tongue midline without atrophy or fasciculations. Motor: Bulk and tone normal in all extremities. No significant muscle weakness in arms and legs. No drift. Reflexes: Deep tendon reflexes are absent. Coordination: [id number] is okay. Gait and Station: No obvious gait abnormality. No ataxia or instability. Extrapyramidal: Full facial expressions and blinking. No rigidity. Movements are appropriate with no tremor or abnormality. Speech: Normal; no dysarthria or tremor. 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 She has noted now and then that she was forgetful and sometime unable to figure out some code related to her work, which she otherwise had known. She also had episodes making her vision blurred lasting for minutes to an hour without any pain. She saw an eye doctor and no problem was noted. She said that sometime she would get confused with it. She also has developed urinary frequency during last 2 years. There was no significant problem with walking. Her examination did not reveal any focal findings while deep tendon reflexes were absent. Her MRI of brain done this year revealed minimal microvascular ischemic changes in slightly larger cerebral ventricles for her age. As no previous scan was available, it was not clear if this was new finding or present since childhood. Ventriculomegaly was not significant enough to suggest normal-pressure hydrocephalus though she was describing some of the symptomatology of that diagnosis. An EEG is arrange to rule out possibility of seizure disorder. Otherwise common sense measures to manage day-to-day forgetfulness, and clinical follow would continue especially to rule out any possibility of developing NPH. Orders: Orders ABeta 42/40 p-tau 217 Eval Today G31.84 - Mild cognitive impairment of uncertain or unknown etiology EEG Routine Today G40.909 - Epilepsy, unspecified, not intractable, without status epilepticus Coding Level of Care Code New Pt Level 5 (22667) Diagnoses MCI (mild cognitive impairment) G31.84
--- OUTSIDE RECORDS SUMMARY | 2025-02-14 16:27 | XMS_ITS | Encounter Summary ---
Author Organization [facility] Address [address] [place] [address] Phone Care Team Providers Care Wire Preparation Worker Name Role Phone Pcp, Unknown Primary Care Provider Unavailabl e Encounter Details Date Type Department Care Team (Late st Contact Info) Description 05/29/2020 Ancillary Orders [facility],Outside Imaging [address] [place], [place] [phone] System, Provider Not In, [facility] [address] [address] Social History Tobacco Use Types Packs/Day Years [...] on filedocumented in this encounter Care Teams Wire Preparation Worker Relationship Specialty Start Date End Date Pcp, Unknown PCP - General 05/26/20 documented as of this encounter Additional Source Comments The information contained in this document represents components of the legal health record. It is not the complete legal health record.[facility]
--- OUTSIDE RECORDS SUMMARY | 2025-02-14 16:27 | XMS_ITS | Patient Health Record ---
Author Organization [facility] Address [address] [place] [address] Care Team Providers Care Die Fitter Name Role Phone Sut Estrella MD, Duane Primary Care Provide r Unavailable Aurelio Marie Unavailable [phone] Allergies No Known Allergies Reason For Referral [...] Problem Screening for malignant neoplasm of colon (388566138) Encounter for screening for malignant neoplasm of colon (Z12.11) Active confirmed Problem Elevated liver enzymes level (410776728) Elevated liver function tests (R79.89) Active confirmed Problem Fatty liver (861335998) Fatty liver (K76.0) Active confirmed Problem Iron deficiency anemia due to chronic blood loss (239637688) Iron deficiency anemia due to chronic blood loss (D50.0) Active confirmed Plan Of Treatment Pending Test Test Name Order Date LIVER PROFILE 05/23/2021 IRON + IBC (FE) 05/23/2021 FERRITIN 05/23/2021 PROTHROMBIN TIME (PT, INR) 05/23/2021 AIGUM-[id number]-[id number] (A1A) 05/23/2021 Liver Panel 05/23/2021 Future Test Test Name Order Date COLONOSCOPY 08/15/2016 Insurance Providers Payer Name Payer Address Payer Phone Subscriber Number Group Number Insured Name Patient Relationship to Insured Coverage Start Date Coverage End Date [facility] [address] [facility] [phone] [id number] COLON, NATALIE Self - patient is the insured Medical (General) History Medical History History ICD Code Denies OK,DM,CVA,Lung disease,renal dise ase Iron deficiency anemia that has been attributed to her menses-neg. celiac labs Colonoscopy in 11/2016 was negative Fatty liver with elevated LF T's-negative w/u with viral serologies and autoimmune labs HTN Surgical History Surgery Date(Month/Year) Bilateral carpal tunnel release
--- OUTSIDE RECORDS SUMMARY | 2025-02-14 16:27 | XMS_ITS | Encounter Summary ---
Author Organization [facility] Address [address] [place] [address] Phone Care Team Providers Care Acupressure Therapist Name Role Phone Pcp, Unknown Primary Care Provider Unavailabl e Encounter Details Date Type Department Care Team (Late st Contact Info) Description 05/29/2020 Ancillary Orders [facility],Outside Imaging [address] [place], [place] [phone] System, Provider Not In, [facility] [address] [address] Social History Tobacco Use Types Packs/Day Years [...] on filedocumented in this encounter Care Teams Acupressure Therapist Relationship Specialty Start Date End Date Pcp, Unknown PCP - General 05/26/20 documented as of this encounter Additional Source Comments The information contained in this document represents components of the legal health record. It is not the complete legal health record.[facility]
--- OUTSIDE RECORDS SUMMARY | 2025-02-14 16:27 | XMS_ITS | Encounter Summary ---
Author Organization [facility] Address [address] [place] [address] Phone Care Team Providers Care Development Eng Name Role Phone Pcp, Unknown Primary Care Provider Unavailabl e Encounter Details Date Type Department Care Team (Late st Contact Info) Description 05/29/2020 Ancillary Orders [facility],Outside Imaging [address] [place], [place] [phone] System, Provider Not In, [facility] [address] [address] Social History Tobacco Use Types Packs/Day Years [...] on filedocumented in this encounter Care Teams Development Eng Relationship Specialty Start Date End Date Pcp, Unknown PCP - General 05/26/20 documented as of this encounter Additional Source Comments The information contained in this document represents components of the legal health record. It is not the complete legal health record.[facility]
--- OUTSIDE RECORDS SUMMARY | 2025-02-14 16:27 | XMS_ITS | Clinical Summary ---
Author Organization [facility] Address [address] [place] [address] Phone Care Team Providers Care Licensed Physical Therapist Assistant Name Role Phone Pcp, Unknown Primary Care [...] file Medical Devices Not on file Insurance [facility] HMO O O O HMO O HMO O HMO Member Subscriber Plan / Payer (Ef fective 2020-Present) Name:Mary Mijares Relation to Subscriber:Spouse Name:LOVELY MIJARES Date of :1900 (Home) Address: [address] [place] [address] Payer ID:Not on file Type:O Address: [place] [id number] Care Teams Licensed Physical Therapist Assistant Relationship Specialty Start Date End Date Pcp, Unknown PCP - General 05/26/20 Additional Source Comments The information contained in this document represents components of the legal health record. It is not the complete legal health record.[facility]
--- OUTSIDE RECORDS SUMMARY | 2025-02-14 16:27 | XMS_ITS | Encounter Summary ---
Author Organization [facility] Address [address] [place] [address] Phone Care Team Providers Care Motor Analyst Name Role Phone Pcp, Unknown Primary Care Provider Unavailabl e Encounter Details Date Type Department Care Team (Late st Contact Info) Description 05/29/2020 Ancillary Orders [facility],Outside Imaging [address] [place], [place] [phone] System, Provider Not In, [facility] [address] [address] Social History Tobacco Use Types Packs/Day Years [...] on filedocumented in this encounter Care Teams Motor Analyst Relationship Specialty Start Date End Date Pcp, Unknown PCP - General 05/26/20 documented as of this encounter Additional Source Comments The information contained in this document represents components of the legal health record. It is not the complete legal health record.[facility]
--- OUTSIDE RECORDS SUMMARY | 2025-02-14 16:27 | XMS_ITS | Encounter Summary ---
Author Organization [employer] [facility] Address [address] [facility] [address] [place] [address] Care Team Providers Care Calender Let Off Helper Name Role Phone Duane Power MD Primary Care Provide r Encounter Details Date Type Department Care Team (Late st Contact Info) Description 10/21/2022 Orders Only [facility] P[facility]S [address] [place] [address] Malou Santos LPN Social History Tobacco Use [...] documented as of this encounter Care Teams Calender Let Off Helper Relationship Specialty Start Date End Date Duane Power MD [address] [place] [phone] PCP - General Internal Medicine 12/22/20 documented as of this encounter
--- OUTSIDE RECORDS SUMMARY | 2025-02-14 16:27 | XMS_ITS | Encounter Summary ---
Author Organization [facility] Address [address] [place] [address] Phone Care Team Providers Care Authorization Coordinator Name Role Phone Pcp, Unknown Primary Care Provider Unavailabl e Encounter Details Date Type Department Care Team (Late st Contact Info) Description 05/29/2020 Ancillary Orders [facility],Outside Imaging [address] [place] [address] System, Provider Not In, [facility] [address] [address] Social History Tobacco Use Types Packs/Day Years [...] on filedocumented in this encounter Care Teams Authorization Coordinator Relationship Specialty Start Date End Date Pcp, Unknown PCP - General 05/26/20 documented as of this encounter Additional Source Comments The information contained in this document represents components of the legal health record. It is not the complete legal health record.[facility]
--- OUTSIDE RECORDS SUMMARY | 2025-02-14 16:27 | XMS_ITS | Clinical Summary ---
Author Organization [employer] Address [address] [facility] [address] [place] [address] Care Team Providers Care Wellness Trainer Name Role Phone Duane Power MD Primary [...] speaking She states she was seen [place] [facility] and work up was unrevealing. Requested records from [facility] 10/07/2024 but the reports only paz phillips [...] face Pt would like to see a test architect Will be referred to [facility] Anxiety 06/19/2023 Overview (06/19/2023): [...] w tenant. Her sense of spirituality and rastafarian is identified as main strength. PLAN: (check all that apply) New/Additional Services needed On-site non-integrated services Off-site services for Behavioral Health Integration Plan Internal Follow up with [facility] External OP therapy referral Patient Self Plan Patient to utilize skills provided in intervention , Patient [facility] as needed, Comply with [...] of a pap smear she had in [facility] in 07/26/2022. The report showed LGSIL, there is NO HPV testing Report states pt needs a Colposcopy and Biopsy. Underwent testing that showed JOSSE I Now Under the care of SAFETY TRAINER for evaluation, last seen by Dr Wilkins 11/12/2023 Underwent Colposcopy Assessment & Plan (06/19/2023 10:30 AM EST): Patient previously brought the report of a pap smear she had in [facility] in 07/26/2022. The report showed LGSIL, there is NO HPV testing Report states pt needs a Colposcopy and Biopsy. Underwent testing that showed JOSSE I Now Under the care of SAFETY TRAINER for evaluation, last seen by Dr Wilkins 03/2023 1 year follow up with co testing recommended Assessment & Plan (12/03/2022 12:53 PM EDT): Patient finally brought the report of a pap smear she had in [facility] in 07/26/2022. 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 Plan: referral to SAFETY TRAINER for evaluation. Osteopenia of lumbar spine 12/03/2022 Assessment & Plan (12/03/2022 12:56 PM EDT): Seen on Bone densitometry in [facility] in July Calcium plus vitamin D [...] underwent a gastric ballon procedure in [place] advised to try to adhere to [...] underwent a gastric ballon procedure in [place] Pt with c/o bilateral shoulder pain [...] underwent a gastric ballon procedure in her [facility] [facility] Pt with c/o bilateral shoulder pain [...] underwent a gastric ballon procedure in [place] Plan: continue Atorvastatin 20 mg po [...] underwent a gastric ballon procedure in her [place] and has lost > 15 lbs [...] Hep C negative See by Dr. Marie Game Attendant 05/2021 he recommended to continue Statin and [...] w tenant. Her sense of spirituality and rastafarian is identified as main strength. PLAN: (check all that apply) New/Additional Services needed On-site non-integrated services Off-site services for Behavioral Health Integration Plan Internal Follow up with [facility] External OP therapy referral Patient Self Plan Patient to utilize skills provided in intervention , Patient to [facility] as needed, Comply with medication , Patient to engage in OP therapy , and Patient to reach out to [facility] as needed. Referral will be placed [...] she was seen by a Urologist at [facility], no records were received Repeat UA shows [...] she was seen by a Urologist at [facility], no records were received Repeat UA shows [...] she was seen by a Urologist at [facility], no records were received Will repeat UA [facility] health care 10/03/2022 Assessment & Plan (10/26/2024 11:02 AM EDT): Patient here for a routine physical exam Mammogram: 12/18/2023 Normal. Pap Smear: previously brought the report of a pap smear she had in [facility] in 07/26/2022. The report showed LGSIL, there is NO HPV testing Last Pap by Dr Wilkins 11/05/2023 Under the care of SAFETY TRAINER for evaluation, last seen by Dr Wilkins 03/2024 Colonoscopy: Dr Cynthia Hilario internal hemmorrhoids and small polyp requested pathology report Vaccines: records requested Dexa scan:. Not age appropriate yet Assessment & Plan (11/18/2023 10:12 AM EDT): Mammogram: 11/2022 Normal. Pap Smear: previously brought the report of a pap smear she had in [facility] in 07/26/2022. The report showed LGSIL, there is NO HPV testing Report states pt needs a Colposcopy and Biopsy. Underwent testing that showed JOSSE I Now Under the care of SAFETY TRAINER for evaluation, last seen by Dr Wilkins 11/12/2023 Colonoscopy: Dr Cynthia Hilario internal hemmorrhoids and small polyp requested pathology report Vaccines: records requested Dexa scan:. Not age appropriate yet Assessment & Plan (06/19/2023 10:32 AM EST): Mammogram: 11/2022 Normal. Pap Smear: previously brought the report of a pap smear she had in [facility] in 07/26/2022. The report showed LGSIL, there is NO HPV testing Report states pt needs a Colposcopy and Biopsy. Underwent testing that showed JOSSE I Now Under the care of SAFETY TRAINER for evaluation, last seen by Dr Wilkins 03/2023 1 year follow up with co testing recommended Colonoscopy: Dr Cynthia Hilario internal hemmorrhoids and small polyp requested pathology report Vaccines: records requested Dexa scan:. Not age appropriate yet Assessment & Plan (10/03/2022 3:24 PM EDT): Mammogram: 08/01/2020 Normal. Today she tells me she had a repeat Mammogram in [facility] this year and was told it was normal. I asked that she bring me a copy Pap Smear: Records requested to [facility], never received, she tells me that she had a repeat in [facility] as well this year and was [...] years ago, s/p CT release one in [place] and another one in [place]. Records requested Essential hypertension 09/19/2022 Assessment & [...] Provider, Generic External Data 12/24/2024 Orders Only [facility] [address] [place] [address] ProviderLeona MD 12/22/2024 Orders Only GENERIC EXTERNAL DATA DEPARTMENT Provider, Generic External Data 12/14/2024 Telephone [facility] MEDIC[facility] [address] [place] [address] Duane Power MD Referral 12/10/2024 Telephone [facility] [address] [place] [address] Duane Power MD January Recall from Last 3 Months Immunizations Immunization Administration [...] Procedure Name Priority Date/Time Associated Diagnosis Comments [facility] US CAROTID ARTERY DUPLEX BILATERAL Routine 02/01/2025 [...] Routine 11/20/2024 7:27 AM EDT Essential hypertension BI MAMMOGRAM SCREENING TOMOSYNTHESIS BILATERAL Routine 12/18/2023 [...] PM EDT) 02/01/2025 3:15 PM EDT Narrative [facility] - 02/01/2025 3:47 PM EDT [place] [address] Ultrasound Report Signed Patient: Mary Mijares MR#: [id number] 8 : 1965 Acct:[id number] Age/Sex: 59 / F ADM Date: 02/01/25 Loc: HOYrisCARD Attending Dr: Duane Rock MD Ordering Physician: Duane Rock MD Date of Service: 02/01/25 Procedure(s): US carotid duplex BI Accession Number(s): [id number] cc: Duane Rock MD Reason for Exam: [...] 02/01/25 1545 DD/ 1515 TD/TT: 02/01/25 1525 Iron Piler: Procedure Note Donotuseinterpreter, Image - 02/01/2025 [place] [address] Ultrasound Report Signed Patient: Shelia Mijares#: [id number] 8 : 1965Acct:[id number] Age/Sex: 59 / FADM Date: 02/01/25 Loc: HO.CARD Attending Dr: Duane Rock MD Ordering Physician: Duane Rock MD Date of Service: 02/01/25 Procedure(s): US carotid duplex BI Accession Number(s): [id number] cc: Duane Rock MD Reason for Exam: [...] 02/01/25 1545 DD/ 1515 TD/TT: 02/01/25 1525 Iron Piler: us Duane Estrella MD CV VASCULAR PROCEDURE S Final Result Performing Organization Address City/[facility]/ZIP Co de Phone Number [facility] [address] [place] [phone] * Creatinine, Serum (01/12/2025 12:37 PM EDT) Creatinine, Serum 0.57 0.5 - 1.4 mg/dL [facility] Estimated Glomerular Filt Rate >60 [facility] Comment:Chronic Kidney Disea se: Estimated GFR < 60 mL/min/1.10e0Whnxrl Kidney Disease: Estimated GFR < 15 mL/min/1.73m2 01/12/2025 12:3 7 PM EDT 01/12/2025 12:41 PM EDT us Generic External Data Provider LAB BLOOD ORDERAB LES Final Result Performing Organization Address City/[facility]/ZIP Co de Phone Number [facility] [address] [place] [phone] * BUN (Blood Urea Nitrogen) (01/12/2025 12:37 PM EDT) Urea Nitrogen (BUN) 16 9 - 16 mg/dL [facility] 01/12/2025 12:3 7 PM EDT 01/12/2025 12:41 PM EDT us Generic External Data Provider LAB BLOOD ORDERAB LES Final Result [facility] [address] [place] [phone] * Hematoxylin and Eosin Stain (12/22/2024 8:02 AM EDT) 12/22/2024 8:02 AM EDT 12/23/2024 8:16 AM EDT Narrative [facility] - 12/24/2024 4:03 PM EDT ----- ------- Name: DyllanMary Age/Sex: 59/F : 1965 Unit#: [id number] Attend Dr: Michael Wilkins MD Re12/22/24 Status: DEP REF Location: HO.LNP Disch: ----- ------- SPEC : [id number] RECD: 12/23/24 STATUS: JESSICA HAILE NUM: [id number] CELESTINE: 12/22/[address]: Michael Wilkins MD ENTERED: 12/23/24 SP [...] developed and their performance characteristics determined by [facility]. They have not been cleared or approved by the U.S. Food and Drug Administration (FDA). However, the FDA has determined that such clearance or approval is not necessary. This laboratory is certified under the Clinical Laboratory Improvement Amendments of 1988 (CLIA) as qualified to perform high complexity clinical laboratory testing. Copies To: Duane Rock MD [address] [address] CONTINUED ON NEXT PAGE ----- ------- Name: Mary Mijares Age/Sex: 59/F : 1965 Unit#: [id number] Attend Dr: Michael Wilkins MD Re12/22/24 Status: DEP REF Location: [facility] Disch: ----- ------- SPEC : [id number] RECD: 12/23/24 STATUS: JESSICA HAILE NUM: [id number] CELESTINE: 12/22/[address] [facility] [address]: Michael Wilkins MD ENTERED: 12/23/24 SP TYPE: Surgical OTHR DR: Duane Rock MD ORDERED: JOHN Stain/2, Gross Micro L4 Copies To: (Continued) Michael Wilkins MD [facility] [address] [place] [address] Drive [address] [place] [address] ----- ------- Signed (signature on file) Momo Mcintosh MD 12/24/24 1603 ----- ------- END OF REPORT us Generic External Data Provider LAB BLOOD ORDERAB LES Final Result [facility] [address] [place] [address] [phone] * Culture, Urine, Routine (12/22/2024 7:13 AM EDT) Urine Urine specimen obtained by clean catch procedure / Unknown 12/22/2024 7:13 AM EDT 12/22/2024 6:32 PM EDT Comment:[facility] Narrative [facility] - 12/24/2024 9:26 AM EDT Urine Culture No growth. Specimen Source: Urine clean catch us Generic External Data Provider LAB MICROBIOLOGY - GENERAL ORDERABLES Final Result [facility] [address] [place] [phone] * Vitamin B12/Folate, Serum Panel (11/20/2024 7:27 AM EDT) Vitamin B12 399 200 - 900 pg/mL [facility] Comment:NORMAL 200-900 PG/ML INDETERMINATE 160-199 PG/ML DEFICIENT < 160 PG/ML Folate 10.0 > or = 4.0 ng/mL [facility] Comment:Reference Values:> o r = [...] BLOOD ORDERABLES Final Result Performing Organization Address [facility]/ZIP Co de Phone Number [facility] [address] [place] [phone] * TSH with Reflex to Free T4 (11/20/2024 7:27 AM EDT) TSH reflex Free T4 1.40 0.32 - 4.0 uIU/mL [facility] Blood Venous blood specimen / Unknown 11/20/2024 7:27 AM EDT 11/20/2024 7:27 AM EDT us Duane Estrella MD LAB BLOOD ORDERABLES Final Result [facility] [address] [place] [phone] * (ABNORMAL) CBC auto differential (11/20/2024 7:27 AM EDT) White Blood Count 6.6 4.8 - 10.8 X10*3/uL [facility] Red Blood Count 4.73 4.20 - 5.50 X10*6/uL [facility] Hemoglobin 13.7 12.0 - 16.0 g/dl [facility] Hematocrit 41.5 37.0 - 47.0 % [facility] Mean Corpuscular Volume 87.7 80.0 - 98.0 fL [facility] Mean Corpuscular Hemoglobin 29.0 27.0 - 33.0 pg [facility] Mean Corpuscular HGB Conc 33.0 31.0 - 35.0 g/dl [facility] Red Cell Distribution Width 12.9 11.0 - 16.0 % [facility] Platelet Count 252 160 - 400 X10*3/uL [facility] Mean Platelet Volume 9.0(L) 9.4 - 12.3 fL [facility] Neutrophils Percent Auto 44.7(L) 45 - 73 % [facility] Imm Gran Pct Auto 0.2 0.0 - 0.4 % [facility] Lymphocytes Percent Auto 47.7(H) 20 - 40 % [facility] Monocytes Percent Auto 5.7 2 - 11 % [facility] Eosinophils Percent Auto 1.1 0 - 4 % [facility] Basophils Percent Auto 0.6 0 - 2 % [facility] NRBC Pct Auto 0.0 0.0 - 0.2 /100WBC [facility] Neutrophils Absolute Auto 3.0 2.0 - 8.3 x10*3/uL [facility] Imm Gran Abs Auto 0.01 0.00 - 0.03 X10*3/uL [facility] Lymphocytes Absolute Auto 3.2 1.2 - 4.9 X10*3/uL [facility] Monocytes Absolute Auto 0.4 0.1 - 1.2 X10*3/uL [facility] Eosinophils Absolute Auto 0.1 0.0 - 0.4 X10*3/uL [facility] Basophils Absolute Auto 0.0 0.0 - 0.2 X10*3/uL [facility] NRBC Abs Auto 0.000 0.0 - 0.012 X10*3/uL [facility] Blood Venous blood specimen / Unknown 11/20/2024 7:27 AM EDT 11/20/2024 7:27 AM EDT Duane Estrella MD LAB BLOOD ORDERABLES Final Result Performing Organization Address City/[facility]/ZIP Co de Phone Number [facility] [address] [place] [phone] * RPR (Monitor) with Reflex to??Titer (11/20/2024 7:27 AM EDT) RPR (Monitor) w/Refl Titer NON-REACTI VE NON-REACT BLOSSOM [facility] Comment:THIS TEST WAS PERFOR MED AT:[facility] [place] [phone] CASTILLO MD Rapid Plasma Reagin Ab Titer TNP [facility] Blood Venous blood specimen / Unknown 11/20/2024 7:27 AM EDT 11/20/2024 7:27 AM EDT Duane Estrella MD LAB BLOOD ORDERABLES Final Result Performing Organization Address [facility]/ZIP Co de Phone Number [facility] [address] [place] [phone] * (ABNORMAL) Lipid Panel, Standard (11/20/2024 7:27 AM EDT) Triglycerides 144 <150 mg/dL [facility] Comment:Desirable Triglyceri de: less than 150 mg/dLBorderline High Triglyceride 150-199 mg/dLHigh Triglyceride: 200-499 mg/dLVery High Triglyceride: greater than or equal to 5OO mg/dL Cholesterol 181 <200 mg/dL [facility] Comment:Desirable Cholestero l: less than 200 mg/dLBorderline High Cholesterol: 200-239 mg/dLHigh Cholesterol: greater than 239 mg/dL LDL Cholesterol Calculated 112(H) <100 mg/dL [facility] Comment:Desirable LDL: less than 100 mg/dLNear Optimal/Above Optimal LDL: 110- 129 mg/dLBorderline High LDL: 130-159 mg/dLHigh LDL: 160-189 mg/dLVery High LDL: greater than or equal to 190 mg/dL HDL Cholesterol 41 >40 mg/dL [facility] Comment:Desirable HDL: great er than 40 mg/dL Note: This HDL assay may give artificially low results in patients with liver disease. Blood Venous blood specimen / Unknown 11/20/2024 7:27 AM EDT 11/20/2024 7:27 AM EDT us Duane Estrella MD LAB BLOOD ORDERABLES Final Result [facility] [address] [place] [phone] * (ABNORMAL) Comprehensive Metabolic Panel (11/20/2024 7:27 AM EDT) Sodium 142 135 - 145 mmol/L [facility] Potassium 4.4 3.3 - 5.1 mmol/L [facility] Chloride 107 96 - 108 mmol/L [facility] Carbon Dioxide 27 22 - 29 mmol/L [facility] Anion Gap 12 12 - 20 [facility] Urea Nitrogen (BUN) 17(H) 9 - 16 mg/dL [facility] Creatinine, Serum 0.64 0.5 - 1.4 mg/dL [facility] Estimated Glomerular Filt Rate >60 [facility] Comment:Chronic Kidney Disea se: Estimated GFR < 60 mL/min/1.32s5Ukcsdn Kidney Disease: Estimated GFR < 15 mL/min/1.73m2 Glucose 110 60 - 115 mg/dL [facility] Calcium 9.5 8.4 - 10.2 mg/dL [facility] Bilirubin, Total 0.5 0.0 - 1.0 mg/dL [facility] Aspartate Amino Transferase 35(H) 5 - 31 U/L [facility] Alanine Aminotransferase 46(H) 0 - 31 U/L [facility] Total Protein 7.1 6.5 - 8.0 g/dL [facility] Albumin Level 4.6 3.5 - 5.0 g/dL [facility] Alkaline Phosphatase 152(H) 39 - 117 U/L [facility] Blood Venous blood specimen / Unknown 11/20/2024 7:27 AM EDT 11/20/2024 7:27 AM EDT us Duane Estrella MD LAB BLOOD ORDERABLES Final Result Performing Organization Address City/State/[facility] Co de Phone Number [facility] [address] [place] [phone] * BI Mammogram Screening Tomosynthesis Bilateral (12/18/2023 10:15 AM EDT) Anatomical Region Laterality Modality Breast Bilateral Mammography 12/18/2023 10:1 5 AM EDT Narrative 01/04/2024 2:20 PM EDT [facility] [address] [place] [address] Mammography Report Signed Patient: Mary Mijares MR#: [id number] 8 : 1965 Acct:[id number] Age/Sex: 58 / F ADM Date: 12/18/23 Loc: RODOLFO Attending Dr: Duane Rock MD Ordering Physician: Duane Rock MD Resu lts: 1Negative Date of Service: 12/18/23 Follow Up: 1 Year From Orig inal Mammogram Procedure(s): MM tomosynthesis screening BI Accession Number(s): [id number] cc: Duane Rock MD EXAMINATION: MM SCREENING [...] 01/04/24 1416 DD/ 1015 TD/TT: 12/18/23 1029 Iron Piler: Procedure Note Donotuseinterpreter, Image - 01/04/2024 [facility] [address] [place] [address] [place] [address] Mammography Report Signed Patient: Mary MijaresMR#: [id number] 8 : 1965Acct:[id number] Age/Sex: 58 / FADM Date: 12/18/23 Loc: RODOLFO Attending Dr: Duane Rock MD Ordering Physician: Duane Rock MDResu lts: 1Negative Date of Service: 12/18/23Follow Up: 1 Year From Orig inal Mammogram Procedure(s): MM tomosynthesis screening BI Accession Number(s): [id number] cc: Duane Rock MD EXAMINATION: MM SCREENING [...] 01/04/24 1416 DD/ 1015 TD/TT: 12/18/23 1029 Iron Piler: Duane Estrella MD IMG BI PROCEDURES Fin al Result * Colposcopy (11/13/2023 3:28 PM EDT) Historical Provider IN CLINIC/BEDSIDE ORDERAB LES Final Result * (ABNORMAL) [facility] Imaging Pap and HPV mRNA E6/E7 with Reflex to HPV 16,18/45 (11/05/2023 8:21 AM EDT) HPV 16 RNA NOT DETECTED NOT DETECTED [facility] HPV 18/45 RNA NOT DETECTED NOT DETECTED [facility] Comment:Methodology: Transcr iption Mediated AmplificationCervical sources are required for HPV testing.If a vaginal source from a patient who has had atotal hysterectomy with removal of cervix wassubmitted, please contact the testing laboratoryfor alternative testing options.THIS TEST WAS PERFORMED AT:[facility] [address] [phone] CASTILLO MD HPV nRNA E6/E7 Detected(A ) Not Detected [facility] Comment:Methodology: Transcr iption-Mediated AmplificationThis assay detects E6/E7 viral messenger RNA (mRNA) from 14high-risk HPV types (16,18,31,33,35,39,45,51,52,56,58,59,66,68).Cervical sources are required for HPV testing.If a vaginal source from a patient who has had atotal hysterectomy with removal of cervix wassubmitted, please contact the testing laboratoryfor alternative testing options.For additional information, please refer tohttp://education.Revetto/faq/COX721t6(This link if provided for information/educational purposes only.) SOURCE: SEE NOTE [facility] Comment:None given Report Status: [facility] Clinical Information: SEE NOTE [facility] Comment:None given LMP: SEE NOTE [facility] Comment:NONE GIVEN Prev. PAP: SEE NOTE [facility] Comment:NONE GIVEN Prev. BX: SEE NOTE [facility] Comment:NONE GIVEN Statement Of Adequacy: SEE NOTE [facility] Comment:Satisfactory for yudith luation.Endocervical/transformation zone componentpresent. General Categorization: [facility] Interpretation/Result: SEE NOTE [facility] Comment:Cytology Results: Ne gative for intraepitheliallesion or malignancy. Cytology Comment SEE NOTE [facility] Comment:This Pap test has be en evaluated with computerassisted technology. Mold Filler And Drainer: SEE NOTE [facility] Comment:CMG, CT(ASCP)CT scre ening location: [place] [address] Review Mold Filler And Drainer: SEE NOTE [facility] Comment:WAC, CT(ASCP)CT scre ening location: [place] [address] Pathologist [facility] PAP Infection [facility] See Note SEE NOTE [facility] Comment:EXPLANATORY NOTE:The Pap is a screening test for cervical cancer. It isnot a diagnostic test and is subject to false negativeand false positive results. It is most reliable when asatisfactory sample, regularly obtained, is submittedwith relevant clinical findings and history, and whenthe Pap result is evaluated along with historic andcurrent clinical information. 11/05/2023 8:21 AM EDT 11/05/2023 5:41 PM EDT Narrative [facility] - 11/11/2023 2:55 PM EDT SEE SCANNED RESULTS IN EMR us Generic External Data Provider LAB PATHOLOGY ORD ERABLES Final Result Performing Organization Address City/[facility]/ZIP Co de Phone Number [facility] [address] [place] [phone] [phone] * HEPATITIS C AB W/REFL TO [...] a test for HCV RNA (test code 38389) is suggested. For additional information please refer to http://education.Contacts+.[employer]/faq/RGQ25b0 (This link is being provided for informational/ educational purposes only.) 01/12/2021 9:32 AM EDT us Duane Estrella MD HISTORICAL/NON ORDERA BLE LABS Final Result Performing Organization Address City/[facility]/ZIP Co de Phone Number [facility] [address] * HIV 1/2 ANTIGEN/ANTIBODY,FOURTH GENERATION W/RFL (01/12/2021 9:32 AM EDT) HIV-1/2 ANTIGEN AND ANTIBODIES, 4TH GENERATION W/ REFLEX NON-REACT BLOSSOM NON-REACT BLOSSOM [facility] Comment: HIV-1 antigen and HIV-1/HIV-2 [...] purpose. For additional information please refer to http://education.Revetto/faq/VSJ864 (This link is being provided for informational/ educational purposes only.) The performance of this assay has not been clinically validated in patients less than 2 years old. 01/12/2021 9:32 AM EDT Duane Estrella MD LAB BLOOD ORDERABLES Final Result Performing Organization Address City/State/[facility] Co de Phone Number [facility] [address] * Colonoscopy (11/12/2016) Colonoscopy Normal Normal 11/12/2016 Narrative Madiha Jennings - 11/12/2016 12:28 PM EDT Recommended 10 year follow up Historical Provider HEALTH MAINTENANCE Edited Result - Final from Last 3 Months or Most Recently Relevant to Health Maintenance Insurance [facility] Care Teams Wellness Trainer Relationship Specialty Start Date End Date Duane Power MD [address] [place] [id number] PCP - General Internal Medicine 12/22/20
--- OUTSIDE RECORDS SUMMARY | 2025-02-14 16:27 | XMS_ITS | Encounter Summary ---
Author Organization [employer] Address [address] [facility] 7t [place] [address] Care Team Providers Care Automatic Blocker Name Role Phone Duane Power MD Primary Care Provide r Encounter Details Date Type Department Care Team (Late st Contact Info) Description 03/20/2023 Orders Only [facility] MED & PEDS [address] [place] [address] Malou Santos LPN Social History Tobacco Use [...] documented as of this encounter Care Teams Automatic Blocker Relationship Specialty Start Date End Date Duane Power MD [address] [place] [address] PCP - General Internal Medicine 12/22/20 documented as of this encounter
--- OUTSIDE RECORDS SUMMARY | 2025-02-14 16:27 | XMS_ITS | Encounter Summary ---
Author Organization [facility] Address [address] [place] [phone] Phone Care Team Providers Care Tow Operator Name Role Phone Pcp, Unknown Primary Care Provider Unavailabl e Encounter Details Date Type Department Care Team (Late st Contact Info) Description 05/29/2020 Ancillary Orders [facility],Outside Imaging [address] [place], [place] [phone] System, Provider Not In, [facility] [address] [address] Social History Tobacco Use Types Packs/Day Years [...] on filedocumented in this encounter Care Teams Tow Operator Relationship Specialty Start Date End Date Pcp, Unknown PCP - General 05/26/20 documented as of this encounter Additional Source Comments The information contained in this document represents components of the legal health record. It is not the complete legal health record.[facility]
--- OUTSIDE RECORDS SUMMARY | 2025-02-14 16:27 | XMS_ITS | Encounter Summary ---
Author Organization [employer] Address [address] [facility] 7t [place] [address] Care Team Providers Care Evaporator Operator Name Role Phone Duane Power MD Primary Care Provide r Reason for Visit * Reason Onset Date Comments Appointment Request 08/06/2024 Encounter Details Date Type Department Care Team ([facility] st Contact Info) Description 08/06/2024 Telephone [facility] MEDICINE [address] [place], [place] [phone] Duane Power MD [address] [place], [place] [phone] Appointment Request Social History Tobacco Use Types [...] Physical Appt with PCP. Contact pt at [phone] documented in this encounter Plan of Treatment Not on file documented as of this encounter Visit Diagnoses Not on filedocumented in this encounter Additional Health Concerns Assessment Noted Time PHQ-9 Depression Total Score: 0 11/18/19 24 10:05 AM EDT documented as of this encounter Care Teams Evaporator Operator Relationship Specialty Start Date End Date Duane Power MD [address] [place] [id number] PCP - General Internal Medicine 12/22/20 documented as of this encounter
--- OUTSIDE RECORDS SUMMARY | 2025-02-14 16:27 | XMS_ITS | Encounter Summary ---
Author Organization [facility] Address [address] [place] [phone] Phone Care Team Providers Care Hairspring Adjuster Name Role Phone Pcp, Unknown Primary Care Provider Unavailabl e Encounter Details Date Type Department Care Team (Late st Contact Info) Description 05/29/2020 Ancillary Orders ,Outside Imaging [address] [place], [place] [phone] System, Provider Not In, [facility] [address] [address] Social History Tobacco Use Types Packs/Day Years [...] on filedocumented in this encounter Care Teams Hairspring Adjuster Relationship Specialty Start Date End Date Pcp, Unknown PCP - General 05/26/20 documented as of this encounter Additional Source Comments The information contained in this document represents components of the legal health record. It is not the complete legal health record.[facility]
--- OUTSIDE RECORDS SUMMARY | 2025-02-14 16:28 | XMS_ITS | Encounter Summary ---
Author Organization [facility] Address [address] [place] [phone] Phone Care Team Providers Care Receiving Associate Store Name Role Phone Pcp, Unknown Primary Care Provider Unavailabl e Encounter Details Date Type Department Care Team (Late st Contact Info) Description 05/29/2020 Ancillary Orders [facility],Outside Imaging [address] [place], [place] [phone] System, Provider Not In, [facility] [address] [address] Social History Tobacco Use Types Packs/Day Years [...] on filedocumented in this encounter Care Teams Receiving Associate Store Relationship Specialty Start Date End Date Pcp, Unknown PCP - General 05/26/20 documented as of this encounter Additional Source Comments The information contained in this document represents components of the legal health record. It is not the complete legal health record.[facility]
--- OUTSIDE RECORDS SUMMARY | 2025-02-14 16:28 | XMS_ITS | Encounter Summary ---
Author Organization [facility] Address [address] [facility] [address] [place] [phone] Phone Care Team Providers Care Forensic Anthropologist Name Role Phone Pcp, Unknown Primary Care Provider Unavailabl e Encounter Details Date Type Department Care Team (Late st Contact Info) Description 05/26/2020 Ancillary Orders Virtual Department [address] [place] [address] Jess Summers MD [address] [place] [phone] Social History Tobacco Use Types Packs/Day Years [...] on filedocumented in this encounter Care Teams Forensic Anthropologist Relationship Specialty Start Date End Date Pcp, Unknown PCP - General 05/26/20 documented as of this encounter Additional Source Comments The information contained in this document represents components of the legal health record. It is not the complete legal health record.[facility]
--- OUTSIDE RECORDS SUMMARY | 2025-02-14 16:28 | XMS_ITS | Encounter Summary ---
Author Organization [facility] Address [address] [place] [phone] Phone Care Team Providers Care Rubber Stamps And Dies Supervisor Name Role Phone Pcp, Unknown Primary Care Provider Unavailabl e Encounter Details Date Type Department Care Team (Late st Contact Info) Description 05/23/2020 Ancillary Orders [facility],Outside Imaging [address] [place], [place] [phone] System, Provider Not In, PhD [address] [address] Social History Tobacco Use Types Packs/Day Years [...] on filedocumented in this encounter Care Teams Rubber Stamps And Dies Supervisor Relationship Specialty Start Date End Date Pcp, Unknown PCP - General 05/26/20 documented as of this encounter Additional Source Comments The information contained in this document represents components of the legal health record. It is not the complete legal health record.[facility]
--- OUTSIDE RECORDS SUMMARY | 2025-02-14 16:28 | XMS_ITS | Encounter Summary ---
Author Organization [facility] Address [address] [place] [address] Phone Care Team Providers Care Director Drug Safety Name Role Phone Pcp, Unknown Primary Care Provider Unavailabl e Encounter Details Date Type Department Care Team (Late st Contact Info) Description 05/29/2020 Ancillary Orders [facility],Outside Imaging [address] [place], [place] [phone] System, Provider Not In, [facility] [address] [address] Social History Tobacco Use Types Packs/Day Years [...] filedocumented in this encounter Care Teams Director Drug Safety Relationship Specialty Start Date End Date Pcp, Unknown PCP - General 05/26/20 documented as of this encounter Additional Source Comments The information contained in this document represents components of the legal health record. It is not the complete legal health record.[facility]
--- OUTSIDE RECORDS SUMMARY | 2025-02-14 16:28 | XMS_ITS | Encounter Summary ---
Author Organization [employer] Address [address] [facility] 7t [place] [address] Care Team Providers Care Checkman Name Role Phone Duane Power MD Primary Care Provide r Encounter Details Date Type Department Care Team (Late st Contact Info) Description 08/16/2022 Abstract [facility] MEDICINE [address] [place] [address] Duane Power MD [address] [place], [place] [phone] Social History Tobacco Use Types Packs/Day Years [...] on filedocumented in this encounter Care Teams Checkman Relationship Specialty Start Date End Date Duane Power MD [address] [place] [address] PCP - General Internal Medicine 12/22/20 documented as of this encounter
--- OUTSIDE RECORDS SUMMARY | 2025-02-14 16:28 | XMS_ITS | Encounter Summary ---
Author Organization [facility] Address [address] [facility] [address] [place] [phone] Phone Care Team Providers Care Emergency Medical Dispatcher Name Role Phone Pcp, Unknown Primary Care Provider Unavailabl e Encounter Details Date Type Department Care Team (Late st Contact Info) Description 05/23/2020 Ancillary Orders [facility],Outside Imaging [address] [place], [place] [phone] System, Provider [place] In, [place] [address] Social History Tobacco Use Types Packs/Day Years [...] on filedocumented in this encounter Care Teams Emergency Medical Dispatcher Relationship Specialty Start Date End Date Pcp, Unknown PCP - General 05/26/20 documented as of this encounter Additional Source Comments The information contained in this document represents components of the legal health record. It is not the complete legal health record.[facility]
--- OUTSIDE RECORDS SUMMARY | 2025-02-14 16:28 | XMS_ITS | Encounter Summary ---
Author Organization [facility] Address [address] [facility] [address] [place] [address] Phone Care Team Providers Care Middle Stitcher Name Role Phone Pcp, Unknown Primary Care Provider Unavailabl e Encounter Details Date Type Department Care Team (Late st Contact Info) Description 05/29/2020 Ancillary Orders Virtual Department [address] [place] [address] Jess Summers MD [address] [place] [phone] Breast screening Social History Tobacco Use Types [...] unspecified documented in this encounter Care Teams Middle Stitcher Relationship Specialty Start Date End Date Pcp, Unknown PCP - General 05/26/20 documented as of this encounter Additional Source Comments The information contained in this document represents components of the legal health record. It is not the complete legal health record.[facility]
--- OUTSIDE RECORDS SUMMARY | 2025-02-14 16:28 | XMS_ITS | Encounter Summary ---
Author Organization [employer] Address [address] [facility] 7t [place] [address] Care Team Providers Care 4Th Grade Teacher Name Role Phone Duane Power MD Primary Care Provide r Encounter Details Date Type Department Care Team (Late st Contact Info) Description 12/24/2024 Orders Only [facility] CHC MED & PEDS [address] [place] [address] ProviderLeona MD Social History Tobacco Use Types [...] documented as of this encounter Care Teams 4Th Grade Teacher Relationship Specialty Start Date End Date Duane Power MD [address] [place] [address] PCP - General Internal Medicine 12/22/20 documented as of this encounter
== END 2025-02-14 15:56 | disposition home or self-care (01) ==
LOC: HO.HSM 15:06
PROVIDERS: PCP Internal Medicine; Visit Provider Psychiatry & Neurology Neurology
DX: G31.84 Mild cognitive impairment of uncertain or unknown etiology (principal)
CPT/HCPCS: 99203

== ENCOUNTER → 2025-02-14 15:05 | Outpatient (BNVA) | payer OTHER, SELFPAY | PROVIDERS: PCP Internal Medicine; Visit Provider Psychiatry & Neurology Neurology | DX: G31.84 Mild cognitive impairment of uncertain or unknown etiology (principal) | CPT/HCPCS: 99202 ==

== ENCOUNTER 2025-03-28 10:21 | Outpatient (REF) | payer OTHER, SELFPAY ==
--- NOTE | 2025-03-28 11:37 | EEG_ITS ---
History: The patient is a 59-year-old female presenting with cognitive dysfunction, blurred vision, and urinary urgency/incontinence. 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 Despite efforts to recall specific information, these cognitive lapses persist. The blurred vision, which started about a decade prior, occurs without pain or headaches and can last up to an hour, predominantly affecting both eyes during periods of emotional distress. An evaluation by an canvas marker found no underlying ocular pathology. The patient occasionally experiences confusion with these visual disturbances. Medication: aspirin, atorvastatin, calcium, lisinopril, meloxicam Technical Description Photic Stimulation: completed Hyperventilation: omitted Behavioral State: pleasant State of Consciousness: awake and sleep Skull Defect: none Sedation: none Handedness: right Duration: 32 min 0sec Product Development Ecologist Comments: Last Meal: 03/28/25 9:30 am Time / date of last symptom: September 2024 Description: This is a 16 channel EEG with an EKG lead. Patient is reported awake and asleep during the tracing. Background EEG rhythm is symmetric alpha with intermittent sharply controlled theta range discharges from right hemisphere leading to generalized slowing. Photic stimulation did not produce any significant driving. Hyperventilation was not performed. Cardiac lead did not reveal any significant abnormality. 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
== END 2025-03-28 10:22 | disposition home or self-care (01) ==
LOC: HO.NEURO 10:21
PROVIDERS: PCP Internal Medicine; Visit Provider Psychiatry & Neurology Neurology
DX: G40.909 Epilepsy, unspecified, not intractable, without status epilepticus (principal)
CPT/HCPCS: 95819

== ENCOUNTER → 2025-03-28 11:37 | Outpatient (BNV) | payer OTHER, SELFPAY | PROVIDERS: PCP Internal Medicine; Visit Provider Psychiatry & Neurology Neurology | DX: R94.01 Abnormal electroencephalogram [EEG] (principal); G40.909 Epilepsy, unspecified, not intractable, without status epilepticus | CPT/HCPCS: 95819 ==